=== PATIENT | female | born 1955 | race Caucasian/White ===

== ENCOUNTER → 2019-07-03 | Outpatient (CLI) | payer SELFPAY ==
[~2019-07-03] MED LIST: ATOR40TA70 PO; CARV6.252 PO; CATHETER FLUSH 10 ML SYR IV PRN; CLOP75TA69 PO; HOLD METFORMIN - RECEIVED CONTRAST 20 ML VIAL IV SCH; IOHEXOL 350 MG/ML 100 ML (OMNIPAQUE 350) VIAL IV ONE; NS 100 ML (IVPB) BAG IV ONE; VALS80TA31 PO
--- NOTE | 2019-07-03 09:59 | Diagnostic Imaging Report ---
PROCEDURE: CT abdomen with contrast only. TECHNIQUE: Multiple contiguous axial images were obtained through the abdomen after the administration of intravenous contrast. Auto Exposure Controls were utilized during the CT exam to meet ALARA standards for radiation dose reduction. INDICATION: Vomiting, diarrhea, abdominal mass. COMPARISON: None available FINDINGS: 0.5 cm left lower lobe pulmonary nodule. The visualized lung bases are otherwise clear. The liver, spleen, and adrenal glands are unremarkable. The kidneys are unremarkable. The gallbladder is borderline distended though there is no significant inflammatory changes about the gallbladder. Extensive vascular calcifications within the abdominal aorta and its branch vessels without aneurysmal dilatation of the abdominal aorta. There is resulting moderate narrowing of the origin of the celiac artery with at least mild narrowing of the origin of the superior mesenteric artery. The pancreas is unremarkable. An irregular peripherally enhancing fluid collection is noted within the left abdomen measuring 8.0 x 6.2 x 4.9 cm. Small locule of gas is seen within this fluid collection. This fluid collection is intimately associated with the distal aspect of the transverse colon, and also slightly abuts the descending colon. Diffuse mural thickening of the colon. No evidence of bowel obstruction within the [id number]-ceju. Prominent periaortic lymph nodes are present, particularly left para-aortic lymph nodes. Scattered osseous degenerative changes without acute osseous abnormality. IMPRESSION: Prominent 8 cm peripherally enhancing focal fluid collection within the left abdomen. Findings are concerning for abscess formation given small intralocular gas. This appears to be most intimately associated with the distal aspect of the transverse colon. Therefore, this could relate to abscess formation and focal contained perforation secondary to diverticulitis. Mass lesion at this location is not excluded. Periaortic adenopathy, though nonspecific, this is favored to be reactive. A 0.5 cm left lower lobe pulmonary nodule. Indeterminate. Recommend correlation with prior imaging if available. If no prior imaging is available, then a nonemergent CT of the chest be recommended. Diffuse mural thickening of the visualized colon, likely related to colitis, from infectious or inflammatory process. Extensive vascular calcifications. There is resulting narrowing of the celiac and superior mesenteric origins as above. Called/Faxed to Jose Estrella APRN at 9:56 a.m. by hilda. Dictated by: Dictated on workstation # [id number]
== END ==
LOC: RAD 08:23
PROVIDERS: ATTEND Nurse Practitioner Family
DX: K63.89 Other specified diseases of intestine (principal); I70.8 Atherosclerosis of other arteries; R91.1 Solitary pulmonary nodule; R18.8 Other ascites; R11.10 Vomiting, unspecified; R19.7 Diarrhea, unspecified; R19.04 Left lower quadrant abdominal swelling, mass and lump
CPT/HCPCS: 74160

== ENCOUNTER → 2019-07-20 | Outpatient (CLI) | payer SELFPAY ==
[~2019-07-20] MED LIST changes: -CATHETER FLUSH 10 ML SYR IV PRN; -HOLD METFORMIN - RECEIVED CONTRAST 20 ML VIAL IV SCH; -IOHEXOL 350 MG/ML 100 ML (OMNIPAQUE 350) VIAL IV ONE; -NS 100 ML (IVPB) BAG IV ONE
--- NOTE | 2019-07-20 14:39 | Diagnostic Imaging Report ---
PROCEDURE: CT abdomen and pelvis without contrast. TECHNIQUE: Multiple contiguous axial images were obtained through the abdomen and pelvis without the use of intravenous contrast. Auto Exposure Controls were utilized during the CT exam to meet ALARA standards for radiation dose reduction. INDICATION: Left lower quadrant abscess, status post percutaneous drain placement on 07/06/2019. The study is performed for follow-up. COMPARISON: Comparison is made with conventional CT study from 07/03/[address] from 07/06/2019. FINDINGS: Tiny nodules in the posterior left lower lobe are stable. There is a very small right pleural effusion, new since prior CT. There is a percutaneous pigtail drain identified in the left lower quadrant of the abdomen. Previously noted fluid collection at this location has resolved. No residual fluid is seen. There is some residual thickening involving the descending colon just cephalad to the loop. No bowel obstruction is seen. No new fluid collection is identified. There is no free fluid identified. The liver and spleen are unremarkable. Pancreas is unremarkable. No adrenal mass is seen. No renal calculi are detected. Aorta is heavily calcified but non-aneurysmal. IMPRESSION: 1. Small right pleural effusion, new since prior CT. 2. Resolution of left lower quadrant fluid collection since prior CTs, status post pigtail percutaneous drain placement. No new abdominal or pelvic fluid collection is identified. Dictated by: Dictated on workstation # [id number]
== END ==
LOC: RAD 13:40
PROVIDERS: ATTEND Surgery
DX: K65.1 Peritoneal abscess (principal); J90 Pleural effusion, not elsewhere classified; Z98.890 Other specified postprocedural states
CPT/HCPCS: 74176

== ENCOUNTER 2019-07-28 18:36 | Inpatient (IN) | payer OTHER ==
[~2019-07-28] VITALS: Ht 149.8 cm; Wt 46.0 kg
--- NOTE | 2019-07-28 19:11 | NUR ---
no drain tube is currently present, pt has post drain removal concerns
[2019-07-28] MEDS ORDERED: NS IV 1000 ML 1,000 ML IV SCH (20:07)
--- NOTE | 2019-07-28 20:13 | ED Abdominal Pain ---
General Chief Complaint: Catheter/Drain/Tube Problems Stated Complaint: POST DRAIN TUBE CONCERNS Nursing Triage Note: had drain tube in LLQ that has been removed, now has knot at drain tube site that is painful Sepsis Screen: No Definite Risk Source of Information: Patient Exam Limitations: No Limitations History of Present Illness Date Seen by Provider: Jul 28, 2019 Time Seen by Provider: 19:58 Initial Comments Patient presents to ER by private conveyance with chief complaint that she's having some left lower quadrant abdominal wall pain and feels a knot there. About a week ago she had a drain tube removed where she had some abscesses in her left lower quadrant abdomen drained by Dr. Campbell. Appetite was soft non- painful in the last couple days to become painful. She's had no fevers she is a bonilla of. She just takes [id number]-gfp-chqszob Tylenol or ibuprofen as necessary for pain. She is having some nausea as well and has not been able take her medications. She has a heart history on Plavix, valsartan, atorvastatin. She does not know the original cause of the abscesses and nothing was found on CT scan such as diverticulitis to explain it. She did not end up needing surgery. She's not having any discharge from the skin. The scar is well-healed. No painful urination. She supposed to be on beta blockers, carvedilol but be because of the nausea and vomiting has not had any medication for the past 2 days. Allergies and Home Medications Allergies Coded Allergies: codeine (Verified Adverse Reaction, Unknown, 07/06/19) "CAUSES HALLUCINATIONS" Home Medications Atorvastatin Calcium 40 Mg Tablet, 40 MG PO DAILY, (Reported) Carvedilol 6.25 Mg Tablet, 6.25 MG PO BID, (Reported) Clopidogrel Bisulfate 75 Mg Tablet, 75 MG PO DAILY, (Reported) Valsartan 80 Mg Tablet, 80 MG PO DAILY, (Reported) Patient Home Medication List Home Medication List Reviewed: Yes Review of Systems Review of Systems Constitutional: No chills, No diaphoresis EENTM: No Blurred Vision, No Double Vision Respiratory: Denies Cough, Denies Orthopnea Cardiovascular: Denies Chest Pain, Denies Edema Gastrointestinal: See HPI; Denies Abdomen Distended; Abdominal Pain, Nausea, Poor Fluid Intake, Vomiting Genitourinary: Denies Burning, Denies Discharge Musculoskeletal: No back pain, No joint pain Skin: see HPI; No pruritus, No rash All Other Systems Reviewed Negative Unless Noted: Yes Past Geoixlu-Atqjco-Wbjifr Hx Patient Social History Alcohol Use: Denies Use Recreational Drug Use: No Smoking Status: Current Everyday Smoker Type Used: Cigarettes 2nd Hand Smoke Exposure: Yes Recent Foreign Travel: No Contact w/Someone Who Travel: No Recent Infectious Disease Expo: No Recent Hopitalizations: No Immunizations Up To Date Tetanus Booster (TDap): Unknown Seasonal Allergies Seasonal Allergies: No Past Medical History Coronary Stent, Hysterectomy, Tonsillectomy Respiratory: No Cardiac: Yes Heart Attack Neurological: No [employer] History: Hysterectomy Genitourinary: No Gastrointestinal: No Musculoskeletal: No Endocrine: No HEENT: No Cancer: No Psychosocial: No Integumentary: No Blood Disorders: No Physical Exam Vital Signs Vital Signs - First Documented 07/28/19 19:05 Temp 36.6 Pulse 133 Resp 18 B/P (MAP) 92/60 (71) Capillary Refill : Less Than 3 Seconds Height/Weight/BMI Height: '" Weight: lbs. oz. kg; 16.00 BMI Method: General Appearance: WD/WN, mild distress HEENT: PERRL/EOMI, normal ENT inspection, pharynx normal Neck: full range of motion, normal inspection Respiratory: no respiratory distress, no accessory muscle use Cardiovascular: normal peripheral pulses, regular rate, rhythm Peripheral Pulses: 2+ Radial Pulses (R), 2+ Radial Pulses (L) Gastrointestinal: normal bowel sounds, soft, no organomegaly, tenderness ([place] quadrant there is a 2 x 3 cm palpable nodule about 3 cm below the inferior costal margin in the midaxillary line. No fluctuance. Feels firm, rubbery. Well-healed scar about it) Neurologic/Psychiatric: alert, normal mood/affect, oriented x 3 Skin: normal color, warm/dry Focused Exam Lactate Level 07/28/19 19:20: Lactic Acid Level 1.07 Lactic Acid Level Laboratory Tests Test 07/28/19 19:20 Lactic Acid Level 1.07 MMOL/L (0.50-2.00) Progress/Results/Core Measures Results/Orders Lab Results Laboratory Tests Test 07/28/19 19:20 07/28/19 22:30 Range/Units White Blood Count 8.3 4.3-11.0 10^3/uL Red Blood Count 3.13 L 4.35-5.85 10^6/uL Hemoglobin 8.6 L 11.5-16.0 G/DL Hematocrit 28 L 35-52 % Mean Corpuscular Volume 89 80-99 FL Mean Corpuscular Hemoglobin 28 25-34 PG Mean Corpuscular Hemoglobin Concent 31 L 32-36 G/DL Red Cell Distribution Width 22.0 H 10.0-14.5 % Platelet Count 524 H 130-400 10^3/uL Mean Platelet Volume 9.8 7.4-10.4 FL Neutrophils (%) (Auto) 61 42-75 % Lymphocytes (%) (Auto) 27 12-44 % Monocytes (%) (Auto) 11 0-12 % Eosinophils (%) (Auto) 1 0-10 % Basophils (%) (Auto) 0 0-10 % Neutrophils # (Auto) 5.1 1.8-7.8 X 10^3 Lymphocytes # (Auto) 2.2 1.0-4.0 X 10^3 Monocytes # (Auto) 0.9 0.0-1.0 X 10^3 Eosinophils # (Auto) 0.1 0.0-0.3 10^3/uL Basophils # (Auto) 0.0 0.0-0.1 10^3/uL Prothrombin Time 13.3 12.2-14.7 SEC INR Comment 1.0 0.8-1.4 Activated Partial Thromboplast Time 35 24-35 SEC Sodium Level 138 135-145 MMOL/L Potassium Level 3.2 L 3.6-5.0 MMOL/L Chloride Level 103 98-107 MMOL/L Carbon Dioxide Level 23 21-32 MMOL/L Anion Gap 12 5-14 MMOL/L Blood Urea Nitrogen 8 7-18 MG/DL Creatinine 0.49 L 0.60-1.30 MG/DL Estimat Glomerular Filtration Rate > 60 BUN/Creatinine Ratio 16 Glucose Level 93 70-105 MG/DL Lactic Acid Level 1.07 0.50-2.00 MMOL/L Calcium Level 8.6 8.5-10.1 MG/DL Corrected Calcium 9.6 8.5-10.1 MG/DL Total Bilirubin 0.3 0.1-1.0 MG/DL Aspartate Amino Transf (AST/SGOT) 14 5-34 U/L Alanine Aminotransferase (ALT/SGPT) 8 0-55 U/L Alkaline Phosphatase 176 H 40-136 U/L Total Protein 6.2 L 6.4-8.2 GM/DL Albumin 2.8 L 3.2-4.5 GM/DL Urine Color YELLOW Urine Clarity CLEAR Urine pH 7 5-9 Urine Specific [place] 1.005 L 1.016-1.022 Urine Protein 1+ H NEGATIVE Urine Glucose (UA) NEGATIVE NEGATIVE Urine Ketones NEGATIVE NEGATIVE Urine Nitrite NEGATIVE NEGATIVE Urine Bilirubin NEGATIVE NEGATIVE Urine Urobilinogen NORMAL NORMAL MG/DL Urine Leukocyte Esterase NEGATIVE NEGATIVE Urine RBC (Auto) NEGATIVE NEGATIVE Urine RBC NONE /HPF Urine WBC 0-2 /HPF Urine Squamous Epithelial Cells 0-2 /HPF Urine Crystals NONE /LPF Urine Bacteria TRACE /HPF Urine Casts NONE /LPF Urine Mucus NEGATIVE /LPF Urine Culture Indicated CULTURE PENDING My Orders Orders - MO BOWMAN Ed Iv/Invasive Line Start (07/28/19 19:54) Cbc With Automated Diff (07/28/19 20:07) Comprehensive Metabolic Panel (07/28/19 20:07) Blood Culture (07/28/19 20:07) Urinalysis (07/28/19 20:07) Urine Culture (07/28/19 20:07) Protime With Inr (07/28/19 20:07) Partial Thromboplastin Time (07/28/19 20:07) Chest 1 View, Ap/Pa Only (07/28/19 20:07) Ed Iv/Invasive Line Start (07/28/19 20:07) Ed Iv/Invasive Line Start (07/28/19 20:07) Vital Signs Adult Sepsis Patie Q15M (07/28/19 20:07) O2 (07/28/19 20:07) Remove Rings In Anticipation O (07/28/19 20:07) Lactic Acid Analyzer (07/28/19 20:07) Ns Iv 1000 Ml (Sodium Chloride 0.9%) (07/28/19 20:07) Ceftriaxone For Iv Use (Rocephin For I (07/28/19 20:15) Metronidazole 500mg/100ml Ivpb (Flagyl 5 (07/28/19 20:15) Ct Abdomen/Pelvis W (07/28/19 20:08) Ondansetron Injection (Zofran Injectio (07/28/19 20:30) Iohexol Injection (Omnipaque 350 Mg/Ml 1 (07/28/19 21:00) Received Contrast (Hold Metformin- Contr (07/28/19 21:00) Ns (Ivpb) (Sodium Chloride 0.9% Ivpb Bag (07/28/19 21:00) Fentanyl Injection (Sublimaze Injection (07/28/19 23:15) Medications Given in ED Current Medications Medications Dose Ordered Sig/Tatum Route Start Time Stop Time Status Last Admin Dose Admin Ceftriaxone Sodium 1000 mg/ Sterile Water 10 ml @ 200 mls/hr ONCE ONCE IV 07/28/19 20:15 07/28/19 20:17 DC 07/28/19 20:29 200 MLS/HR Iohexol 100 ml ONCE ONCE IV 07/28/19 21:00 07/28/19 21:36 DC 07/28/19 21:07 100 ML Metronidazole 100 ml @ 100 mls/hr ONCE ONCE IV 07/28/19 20:15 07/28/19 21:14 DC 07/28/19 20:34 100 MLS/HR Ondansetron HCl 8 mg ONCE ONCE IVP 07/28/19 20:30 07/28/19 20:31 DC 07/28/19 20:32 8 MG Sodium Chloride 100 ml ONCE ONCE IV 07/28/19 21:00 07/28/19 21:36 DC 07/28/19 21:07 100 ML Vital Signs/I&O 07/28/19 19:05 Temp 36.6 Pulse 133 Resp 18 B/P (MAP) 92/60 (71) Blood Pressure Mean: 71 POS Progress Progress Note : Time: 20:12 Progress Note Seroma versus recurrent abscess in the abdominal wall/cavity. Plan to get a CT scan of her abdomen and pelvis. Because of her tachycardia were doing a septic workup but she is afebrile this could also be because she is off of her carvedilol. Plan to give her some nausea medicine and fluids We discussed pain management and since she drove all the way down from [place] she would prefer not to have opiates or anything that might make her have a hard time driving home unless shestaying here. She says she's comfortable enough with the pain for now. I would prefer not to give her anything orally until we rule out a surgical intervention. NSAIDs may not be a good option since she's been off of her Plavix and heart medications and she's had is a history of 2 heart attacks. Diagnostic Imaging Diagonstic Imaging: CT (with IV contrast) Plain Films/CT/US/NM/MRI: abdomen, pelvis Comments Loculated, fluid collection possible abscess versus less likely seroma noted in the left lower abdomen. NAME: ALDO YEE [facility] REC#: [id number] PT STATUS: REG ER : 1955 PHYSICIAN: MO BOWMAN MD ADMIT DATE: 07/28/19/ER Draft POSDate of Exam:07/28/19 CT ABDOMEN/PELVIS W EXAMINATION: CT Abdomen and Pelvis with intravenous contrast. TECHNIQUE: Multiple contiguous axial images were obtained through the abdomen and pelvis after the uneventful administration of intravenous contrast. All CT scans use one or more of the following dose optimizing techniques: automated exposure control, MA and/or KvP adjustment based on a patient size and exam type, or iterative reconstruction. HISTORY: Left lower quadrant pain COMPARISON: 07/20/2019 FINDINGS: Limited views of the lower thorax are unremarkable. There is a new 5 mm hypoattenuating lesion in hepatic segment IVb (series 2, image 25). This has surrounding hyperenhancement and is ill-defined on the delayed image. No other liver lesions are seen. Gallbladder is normal. No biliary ductal dilation. Portal vein is patent. Pancreas is normal. Spleen and adrenal glands are normal. Kidneys enhance symmetrically without focal lesion. No hydronephrosis. Urinary bladder is distended. The left lower quadrant gas and fluid collection which previously had a drain is now no longer being drained. There is a gas and fluid collection at this location measuring 4.5 x 3.3 cm, this is increased in size from prior CT dated 07/20/2019 but smaller than the original CT. There is extension of the process through the abdominal wall where there is an ill-defined phlegmonous area measuring approximately 12 mm in the left lower quadrant (series 2, image 37). This is not a well-developed fluid collection at this time but is likely developing into an abscess. The collection is intimately associated with the proximal splenic flexure of the colon and there is a fistulous tract extending from this portion of the colon into the collection and then into the abdominal wall concerning for a colocutaneous fistula. The upstream colon is dilated and thick-walled concerning for partial obstruction from the inflammatory process. Remaining bowel appears normal. No free air is seen. The abdominal aorta is severely atherosclerotic without aneurysm. There are no suspicious osseous lesions. IMPRESSION: 1. Reaccumulation of fluid in the left lower quadrant abscess. There appears to be a fistulous connection to the distal transverse colon through the abdominal wall to the skin concerning for a colocutaneous fistula. While this may represent focal perforation of the colon from an inflammatory process, the degree of soft tissue thickening is concerning for a perforated colon tumor. 2. New ill-defined hypoattenuating lesion in hepatic segment V measuring 5 mm which is favored to represent hepatic abscess. Dictated on workstation # [id number] Dict: 07/28/192141 Trans: 07/28/192205 RITO [id number] Interpreted by: NATHAN BELL MD Electronically signed by: Reviewed: Reviewed by Me Diagonstic Imaging: Xray Plain Films/CT/US/NM/MRI: chest (1v) Comments No acute cardiopulmonary process noted on one view chest x-ray. NAME: ALDO YEE [facility] REC#: [id number] PT STATUS: REG ER : 1955 PHYSICIAN: MO BOWMAN MD ADMIT DATE: 07/28/19/ER Draft POSDate of Exam:07/28/19 CHEST 1 VIEW, AP/PA ONLY EXAMINATION: Chest 1 view HISTORY: Tube removal FINDINGS: No comparison available. Lungs are hyperexpanded. No pleural effusion or pneumothorax. No edema or pneumonia. Heart size is normal. IMPRESSION: 1. Hyperexpanded but clear lungs. Dictated on workstation # [id number] Dict: 07/28/192111 Trans: 07/28/192118 RITO [id number] Interpreted by: NATHAN BELL MD Electronically signed by: Reviewed: Reviewed by Me Departure Communication (Admissions) Time/Spoke to Admitting Phy: 23:15 Dr. Freeman: Discussed case lab imaging findings and she would like the patient on stepdown. She is okay with antibiotics and recommendations from surgery. Time/Spoke to Consulting Phy: 23:00 Dr. Campbell: Richard Grimm, NPO. Medical consult. Impression Primary Impression: Colonic fistula Additional Impression: Abdominal abscess Disposition: ADMITTED INPATIENT Condition: Stable Admissions Decision to Admit Reason: Admit from ER (General) Decision to Admit/Date: Jul 28, 2019 Time/Decision to Admit Time: 22:50 Departure-Patient Inst. Referrals: [facility] (PCP) Primary Care Physician HUY NASCIMENTO APRN (Family) Primary Care Physician OM BOWMAN Jul 28, 2019 20:13 POS
[2019-07-28 20:14] LABS: BASOPHILS % (AUTO) 0 % (0-10); EOSINOPHILS # (AUTO) 0.1 10^3/uL (0.0-0.3); EOSINOPHILS % (AUTO) 1 % (0-10); HEMATOCRIT 28 % (35-52); HEMOGLOBIN 8.6 G/DL (11.5-16.0); LYMPHOCYTES # (AUTO) 2.2 X 10^3 (1.0-4.0); LYMPHOCYTES % (AUTO) 27 % (12-44); MEAN CORPUSCULAR HEMOGLOBIN 28 PG (25-34); MEAN CORPUSCULAR HGB CONC 31 G/DL (32-36); MEAN CORPUSCULAR VOLUME 89 FL (80-99); MEAN PLATELET VOLUME 9.8 FL (7.4-10.4); MONOCYTES # (AUTO) 0.9 X 10^3 (0.0-1.0); MONOCYTES % (AUTO) 11 % (0-12); NEUTROPHILS # (AUTO) 5.1 X 10^3 (1.8-7.8); NEUTROPHILS % (AUTO) 61 % (42-75); PLATELET COUNT 524 10^3/uL (130-400); WHITE BLOOD COUNT 8.3 10^3/uL (4.3-11.0)
[2019-07-28] MEDS ORDERED: metroNIDAZOLE 500MG/100ML IVPB 100 ML IV ONE (20:15)
[2019-07-28] MEDS ORDERED: cefTRIAXone FOR IV USE 1,000 MG in WATER (STERILE) FOR INJECTION 10 ML IV ONE (20:15)
[2019-07-28 20:26] LABS: PROTHROMBIN TIME PATIENT 13.3 SEC (12.2-14.7)
[2019-07-28 20:27] LABS: ALANINE AMINOTRANSFERASE 8 U/L (0-55); ALBUMIN 2.8 GM/DL (3.2-4.5); ALKALINE PHOSPHATASE 176 U/L (40-136); BILIRUBIN,TOTAL 0.3 MG/DL (0.1-1.0); BUN/CREATININE RATIO 16; CALCIUM 8.6 MG/DL (8.5-10.1); CARBON DIOXIDE 23 MMOL/L (21-32); CHLORIDE 103 MMOL/L (98-107); CREATININE SERUM 0.49 MG/DL (0.60-1.30); GFR ESTIMATED > 60; GLUCOSE 93 MG/DL (70-105); POTASSIUM 3.2 MMOL/L (3.6-5.0); SODIUM 138 MMOL/L (135-145); TOTAL PROTEIN 6.2 GM/DL (6.4-8.2)
[2019-07-28] MEDS ORDERED: ONDANSETRON 4 MG/2 ML (SDV) Z0FRAN IVP ONE (20:30)
[2019-07-28] MEDS ORDERED: HOLD METFORMIN - RECEIVED CONTRAST 20 ML VIAL IV SCH (21:00)
[2019-07-28] MEDS ORDERED: NS 100 ML (IVPB) BAG IV ONE (21:00)
[2019-07-28] MEDS ORDERED: IOHEXOL 350 MG/ML 100 ML (OMNIPAQUE 350) VIAL IV ONE (21:00)
--- NOTE | 2019-07-28 21:20 | Diagnostic Imaging Report ---
EXAMINATION: Chest 1 view HISTORY: Tube removal FINDINGS: No comparison available. Lungs are hyperexpanded. No pleural effusion or pneumothorax. No edema or pneumonia. Heart size is normal. IMPRESSION: 1. Hyperexpanded but clear lungs. Dictated by: Dictated on workstation # [id number]
--- NOTE | 2019-07-28 22:06 | Diagnostic Imaging Report ---
EXAMINATION: CT Abdomen and Pelvis with intravenous contrast. TECHNIQUE: Multiple contiguous axial images were obtained through the abdomen and pelvis after the uneventful administration of intravenous contrast. All CT scans use one or more of the following dose optimizing techniques: automated exposure control, MA and/or KvP adjustment based on a patient size and exam type, or iterative reconstruction. HISTORY: Left lower quadrant pain COMPARISON: 07/20/2019 FINDINGS: Limited views of the lower thorax are unremarkable. There is a new 5 mm hypoattenuating lesion in hepatic segment IVb (series 2, image 25). This has surrounding hyperenhancement and is ill-defined on the delayed image. No other liver lesions are seen. Gallbladder is normal. No biliary ductal dilation. Portal vein is patent. Pancreas is normal. Spleen and adrenal glands are normal. Kidneys enhance symmetrically without focal lesion. No hydronephrosis. Urinary bladder is distended. The left lower quadrant gas and fluid collection which previously had a drain is now no longer being drained. There is a gas and fluid collection at this location measuring 4.5 x 3.3 cm, this is increased in size from prior CT dated 07/20/2019 but smaller than the original CT. There is extension of the process through the abdominal wall where there is an ill-defined phlegmonous area measuring approximately 12 mm in the left lower quadrant (series 2, image 37). This is not a well-developed fluid collection at this time but is likely developing into an abscess. The collection is intimately associated with the proximal splenic flexure of the colon and there is a fistulous tract extending from this portion of the colon into the collection and then into the abdominal wall concerning for a colocutaneous fistula. The upstream colon is dilated and thick-walled concerning for partial obstruction from the inflammatory process. Remaining bowel appears normal. No free air is seen. The abdominal aorta is severely atherosclerotic without aneurysm. There are no suspicious osseous lesions. IMPRESSION: 1. Reaccumulation of fluid in the left lower quadrant abscess. There appears to be a fistulous connection to the distal transverse colon through the abdominal wall to the skin concerning for a colocutaneous fistula. While this may represent focal perforation of the colon from an inflammatory process, the degree of soft tissue thickening is concerning for a perforated colon tumor. 2. New ill-defined hypoattenuating lesion in hepatic segment V measuring 5 mm which is favored to represent hepatic abscess. Dictated by: Dictated on workstation # [id number]
[2019-07-28 22:36] LABS: BILIRUBIN,URINE NEGATIVE (NEGATIVE); CLARITY,URINE CLEAR; COLOR,URINE YELLOW; GLUCOSE, URINE (UA) NEGATIVE (NEGATIVE); KETONES,URINE NEGATIVE (NEGATIVE); LEUKOCYTE ESTERASE ,URINE NEGATIVE (NEGATIVE); NITRITE,URINE NEGATIVE (NEGATIVE); PH,URINE 7 (5-9); PROTEIN,URINE 1+ (NEGATIVE)
[2019-07-28 22:43] LABS: BACTERIA,URINE TRACE /HPF; WBC,URINE 0-2 /HPF
[2019-07-28 22:44] LABS: SQUAMOUS EPITHELIAL CELL,UR 0-2 /HPF
[2019-07-28] MEDS ORDERED: fentaNYL INJECTION 100 MCG/2 ML AMP IVP ONE (23:15)
[2019-07-28] MEDS ORDERED: VARE1TAB22 PO (23:30)
[2019-07-29] VITALS (8 sets, daily range): BP systolic 92–147; BP diastolic 43–87
[2019-07-29] MEDS ORDERED: LACTATED RINGERS 1,000 ML IV ONE (00:30)
[2019-07-29] MEDS: fentaNYL INJECTION 100 MCG/2 ML AMP IV PRN ×7 (01:00→22:10)
[2019-07-29] MEDS ORDERED: ACETAMINOPHEN 650 MG SUPP (TYLENOL) PR PRN (02:00)
[2019-07-29 03:49] LABS: BASOPHILS % (AUTO) 0 % (0-10); EOSINOPHILS # (AUTO) 0.1 10^3/uL (0.0-0.3); EOSINOPHILS % (AUTO) 1 % (0-10); HEMATOCRIT 26 % (35-52); HEMOGLOBIN 7.9 G/DL (11.5-16.0); LYMPHOCYTES # (AUTO) 1.6 X 10^3 (1.0-4.0); LYMPHOCYTES % (AUTO) 22 % (12-44); MEAN CORPUSCULAR HEMOGLOBIN 27 PG (25-34); MEAN CORPUSCULAR HGB CONC 31 G/DL (32-36); MEAN CORPUSCULAR VOLUME 89 FL (80-99); MEAN PLATELET VOLUME 9.6 FL (7.4-10.4); MONOCYTES # (AUTO) 0.8 X 10^3 (0.0-1.0); MONOCYTES % (AUTO) 10 % (0-12); NEUTROPHILS % (AUTO) 67 % (42-75); PLATELET COUNT 449 10^3/uL (130-400); RED CELL DISTRIBUTION WIDTH 21.8 % (10.0-14.5); WHITE BLOOD COUNT 7.6 10^3/uL (4.3-11.0)
[2019-07-29 04:15] LABS: ALANINE AMINOTRANSFERASE 6 U/L (0-55); ALBUMIN 2.4 GM/DL (3.2-4.5); ALKALINE PHOSPHATASE 145 U/L (40-136); BILIRUBIN,TOTAL 0.3 MG/DL (0.1-1.0); BUN/CREATININE RATIO 14; CALCIUM 7.8 MG/DL (8.5-10.1); CARBON DIOXIDE 21 MMOL/L (21-32); CHLORIDE 106 MMOL/L (98-107); CREATININE SERUM 0.44 MG/DL (0.60-1.30); GFR ESTIMATED > 60; GLUCOSE 78 MG/DL (70-105); POTASSIUM 3.4 MMOL/L (3.6-5.0); SODIUM 138 MMOL/L (135-145); TOTAL PROTEIN 5.3 GM/DL (6.4-8.2)
[2019-07-29 04:53] LABS: MAGNESIUM 1.5 MG/DL (1.6-2.4); PHOSPHORUS 3.1 MG/DL (2.3-4.7)
--- NOTE | 2019-07-29 05:36 | Pulmonary Consultation ---
History of Present Illness History of Present Illness Date of Consultation 07/29/19 05:32 Time Seen by Provider: 09:01 Date of Admission History of Present Illness 64yo with hx of recent LLQ abscess drainage presented to ED secondary to worsening LLQ severe pain. PT also had N/V with abdominal pain. Pt does have a hx of diverticulosis. No hematochezia, or diarrhea. Plan is for surgery. I am consulted for ICU management. Allergies and Home Medications Allergies Coded Allergies: codeine (Verified Adverse Reaction, Unknown, 07/06/19) "CAUSES HALLUCINATIONS" Home Medications Aspirin 81 Mg Tablet.dr, 81 MG PO DAILY, (Reported) Atorvastatin Calcium 40 Mg Tablet, 40 MG PO HS, (Reported) LAST FILLED #30 06-11-19 Carvedilol 6.25 Mg Tablet, 6.25 MG PO BID, (Reported) LAST FILLED #60 06-11-19 Clopidogrel Bisulfate 75 Mg Tablet, 75 MG PO DAILY, (Reported) LAST FILLED #30 06-11-19 Losartan Potassium 50 Mg Tablet, 50 MG PO HS, (Reported) LAST FILLED #30 06-11-19 Multivitamin 1 Each Tablet, 1 TAB PO DAILY, (Reported) Past Yoizfzc-Bzmqms-Ufeaqc Hx Patient Social History Alcohol Use: Denies Use Recreational Drug Use: No Smoking Status: Current Everyday Smoker Type Used: Cigarettes 2nd Hand Smoke Exposure: Yes Recent Foreign Travel: No Contact w/Someone Who Travel: No Recent Infectious Disease Expo: No Recent Hopitalizations: No Immunizations Up To Date Tetanus Booster (TDap): Unknown Seasonal Allergies Seasonal Allergies: No Past Medical History Coronary Stent, Hysterectomy, Tonsillectomy Respiratory: No Cardiac: Yes Heart Attack 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 Genitourinary: No Gastrointestinal: No Musculoskeletal: No Endocrine: No HEENT: No Cancer: No Psychosocial: No Integumentary: No Blood Disorders: No Review of Systems Time Seen by Provider: 09:04 Constitutional: Chills, Sweats, Weakness, Malaise; No: Fever, Other Eyes: No: Pain, Vision change, Conjunctivae inflammation, Eyelid inflammation, Other, Redness ENT: No: Ear pain, Ear discharge, Nose pain, Nose discharge, Nose congestion, Mouth pain, Mouth swelling, Throat pain, Throat swelling, Other Respiratory: No: Cough, Dry, Shortness of breath, SOB with excertion, Wheezing, Hemoptysis, Pleuritic Pain, Sputum, Wheezing, Other Cardiovascular: No: Chest Pain, Palpitations, Orthopnea, Paroxysmal Noc. Dyspnea, Edema, Lt Headedness, Other Gastrointestinal: Nausea, Vomiting, Abdominal Pain, Constipation; No: Diarrhea, Melena, Hematochezia Genitourinary: No Dysuria, No Frequency, No Incontinence, No Hematuria, No Retention, No Other Musculoskeletal: back pain; No: other, neck pain, shoulder pain, arm pain, hand pain, leg pain, foot pain Skin: No: Rash, Lesions, Jaundice, Bruising, Other Sepsis Event Evaluation Height, Weight, BMI Height: '" Weight: lbs. oz. kg; 16.80 BMI Method: Exam Exam Vital Signs Date Time Temp Pulse Resp B/P (MAP) Pulse Ox O2 Delivery O2 Flow Rate FiO2 07/29/19 04:00 92 Room Air 07/29/19 01:11 37.2 110 10 147/87 95 Room Air 07/29/19 01:03 95 Room Air 07/29/19 01:00 112 07/29/19 00:09 107 147/87 (107) 96 Room Air 07/29/19 00:02 36.6 72 18 115/84 99 Room Air 07/28/19 19:05 36.6 133 18 92/60 (71) I & O 07/29/19 07:00 Intake Total 1110 ml Balance 1110 ml Height & Weight Height: '" Weight: lbs. oz. kg; 16.80 BMI Method: General Appearance: Anxious HEENT: PERRL/EOMI, Pharynx Normal Neck: Full Range of Motion, Non Tender, Supple Respiratory: Lungs Clear, No Accessory Muscle Use, No Respiratory Distress, Decreased Breath Sounds Cardiovascular: Regular Rate, Rhythm, No Edema Capillary Refill: Less Than 3 Seconds Peripheral Pulses: 2+ Radial Pulses (R), 2+ Radial Pulses (L) Gastrointestinal: normal bowel sounds, soft, no organomegaly, tenderness (Kristofer quadrant there is a 2 x 3 cm palpable nodule about 3 cm below the inferior costal margin in the midaxillary line. No fluctuance. Feels firm, rubbery. Well-healed scar about it) Extremity: Normal Capillary Refill, No Pedal Edema Neurologic/Psychiatric: Alert, Oriented x3 Skin: Normal Color, Warm/Dry Lymphatic: No Adenopathy Results Lab Laboratory Tests 07/28/19 19:20 07/29/19 02:55 Assessment/Plan Assessment/Plan Abdominal abscess s/p drainage 2 wks ago Colonic fistula - Surgery consulted Tobacco use -Education ENDY MOLINA DO Jul 29, 2019 05:36 POS
[2019-07-29] MEDS: MAGNESIUM 1 GM/100 ML IVPB 100 ML IV SCH ×4 (05:51→08:07)
[2019-07-29] MEDS: POTASSIUM CL 10MEQ/50ML IVPB 50 ML IV SCH ×7 (05:51→10:19)
[2019-07-29] MEDS: KCL 20 MEQ TAB (K-DUR) PO SCH (05:52)
[2019-07-29] MEDS: metroNIDAZOLE 500 MG/100 ML IVPB (PRE-MIX) IV SCH ×3 (05:56→22:09)
[2019-07-29] MEDS ORDERED: FLU QUADRIvalent (5+ YOA) 2019-2020 (AFLURIA) 0.5 ML IM ONE (07:15)
[2019-07-29] MEDS: LACTATED RINGERS 1,000 ML IV SCH ×2 (09:44→14:42)
[2019-07-29] MEDS ORDERED: ASPI-983 PO (09:51)
[2019-07-29] MEDS ORDERED: MULT1TAB69 PO (09:51)
[2019-07-29] MEDS ORDERED: LOSA50TA63 PO (09:56)
--- NOTE | 2019-07-29 09:57 | NUR ---
SPOKE WITH THE PATIENT ABOUT HER MEDICATIONS. SHE HAD A LIST WITH HER HOWEVER IT WAS FROM 2016, SHE STATES SHE NO LONGER TAKING THE CHANTIX THAT IS ON THAT LIST AND HER VALSARTAN HAS BEEN CHANGED TO A DIFFERENT BLOOD PRESSURE MEDICATION. SHE WAS USING [facility] BEFORE THEY CLOSED AND TRANSFERRED THEIR RECORDS TO [facility] IN [place]. SHE [facility], SHE PLANS TO CHANGE TO [facility]. I CALLED [facility] TO GET A LIST OF MEDICATIONS THAT WERE LAST FILLED AT [facility]. [facility] FILLED: 06-11-19 LIPITOR 40MG #30 06-11-19 LOSARTAN 50MG #30 (STATES SHE TAKES AT HS) 06-11-19 PLAVIX 75MG #30 06-11-19 COREG 6.25MG #60 SHE STATES SHE HAS NOT FELT WELL FOR THE PAST FEW WEEKS AND HAS BEEN UNABLE TO KEEP MEDICATIONS DOWN AND THIS IS WHY SHE IS PAST DUE FOR REFILLS. SHE ADMITS SHE HAS NOT BEEN TAKING THEM REGULARLY RECENTLY. SHE TAKES ASPIRIN 81MG AND A MTV DAILY OTC.
[2019-07-29] MEDS ORDERED: GOLYTELY POWDER 4000 ML BTL PO ONE (11:30)
--- NOTE | 2019-07-29 12:01 | History & Physical-Hospitalist ---
History of Present Illness HPI/Chief Complaint CC: Abdominal Abscess HPI: This is a 64yoWF who has a PMH of a drain diversion by Dr. Campbell recently that presents with a mass of the left lower quadrant was found to have drainage and and evidenceof a colonic fistula and abscess on CT scan so Dr. Campbell has been consulted and he will perform colonoscopy and further evaluation of the fistula. She has been placed on broad spectrum antibiotics and she remains stable. Source: patient Exam Limitations: no limitations Date Seen 07/29/19 Time Seen by a Provider: 10:00 Attending Physician Lorraine Freeman DO [facility] [place],[facility] Referring Physician Date of Admission Jul 28, 2019 at 23:10 Home Medications & Allergies Home Medications Reviewed patient Home Medication Reconciliation performed by pharmacy medication reconciliations solar installer technician and/or nursing. Patients Allergies have been reviewed. Allergies Allergies Coded Allergies codeine (Verified Adverse Reaction, Unknown, 07/06/19) "CAUSES HALLUCINATIONS" Past Vafppsn-Aonvhj-Yigqgl Hx Past Med/Social Hx: Reviewed Nursing Past Med/Soc Hx, Reviewed and Corrections made Patient Social History Alcohol Use: Denies Use Recreational Drug Use: No Smoking Status: Current Everyday Smoker Type Used: Cigarettes 2nd Hand Smoke Exposure: Yes Recent Foreign Travel: No Contact w/other who traveled: No Recent Hopitalizations: No Recent Infectious Disease Expo: No Immunizations Up To Date Tetanus Booster (TDap): Unknown Seasonal Allergies Seasonal Allergies: No Past Medical History Surgeries: Coronary Stent, Hysterectomy, Tonsillectomy Cardiac: Heart Attack Hysterectomy History of Blood Disorders: No Review of Systems Constitutional: see HPI, malaise, weakness Skin: see HPI Physical Exam Physical Exam Vital Signs Vital Signs - First Documented 07/28/19 07/29/19 19:05 00:02 Temp 36.6 Pulse 133 Resp 18 B/P (MAP) 92/60 (71) Pulse Ox 99 O2 Delivery Room Air Capillary Refill : Less Than 3 Seconds Height, Weight, BMI Height: '" Weight: lbs. oz. kg; 16.80 BMI Method: General Appearance: No Apparent Distress, Chronically ill, Thin Eyes: Right Eye Normal Inspection, Right Eye PERRL HEENT: PERRL/EOMI, Normal ENT Inspection, Pharynx Normal, Moist Mucous Membranes Neck: Full Range of Motion, Normal Inspection, Non Tender Respiratory: Chest Non Tender, Lungs Clear, Normal Breath Sounds, No Accessory Muscle Use, No Respiratory Distress Cardiovascular: Regular Rate, Rhythm, No Edema, No Gallop, No JVD, No Murmur, Normal Peripheral Pulses Gastrointestinal: Normal Bowel Sounds, No Organomegaly, No Pulsatile Mass, Soft, Tenderness, Other (mass left lower quadrant SQ) Back: Normal Inspection, No CVA Tenderness, No Vertebral Tenderness Extremity: Normal Capillary Refill, Normal Inspection, Normal Range of Motion, Non Tender, No Calf Tenderness, No Pedal Edema Neurologic/Psychiatric: Alert, Oriented x3, No Motor/Sensory Deficits, Normal Mood/Affect Skin: Normal Color, Warm/Dry Lymphatic: No Adenopathy Results Results/Procedures Labs Laboratory Tests 07/28/19 19:20 07/29/19 02:55 07/30/19 03:20 Patient resulted labs reviewed. Assessment/Plan Admission Diagnosis Assessment: Abdominal wall abscess Fistula? Smoker Plan: IV abx Dr Campbell consultation Admission Status: Inpatient Order (span 2 midnights) Reason for Inpatient Admission: Abd abscess Diagnosis/Problems Diagnosis/Problems (1) Abdominal abscess Status: Acute (2) Colonic fistula Status: Acute LORRAINE FREEMAN DO Jul 29, 2019 12:01 POS
--- NOTE | 2019-07-29 12:16 | Consultation - Surgery ---
ISIS JACKSON,MED STUDENT 07/29/19 1216: History of Present Illness History of Present Illness Patient Consulted On(regino/time) 07/29/19 12:09 Date Seen by Provider: Jul 29, 2019 Time Seen by Provider: 06:55 History of Present Illness Ms. Pathak is a 64yo female who presented to the ED c/o LLQ abdominal pain that started Saturday night. She had an abscess in this area that was drained and a drainage tube was placed. This drainage tube was removed last week. She says the pain began gradually and was a 5/10 Saturday night, and had progressed to a 10/10 at ED presentation. She describes the pain as a sharp pain that comes and goes, is not associated with meals, and radiates toward the midline. Shifting herself and repositioning helps the pain somewhat. She also reports vomiting once Saturday night and once yesterday around noon, which did not contain blood. She reports having smaller than normal BM's, but denies diarrhea or blood in the stool. Allergies and Home Medications Allergies Coded Allergies: codeine (Verified Adverse Reaction, Unknown, 07/06/19) "CAUSES HALLUCINATIONS" Home Medications Aspirin 81 Mg Tablet.dr, 81 MG PO DAILY, (Reported) Atorvastatin Calcium 40 Mg Tablet, 40 MG PO HS, (Reported) LAST FILLED #30 06-11-19 Carvedilol 6.25 Mg Tablet, 6.25 MG PO BID, (Reported) LAST FILLED #60 06-11-19 Clopidogrel Bisulfate 75 Mg Tablet, 75 MG PO DAILY, (Reported) LAST FILLED #30 06-11-19 Losartan Potassium 50 Mg Tablet, 50 MG PO HS, (Reported) LAST FILLED #30 06-11-19 Multivitamin 1 Each Tablet, 1 TAB PO DAILY, (Reported) Past Irgswgx-Cquidm-Kkdlvt Hx Patient Social History Alcohol Use: Denies Use Recreational Drug Use: No Smoking Status: Current Everyday Smoker Type Used: Cigarettes (0.75 packs/day) 2nd Hand Smoke Exposure: Yes Recent Foreign Travel: No Contact w/Someone Who Travel: No Recent Infectious Disease Expo: No Recent Hopitalizations: No Immunizations Up To Date Tetanus Booster (TDap): Unknown Seasonal Allergies Seasonal Allergies: No Surgeries Surgeries: Coronary Stent, Hysterectomy, Tonsillectomy Respiratory History of Respiratory Disorde: No Cardiovascular History of Cardiac Disorders: Yes Cardiac Disorders: Heart Attack, High Cholesterol, Hypertension Neurological History of Neurological Disord: No 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 Genitourinary History of Genitourinary Disor: No Gastrointestinal History of Gastrointestinal Di: No Musculoskeletal History of Musculoskeletal Dis: No Endocrine History of Endocrine Disorders: No HEENT History of HEENT Disorders: No Cancer History of Cancer: No Psychosocial History of Psychiatric Problem: No Integumentary History of Skin or Integumenta: No Blood Transfusions History of Blood Disorders: No Family Medical History Significant Family History: Heart Disease (Father, two brothers), Diabetes (Grandmother) Review of Systems-General Constitutional: No chills, No diaphoresis, No fever; weight loss EENTM: No hearing loss, No blurred vision, No double vision, No vision loss Respiratory: No hemoptysis, No short of breath Cardiovascular: No chest pain, No edema, No palpitations Gastrointestinal: LLQ (Pain, worse with palpation); No diarrhea, No hematemesis, No melena; vomiting Genitourinary: No dysuria, No frequency, No hematuria, No pain Psychiatric/Neurological: Denies Numbness, Denies Tingling, Denies Weakness Physical Exam-General Problems Physical Exam Vital Signs Vital Signs - First Documented 07/28/19 07/29/19 19:05 00:02 Temp 36.6 Pulse 133 Resp 18 B/P (MAP) 92/60 (71) Pulse Ox 99 O2 Delivery Room Air Capillary Refill : Less Than 3 Seconds General Appearance: WD/WN, mild distress Eyes: Bilateral Eye PERRL, Bilateral Eye EOMI HEENT: PERRL/EOMI, pharynx normal; No scleral icterus (R), No scleral icterus (L), No pharyngeal erythema Respiratory: chest non-tender, normal breath sounds, no respiratory distress, no accessory muscle use; No crackles, No rales, No rhonchi Cardiovascular: regular rate, rhythm, no edema, no murmur Peripheral Pulses: 2+ Dorsalis Pedis (R), 2+ Left Dors-Pedis (L), 2+ Radial Pulses (R), 2+ Radial Pulses (L) Gastrointestinal: normal bowel sounds, soft; No distended; tenderness (LLQ) Extremities: non-tender, no pedal edema, no calf tenderness Neurologic/Psychiatric: 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, alert, normal mood/affect, oriented x 3 Skin: normal color, warm/dry; No diaphoresis Data Review Labs Laboratory Tests 07/28/19 19:20: White Blood Count 8.3, Red Blood Count 3.13L, Hemoglobin 8.6L, Hematocrit 28L, Mean Corpuscular Volume 89, Mean Corpuscular Hemoglobin 28, Mean Corpuscular Hemoglobin Concent 31L, Red Cell Distribution Width 22.0H, Platelet Count 524H, Mean Platelet Volume 9.8, Neutrophils (%) (Auto) 61, Lymphocytes (%) (Auto) 27, Monocytes (%) (Auto) 11, Eosinophils (%) (Auto) 1, Basophils (%) (Auto) 0, Neutrophils # (Auto) 5.1, Lymphocytes # (Auto) 2.2, Monocytes # (Auto) 0.9, Eosinophils # (Auto) 0.1, Basophils # (Auto) 0.0, Prothrombin Time 13.3, INR Comment 1.0, Activated Partial Thromboplast Time 35, Sodium Level 138, Potassium Level 3.2L, Chloride Level 103, Carbon Dioxide Level 23, Anion Gap 12, Blood Urea Nitrogen 8, Creatinine 0.49L, Estimat Glomerular Filtration Rate > 60, BUN/Creatinine Ratio 16, Glucose Level 93, Lactic Acid Level 1.07, Calcium Level 8.6, Corrected Calcium 9.6, Total Bilirubin 0.3, Aspartate Amino Transf (AST/SGOT) 14, Alanine Aminotransferase (ALT/SGPT) 8, Alkaline Phosphatase 176H, Total Protein 6.2L, Albumin 2.8L 07/28/19 22:30: Urine Color YELLOW, Urine Clarity CLEAR, Urine pH 7, Urine Specific [place] 1.005L, Urine Protein 1+H, Urine Glucose (UA) NEGATIVE, Urine Ketones NEGATIVE, Urine Nitrite NEGATIVE, Urine Bilirubin NEGATIVE, Urine Urobilinogen NORMAL, Urine Leukocyte Esterase NEGATIVE, Urine RBC (Auto) NEGATIVE, Urine RBC NONE, Urine WBC 0-2, Urine Squamous Epithelial Cells 0-2, Urine Crystals NONE, Urine Bacteria TRACE, Urine Casts NONE, Urine Mucus NEGATIVE, Urine Culture Indicated CULTURE PENDING 07/29/19 02:55: White Blood Count 7.6, Red Blood Count 2.88L, Hemoglobin 7.9L, Hematocrit 26L, Mean Corpuscular Volume 89, Mean Corpuscular Hemoglobin 27, Mean Corpuscular Hemoglobin Concent 31L, Red Cell Distribution Width 21.8H, Platelet Count 449H, Mean Platelet Volume 9.6, Neutrophils (%) (Auto) 67, Lymphocytes (%) (Auto) 22, Monocytes (%) (Auto) 10, Eosinophils (%) (Auto) 1, Basophils (%) (Auto) 0, Neutrophils # (Auto) 5.0, Lymphocytes # (Auto) 1.6, Monocytes # (Auto) 0.8, Eosinophils # (Auto) 0.1, Basophils # (Auto) 0.0, Sodium Level 138, Potassium Level 3.4L, Chloride Level 106, Carbon Dioxide Level 21, Anion Gap 11, Blood Urea Nitrogen 6L, Creatinine 0.44L, Estimat Glomerular Filtration Rate > 60, BUN/Creatinine Ratio 14, Glucose Level 78, Calcium Level 7.8L, Corrected Calcium 9.1, Total Bilirubin 0.3, Aspartate Amino Transf (AST/SGOT) 15, Alanine Aminotransferase (ALT/SGPT) 6, Alkaline Phosphatase 145H, Total Protein 5.3L, Albumin 2.4L, Phosphorus Level 3.1, Magnesium Level 1.5L Assessment/Plan Assessment/Plan Assessment/Plan Abdominal wall abscess Seroma Colocutaneous fistula Exploratory laparotomy Possible colon resection Possible colostomy Clear liquid diet today Start bowel prep Risks and benefits of procedure were discussed with the patient, and she expressed her understanding and gave consent. JULIANNE MENDOZA DO 07/29/192133: History of Present Illness History of Present Illness History of Present Illness 64 year old female with significant weight loss and recent abscess which had IR drain placed. Had resolution of that fluid collection and was planning colonoscopy in short term follow up. Patient states that last night she began having sharp pain in the left side of the abdomen and began having the swelling like she did before. She states she will have 10/10 pain at times but currently improved with pain medications. Patient states that nothing really makes the pain worse, but moving in different positions will help improve. Some nausea and soem emesis. Passing flatus and some smaller bowel movements. Ct scan shows questionable liver abscess and abscess left side of abdomen as before and findings suspicious for colonic mass that has perforated. Allergies and Home Medications Allergies Coded Allergies: codeine (Verified Adverse Reaction, Unknown, 07/06/19) "CAUSES HALLUCINATIONS" Home Medications Aspirin 81 Mg Tablet.dr, 81 MG PO DAILY, (Reported) Atorvastatin Calcium 40 Mg Tablet, 40 MG PO HS, (Reported) LAST FILLED #30 06-11-19 Carvedilol 6.25 Mg Tablet, 6.25 MG PO BID, (Reported) LAST FILLED #60 06-11-19 Clopidogrel Bisulfate 75 Mg Tablet, 75 MG PO DAILY, (Reported) LAST FILLED #30 06-11-19 Losartan Potassium 50 Mg Tablet, 50 MG PO HS, (Reported) LAST FILLED #30 06-11-19 Multivitamin 1 Each Tablet, 1 TAB PO DAILY, (Reported) Patient Home Medication List Home Medication List Reviewed: Yes Past Pievavq-Xhsqeo-Ctxvut Hx Patient Social History Type Used: Cigarettes (0.75 packs/day) Surgeries Surgeries: Coronary Stent, Hysterectomy Cardiovascular Cardiac Disorders: Heart Attack, High Cholesterol, Hypertension 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 Review of Systems-General Constitutional: weight loss Respiratory: no symptoms reported Cardiovascular: no symptoms reported Gastrointestinal: LLQ (Pain, worse with palpation), see HPI, vomiting Genitourinary: no symptoms reported Musculoskeletal: no symptoms reported Skin: no symptoms reported Psychiatric/Neurological: No Symptoms Reported Physical Exam-General Problems Physical Exam General Appearance: WD/WN, mild distress HEENT: PERRL/EOMI Neck: non-tender, supple Respiratory: chest non-tender, no respiratory distress, no accessory muscle use Cardiovascular: regular rate, rhythm Gastrointestinal: soft, tenderness (LLQ) Rectal: deferred Back: no CVA tenderness Extremities: non-tender, no pedal edema, no calf tenderness Neurologic/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: 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, alert, normal mood/affect, oriented x 3 Skin: normal color, warm/dry Lymphatic: no adenopathy Assessment/Plan Assessment/Plan Assessment/Plan intraabdominal recurrent abscess suspect perforation of colonic mass liver abscess llq abdominal pain weight loss patient with recurrence of intraabdominal abscess outpatient was planning colonoscopy, but now with recurrence we discussed options we reviewed ct scan that i feel abscess is related to perforated colonic mass and feel the best option is to do exploratory laparotomy all other indicated procedures possibly may need colon resection possible colostomy or ileostomy. Patient understands all risks and benefits and wishes to proceed. Will do go-lytely for prep. All questions answered and patient wishes to proceed with surgery. continue abx Supervisory-Addendum Brief Verification & Attestation Participated in pt care: history, MDM, physical Personally performed: exam, history, MDM, supervision of care Care discussed with: Medical Student Procedures: n/a Results interpretation: Verified all documentation Verification and Attestation of Medical Student E/M Service A medical student performed and documented this service in my presence. I reviewed and verified all information documented by the medical student and made modifications to such information, when appropriate. I personally performed the physical exam and medical decision making. Julianne Mendoza, Jul 29, 2019,21:48 ISIS JACKSON,MED STUDENT Jul 29, 2019 12:16 JULIANNE DIEGO DO Jul 29, 2019 21:34 POS
--- NOTE | 2019-07-29 14:14 | NUR ---
"RD ASSESSMENT PMHx: LA PT INTERACTION: Pt was awake and pleasant during consult for MST score. Pt states current appetite is poor and has been this way since mid-May. Pt states frequent episodes of n/v during this time as well. Note pt currently on zofran. Pt states no issues with constipation or diarrhea. Note last BM was 07/29, and pt not currently on bowel regimen, per chart review. Pt states following a regular diet at home, and currently has no bottom dentures. Pt states 20-30# wt loss x2mon. This is significant wt loss at 24%. Note 6# wt gain x2w, per chart review. Given pt's PO intake and BMI of 18.7, pt is at risk for malnutrition at this time. ABNORMAL NUTRITION-RELATED LAB VALUES: K 3.4 (L); BUN 6 (L); cr 0.44 (L); Ca 7.8 (L); Mg 1.5 (L); Pro 5.3 (L); alb 2.4 (L); alkphos 145 (H) Est. kcal needs: 7766-1077 kcal (30-35 kcal/kg) Est. Pro needs: 50-60 g Pro (1.2-1.4 g Pro/kg) PES STATEMENT: Inadequate oral intake (NI-2.1) related to nausea | vomiting | NPO status as evidenced by pt interview INTERVENTION: Note pt currently on NPO status. Advance diet to Clear Liquid, when medically able. When diet is advanced, add Ensure Clear (vary) to meals TID. Provides 180 kcal and 8 g Pro per serving. MONITOR/EVALUATE: PO Intake; Plan of Care; Hydration Status; Weight Status; Lab Values Isidro Nunn, MS, RD, LD Ext. 133"
[2019-07-29] MEDS: ONDANSETRON 4 MG/2 ML (SDV) Z0FRAN IVP PRN (19:45)
[2019-07-29] MEDS: cefTRIAXone 1,000 MG/SWFI 10 ML IV PUSH IV SCH ×2 (19:45)
[2019-07-30] VITALS (17 sets, daily range): BP systolic 33–150; BP diastolic 57–87
[2019-07-30] MEDS: fentaNYL INJECTION 100 MCG/2 ML AMP IV PRN ×6 (01:29→22:51)
[2019-07-30] MEDS: ONDANSETRON 4 MG/2 ML (SDV) Z0FRAN IVP PRN ×3 (01:30→14:20)
[2019-07-30 04:08] LABS: BUN/CREATININE RATIO 9; CALCIUM 7.8 MG/DL (8.5-10.1); CARBON DIOXIDE 20 MMOL/L (21-32); CHLORIDE 103 MMOL/L (98-107); CREATININE SERUM 0.43 MG/DL (0.60-1.30); GFR ESTIMATED > 60; POTASSIUM 4.1 MMOL/L (3.6-5.0); SODIUM 135 MMOL/L (135-145)
[2019-07-30 04:16] LABS: GLUCOSE 50 MG/DL (70-105)
[2019-07-30] MEDS ORDERED: DEXTROSE 50% 50 ML (IMS) SYR IV ONE (04:30)
[2019-07-30] MEDS ORDERED: DEXTROSE 50% 50 ML (IMS) SYR ONE (04:33)
--- NOTE | 2019-07-30 04:33 | Pulmonary Progress Note ---
LESLY URIARTE A MEDICAL STUDENT 07/30/19 0433: Subjective Date Seen by a Provider: Jul 30, 2019 Time Seen by a Provider: 03:38 Subjective/Events-last exam Pt has not complaints at this time, states she is going to surgery later today. Sepsis Event Evaluation Height, Weight, BMI Height: '" Weight: lbs. oz. kg; 16.80 BMI Method: Focused Exam Lactate Level 07/28/19 19:20: Lactic Acid Level 1.07 Exam Exam Vital Signs Date Time Temp Pulse Resp B/P (MAP) Pulse Ox O2 Delivery O2 Flow Rate FiO2 07/30/19 01:00 82 07/30/19 00:00 37.2 82 18 150/81 (104) 96 Room Air 07/30/19 00:00 Room Air 07/29/19 21:00 97 Room Air 07/29/19 20:00 38.0 82 18 146/81 (102) 97 Room Air 07/29/19 20:00 97 Room Air 07/29/19 19:00 97 07/29/19 17:45 90 21 147/75 (99) Room Air 07/29/19 16:00 96 Room Air 07/29/19 16:00 37.4 101 20 147/75 (99) Room Air 07/29/19 12:57 79 07/29/19 12:00 96 Room Air 07/29/19 12:00 37.6 84 20 140/76 (97) Room Air 07/29/19 09:21 96 Room Air 07/29/19 08:00 93 Room Air 07/29/19 08:00 93 14 92/43 (59) 94 Room Air 07/29/19 06:50 83 07/29/19 06:39 86 15 136/69 (91) 91 Room Air I & O 07/30/19 07:00 Intake Total 510 ml Output Total 400 ml Balance 110 ml Height & Weight Height: '" Weight: lbs. oz. 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) Hypoglycemia -glucose of 50 today ENDY CARMONA DO 07/30/19 0901: Exam Exam General Appearance: No Apparent Distress, WD/WN HEENT: PERRL/EOMI, Pharynx Normal Neck: Full Range of Motion, Non Tender, Supple Respiratory: Chest Non Tender, No Accessory Muscle Use, No Respiratory Distres s, Decreased Breath Sounds Cardiovascular: Regular Rate, Rhythm Capillary Refill: Less Than 3 Seconds Gastrointestinal: tenderness (LLQ) Neurologic/Psychiatric: Alert, Oriented x3 Lymphatic: No Adenopathy Assessment/Plan Assessment/Plan 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 I reviewed and verified all information documented by the medical student and made modifications to such information, when appropriate. I personally performed the physical exam and medical decision making. Endy Carmona, Jul 30, 2019,09:01 LESLY URIARTE MEDICAL STUDENT Jul 30, 2019 04:33 ENDY LU DO Jul 30, 2019 09:01 POS
[2019-07-30 05:04] LABS: MAGNESIUM 1.9 MG/DL (1.6-2.4); PHOSPHORUS 2.8 MG/DL (2.3-4.7)
[2019-07-30] MEDS: MAGNESIUM 1 GM/100 ML IVPB 100 ML IV SCH ×2 (05:15→05:16)
[2019-07-30] MEDS: POTASSIUM CL 10MEQ/50ML IVPB 50 ML IV SCH ×2 (05:15)
[2019-07-30] MEDS: KCL 20 MEQ TAB (K-DUR) PO SCH ×2 (05:16)
[2019-07-30] MEDS: metroNIDAZOLE 500 MG/100 ML IVPB (PRE-MIX) IV SCH ×3 (05:19→21:30)
[2019-07-30] MEDS: LACTATED RINGERS 1,000 ML IV SCH (05:19)
--- NOTE | 2019-07-30 07:08 | Progress Note - Surgery ---
ISIS JACKSON,MED STUDENT 07/30/19 0708: Subjective Date Seen by a Provider: Jul 30, 2019 Time Seen by a Provider: 06:35 Subjective/Events-last exam Patient seen and examined. She has no new complaints this morning and she says her LLQ pain has been well controlled by pain medication. She had an episode of hypoglycemia overnight, glucose was 50, and she was administered dextrose. She has been NPO since midnight and has completed her bowel prep. Reports she is urinating okay and is able to ambulate to the commode unassisted. Focused Exam Lactate Level 07/28/19 19:20: Lactic Acid Level 1.07 Objective Exam Vital Signs Date Time Temp Pulse Resp B/P (MAP) Pulse Ox O2 Delivery O2 Flow Rate FiO2 07/30/19 04:00 97 Room Air 07/30/19 01:00 82 07/30/19 00:00 37.2 82 18 150/81 (104) 96 Room Air 07/30/19 00:00 Room Air 07/29/19 21:00 97 Room Air 07/29/19 20:00 38.0 82 18 146/81 (102) 97 Room Air 07/29/19 20:00 97 Room Air 07/29/19 19:00 97 07/29/19 17:45 90 21 147/75 (99) Room Air 07/29/19 16:00 96 Room Air 07/29/19 16:00 37.4 101 20 147/75 (99) Room Air 07/29/19 12:57 79 07/29/19 12:00 96 Room Air 07/29/19 12:00 37.6 84 20 140/76 (97) Room Air 07/29/19 09:21 96 Room Air 07/29/19 08:00 93 Room Air 07/29/19 08:00 93 14 92/43 (59) 94 Room Air l I & O 07/30/19 07:00 Intake Total 510 ml Output Total 400 ml Balance 110 ml Capillary Refill : Less Than 3 Seconds General Appearance: No Apparent Distress, WD/WN; No Anxious HEENT: PERRL/EOMI; No Scleral Icterus (L), No Scleral Icterus (R) Respiratory: Chest Non Tender, Lungs Clear, Normal Breath Sounds, No Accessory Muscle Use, No Respiratory Distress; No Rales, No Rhonci Cardiovascular: Regular Rate, Rhythm, No Murmur, Normal Peripheral Pulses Peripheral Pulses: 2+ Dorsalis Pedis (R), 2+ Left Dors-Pedis (L), 2+ Radial Pulses (R), 2+ Radial Pulses (L) Gastrointestinal: soft, no organomegaly; No distended, No rebound; tenderness (LLQ) Extremity: Non Tender, No Calf Tenderness Neurologic/Psychiatric: Alert, Oriented x3, Normal Mood/Affect Skin: Normal Color, Warm/Dry Results Lab Laboratory Tests 07/30/19 03:20: Sodium Level 135, Potassium Level 4.1, Chloride Level 103, Carbon Dioxide Level 20L, Anion Gap 12, Blood Urea Nitrogen 4L, Creatinine 0.43L, Estimat Glomerular Filtration Rate > 60, BUN/Creatinine Ratio 9, Glucose Level 50*L, Calcium Level 7.8L, Phosphorus Level 2.8, Magnesium Level 1.9 Microbiology 07/28/19 Blood Culture - Preliminary, Resulted No growth Assessment/Plan Assessment/Plan Assessment/Plan intraabdominal recurrent abscess suspect perforation of colonic mass liver abscess llq abdominal pain weight loss patient is NPO in preparation for exploratory laparotomy completed bowel prep patient expressed understanding of the risks and benefits of the procedure and gave consent to proceed. continue abx continue pain management as necessary JULIANNE CAMPBELL DO 07/31/19 1733: Subjective Subjective/Events-last exam No new complaints. For surgery today. Bowel prep completed. Objective Exam General Appearance: No Apparent Distress Respiratory: Chest Non Tender, No Accessory Muscle Use, No Respiratory Distress Cardiovascular: Regular Rate, Rhythm Gastrointestinal: soft, no organomegaly, tenderness (LLQ) Extremity: Non Tender Neurologic/Psychiatric: Alert, Oriented x3, Normal Mood/Affect Skin: Normal Color, Warm/Dry Lymphatic: No Adenopathy Assessment/Plan Assessment/Plan Assessment/Plan intraabdominal recurrent abscess suspect perforation of colonic mass liver abscess llq abdominal pain weight loss for exploratory laparotomy all other indicated procedures. continue abx Supervisory-Addendum Brief Verification & Attestation Participated in pt care: history, MDM, physical Personally performed: exam, history, MDM, supervision of care Care discussed with: Medical Student Procedures: n/a Results interpretation: Verified all documentation Verification and Attestation of Medical Student E/M Service A medical student performed and documented this service in my presence. I reviewed and verified all information documented by the medical student and made modifications to such information, when appropriate. I personally performed the physical exam and medical decision making. Julianne Campbell, Jul 30, 2019,12:32 ISIS JACKSON,MED STUDENT Jul 30, 2019 07:08 JULIANNE DIEGO DO Jul 31, 2019 17:33 POS
[2019-07-30 07:23] LABS: BASOPHILS % (AUTO) 0 % (0-10); EOSINOPHILS # (AUTO) 0.1 10^3/uL (0.0-0.3); EOSINOPHILS % (AUTO) 1 % (0-10); HEMATOCRIT 24 % (35-52); HEMOGLOBIN 7.4 G/DL (11.5-16.0); LYMPHOCYTES # (AUTO) 1.3 X 10^3 (1.0-4.0); LYMPHOCYTES % (AUTO) 19 % (12-44); MEAN CORPUSCULAR HEMOGLOBIN 27 PG (25-34); MEAN CORPUSCULAR HGB CONC 30 G/DL (32-36); MEAN CORPUSCULAR VOLUME 90 FL (80-99); MEAN PLATELET VOLUME 9.8 FL (7.4-10.4); MONOCYTES # (AUTO) 0.7 X 10^3 (0.0-1.0); MONOCYTES % (AUTO) 11 % (0-12); NEUTROPHILS # (AUTO) 4.7 X 10^3 (1.8-7.8); NEUTROPHILS % (AUTO) 69 % (42-75); PLATELET COUNT 457 10^3/uL (130-400); RED CELL DISTRIBUTION WIDTH 21.5 % (10.0-14.5); WHITE BLOOD COUNT 6.9 10^3/uL (4.3-11.0)
[2019-07-30] MEDS: D5 LR IV SOLUTION 1,000 ML IV SCH ×3 (08:21→20:15)
[2019-07-30] MEDS ORDERED: FLU QUADRIvalent (5+ YOA) 2019-2020 (AFLURIA) 0.5 ML IM ONE (09:00)
--- NOTE | 2019-07-30 10:03 | Progress Note - Hospitalist ---
Subjective HPI/CC On Admission Date Seen by Provider: Jul 30, 2019 Time Seen by Provider: 09:00 CC: Abdominal Abscess HPI: This is a 64yoWF who has a PMH of a drain diversion by Dr. Campbell recently that presents with a mass of the left lower quadrant was found to have drainage and and evidenceof a colonic fistula and abscess on CT scan so Dr. Campbell has been consulted and he will perform colonoscopy and further evaluation of the fistula. She has been placed on broad spectrum antibiotics and she remains stable. Subjective/Events-last exam Pt completed the colon prep yesterday and will be going down for open procedure likely with a diverting colostomydue to fistula. Pt denies any pain. No nicotine patch is required, refused to take most of the colon prep. Review of Systems Gastrointestinal: Abdominal Pain Focused Exam Lactate Level 07/28/19 19:20: Lactic Acid Level 1.07 Objective Exam Vital Signs Vital Signs Date Time Temp Pulse Resp B/P (MAP) Pulse Ox O2 Delivery O2 Flow Rate FiO2 07/30/19 16:00 96 Room Air 07/30/19 14:30 93 7 145/87 (106) 07/30/19 12:00 37.1 Capillary Refill : Less Than 3 Seconds General Appearance: No Apparent Distress, WD/WN, Chronically ill, Cachetic Respiratory: Lungs Clear Cardiovascular: Regular Rate, Rhythm Neurologic/Psychiatric: Alert, Oriented x3, No Motor/Sensory Deficits, Normal Mood/Affect Results/Procedures Lab Laboratory Tests 07/30/19 03:20 Patient resulted labs reviewed. Assessment/Plan Assessment and Plan Assess & Plan/Chief Complaint Assessment: Colonic fistula Smoker Plan: OR Diagnosis/Problems Diagnosis/Problems (1) Abdominal abscess Status: Acute (2) Colonic fistula Status: Acute BHASKAR RIZZO DO Jul 30, 2019 10:03 POS
[2019-07-30] MEDS ORDERED: LIDOCAINE PF 2% 5 ML (XYLOCAINE) VIAL ONE (14:09)
[2019-07-30] MEDS ORDERED: GLYCOPYRROLATE 0.2 MG/ML (ROBINUL) 2 ML VIAL ONE ×2 (14:09→17:11)
[2019-07-30] MEDS ORDERED: NEOSTIGMINE 3 MG/3 ML VIAL ONE ×2 (14:09→17:11)
[2019-07-30] MEDS ORDERED: ROCURONIUM 10 MG/ML 5 ML SYRINGE IV ONE (14:09)
[2019-07-30] MEDS ORDERED: SEVOFLURANE (ULTANE) 15 ML INHAL SOLN ONE ×5 (14:09→18:15)
[2019-07-30] MEDS ORDERED: ONDANSETRON 4 MG/2 ML (SDV) Z0FRAN ONE (14:09)
[2019-07-30] MEDS ORDERED: proPOfol 200 MG/20 ML (DIPRIVAN) VIAL IV ONE (14:09)
[2019-07-30] MEDS ORDERED: DEXAMETHASONE 10 MG/ML (DECADRON) 1 ML VIAL ONE (14:09)
[2019-07-30] MEDS ORDERED: MIDAZOLAM 2 MG/2 ML (VERSED) VIAL ONE (14:10)
[2019-07-30] MEDS ORDERED: fentaNYL INJECTION 100 MCG/2 ML AMP ONE (14:10)
[2019-07-30] MEDS: LACTATED RINGERS 1,000 ML IV PRN ×2 (15:43→16:34)
[2019-07-30] MEDS ORDERED: LACTATED RINGERS 1,000 ML IV PRN (16:14)
[2019-07-30] MEDS ORDERED: ceFAZolin INJECTION 1,000 MG VIAL IV ONE (16:15)
[2019-07-30] MEDS ORDERED: HYDROmorphone 2 MG/ML VIAL (DILAUDID) ONE ×2 (16:18→16:33)
[2019-07-30] MEDS ORDERED: SUCCINYLCHOLINE INJ 100 MG/5 ML SYR ONE (16:21)
[2019-07-30] MEDS ORDERED: ceFAZolin INJECTION 1,000 MG ONE (16:22)
[2019-07-30] MEDS ORDERED: ESMOLOL 100 MG/10 ML (BREVIBLOC) VIAL ONE (17:07)
[2019-07-30] MEDS ORDERED: PHENYLEPHRINE INJ 10 MG/ML (FOR DRIP KITS ONLY) ONE (17:17)
[2019-07-30] MEDS ORDERED: PHENYLEPHRINE 100 MCG/ML 10 ML (ANESTHESIA) SYR ONE (17:17)
[2019-07-30] MEDS ORDERED: meTOprolol 5 MG/5 ML (LOPRESSOR) VIAL ONE (17:17)
[2019-07-30] MEDS ORDERED: BUPIVACAINE 0.5% 30 ML (SENSORCAINE) VIAL ONE (17:20)
--- NOTE | 2019-07-30 18:01 | Progress Note-Post Operative ---
Post-Operative Progess Note Surgeon (s)/Cake Wringer (s) Surgeon JULIANNE MENDOZA DO Cake Wringer: Dr. Lamb Pre-Operative Diagnosis Abdominal abscess Post-Operative Diagnosis intrabdominal abscess, colon mass splenic flexure Procedure & Operative Findings Date of Procedure 07/30/19 Procedure Performed/Findings exploratory laparotomy, drainage of intrabdominal abscess, mobilization of splenic flexure, partial omentectomy, partial colon resection with end to end anastomosis, biopsy abdominal wall Anesthesia Type general Estimated Blood Loss Estimated blood loss (mL): 100 mL Specimens/Packing Specimens Removed abdominal wall, colon JULIANNE MENDOZA DO Jul 30, 2019 18:01 POS
[2019-07-30] MEDS ORDERED: PROMETHAZINE INJ 25 MG/ML (PHENERGAN) AMP IVP ONE (18:15)
[2019-07-30] MEDS ORDERED: morphine INJ 10 MG/ML 1ML (SYR OR VIAL) IVP ONE (18:15)
[2019-07-30] MEDS ORDERED: HYDROmorphone 2 MG/ML VIAL (DILAUDID) IV ONE (18:15)
[2019-07-30] MEDS ORDERED: ONDANSETRON 4 MG/2 ML (SDV) Z0FRAN IVP PRN (18:15)
--- NOTE | 2019-07-30 20:14 | NUR ---
Daughter notified, updated on pt condition.
[2019-07-30] MEDS: cefTRIAXone 1,000 MG/SWFI 10 ML IV PUSH IV SCH ×2 (20:15)
[2019-07-31] VITALS (19 sets, daily range): BP systolic 121–152; BP diastolic 54–89
[2019-07-31] MEDS: ONDANSETRON 4 MG/2 ML (SDV) Z0FRAN IVP PRN ×2 (00:04→03:46)
[2019-07-31] MEDS: fentaNYL INJECTION 100 MCG/2 ML AMP IV PRN ×9 (01:48→22:07)
[2019-07-31 03:10] LABS: BASOPHILS % (AUTO) 0 % (0-10); EOSINOPHILS % (AUTO) 0 % (0-10); HEMATOCRIT 29 % (35-52); HEMOGLOBIN 9.1 G/DL (11.5-16.0); LYMPHOCYTES # (AUTO) 0.4 X 10^3 (1.0-4.0); LYMPHOCYTES % (AUTO) 2 % (12-44); MEAN CORPUSCULAR HEMOGLOBIN 28 PG (25-34); MEAN CORPUSCULAR HGB CONC 31 G/DL (32-36); MEAN CORPUSCULAR VOLUME 88 FL (80-99); MEAN PLATELET VOLUME 9.4 FL (7.4-10.4); MONOCYTES # (AUTO) 0.2 X 10^3 (0.0-1.0); MONOCYTES % (AUTO) 1 % (0-12); NEUTROPHILS # (AUTO) 16.8 X 10^3 (1.8-7.8); NEUTROPHILS % (AUTO) 96 % (42-75); PLATELET COUNT 617 10^3/uL (130-400); RED CELL DISTRIBUTION WIDTH 20.7 % (10.0-14.5); WHITE BLOOD COUNT 17.4 10^3/uL (4.3-11.0)
[2019-07-31 03:31] LABS: BUN/CREATININE RATIO 5; CALCIUM 8.3 MG/DL (8.5-10.1); CARBON DIOXIDE 24 MMOL/L (21-32); CHLORIDE 100 MMOL/L (98-107); CREATININE SERUM 0.57 MG/DL (0.60-1.30); GFR ESTIMATED > 60; GLUCOSE 277 MG/DL (70-105); MAGNESIUM 1.5 MG/DL (1.6-2.4); PHOSPHORUS 3.6 MG/DL (2.3-4.7); POTASSIUM 4.4 MMOL/L (3.6-5.0); SODIUM 135 MMOL/L (135-145)
[2019-07-31] MEDS: D5 LR IV SOLUTION 1,000 ML IV SCH ×4 (03:49→17:13)
--- NOTE | 2019-07-31 04:27 | Pulmonary Progress Note ---
LESLY URIARTE A MEDICAL STUDENT 07/31/19 0427: Subjective Date Seen by a Provider: Jul 31, 2019 Time Seen by a Provider: 04:21 Subjective/Events-last exam Pt had surgery yesterday with abdominal abscess drained as well as partial omentectomy and partial colon resection and biopsy. Pt has no other complaints at this time except for some pain around her incision site but states that the pain medication and zofran help with that. Pt denies any trouble breathing, CP. Sepsis Event Evaluation Height, Weight, BMI Height: '" Weight: lbs. oz. kg; 16.80 BMI Method: Focused Exam Lactate Level 07/28/19 19:20: Lactic Acid Level 1.07 Exam Exam Vital Signs Date Time Temp Pulse Resp B/P (MAP) Pulse Ox O2 Delivery O2 Flow Rate FiO2 07/31/19 04:00 85 18 130/57 (81) 90 Room Air 07/31/19 03:46 37.3 Room Air 07/31/19 03:00 87 22 147/71 (96) 99 OxyMask 2.00 07/31/19 02:00 79 20 141/71 (94) 99 OxyMask 2.00 07/31/19 01:00 86 18 152/75 (100) 100 OxyMask 2.00 07/31/19 01:00 83 07/31/19 00:04 36.6 07/31/19 00:00 114 20 150/74 (99) 100 OxyMask 2.00 07/31/19 00:00 OxyMask 2.00 07/30/19 23:00 77 19 124/70 (88) 100 OxyMask 2.00 07/30/19 22:32 OxyMask 2.00 07/30/19 22:00 80 12 137/63 (87) Room Air 07/30/19 21:29 Room Air 07/30/19 21:00 78 14 129/81 (97) 98 OxyMask 2.00 07/30/19 21:00 OxyMask 2.00 07/30/19 20:12 36.6 OxyMask 2.00 07/30/19 20:00 OxyMask 2.00 07/30/19 20:00 77 16 125/58 (80) 100 OxyMask 4.00 07/30/19 19:00 88 12 131/60 (83) 100 OxyMask 4.00 07/30/19 19:00 91 07/30/19 18:45 OxyMask 2 07/30/19 18:45 37.6 12 136/70 (92) 99 OxyMask 2 07/30/19 18:40 12 135/68 (90) 99 OxyMask 2 07/30/19 18:40 OxyMask 2 07/30/19 18:30 14 133/57 (82) 99 OxyMask 4 07/30/19 18:25 OxyMask 4 07/30/19 18:20 12 139/64 (89) 99 OxyMask 4 07/30/19 18:10 12 139/69 (92) 99 OxyMask 6 07/30/19 18:10 OxyMask 6 07/30/19 18:00 14 144/78 (100) 100 OxyMask 6 07/30/19 17:55 37.8 24 135/87 (103) 100 OxyMask 6 07/30/19 17:55 OxyMask 6 07/30/19 16:00 96 Room Air 07/30/19 14:30 93 7 145/87 (106) Room Air 07/30/19 14:30 37.2 07/30/19 12:50 86 07/30/19 12:00 96 Room Air 07/30/19 12:00 37.1 80 9 145/87 (106) 92 Room Air 07/30/19 09:00 96 Room Air 07/30/19 08:30 36.7 80 18 140/79 (99) Room Air 07/30/19 08:00 96 Room Air 07/30/19 07:06 79 I & O 07/31/19 07:00 Intake Total 2110 ml Output Total 625 ml Balance 1485 ml Height & Weight Height: '" Weight: lbs. oz. kg; 16.80 BMI Method: General Appearance: No Apparent Distress, WD/WN, Chronically ill, Cachetic HEENT: PERRL/EOMI, Pharynx Normal Neck: Full Range of Motion, Non Tender, Supple Respiratory: Lungs Clear, No Respiratory Distress Cardiovascular: Tachycardia Capillary Refill: Less Than 3 Seconds Peripheral Pulses: 2+ Dorsalis Pedis (R), 2+ Left Dors-Pedis (L), 2+ Radial Pulses (R), 2+ Radial Pulses (L) Gastrointestinal: normal bowel sounds, soft, no organomegaly, tenderness (midline abdominal incision, with dressing in place) Extremity: Normal Capillary Refill, No Pedal Edema Neurologic/Psychiatric: Alert, Oriented x3, No Motor/Sensory Deficits, Normal Mood/Affect Skin: Normal Color, Warm/Dry Lymphatic: No Adenopathy Results Lab Laboratory Tests 07/30/19 03:20 07/31/19 02:50 Assessment/Plan Assessment/Plan Colonic fistula -pt had abdominal abscess drained, partial omentectomy, and partial colon resection and bx done yesterday (07/30) -Currently on Rocephin/Flagyl -Surgery following Hypoglycemia -pt has not had another episode of hypoglycemia -Change IVF to D5LR Anemia -improving, will continue to monitor Leukocytosis -up from 6.9 to 17.9 -believed to be secondary to surgery ENDY CARMONA DO 07/31/19 0541: Subjective Time Seen by a Provider: 05:37 Subjective/Events-last exam s/p surgery Exam Exam General Appearance: No Apparent Distress, WD/WN, Chronically ill, Cachetic HEENT: PERRL/EOMI, Pharynx Normal Neck: Full Range of Motion, Non Tender, Supple Respiratory: Lungs Clear, No Respiratory Distress Cardiovascular: Tachycardia Gastrointestinal: normal bowel sounds, soft, no organomegaly, tenderness (midline abdominal incision, with dressing in place) Extremity: Normal Capillary Refill, No Pedal Edema Neurologic/Psychiatric: Alert, Oriented x3, No Motor/Sensory Deficits, Normal Mood/Affect Skin: Normal Color, Warm/Dry Lymphatic: No Adenopathy Assessment/Plan Assessment/Plan Colonic fistula -pt had abdominal abscess drained, partial omentectomy, and partial colon resection and bx done yesterday (07/30) -Currently on Rocephin/Flagyl -Surgery following Hypoglycemia - yesterday -IVF to D5LR - secondary to hypoglycemia yesterday. May need to go back to LR without dextrose. -Check Accu checks Q 6 Anemia -improving, will continue to monitor Leukocytosis -up from 6.9 to 17.9 -believed to be secondary to surgery Supervisory-Addendum Brief Verification & Attestation Participated in pt care: history Personally performed: exam, history Care discussed with: Medical Student Procedures: n/a Verification and Attestation of Medical Student E/M Service A medical student performed and documented this service in my presence. I reviewed and verified all information documented by the medical student and made modifications to such information, when appropriate. I personally performed the physical exam and medical decision making. Endy Carmona, Aug 03, 2019,14:49 LESLY URIARTE MEDICAL STUDENT Jul 31, 2019 04:27 ENDY LU DO Jul 31, 2019 05:41 POS
[2019-07-31] MEDS: MAGNESIUM 1 GM/100 ML IVPB 100 ML IV SCH ×4 (05:01→06:08)
[2019-07-31] MEDS: KCL 20 MEQ TAB (K-DUR) PO SCH ×2 (05:01→05:02)
[2019-07-31] MEDS: POTASSIUM CL 10MEQ/50ML IVPB 50 ML IV SCH ×2 (05:01)
[2019-07-31 05:08] LABS: LYMPHOCYTES % (MANUAL) 2 %; MONOCYTES % (MANUAL) 1 %; NEUTROPHILS % (MANUAL) 97 %
[2019-07-31] MEDS: metroNIDAZOLE 500 MG/100 ML IVPB (PRE-MIX) IV SCH ×3 (05:15→22:07)
--- NOTE | 2019-07-31 11:08 | Progress Note - Hospitalist ---
Subjective HPI/CC On Admission Date Seen by Provider: Jul 31, 2019 Time Seen by Provider: 09:30 CC: Abdominal Abscess HPI: This is a 64yoWF who has a PMH of a drain diversion by Dr. Campbell recently that presents with a mass of the left lower quadrant was found to have drainage and and evidenceof a colonic fistula and abscess on CT scan so Dr. Campbell has been consulted and he will perform colonoscopy and further evaluation of the fistula. She has been placed on broad spectrum antibiotics and she remains stable. Subjective/Events-last exam Pt doing well Transferring to floor Will initiate PT and OT Overall pain is well controlled Review of Systems Gastrointestinal: Abdominal Pain Focused Exam Lactate Level 07/28/19 19:20: Lactic Acid Level 1.07 Objective Exam Vital Signs Vital Signs Date Time Temp Pulse Resp B/P (MAP) Pulse Ox O2 Delivery O2 Flow Rate FiO2 07/31/19 16:40 86 20 147/73 (97) 92 Room Air 07/31/19 12:00 37.2 07/31/19 04:00 2.00 Capillary Refill : Less Than 3 SecondsLess Than 3 Seconds General Appearance: No Apparent Distress, WD/WN, Chronically ill Respiratory: Lungs Clear, Normal Breath Sounds Cardiovascular: Regular Rate, Rhythm Neurologic/Psychiatric: Alert, Oriented x3, No Motor/Sensory Deficits, Normal Mood/Affect Results/Procedures Lab Laboratory Tests 07/31/19 02:50 Patient resulted labs reviewed. Assessment/Plan Assessment and Plan Assess & Plan/Chief Complaint Assessment: Colonic fistula s/p OR Smoker Plan: Tx to 4th floor Diagnosis/Problems Diagnosis/Problems (1) Abdominal abscess Status: Acute (2) Colonic fistula Status: Acute BHASKAR RIZZO DO Jul 31, 2019 11:08 POS
--- NOTE | 2019-07-31 12:25 | Anesthesia-General Post-Op ---
General Patient Condition Mental Status/LOC: Same as Preop Cardiovascular: Satisfactory Nausea/Vomiting: Absent Respiratory: Satisfactory Pain: Controlled Complications: Absent Post Op Complications Complications None Follow Up Care/Instructions Patient Instructions None needed. Anesthesia/Patient Condition Patient Condition Patient is doing well, no complaints, stable vital signs, no apparent adverse anesthesia problems. AWILDA GONZALEZ DO Jul 31, 2019 12:25 POS
--- NOTE | 2019-07-31 15:01 | NUR ---
Initial visit by Fixing Machine Operatorbernice Rodriguez: Pt states she is feeling improved and anticipates being moved to 4th floor. Fixing Machine Operator engaged in rapport building and introduced pt to Spiritual Care Services. No urgent needs reported to pastoral department.
--- NOTE | 2019-07-31 15:04 | Physical Therapy Evaluation ---
PT Evaluation-General Medical Diagnosis Admission Date Jul 28, 2019 at 23:10 Medical Diagnosis: ABD ABCESS Onset Date: Jul 28, 2019 Therapy Diagnosis Therapy Diagnosis: gen weakness, decreased activity yuliana Precautions Precautions/Isolations: Fall Prevention, Standard Precautions Weight Bear Status Full Weight Bearing Full Weight Bearing Referral Physician: Pete Reason for Referral: Evaluation/Treatment Medical History Additional Medical History Surgeries: Coronary Stent, Hysterectomy, Tonsillectomy Cardiac: Heart Attack Hysterectomy History of Blood Disorders: No Reviewed History: Yes Social History Home: Single Level (trailer) Current Living Status: Children Entry Into Home: Stairs With Railing (b/l) PT Steps Into Home: 4 Prior Prior Level of Function SCALE: Activities may be completed with or without assistive devices. 9-Okqmqazocc-axzsyvn completes the activity by him/herself with no assistance from a helper. 5-Set-up or Clean-up Assistance-helper sets up or cleans up; patient completes activity. [place] assists only prior to or following the activity. 4-Supervision or Touching Assistance-helper provides verbal cues and/or touching/steadying and/or contact guard assistance as patient completes activity. Assistance may be provided throughout the activity or intermittently. 3-Partial/Moderate Assistance-helper does LESS THAN HALF the effort. [place] lifts, holds or supports trunk or limbs, but provides less than half the effort. 2-Substantial/Maximal Assistance-helper does MORE THAN HALF the effort. [place] lifts or holds trunk or limbs and provides more than half the effort. 9-Bebcggosh-iqqdru does ALL the effort. Patient does none of the effort to complete the activity. Or, the assistance of 2 or more helpers is required for the patient to complete the activity. If activity was not attempted, code reason: 7-Patient Refused. 9-Not Applicable-not attempted and the patient did not perform the activity b efore the current illness, exacerbation or injury. 10-Not Attempted due to Environmental Limitations-(lack of equipment, weather restraints, etc.). 88-Not Attempted due to Medical Conditions or Safety Concerns. Bed Mobility: 6 Transfers (B,C,W/C): 6 Gait: 6 Stairs: 6 Indoor Mobility (Ambulation): Independent Stairs: Independent Prior Devices Use: None PT Evaluation-Current Subjective pt in recliner pre-tx just finishing OT and agrees to PT. Pt reports minor pain with getting out of bed but none at this time just sore in her stomach pt in recliner post-tx with call light, tray, and phone in reach with all needs met at this time. Pt/Family Goals pt goal is to get back home without the walker. Objective Patient Orientation: Person, Place, Time, Situation Problem Solving: Fair Attachments: [place] Catheter, IV ROM/Strength Strength Lower Extremities LE globally WFL Integumentary/Posture Integumentary see nursing notes Bowel Incontinence: No Bladder Incontinence: Hills Cath Sensory Vision: Wears Glasses Hearing: Functional Sensation Right Lower Extremit: Intact Sensation Left Lower Extremity: Intact Transfers Sit to Stand (QC): 6 Gait Does the Patient Walk?: Yes Mode of Locomotion: Walk Anticipated Mode of Locomotion: Walk Distance: 1=up to 49 ft Walk 10 feet (QC): 4 (SBA) Distance: 16' Gait Assistive Device: FWW Comments/Gait Description pt leans forward with a flexed hip leaning into walker with a short choppy gait. Wheelchair Training Does the Pt Use a Wheelchair?: No Balance Sitting Static: Normal Sitting Dynamic: Normal Standing Static: Normal Standing Dynamic: Good Treatment pt performed transfer training, skilled ambulation training, and education this date. Assessment/Needs Pt reports slight increase in pain as she is sitting down but no other pain this session. Pt self limits distance due to not wanting to push herself too far. Pt able to stand indep and amb with SBA. While standing pt was able to stand indep and let go of FWW B/L and fix gown behind her without any LOB. Rehab Potential: Good PT Chaperon Goals Mcc Goals PT Chaperon Goals Time Frame: Aug 07, 2019 Sit to Lying (QC): 6 Lying-Sitting on Side/Bed(QC): 6 Sit to Stand (QC): 6 Roll Left to Right (QC): 6 Chair/Say-jf-Cnrvx Xfer(QC): 6 Does the Patient Walk: Yes Distance: 300' Walk 10 feet (QC): 6 Walk 50ft with 2 Turns (QC): 6 Walk 150 ft (QC): 6 Gait Assistive Device: None, FWW # of Steps: 4 1 Step (curb) (QC): 6 4 Steps (QC): 6 PT Plan Problem List Problem List: Activity Tolerance, Functional Strength, Safety, Balance, Gait, Transfer, Bed Mobility Treatment/Plan Treatment Plan: Continue Plan of Care Treatment Plan: Bed Mobility, Education, Functional Activity Libra, Functional Strength, Gait, Safety, Therapeutic Exercise, Transfers Treatment Duration: Aug 07, 2019 Frequency: 6 times per week Estimated Hrs Per Day: .25 hour per day Patient and/or Family Agrees t: Yes Safety Risks/Education Patient Education: Gait Training, Transfer Techniques, Correct Positioning, Safety Issues Teaching Recipient: Patient Teaching Methods: Demonstration, Discussion Response to Teaching: Return Demonstration, Reinforcement Needed Discharge Recommendations Plan pt will perform skilled ambulation training, transfer training, bed mobility training, functional LE strengthening, step training, and education. Therapy Discharge Recommendati: Other, See Comments (home with family) Time/GCodes Time In: 1447 Time Out: 1457 Total Billed Treatment Time: 10 Total Billed Treatment 1 visit CARLOS ALCALA PT Jul 31, 2019 15:04 POS
--- NOTE | 2019-07-31 15:17 | Occupational Therapy Eval ---
OT Evaluation-General/PLF Medical Diagnosis Admission Date Jul 28, 2019 at 23:10 Medical Diagnosis: abdominal abcess Onset Date: Jul 28, 2019 Therapy Diagnosis Therapy Diagnosis: decreased self care skills Precautions Precautions/Isolations: Standard Precautions Safety Interventions: None Referral Physician: Pete Medical History Pertinent Medical History: HTN, [place] Additional Medical History Diverticulosis, coronary stent, high cholesterol Current History Pt had abdominal abscess drained as well as partial omentectomy and partial colon resection and biopsy 07/30/19. Reviewed History: Yes Social History Home: Single Level Current Living Status: Children Entry Into Home: Stairs With Railing ADL-Prior Level of Function SCALE: Activities may be completed with or without assistive devices. 0-Ovwxnpnzep-dwjyncs completes the activity by him/herself with no assistance from a helper. 5-Set-up or Clean-up Assistance-helper sets up or cleans up; patient completes activity. [place] assists only prior to or following the activity. 4-Supervision or Touching Assistance-helper provides verbal cues and/or touch ing/steadying and/or contact guard assistance as patient completes activity. Assistance may be provided throughout the activity or intermittently. 3-Partial/Moderate Assistance-helper does LESS THAN HALF the effort. [place] lifts, holds or supports trunk or limbs, but provides less than half the effort. 2-Substantial/Maximal Assistance-helper does MORE THAN HALF the effort. [place] lifts or holds trunk or limbs and provides more than half the effort. 6-Uikpzlufk-dfftes does ALL the effort. Patient does none of the effort to complete the activity. Or, the assistance of 2 or more helpers is required for the patient to complete the activity. If activity was not attempted, code reason: 7-Patient Refused. 9-Not Applicable-not attempted and the patient did not perform the activity before the current illness, exacerbation or injury. 10-Not Attempted due to Environmental Limitations-(lack of equipment, weather restraints, etc.). 88-Not Attempted due to Medical Conditions or Safety Concerns. ADL PLOF Comments Pt reports being independent prior to admission. Does not use any AD. Self Care: Independent Functional Cognition: Independent Drive Self: Yes OT Current Status Subjective RN states pt is okay for OOB activity. Pt in bed, agrees to therapy, states she is wanting to sit up. Pt reports 7/10 abdominal pain with supine to sit. Mental Status/Objective Patient Orientation: Person, Place, Situation Attachments: IV Current Glasses/Contacts: Yes ADL-Treatment ADL-Current Pt able to bring LE to EOB, but requires assist to raise upper body during supine to sit. Assist to don slippers. Pt sit to stand with CGA. Transfer to chair with hand held assist. Education provided regarding role of OT and plan of care. Pt sitting in chair with needs met and PT present after session. Education OT Patient Education: Rehab process Teaching Recipient: Patient Teaching Methods: Discussion Response to Teaching: Verbalize Understanding OT Short Term Goals Short Term Goals 1=Demonstrate adherence to instructed precautions during ADL tasks. 2=Patient will verbalize/demonstrate understanding of assistive devices/modifications for ADL. 3=Patient will improve strength/tolerance for activity to enable patient to perform ADL's. OT Longterm Goals Senior Compliance Analyst Goals Time Frame: Aug 07, 2019 Oral Hygiene (QC): 6 Shower/Bathe Self (QC): 5 Upper Body Dressing (QC): 6 Lower Body Dressing (QC): 5 On/Off Footwear (QC): 5 Toileting Hygiene (QC): 6 Toilet/Commode Transfer (QC): 6 Additional Goals: 1-Demonstrate ADL Tasks, 2-Verbalize Understanding, 3- ImproveStrength/[place] 1=Demonstrate adherence to instructed precautions during ADL tasks. 2=Patient will verbalize/demonstrate understanding of assistive devices/modifications for ADL. 3=Patient will improve strength/tolerance for activity to enable patient to perform ADL's. OT Education/Plan Problem List/Assessment Assessment: Decreased Activ Tolerance, Decreased UE Strength, Dependent Transfers, Impaired Self-Care Skills Pt to benefit from skilled OT intervention for ADL training, transfers, strengthening, and home safety education to increase level of independence and allow safe discharge. Discharge Recommendations Plan/Recommendations: Continue POC Treatment Plan/Plan of Care Patient would benefit from OT for education, treatment and training to promote independence in ADL's, mobility, safety and/or upper extremity function for ADL's. Plan of Care: ADL Retraining, Functional Mobility, UE Funct Exercise/Act Treatment Duration: Aug 07, 2019 Frequency: 5 times per week Estimated Hrs Per Day: .25 hour per day Agreement: Yes Rehab Potential: Good Time/GCodes Start Time: 14:28 Stop Time: 14:45 Total Time Billed (hr/min): 17 Billed Treatment Time 1 visit, EVM(17minutes) SAI YEPEZ OT Jul 31, 2019 15:17 POS
--- NOTE | 2019-07-31 17:20 | Progress Note - Surgery ---
ISIS JACKSON,MED STUDENT 07/31/19 1720: Subjective Date Seen by a Provider: Jul 31, 2019 Time Seen by a Provider: 07:00 Subjective/Events-last exam Patient is post-op day 1 from left-sided colon resection and is doing well. She states the incision site is tender especially with palpation and has been a 10/10 at the worst, but is controlled currently with pain medication. She denies having any new complaints and is comfortable sitting in her chair. She is not passing gas yet, and a leung catheter is in place. At this time she does not have family members present as she states they have been unable to make it. The results of the surgery were discussed with the patient and she was informed that we are awaiting pathology results of the biopsy specimens, and all questions she had at this time were answered. Focused Exam Lactate Level 07/28/19 19:20: Lactic Acid Level 1.07 Objective Exam Vital Signs Date Time Temp Pulse Resp B/P (MAP) Pulse Ox O2 Delivery O2 Flow Rate FiO2 07/31/19 16:40 86 20 147/73 (97) 92 Room Air 07/31/19 15:00 87 24 124/62 (82) 91 Room Air 07/31/19 14:00 94 44 137/70 (92) 90 Room Air 07/31/19 13:00 75 48 134/62 (86) 92 Room Air 07/31/19 12:37 77 07/31/19 12:00 37.2 07/31/19 12:00 Room Air 07/31/19 12:00 86 20 132/65 (87) 93 Room Air 07/31/19 11:00 96 25 122/74 (90) 91 Room Air 07/31/19 10:00 72 18 131/62 (85) 93 Room Air 07/31/19 09:00 Room Air 07/31/19 09:00 85 26 126/54 (78) 94 Room Air 07/31/19 08:00 Room Air 07/31/19 08:00 102 25 121/89 (100) 91 Room Air 07/31/19 07:00 87 21 142/68 (92) 92 Room Air 07/31/19 06:55 83 07/31/19 06:00 98 22 142/68 (92) 91 Room Air 07/31/19 05:00 82 20 138/67 (90) 91 Room Air 07/31/19 04:00 OxyMask 2.00 07/31/19 04:00 85 18 130/57 (81) 90 Room Air 07/31/19 03:46 37.3 Room Air 07/31/19 03:00 87 22 147/71 (96) 99 OxyMask 2.00 07/31/19 02:00 79 20 141/71 (94) 99 OxyMask 2.00 07/31/19 01:00 86 18 152/75 (100) 100 OxyMask 2.00 07/31/19 01:00 83 07/31/19 00:04 36.6 07/31/19 00:00 114 20 150/74 (99) 100 OxyMask 2.00 07/31/19 00:00 OxyMask 2.00 07/30/19 23:00 77 19 124/70 (88) 100 OxyMask 2.00 07/30/19 22:32 OxyMask 2.00 07/30/19 22:00 80 12 137/63 (87) Room Air 07/30/19 21:29 Room Air 07/30/19 21:00 78 14 129/81 (97) 98 OxyMask 2.00 07/30/19 21:00 OxyMask 2.00 07/30/19 20:12 36.6 OxyMask 2.00 07/30/19 20:00 OxyMask 2.00 07/30/19 20:00 77 16 125/58 (80) 100 OxyMask 4.00 07/30/19 19:00 88 12 131/60 (83) 100 OxyMask 4.00 07/30/19 19:00 91 07/30/19 18:45 OxyMask 2 07/30/19 18:45 37.6 12 136/70 (92) 99 OxyMask 2 07/30/19 18:40 12 135/68 (90) 99 OxyMask 2 07/30/19 18:40 OxyMask 2 07/30/19 18:30 14 133/57 (82) 99 OxyMask 4 07/30/19 18:25 OxyMask 4 07/30/19 18:20 12 139/64 (89) 99 OxyMask 4 07/30/19 18:10 12 139/69 (92) 99 OxyMask 6 07/30/19 18:10 OxyMask 6 07/30/19 18:00 14 144/78 (100) 100 OxyMask 6 07/30/19 17:55 37.8 24 135/87 (103) 100 OxyMask 6 07/30/19 17:55 OxyMask 6 I & O 07/31/19 07:00 Intake Total 4310 ml Output Total 775 ml Balance 3535 ml Capillary Refill : Less Than 3 SecondsLess Than 3 Seconds General Appearance: No Apparent Distress, WD/WN, Chronically ill, Cachetic HEENT: PERRL/EOMI; No Scleral Icterus (L), No Scleral Icterus (R) Respiratory: No Accessory Muscle Use, No Respiratory Distress; No Stridor Cardiovascular: Regular Rate, Rhythm, Normal Peripheral Pulses Peripheral Pulses: 2+ Dorsalis Pedis (R), 2+ Left Dors-Pedis (L), 2+ Radial Pulses (R), 2+ Radial Pulses (L) Gastrointestinal: soft, no organomegaly, tenderness (midline abdominal incisi on, with dressing in place) Extremity: Normal Capillary Refill, No Pedal Edema Neurologic/Psychiatric: Alert, Oriented x3, No Motor/Sensory Deficits, Normal Mood/Affect Skin: Normal Color, Warm/Dry Lymphatic: No Adenopathy Results Lab Laboratory Tests 07/31/19 02:50: White Blood Count 17.4H, Red Blood Count 3.29L, Hemoglobin 9.1#L, Hematocrit 29L , Mean Corpuscular Volume 88, Mean Corpuscular Hemoglobin 28, Mean Corpuscular Hemoglobin Concent 31L, Red Cell Distribution Width 20.7H, Platelet Count 617H, Mean Platelet Volume 9.4, Neutrophils (%) (Auto) 96H, Lymphocytes (%) (Auto) 2L, Monocytes (%) (Auto) 1, Eosinophils (%) (Auto) 0, Basophils (%) (Auto) 0, Neutrophils # (Auto) 16.8H, Lymphocytes # (Auto) 0.4L, Monocytes # (Auto) 0.2, Eosinophils # (Auto) 0.0, Basophils # (Auto) 0.0, Neutrophils % (Manual) 97, Lym phocytes % (Manual) 2, Monocytes % (Manual) 1, Sodium Level 135, Potassium Level 4.4, Chloride Level 100, Carbon Dioxide Level 24, Anion Gap 11, Blood Urea Nitrogen 3L, Creatinine 0.57L, Estimat Glomerular Filtration Rate > 60, BUN/Creatinine Ratio 5, Glucose Level 277H, Calcium Level 8.3L, Phosphorus Level 3.6, Magnesium Level 1.5L 07/31/19 11:46: Glucometer 250H Microbiology 07/28/19 Blood Culture - Preliminary, Resulted No growth 07/28/19 Urine Culture - Final, Complete NO GROWTH 07/30/19 Gram Stain - Final, Resulted 07/30/19 Anaerobic Culture, Resulted Pending 07/30/19 Surgical Culture, Resulted Pending Assessment/Plan Assessment/Plan Assessment/Plan intraabdominal recurrent abscess left-sided colonic mass liver abscess weight loss continue NPO, will advance to clear liquid diet tomorrow continue abx continue pain management as necessary begin IS use remove leung catheter tomorrow patient expressed understanding of surgery gross findings and awaiting biopsy pathology JULIANNE MENDOZA DO 07/31/19 1739: Subjective Subjective/Events-last exam Postoperative pain. NO flatus or bm. Pain controlled with medication. getting up to chair. no new complaints. Patient states to discuss care with her and does not want her family who won't be here to hide information from her. Denies n/v fever sweats chills shortness of breath or chest pain. Objective Exam General Appearance: No Apparent Distress, Chronically ill, Cachetic HEENT: PERRL/EOMI Respiratory: Chest Non Tender, No Accessory Muscle Use, No Respiratory Distress Cardiovascular: Regular Rate, Rhythm, Normal Peripheral Pulses Gastrointestinal: soft, no organomegaly, tenderness (midline abdominal incision, with dressing in place, no signs of infection, incsional tenderness) Extremity: Normal Capillary Refill Neurologic/Psychiatric: Alert, Oriented x3, No Motor/Sensory Deficits, Normal Mood/Affect Skin: Normal Color, Warm/Dry Lymphatic: No Adenopathy Assessment/Plan Assessment/Plan Assessment/Plan intraabdominal recurrent abscess left-sided colonic mass liver abscess weight loss s/p ex lap with partial omentectomy, partial colon resection, biopsy abdominal wall, mobilization splenic flexure npo iv fluids abx leung for accurat i/o, dc in am repeat labs pt incentive spirometry scd's for dvt prophylaxiss likely start clears tomorrow Supervisory-Addendum Brief Verification & Attestation Participated in pt care: history, MDM, physical Personally performed: exam, history, MDM, supervision of care Care discussed with: Medical Student Procedures: n/a Results interpretation: Verified all documentation Verification and Attestation of Medical Student E/M Service A medical student performed and documented this service in my presence. I reviewed and verified all information documented by the medical student and made modifications to such information, when appropriate. I personally performed the physical exam and medical decision making. Julianne Mendoza, Jul 31, 2019,17:39 ISIS JACKSON,MED STUDENT Jul 31, 2019 17:20 JULIANNE DIEGO DO Jul 31, 2019 17:39 POS
[2019-07-31] MEDS ORDERED: WATER (STERILE) FOR INJECTION 10 ML ONE (19:47)
[2019-07-31] MEDS ORDERED: cefTRIAXone 1,000 MG IV (ROCEPHIN) VIAL ONE (19:47)
[2019-07-31] MEDS: cefTRIAXone 1,000 MG/SWFI 10 ML IV PUSH IV SCH ×2 (19:56)
--- NOTE | 2019-07-31 20:54 | OPERATIVE REPORT ---
DATE OF SERVICE: 07/30/2019 PREOPERATIVE DIAGNOSIS: Intraabdominal abscess. POSTOPERATIVE DIAGNOSES: Intraabdominal abscess, colon mass, splenic flexure. PROCEDURES: Exploratory laparotomy, drainage of intra-abdominal abscess with mobilization of splenic flexure, partial omentectomy, partial colon resection with end-to-end anastomosis, biopsy of abdominal wall. SURGEON: Julianne Campbell DO TECHNICAL INSPECTOR: Dr. Lamb, assisted in retraction, dissection and closure. ANESTHESIA: General. ESTIMATED BLOOD LOSS: 100 mL. COMPLICATIONS: None. INDICATIONS: The patient is a 64-year-old female with intraabdominal abscess that is recurrent and has already had been drained previously on an outpatient basis. The plan was to perform incision and drainage, but with recurrence in overall symptoms, the patient was discussed options and she wishes to proceed with procedure as listed above. Consent was signed and on the chart. DESCRIPTION OF PROCEDURE: The patient was taken to the operating suite. She was prepped and draped in a sterile fashion. She had already undergone bowel prep. A midline incision was made and the abdomen was entered. The small bowel had normal appearance. In the left upper quadrant of the abdomen, a firm mass in this area, which was severely stuck towards the left abdominal wall. Blunt dissection was used to go through the phlegmon attached to the abdominal wall, which purulent material then erupted, culture was obtained. This was all suctioned. A large cavity on the abdominal wall was present and continued blunt dissection through this area until the colon was mobilized off of it along with a phlegmon. Firm mass or phlegmon in colon was present in this area. The splenic flexure was then mobilized and a distal portion of the colon to this area was then dissected around and a BENJY-75 stapler was then fired across the colon. The transverse colon was then continued to be mobilized and proximal to the area of the phlegmon and mass, the colon was dissected around and a BENJY stapler was fired across. LigaSure was used to continue to remove the mesentery. There was a portion of omentum that was caked into this area; therefore, partial omentectomy was performed with LigaSure. The mesentery to the colon was then divided using the LigaSure, achieving hemostasis. The specimen was tagged with a suture on the proximal end of the colon. Once the specimen was removed, the distal portion of the colon had a pursestring suture applied to it and this was then opened and dilated and a 28 EEA anastomosis, Anvil was inserted and tied down. A small serosal tear was made. These were closed with 3-0 Vicryls. The colotomy was made in the transverse portion and the stapler was then brought out through the wall of the colon and an end-to-end anastomosis was performed and a linear stapler was then used to close the colotomy. The staple lines were reinforced using 3-0 Vicryl sutures. There was still a little bit of oozing down in the abdominal wall that had been eroded and a biopsy of the abdominal wall was obtained and the wound was then packed with Surgicel and then Gelfoam. The liver was palpated. There felt to be two very small nodules, one on the left lobe of the liver, one on the right lobe. No other pathology was noted within the abdomen. The abdomen was then closed using 1-0 looped PDS and the skin was then closed using ryan. The patient tolerated procedure well without any complications. She was taken to recovery room in stable condition. Job ID: [id number] DocumentID: [id number] Dictated Date: 07/31/2019 12:48:08 Tugboat Pilot Date: 07/31/2019 20:53:13 Dictated By: JULIANNE CAMPBELL DO
[2019-08-01] MEDS: D5 LR IV SOLUTION 1,000 ML IV SCH ×3 (00:51→17:49)
[2019-08-01] MEDS: fentaNYL INJECTION 100 MCG/2 ML AMP IV PRN ×8 (00:55→21:59)
[2019-08-01 04:25] VITALS: BP 129/58
[2019-08-01 06:03] LABS: BASOPHILS % (AUTO) 0 % (0-10); EOSINOPHILS % (AUTO) 0 % (0-10); HEMATOCRIT 25 % (35-52); HEMOGLOBIN 7.6 G/DL (11.5-16.0); LYMPHOCYTES # (AUTO) 1.6 X 10^3 (1.0-4.0); LYMPHOCYTES % (AUTO) 13 % (12-44); MEAN CORPUSCULAR HEMOGLOBIN 27 PG (25-34); MEAN CORPUSCULAR HGB CONC 30 G/DL (32-36); MEAN CORPUSCULAR VOLUME 89 FL (80-99); MEAN PLATELET VOLUME 8.8 FL (7.4-10.4); MONOCYTES # (AUTO) 0.8 X 10^3 (0.0-1.0); MONOCYTES % (AUTO) 7 % (0-12); NEUTROPHILS # (AUTO) 9.6 X 10^3 (1.8-7.8); NEUTROPHILS % (AUTO) 80 % (42-75); PLATELET COUNT 597 10^3/uL (130-400); RED CELL DISTRIBUTION WIDTH 21.6 % (10.0-14.5); WHITE BLOOD COUNT 11.9 10^3/uL (4.3-11.0)
[2019-08-01] MEDS: metroNIDAZOLE 500 MG/100 ML IVPB (PRE-MIX) IV SCH ×3 (06:19→21:04)
[2019-08-01 06:22] LABS: BUN/CREATININE RATIO 6; CALCIUM 8.1 MG/DL (8.5-10.1); CARBON DIOXIDE 24 MMOL/L (21-32); CHLORIDE 105 MMOL/L (98-107); GFR ESTIMATED > 60; GLUCOSE 120 MG/DL (70-105); MAGNESIUM 1.7 MG/DL (1.6-2.4); PHOSPHORUS 2.3 MG/DL (2.3-4.7); POTASSIUM 3.7 MMOL/L (3.6-5.0); SODIUM 140 MMOL/L (135-145)
[2019-08-01] MEDS: ONDANSETRON 4 MG/2 ML (SDV) Z0FRAN IVP PRN ×2 (06:27→21:59)
--- NOTE | 2019-08-01 06:32 | Pulmonary Progress Note ---
Subjective Time Seen by a Provider: 14:48 Subjective/Events-last exam Pt is getting better. Sepsis Event Evaluation Height, Weight, BMI Height: '" Weight: lbs. oz. kg; 16.80 BMI Method: Exam Exam Vital Signs Date Time Temp Pulse Resp B/P (MAP) Pulse Ox O2 Delivery O2 Flow Rate FiO2 08/01/19 04:25 37.4 100 18 129/58 (81) 92 Nasal Cannula 2.00 07/31/19 23:11 37.2 85 18 135/61 (85) 94 Room Air 07/31/19 20:00 88 Room Air 07/31/19 19:42 36.8 99 18 133/61 (85) 90 Room Air 07/31/19 16:40 86 20 147/73 (97) 92 Room Air 07/31/19 15:00 87 24 124/62 (82) 91 Room Air 07/31/19 14:00 94 44 137/70 (92) 90 Room Air 07/31/19 13:00 75 48 134/62 (86) 92 Room Air 07/31/19 12:37 77 07/31/19 12:00 37.2 07/31/19 12:00 Room Air 07/31/19 12:00 86 20 132/65 (87) 93 Room Air 07/31/19 11:00 96 25 122/74 (90) 91 Room Air 07/31/19 10:00 72 18 131/62 (85) 93 Room Air 07/31/19 09:00 Room Air 07/31/19 09:00 85 26 126/54 (78) 94 Room Air 07/31/19 08:00 Room Air 07/31/19 08:00 102 25 121/89 (100) 91 Room Air 07/31/19 07:00 87 21 142/68 (92) 92 Room Air 07/31/19 06:55 83 I & O 08/01/19 07:00 Intake Total 200 ml Output Total 1100 ml Balance -900 ml Height & Weight Height: '" Weight: lbs. oz. kg; 16.80 BMI Method: General Appearance: No Apparent Distress, Chronically ill, Cachetic HEENT: PERRL/EOMI Respiratory: Chest Non Tender, No Accessory Muscle Use, No Respiratory Distress Cardiovascular: Regular Rate, Rhythm, Normal Peripheral Pulses Capillary Refill: Less Than 3 Seconds Peripheral Pulses: 2+ Dorsalis Pedis (R), 2+ Left Dors-Pedis (L), 2+ Radial Pulses (R), 2+ Radial Pulses (L) Gastrointestinal: soft, no organomegaly, tenderness (midline abdominal incision, with dressing in place, no signs of infection, incsional tenderness) Extremity: Normal Capillary Refill Neurologic/Psychiatric: Alert, Oriented x3, No Motor/Sensory Deficits, Normal Mood/Affect Skin: Normal Color, Warm/Dry Lymphatic: No Adenopathy Results Lab Laboratory Tests 07/31/19 02:50 08/01/19 05:54 Assessment/Plan Assessment/Plan 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
[2019-08-01] MEDS: POTASSIUM CL 10MEQ/50ML IVPB 50 ML IV SCH ×2 (06:53)
[2019-08-01 08:00] VITALS: BP 148/77
[2019-08-01] MEDS: MAGNESIUM 1 GM/100 ML IVPB 100 ML IV SCH ×2 (09:05→09:07)
[2019-08-01] MEDS: KCL 20 MEQ TAB (K-DUR) PO SCH ×2 (09:07)
--- NOTE | 2019-08-01 10:31 | Physical Therapy Daily Note ---
PT Daily Note-Current Subjective States that she is feeling okay. Transfers SCALE: Activities may be completed with or without assistive devices. 5-Pclezlpqyx-fqwfvdx completes the activity by him/herself with no assistance from a helper. 5-Set-up or Clean-up Assistance-helper sets up or cleans up; patient completes activity. [place] assists only prior to or following the activity. 4-Supervision or Touching Assistance-helper provides verbal cues and/or touching/steadying and/or contact guard assistance as patient completes activity. Assistance may be provided throughout the activity or intermittently. 3-Partial/Moderate Assistance-helper does LESS THAN HALF the effort. [place] lift s, holds or supports trunk or limbs, but provides less than half the effort. 2-Substantial/Maximal Assistance-helper does MORE THAN HALF the effort. [place] lifts or holds trunk or limbs and provides more than half the effort. 3-Xzjtwbzou-akmbgf does ALL the effort. Patient does none of the effort to complete the activity. Or, the assistance of 2 or more helpers is required for the patient to complete the activity. If activity was not attempted, code reason: 7-Patient Refused. 9-Not Applicable-not attempted and the patient did not perform the activity before the current illness, exacerbation or injury. 10-Not Attempted due to Environmental Limitations-(lack of equipment, weather restraints, etc.). 88-Not Attempted due to Medical Conditions or Safety Concerns. Transfers (B, C, W/C): 4 Sit to Lying (QC): 4 Sit to Stand (QC): 5 Weight Bearing Full Weight Bearing Full Weight Bearing Gait Training Gait: 5 Distance: 130' Gait Persons Needed: 1 Gait Assistive Device: FWW Assessment Current Status: Excellent Progress Patient ambulated farther distance today. PT Scale Clerk Goals Scale Clerk Goals PT Intermediate Goals Time Frame: Aug 07, 2019 Sit to Lying (QC): 6 Lying-Sitting on Side/Bed(QC): 6 Sit to Stand (QC): 6 Roll Left to Right (QC): 6 Chair/Cfd-in-Xupva Xfer(QC): 6 Does the Patient Walk: Yes Distance: 300' Walk 10 feet (QC): 6 Walk 50ft with 2 Turns (QC): 6 Walk 150 ft (QC): 6 Gait Assistive Device: None, FWW # of Steps: 4 1 Step (curb) (QC): 6 4 Steps (QC): 6 PT Plan Treatment/Plan Treatment Plan: Bed Mobility, Education, Functional Activity Libra, Functional Strength, Gait, Safety, Therapeutic Exercise, Transfers Treatment Duration: Aug 07, 2019 Frequency: 6 times per week Estimated Hrs Per Day: .25 hour per day Patient and/or Family Agrees t: Yes Time/GCodes Time In: 1010 Time Out: 1025 Total Billed Treatment Time: 15 Total Billed Treatment 1, GT x 15 ART GONZALEZ PT Aug 01, 2019 10:31 POS
--- NOTE | 2019-08-01 10:56 | Progress Note - Surgery ---
Subjective Date Seen by a Provider: Aug 01, 2019 Time Seen by a Provider: 10:53 Subjective/Events-last exam Patient feeling better. Pain controlled. No flatus or bm. NPO. Denies any new complaints. Denies n/v fever sweats chills shortness of breath or chest pain. Objective Exam Vital Signs Date Time Temp Pulse Resp B/P (MAP) Pulse Ox O2 Delivery O2 Flow Rate FiO2 08/01/19 09:00 94 Room Air 2.00 08/01/19 08:00 37.3 94 18 148/77 (100) 94 Room Air 08/01/19 04:25 37.4 100 18 129/58 (81) 92 Nasal Cannula 2.00 07/31/19 23:11 37.2 85 18 135/61 (85) 94 Room Air 07/31/19 20:00 88 Room Air 07/31/19 19:42 36.8 99 18 133/61 (85) 90 Room Air 07/31/19 16:40 86 20 147/73 (97) 92 Room Air 07/31/19 15:00 87 24 124/62 (82) 91 Room Air 07/31/19 14:00 94 44 137/70 (92) 90 Room Air 07/31/19 13:00 75 48 134/62 (86) 92 Room Air 07/31/19 12:37 77 07/31/19 12:00 37.2 07/31/19 12:00 Room Air 07/31/19 12:00 86 20 132/65 (87) 93 Room Air 07/31/19 11:00 96 25 122/74 (90) 91 Room Air I & O 08/01/19 07:00 Intake Total 200 ml Output Total 1415 ml Balance -1215 ml Capillary Refill : Less Than 3 SecondsLess Than 3 Seconds General Appearance: No Apparent Distress, Chronically ill, Cachetic HEENT: PERRL/EOMI Neck: Non Tender Respiratory: Chest Non Tender, No Accessory Muscle Use, No Respiratory Distress Cardiovascular: Regular Rate, Rhythm, Normal Peripheral Pulses Peripheral Pulses: 2+ Dorsalis Pedis (R), 2+ Left Dors-Pedis (L), 2+ Radial Pulses (R), 2+ Radial Pulses (L) Gastrointestinal: soft, no organomegaly, tenderness (midline abdominal incision, c/d/i, no signs of infection, incsional tenderness) Extremity: Normal Capillary Refill Neurologic/Psychiatric: Alert, Oriented x3, No Motor/Sensory Deficits, Normal Mood/Affect Skin: Normal Color, Warm/Dry Lymphatic: No Adenopathy Results Lab Laboratory Tests 07/31/19 11:46: Glucometer 250H 07/31/19 18:02: Glucometer 151H 07/31/19 23:13: Glucometer 134H 08/01/19 05:42: Glucometer 130H 08/01/19 05:54: White Blood Count 11.9H, Red Blood Count 2.83L, Hemoglobin 7.6L, Hematocrit 25L, Mean Corpuscular Volume 89, Mean Corpuscular Hemoglobin 27, Mean Corpuscular Hemoglobin Concent 30L, Red Cell Distribution Width 21.6H, Platelet Count 597H, Mean Platelet Volume 8.8, Neutrophils (%) (Auto) 80H, Lymphocytes (%) (Auto) 13, Monocytes (%) (Auto) 7, Eosinophils (%) (Auto) 0, Basophils (%) (Auto) 0, Neutrophils # (Auto) 9.6H, Lymphocytes # (Auto) 1.6, Monocytes # (Auto) 0.8, Eosinophils # (Auto) 0.0, Basophils # (Auto) 0.0, Sodium Level 140, Potassium Level 3.7, Chloride Level 105, Carbon Dioxide Level 24, Anion Gap 11, Blood Urea Nitrogen 3L, Creatinine 0.50L, Estimat Glomerular Filtration Rate > 60, BUN/Creatinine Ratio 6, Glucose Level 120H, Calcium Level 8.1L, Phosphorus Level 2.3, Magnesium Level 1.7 Microbiology 07/28/19 Blood Culture - Preliminary, Resulted No growth 07/28/19 Urine Culture - Final, Complete NO GROWTH 07/30/19 Gram Stain - Final, Resulted 07/30/19 Anaerobic Culture, Resulted Pending 07/30/19 Surgical Culture - Preliminary, Resulted Enterococcus faecalis Strep anginosus Escherichia coli Assessment/Plan Assessment/Plan Assessment/Plan intraabdominal recurrent abscess left-sided colonic mass liver abscess weight loss s/p ex lap with partial omentectomy, partial colon resection, biopsy abdominal wall, mobilization splenic flexure start clears iv fluids abx repeat labs pt incentive spirometry scd's for dvt prophylaxiss JULIANNE MENDOZA DO Aug 01, 2019 10:56 POS
[2019-08-01 12:00] VITALS: BP 153/77
--- NOTE | 2019-08-01 13:31 | Progress Note - Hospitalist ---
Subjective HPI/CC On Admission Date Seen by Provider: Aug 01, 2019 Time Seen by Provider: 13:15 CC: Abdominal Abscess HPI: This is a 64yoWF who has a PMH of a drain diversion by Dr. Campbell recently that presents with a mass of the left lower quadrant was found to have drainage and and evidenceof a colonic fistula and abscess on CT scan so Dr. Campbell has been consulted and he will perform colonoscopy and further evaluation of the fistula. She has been placed on broad spectrum antibiotics and she remains stable. Subjective/Events-last exam patient is feeling good this morning. She is getting hungry. Her blood pressure is beginning to range up and is in need of restarting her antihypertensive medication. She's been up walking already. Objective Exam Vital Signs Vital Signs Date Time Temp Pulse Resp B/P (MAP) Pulse Ox O2 Delivery O2 Flow Rate FiO2 08/01/19 12:00 37.0 94 18 153/77 (102) 92 Room Air 08/01/19 11:29 2.00 Capillary Refill : Less Than 3 SecondsLess Than 3 Seconds General Appearance: No Apparent Distress, WD/WN HEENT: Normal ENT Inspection Neck: Full Range of Motion, Normal Inspection, Non Tender, Supple Respiratory: Lungs Clear, Normal Breath Sounds, No Accessory Muscle Use, No Respiratory Distress Cardiovascular: Regular Rate, Rhythm, No Gallop, No JVD, No Murmur, Normal Peripheral Pulses Gastrointestinal: Normal Bowel Sounds, Soft, Tenderness, Other (incision is dry without exudate) Extremity: Normal Capillary Refill, Normal Range of Motion, Non Tender, No Calf Tenderness Neurologic/Psychiatric: Alert, Oriented x3, No Motor/Sensory Deficits, Normal Mood/Affect Results/Procedures Lab Laboratory Tests 08/01/19 05:54 Patient resulted labs reviewed. Assessment/Plan Assessment and Plan Assess & Plan/Chief Complaint 1. 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 coronary artery disease restart Lipitor and Plavix as soon as possible because of stent SANDNESS,ERENDIRA Estrada MD Aug 01, 2019 13:31 POS
[2019-08-01] MEDS: LOSARTAN 50 MG (COZAAR) TAB PO SCH (14:17)
[2019-08-01 15:35] VITALS: BP 161/74
[2019-08-01] MEDS ORDERED: WATER (STERILE) FOR INJECTION 10 ML ONE (19:46)
[2019-08-01] MEDS ORDERED: cefTRIAXone 1,000 MG IV (ROCEPHIN) VIAL ONE (19:46)
[2019-08-01] MEDS: cefTRIAXone 1,000 MG/SWFI 10 ML IV PUSH IV SCH ×2 (19:46)
[2019-08-01] MEDS: CARVEDILOL 6.25 MG (COREG) TAB PO SCH (19:55)
[2019-08-01 20:00] VITALS: BP 157/72
[2019-08-02] VITALS (7 sets, daily range): BP systolic 105–146; BP diastolic 51–76
[2019-08-02] MEDS: fentaNYL INJECTION 100 MCG/2 ML AMP IV PRN ×4 (00:05→08:23)
[2019-08-02] MEDS: D5 LR IV SOLUTION 1,000 ML IV SCH ×2 (04:49→08:24)
[2019-08-02 06:07] LABS: BASOPHILS % (AUTO) 0 % (0-10); EOSINOPHILS % (AUTO) 0 % (0-10); HEMATOCRIT 23 % (35-52); LYMPHOCYTES # (AUTO) 1.2 X 10^3 (1.0-4.0); LYMPHOCYTES % (AUTO) 13 % (12-44); MEAN CORPUSCULAR HEMOGLOBIN 27 PG (25-34); MEAN CORPUSCULAR HGB CONC 30 G/DL (32-36); MEAN CORPUSCULAR VOLUME 89 FL (80-99); MEAN PLATELET VOLUME 9.4 FL (7.4-10.4); MONOCYTES # (AUTO) 0.6 X 10^3 (0.0-1.0); MONOCYTES % (AUTO) 6 % (0-12); NEUTROPHILS # (AUTO) 7.5 X 10^3 (1.8-7.8); NEUTROPHILS % (AUTO) 81 % (42-75); PLATELET COUNT 507 10^3/uL (130-400); RED CELL DISTRIBUTION WIDTH 20.8 % (10.0-14.5); WHITE BLOOD COUNT 9.2 10^3/uL (4.3-11.0)
[2019-08-02] MEDS: metroNIDAZOLE 500 MG/100 ML IVPB (PRE-MIX) IV SCH ×2 (06:19→14:00)
[2019-08-02 06:36] LABS: BUN/CREATININE RATIO 5; CALCIUM 7.8 MG/DL (8.5-10.1); CARBON DIOXIDE 25 MMOL/L (21-32); CHLORIDE 102 MMOL/L (98-107); CREATININE SERUM 0.42 MG/DL (0.60-1.30); GFR ESTIMATED > 60; GLUCOSE 97 MG/DL (70-105); MAGNESIUM 1.4 MG/DL (1.6-2.4); PHOSPHORUS 2.6 MG/DL (2.3-4.7); POTASSIUM 3.3 MMOL/L (3.6-5.0); SODIUM 138 MMOL/L (135-145)
[2019-08-02] MEDS: MAGNESIUM 1 GM/100 ML IVPB 100 ML IV SCH ×2 (06:48→06:49)
[2019-08-02] MEDS: POTASSIUM CL 10MEQ/50ML IVPB 50 ML IV SCH ×5 (06:48→15:40)
[2019-08-02] MEDS: KCL 20 MEQ TAB (K-DUR) PO SCH ×2 (06:49)
[2019-08-02] MEDS: LOSARTAN 50 MG (COZAAR) TAB PO SCH (08:24)
[2019-08-02] MEDS: CARVEDILOL 6.25 MG (COREG) TAB PO SCH ×2 (08:24→20:54)
--- NOTE | 2019-08-02 11:18 | Progress Note - Surgery ---
ISIS JACKSON,MED STUDENT 08/02/19 1118: Subjective Date Seen by a Provider: Aug 02, 2019 Time Seen by a Provider: 08:25 Subjective/Events-last exam Patient seen and examined. She reports continued abdominal pain of her incision this am mostly with movement and palpation. She has not had a bowel movement yet, but is having a little flatus and feels like her "bowels are moving". She states she is urinating a lot and that it is mostly clear. With PT yesterday she walked down the hallway and back, and she is able to sit on the side of the bed and get to the urinal without assistance. She notes continued use of her IS. Has had some nausea, but remains on clear liquids and is able to keep them down. Denies SOB, chest pain, fevers/chills, vomiting. Objective Exam Vital Signs Date Time Temp Pulse Resp B/P (MAP) Pulse Ox O2 Delivery O2 Flow Rate FiO2 08/02/19 09:00 94 Nasal Cannula 2.00 08/02/19 08:00 37.8 93 20 131/69 (89) 94 Nasal Cannula 2.00 08/02/19 04:21 37.2 86 18 123/70 (87) 97 Nasal Cannula 2.00 08/02/19 00:27 37.3 87 18 146/76 (99) 95 Nasal Cannula 2.00 08/01/19 21:00 Nasal Cannula 2.00 08/01/19 20:00 37.5 101 20 157/72 (100) 96 Nasal Cannula 2.00 08/01/19 15:35 37.3 91 18 161/74 (103) 93 Nasal Cannula 2.00 08/01/19 12:00 37.0 94 18 153/77 (102) 92 Room Air 08/01/19 11:29 Nasal Cannula 2.00 I & O 08/02/19 07:00 Intake Total 420 ml Output Total 3810 ml Balance -3390 ml Capillary Refill : Less Than 3 SecondsLess Than 3 Seconds General Appearance: No Apparent Distress, WD/WN HEENT: Normal ENT Inspection; No Scleral Icterus (L), No Scleral Icterus (R) Neck: Full Range of Motion, Normal Inspection Respiratory: Lungs Clear, Normal Breath Sounds, No Accessory Muscle Use, No Respiratory Distress; No Rhonci, No Wheezing Cardiovascular: Regular Rate, Rhythm, No Murmur, Normal Peripheral Pulses Peripheral Pulses: 2+ Dorsalis Pedis (R), 2+ Left Dors-Pedis (L), 2+ Radial Pulses (R), 2+ Radial Pulses (L) Gastrointestinal: normal bowel sounds, soft, no organomegaly, tenderness (midline abdominal incision, c/d/i, no signs of infection, incsional tenderness) Extremity: Normal Capillary Refill, Normal Range of Motion, Non Tender, No Calf Tenderness Neurologic/Psychiatric: Alert, Oriented x3, Normal Mood/Affect Skin: Normal Color, Warm/Dry Lymphatic: No Adenopathy Results Lab Laboratory Tests 08/01/19 12:15: Glucometer 123H 08/01/19 17:23: Glucometer 127H 08/02/19 00:20: Glucometer 120H 08/02/19 05:09: Glucometer 110 08/02/19 05:28: White Blood Count 9.2, Red Blood Count 2.58L, Hemoglobin 7.0L, Hematocrit 23L, Mean Corpuscular Volume 89, Mean Corpuscular Hemoglobin 27, Mean Corpuscular Hemoglobin Concent 30L, Red Cell Distribution Width 20.8H, Platelet Count 507H, Mean Platelet Volume 9.4, Neutrophils (%) (Auto) 81H, Lymphocytes (%) (Auto) 13, Monocytes (%) (Auto) 6, Eosinophils (%) (Auto) 0, Basophils (%) (Auto) 0, Neutrophils # (Auto) 7.5, Lymphocytes # (Auto) 1.2, Monocytes # (Auto) 0.6, Eosinophils # (Auto) 0.0, Basophils # (Auto) 0.0, Sodium Level 138, Potassium Level 3.3L, Chloride Level 102, Carbon Dioxide Level 25, Anion Gap 11, Blood Urea Nitrogen < 2L, Creatinine 0.42L, Estimat Glomerular Filtration Rate > 60, BUN/Creatinine Ratio 5, Glucose Level 97, Calcium Level 7.8L, Phosphorus Level 2.6, Magnesium Level 1.4L Microbiology 07/28/19 Blood Culture - Preliminary, Resulted No growth 07/28/19 Urine Culture - Final, Complete NO GROWTH 07/30/19 Gram Stain - Final, Resulted 07/30/19 Anaerobic Culture, Resulted Pending 07/30/19 Surgical Culture - Preliminary, Resulted Enterococcus faecalis Strep anginosus Escherichia coli Assessment/Plan Assessment/Plan Assessment/Plan intraabdominal recurrent abscess left-sided colonic mass liver abscess weight loss s/p ex lap with partial omentectomy, partial colon resection, biopsy abdominal wall, mobilization splenic flexure continue clear liquid diet today PO pain medication prn continue ambulation, PT and IS use monitor today, consider discharge soon depending on bowel function JULIANNE CAMPBELL DO 08/02/19 1335: Subjective Subjective/Events-last exam Still with pain, but controlled. Trying to increase activity. Tolerating liquids. Passing a little flatus, no bm. Mag and K down. Using IS some. refusing scd's Objective Exam General Appearance: No Apparent Distress HEENT: PERRL/EOMI, Normal ENT Inspection Neck: Full Range of Motion, Normal Inspection Respiratory: Chest Non Tender, No Accessory Muscle Use, No Respiratory Distress Cardiovascular: Regular Rate, Rhythm Gastrointestinal: soft, tenderness (midline abdominal incision, c/d/i, no signs of infection, incsional tenderness) Extremity: Normal Capillary Refill Neurologic/Psychiatric: Alert, Oriented x3 Skin: Normal Color, Warm/Dry Lymphatic: No Adenopathy Assessment/Plan Assessment/Plan Assessment/Plan intraabdominal recurrent abscess left-sided colonic mass liver abscess weight loss s/p ex lap with partial omentectomy, partial colon resection, biopsy abdominal wall, mobilization splenic flexure electrolyte abnormalities replace k and mag continue rocephin/flagyl ambulate clear liquids convert to oral pain medication home soon Supervisory-Addendum Brief Verification & Attestation Participated in pt care: history, MDM, physical Personally performed: exam, history, MDM, supervision of care Care discussed with: Medical Student Procedures: n/a Results interpretation: Verified all documentation Verification and Attestation of Medical Student E/M Service A medical student performed and documented this service in my presence. I reviewed and verified all information documented by the medical student and made modifications to such information, when appropriate. I personally performed the physical exam and medical decision making. Julianne Campbell, Aug 02, 2019,13:41 ISIS JACKSON,MED STUDENT Aug 02, 2019 11:18 JULIANNE DIEGO DO Aug 02, 2019 13:35 POS
[2019-08-02] MEDS: ONDANSETRON 4 MG/2 ML (SDV) Z0FRAN IVP PRN ×2 (11:41→18:20)
[2019-08-02] MEDS: HYDROcodone/APAP 5 MG/325 MG (LORTAB) TAB PO PRN ×2 (12:48→20:18)
[2019-08-02] MEDS: MAGNESIUM 1 GM/100 ML IVPB 100 ML IV ONE ×2 (13:30→15:39)
--- NOTE | 2019-08-02 14:54 | Progress Note - Hospitalist ---
Subjective HPI/CC On Admission Date Seen by Provider: Aug 02, 2019 Time Seen by Provider: 14:30 CC: Abdominal Abscess HPI: This is a 64yoWF who has a PMH of a drain diversion by Dr. Campbell recently that presents with a mass of the left lower quadrant was found to have drainage and and evidenceof a colonic fistula and abscess on CT scan so Dr. Campbell has been consulted and he will perform colonoscopy and further evaluation of the fistula. She has been placed on broad spectrum antibiotics and she remains stable. Subjective/Events-last exam Patient is without complaint this morning she is passing flatus but has not had a bowel movement. She complains of having lost IV access and it being difficult to restart a Hep-Lock. She is hopeful to be able to go home tomorrow. Review of Systems Neurological: Weakness Objective Exam Vital Signs Vital Signs Date Time Temp Pulse Resp B/P (MAP) Pulse Ox O2 Delivery O2 Flow Rate FiO2 08/02/19 11:59 37.5 89 16 131/68 (89) 96 Nasal Cannula 2.00 Capillary Refill : Less Than 3 SecondsLess Than 3 Seconds General Appearance: No Apparent Distress, WD/WN HEENT: Normal ENT Inspection Neck: Supple Respiratory: Chest Non Tender, Lungs Clear, Normal Breath Sounds, No Accessory Muscle Use Cardiovascular: Regular Rate, Rhythm, No Gallop, No JVD, No Murmur, Normal Peripheral Pulses Gastrointestinal: Normal Bowel Sounds, Soft, Tenderness (Midline incision dry) Rectal: Deferred Extremity: Normal Capillary Refill, Non Tender Neurologic/Psychiatric: Alert, Oriented x3, No Motor/Sensory Deficits, Normal Mood/Affect Skin: Normal Color, Warm/Dry Lymphatic: No Adenopathy Results/Procedures Lab Laboratory Tests 08/02/19 05:28 Patient resulted labs reviewed. Assessment/Plan Assessment and Plan Assess & Plan/Chief Complaint 1. Colonic fistula status post surgery-postop day number 2 2.Hypertension restart antihypertensive medications 3.Hyperlipidemia 4. coronary artery disease restart Lipitor and Plavix as soon as possible because of stent 5. Hypomagnesemia will replace Discharge planning ERENDIRA MICHEL MD Aug 02, 2019 14:54 POS
--- NOTE | 2019-08-02 16:10 | NUR ---
FREYA ALMARAZ IN PHARMACY CHANGE POTASSIUM ORDERS TO PO. GIVE ORAL MAG DOSE EARLY AND CHANGE FLAGYL TO PO ALSO Addendum: 08/02/19 at 1707 by DONOVAN MAYEN RN PER PHARM CANT CHANGE SINCE I GOT ORDERS FROM [facility]. CALLED [facility] FOR SPECIFIC AMOUNTS BECAUSE OF CHANGE IN ROUTE. [facility] SAID TO WAIT ON POTASSIUM REPLACEMENT TILL AM CHANGE FLAGYL TO 500 PO. PT HAS MAG PO DUE AT 1800. ANESTHESIA TO COME TRY TO PLACE IV LATER THIS EVENING.
[2019-08-02] MEDS: MAGNESIUM OXIDE (MAG-OX)400 MG TAB PO SCH (18:20)
--- NOTE | 2019-08-02 18:37 | NUR ---
PT HAS A NEW 22 GAUGE IN HER L HAND PLACED BY ANESTHESIA
--- NOTE | 2019-08-02 18:38 | Anesthesia-Procedure Note ---
Procedures/Interventions Procedure Start/Stop/Diagnosis Date of Procedure: Aug 02, 2019 Start Time: 17:55 Referring Physician: Adrian Preprocedural Diagnosis: Colon Abscess/Fistula Brief History Called by clubhouse manager per request of Dr. Campbell to start IV on pt stuck multiple times already by nursing staff. Left had #22 g started easily x2 attempt. Chlorhexidine prep and secured with tape and sterile opsite. Report to RN. No complaints per pt. ASA 3 Stop Time: 18:05 Central Line/IV Access IV : Location: Left Site: Hand IV Catheter Type: Saline Lock IV Catheter Gauge: 22 KARI TOURE CRNA Aug 02, 2019 18:38 POS
[2019-08-02] MEDS ORDERED: WATER (STERILE) FOR INJECTION 10 ML ONE (20:12)
[2019-08-02] MEDS ORDERED: cefTRIAXone 1,000 MG IV (ROCEPHIN) VIAL ONE (20:12)
[2019-08-02] MEDS: cefTRIAXone 1,000 MG/SWFI 10 ML IV PUSH IV SCH ×2 (20:17)
[2019-08-02] MEDS: metroNIDAZOLE 500 MG (FLAGYL) TAB PO SCH (20:18)
[2019-08-02] MEDS ORDERED: CARVEDILOL 6.25 MG (COREG) TAB PO SCH (21:00)
[2019-08-02] MEDS ORDERED: metroNIDAZOLE 500MG/100ML IVPB 100 ML IV SCH (22:00)
[2019-08-03] MEDS: ONDANSETRON 4 MG/2 ML (SDV) Z0FRAN IVP PRN ×2 (00:17→08:12)
[2019-08-03] MEDS: HYDROcodone/APAP 5 MG/325 MG (LORTAB) TAB PO PRN ×2 (02:37→08:12)
[2019-08-03 04:00] VITALS: BP 116/57
[2019-08-03 05:05] VITALS: BP 116/57
[2019-08-03 05:48] LABS: BASOPHILS % (AUTO) 0 % (0-10); EOSINOPHILS % (AUTO) 1 % (0-10); HEMATOCRIT 24 % (35-52); HEMOGLOBIN 7.3 G/DL (11.5-16.0); LYMPHOCYTES # (AUTO) 0.9 X 10^3 (1.0-4.0); LYMPHOCYTES % (AUTO) 12 % (12-44); MEAN CORPUSCULAR HEMOGLOBIN 27 PG (25-34); MEAN CORPUSCULAR HGB CONC 30 G/DL (32-36); MEAN CORPUSCULAR VOLUME 89 FL (80-99); MEAN PLATELET VOLUME 8.4 FL (7.4-10.4); MONOCYTES # (AUTO) 0.4 X 10^3 (0.0-1.0); MONOCYTES % (AUTO) 6 % (0-12); NEUTROPHILS # (AUTO) 6.4 X 10^3 (1.8-7.8); NEUTROPHILS % (AUTO) 82 % (42-75); PLATELET COUNT 546 10^3/uL (130-400); RED CELL DISTRIBUTION WIDTH 20.9 % (10.0-14.5); WHITE BLOOD COUNT 7.9 10^3/uL (4.3-11.0)
[2019-08-03 06:16] LABS: BUN/CREATININE RATIO 7; CALCIUM 7.8 MG/DL (8.5-10.1); CARBON DIOXIDE 25 MMOL/L (21-32); CHLORIDE 103 MMOL/L (98-107); CREATININE SERUM 0.45 MG/DL (0.60-1.30); GFR ESTIMATED > 60; GLUCOSE 74 MG/DL (70-105); MAGNESIUM 1.5 MG/DL (1.6-2.4); PHOSPHORUS 3.7 MG/DL (2.3-4.7); POTASSIUM 3.6 MMOL/L (3.6-5.0); SODIUM 137 MMOL/L (135-145)
[2019-08-03] MEDS: POTASSIUM CL 10MEQ/50ML IVPB 50 ML IV SCH (06:20)
[2019-08-03] MEDS: MAGNESIUM 1 GM/100 ML IVPB 100 ML IV SCH (06:20)
[2019-08-03] MEDS: KCL 20 MEQ TAB (K-DUR) PO SCH (06:21)
--- NOTE | 2019-08-03 07:57 | Pulmonary Progress Note ---
Subjective Time Seen by a Provider: 14:46 Subjective/Events-last exam No complications noted. Sepsis Event Evaluation Height, Weight, BMI Height: '" Weight: lbs. oz. kg; 16.80 BMI Method: Exam Exam Vital Signs Date Time Temp Pulse Resp B/P (MAP) Pulse Ox O2 Delivery O2 Flow Rate FiO2 08/03/19 04:00 37.2 93 18 116/57 (76) 95 Nasal Cannula 2.00 08/02/19 23:45 37.0 91 20 125/61 (82) 93 Nasal Cannula 2.00 08/02/19 21:00 Nasal Cannula 2.00 08/02/19 19:36 37.3 71 20 111/56 (74) 93 Nasal Cannula 2.00 08/02/19 15:39 37.7 78 20 105/51 (69) 95 Nasal Cannula 2.00 08/02/19 11:59 37.5 89 16 131/68 (89) 96 Nasal Cannula 2.00 08/02/19 09:00 94 Nasal Cannula 2.00 08/02/19 08:00 37.8 93 20 131/69 (89) 94 Nasal Cannula 2.00 I & O 08/03/19 07:00 Intake Total 2245 ml Output Total 3100 ml Balance -855 ml Height & Weight Height: '" Weight: lbs. oz. kg; 16.80 BMI Method: General Appearance: No Apparent Distress, WD/WN HEENT: Normal ENT Inspection Neck: Supple Respiratory: Chest Non Tender, Lungs Clear, Normal Breath Sounds, No Accessory Muscle Use Cardiovascular: Regular Rate, Rhythm, No Gallop, No JVD, No Murmur, Normal Peripheral Pulses Capillary Refill: Less Than 3 Seconds Peripheral Pulses: 2+ Dorsalis Pedis (R), 2+ Left Dors-Pedis (L), 2+ Radial Pulses (R), 2+ Radial Pulses (L) Gastrointestinal: soft, tenderness (midline abdominal incision, c/d/i, no signs of infection, incsional tenderness) Extremity: Normal Capillary Refill, Non Tender Neurologic/Psychiatric: Alert, Oriented x3, No Motor/Sensory Deficits, Normal Mood/Affect Skin: Normal Color, Warm/Dry Lymphatic: No Adenopathy Results Lab Laboratory Tests 08/02/19 05:28 08/03/19 05:40 Assessment/Plan Assessment/Plan Colonic fistulas s/p surgery -pt had abdominal abscess drained, partial omentectomy, and partial colon resection and bx done (07/30) - Alfa/Richard -Surgery following Tobacco use -Education -currently on 2 liters of oxygen -may need home 02 Anemia - monitor ENDY MOLINA DO Aug 03, 2019 07:57 POS
[2019-08-03 08:00] VITALS: BP 110/59
[2019-08-03] MEDS: CARVEDILOL 6.25 MG (COREG) TAB PO SCH (08:11)
[2019-08-03] MEDS: metroNIDAZOLE 500 MG (FLAGYL) TAB PO SCH (08:11)
[2019-08-03] MEDS: LOSARTAN 50 MG (COZAAR) TAB PO SCH (08:11)
[2019-08-03] MEDS: MAGNESIUM OXIDE (MAG-OX)400 MG TAB PO SCH (08:11)
--- NOTE | 2019-08-03 08:26 | Progress Note - Surgery ---
ISIS JACKSON,MED STUDENT 08/03/19 0826: Subjective Date Seen by a Provider: Aug 03, 2019 Time Seen by a Provider: 08:05 Subjective/Events-last exam Patient seen and examined. She is doing well this morning and reports she only has pain with sitting up. She says she passed gas and belched this morning, but has not had a BM. She notes some occasional nausea, but says it is improved from yesterday. She is urinating fine. Still on clear liquid diet and has been keeping them down fine. She continues to work with PT and is using her IS. Objective Exam Vital Signs Date Time Temp Pulse Resp B/P (MAP) Pulse Ox O2 Delivery O2 Flow Rate FiO2 08/03/19 04:00 37.2 93 18 116/57 (76) 95 Nasal Cannula 2.00 08/02/19 23:45 37.0 91 20 125/61 (82) 93 Nasal Cannula 2.00 08/02/19 21:00 Nasal Cannula 2.00 08/02/19 19:36 37.3 71 20 111/56 (74) 93 Nasal Cannula 2.00 08/02/19 15:39 37.7 78 20 105/51 (69) 95 Nasal Cannula 2.00 08/02/19 11:59 37.5 89 16 131/68 (89) 96 Nasal Cannula 2.00 08/02/19 09:00 94 Nasal Cannula 2.00 I & O 08/03/19 07:00 Intake Total 2245 ml Output Total 3100 ml Balance -855 ml Capillary Refill : Less Than 3 SecondsLess Than 3 Seconds General Appearance: No Apparent Distress, WD/WN HEENT: PERRL/EOMI, Normal ENT Inspection; No Scleral Icterus (L), No Scleral Icterus (R) Neck: Full Range of Motion Respiratory: Chest Non Tender, Lungs Clear, Normal Breath Sounds, No Accessory Muscle Use, No Respiratory Distress Cardiovascular: Regular Rate, Rhythm, No Murmur, Normal Peripheral Pulses Peripheral Pulses: 2+ Dorsalis Pedis (R), 2+ Left Dors-Pedis (L), 2+ Radial Pulses (R), 2+ Radial Pulses (L) Gastrointestinal: soft, no organomegaly; No distended, No guarding; tenderness (midline abdominal incision, c/d/i, no signs of infection, incsional tenderness) Extremity: Normal Capillary Refill, Non Tender, No Calf Tenderness Neurologic/Psychiatric: Alert, Oriented x3, Normal Mood/Affect Skin: Normal Color, Warm/Dry Lymphatic: No Adenopathy Results Lab Laboratory Tests 08/02/19 11:35: Glucometer 100 08/02/19 17:42: Glucometer 109 08/02/19 23:56: Glucometer 95 08/03/19 05:40: White Blood Count 7.9, Red Blood Count 2.74L, Hemoglobin 7.3L, Hematocrit 24L, Mean Corpuscular Volume 89, Mean Corpuscular Hemoglobin 27, Mean Corpuscular Hemoglobin Concent 30L, Red Cell Distribution Width 20.9H, Platelet Count 546H, Mean Platelet Volume 8.4, Neutrophils (%) (Auto) 82H, Lymphocytes (%) (Auto) 12, Monocytes (%) (Auto) 6, Eosinophils (%) (Auto) 1, Basophils (%) (Auto) 0, Neutrophils # (Auto) 6.4, Lymphocytes # (Auto) 0.9L, Monocytes # (Auto) 0.4, Eosinophils # (Auto) 0.0, Basophils # (Auto) 0.0, Sodium Level 137, Potassium Level 3.6, Chloride Level 103, Carbon Dioxide Level 25, Anion Gap 9, Blood Urea Nitrogen 3L, Creatinine 0.45L, Estimat Glomerular Filtration Rate > 60, BUN/Creatinine Ratio 7, Glucose Level 74, Calcium Level 7.8L, Phosphorus Level 3.7, Magnesium Level 1.5L Microbiology 07/28/19 Blood Culture - Preliminary, Resulted No growth 07/28/19 Urine Culture - Final, Complete NO GROWTH 07/30/19 Gram Stain - Final, Resulted 07/30/19 Anaerobic Culture, Resulted Pending 07/30/19 Surgical Culture - Final, Resulted Enterococcus faecalis Strep anginosus Escherichia coli Assessment/Plan Assessment/Plan Assessment/Plan intraabdominal recurrent abscess left-sided colonic mass liver abscess weight loss s/p ex lap with partial omentectomy, partial colon resection, biopsy abdominal wall, mobilization splenic flexure electrolyte abnormalities continue abx advance diet soon oral pain medication prn continue PT and IS use continue to monitor bowel function discuss discharge soon JULIANNE MENDOZA DO 08/03/198: Subjective Subjective/Events-last exam Feeling good and wanting to go home. Passing flatus and bm. Tolerating diet. pain controlled. Ambulating and using IS. Denies n/v fever sweats chills shortness of breath or chest pain at this time. Objective Exam General Appearance: No Apparent Distress, WD/WN HEENT: PERRL/EOMI, Normal ENT Inspection Neck: Full Range of Motion Respiratory: Chest Non Tender, No Accessory Muscle Use, No Respiratory Distress Cardiovascular: Regular Rate, Rhythm Gastrointestinal: soft, tenderness (midline abdominal incision, c/d/i, no signs of infection, incsional tenderness) Extremity: Normal Capillary Refill, Non Tender, No Calf Tenderness Neurologic/Psychiatric: Alert, Oriented x3, Normal Mood/Affect Skin: Normal Color, Warm/Dry Lymphatic: No Adenopathy Assessment/Plan Assessment/Plan Assessment/Plan intraabdominal recurrent abscess left-sided colonic mass liver abscess weight loss s/p ex lap with partial omentectomy, partial colon resection, biopsy abdominal wall, mobilization splenic flexure electrolyte abnormalities improved patient feeling well and wanting to go home. tolerating diet can advance slowly as tolerates. continue antibiotics f/u 2 weeks Adrian Walker to dc home any issues be seen at that time. instructed to continue to use Incentive spirometer. need follow up on pathology. Supervisory-Addendum Brief Verification & Attestation Participated in pt care: history, MDM, physical Personally performed: exam, history, MDM, supervision of care Care discussed with: Medical Student Procedures: n/a Results interpretation: Verified all documentation Verification and Attestation of Medical Student E/M Service A medical student performed and documented this service in my presence. I reviewed and verified all information documented by the medical student and made modifications to such information, when appropriate. I personally performed the physical exam and medical decision making. Julianne Mendoza, Aug 03, 2019,21:24 ISIS JACKSON,MED STUDENT Aug 03, 2019 08:26 JULIANNE DIEGO DO Aug 03, 2019 21:24 POS
[2019-08-03] MEDS ORDERED: ASPIRIN E.C. 81 MG (ECOTRIN) TAB PO SCH (09:00)
--- NOTE | 2019-08-03 10:27 | Physical Therapy Daily Note ---
PT Daily Note-Current Subjective Patient agrees to PT at this time. Patient reports she has been up in her room by herself but doesn't want to ambulate in hallway without assistance until told it's okay. Pain Numeric Pain Scale: 0-No Pain Location: No Pain Reported Mental Status Patient Orientation: Normal For Age Transfers SCALE: Activities may be completed with or without assistive devices. 1-Mvxyzwstey-zzbklob completes the activity by him/herself with no assistance from a helper. 5-Set-up or Clean-up Assistance-helper sets up or cleans up; patient completes activity. [place] assists only prior to or following the activity. 4-Supervision or Touching Assistance-helper provides verbal cues and/or touching/steadying and/or contact guard assistance as patient completes activity. Assistance may be provided throughout the activity or intermittently. 3-Partial/Moderate Assistance-helper does LESS THAN HALF the effort. [place] lifts, holds or supports trunk or limbs, but provides less than half the effort. 2-Substantial/Maximal Assistance-helper does MORE THAN HALF the effort. [place] lifts or holds trunk or limbs and provides more than half the effort. 2-Iqjbxtymv-qmkbah does ALL the effort. Patient does none of the effort to complete the activity. Or, the assistance of 2 or more helpers is required for the patient to complete the activity. If activity was not attempted, code reason: 7-Patient Refused. 9-Not Applicable-not attempted and the patient did not perform the activity before the current illness, exacerbation or injury. 10-Not Attempted due to Environmental Limitations-(lack of equipment, weather restraints, etc.). 88-Not Attempted due to Medical Conditions or Safety Concerns. Transfers (B, C, W/C): 6 Roll Left to Right (QC): 6 Sit to Lying (QC): 6 Sit to Stand (QC): 6 Weight Bearing Full Weight Bearing Full Weight Bearing Gait Training Does the Patient Walk?: Yes Gait: 6 Distance: 400' Walk 10 feet (QC): 6 Walk 50 ft with 2 Turns(QC): 6 Walk 150 ft (QC): 6 Gait Assistive Device: FWW Normal pattern, decreased speed Assessment Patient performed all bed mobility and ambulation independently with FWW. Patient allowed to ambulate in hallway without assistance. Patient discharged from PT at this time for independence in functional tasks and goals accomplished. PT Patternmaker Apprentice Metal Goals Halfway Goals PT Patternmaker Apprentice Metal Goals Time Frame: Aug 07, 2019 Sit to Lying (QC): 6 Lying-Sitting on Side/Bed(QC): 6 Sit to Stand (QC): 6 Roll Left to Right (QC): 6 Chair/Gmv-gc-Ghrdv Xfer(QC): 6 Does the Patient Walk: Yes Distance: 300' Walk 10 feet (QC): 6 Walk 50ft with 2 Turns (QC): 6 Walk 150 ft (QC): 6 Gait Assistive Device: None, FWW # of Steps: 4 1 Step (curb) (QC): 6 4 Steps (QC): 6 PT Plan Treatment/Plan Treatment Plan: Discontinue PT, goals met Treatment Plan: Bed Mobility, Education, Functional Activity Libra, Functional Strength, Gait, Safety, Therapeutic Exercise, Transfers Treatment Duration: Aug 07, 2019 Frequency: 6 times per week Estimated Hrs Per Day: .25 hour per day Patient and/or Family Agrees t: Yes Time/GCodes Time In: 952 Time Out: 1003 Total Billed Treatment Time: 11 Total Billed Treatment 1 visit FA 11min SANTHOSH SEGAL PT Aug 03, 2019 10:27 POS
--- NOTE | 2019-08-03 11:36 | Occupational Ther Daily Note ---
OT Current Status-Daily Note Subjective Pt alert, lying in bed. Pt stated that she had been up walking with PT today. Pt agrees to therapy. Nrsg stated that blood sugar is at 65,okay to work with pt just monitor. Mental Status/Objective Patient Orientation: Person, Place, Time, Situation ADL-Treatment Pt agrees to sponge bath at sink. Pt ambulated using FWW to bathroom with SBA due to low blood sugar. Pt complete own bathing sitting at sink, SBA in stance due to low blood sugar while pt cleansed buttocks/елена area. Pt complete completed own oral care sitting at sink. Pt donned/doffed socks and slippers by self. Using hospital gown as a pullover shirt, pt demonstrated ability to don/doff. After therapy, pt lying in bed with call light/phone in reach. All needs met in room. Therapy Code Descriptions/Definitions Functional Helen Measure: 0=Not Assessed/NA 4=Minimal Assistance 1=Total Assistance 5=Supervision or Setup 2=Maximal Assistance 6=Modified Helen 3=Moderate Assistance 7=Complete IndependenceSCALE: Activities may be completed with or without assistive devices. 0-Tqxoubeanq-slmkvsb completes the activity by him/herself with no assistance from a helper. 5-Set-up or Clean-up Assistance-helper sets up or cleans up; patient completes activity. [place] assists only prior to or following the activity. 4-Supervision or Touching Assistance-helper provides verbal cues and/or touching/steadying and/or contact guard assistance as patient completes activity. Assistance may be provided throughout the activity or intermittently. 3-Partial/Moderate Assistance-helper does LESS THAN HALF the effort. [place] lifts, holds or supports trunk or limbs, but provides less than half the effort. 2-Substantial/Maximal Assistance-helper does MORE THAN HALF the effort. [place] lifts or holds trunk or limbs and provides more than half the effort. 2-Liigenmyl-vakhau does ALL the effort. Patient does none of the effort to complete the activity. Or, the assistance of 2 or more helpers is required for the patient to complete the activity. If activity was not attempted, code reason: 7-Patient Refused. 9-Not Applicable-not attempted and the patient did not perform the activity before the current illness, exacerbation or injury. 10-Not Attempted due to Environmental Limitations-(lack of equipment, weather restraints, etc.). 88-Not Attempted due to Medical Conditions or Safety Concerns. Oral Hygiene (QC): 6 Bathing Location: L Arm, R Arm, L Upper Leg, R Upper Leg, L Lower Leg (including foot), R Lower Leg (including foot), Chest, Abdomen, Buttocks, Perineal Area Shower/Bathe Self (QC): 4 Lower Body Dressing (QC): 4 (footwear (QC) 6) OT Short Term Goals Short Term Goals 1=Demonstrate adherence to instructed precautions during ADL tasks. 2=Patient will verbalize/demonstrate understanding of assistive devices/modifications for ADL. 3=Patient will improve strength/tolerance for activity to enable patient to perform ADL's. OT Jail Goals Jail Goals Time Frame: Aug 07, 2019 Oral Hygiene (QC): 6 Shower/Bathe Self (QC): 5 Upper Body Dressing (QC): 6 Lower Body Dressing (QC): 5 On/Off Footwear (QC): 5 Toileting Hygiene (QC): 6 Toilet/Commode Transfer (QC): 6 Additional Goals: 1-Demonstrate ADL Tasks, 2-Verbalize Understanding, 3-ImproveStrength/Libra 1=Demonstrate adherence to instructed precautions during ADL tasks. 2=Patient will verbalize/demonstrate understanding of assistive devices/modifications for ADL. 3=Patient will improve strength/tolerance for activity to enable patient to perform ADL's. OT Education/Plan Problem List/Assessment Assessment: Decreased Activ Tolerance Pt to benefit from skilled OT intervention for ADL training, transfers, strengthening, and home safety education to increase level of independence and allow safe discharge. Discharge Recommendations Plan/Recommendations: Continue POC Treatment Plan/Plan of Care Patient would benefit from OT for education, treatment and training to promote independence in ADL's, mobility, safety and/or upper extremity function for ADL's. Plan of Care: ADL Retraining, Functional Mobility, UE Funct Exercise/Act Treatment Duration: Aug 07, 2019 Frequency: 5 times per week Estimated Hrs Per Day: .25 hour per day Agreement: Yes Rehab Potential: Good Time/GCodes Start Time: 11:16 Stop Time: 11:48 Total Time Billed (hr/min): 32 Billed Treatment Time 1 visit-ADL 2 (32 min) ERIKA ARCHULETA Aug 03, 2019 11:36 POS
[2019-08-03 12:00] VITALS: BP 114/70
--- NOTE | 2019-08-03 12:15 | NUR ---
Pt given jello and apple juice for low NS of 68, will recheck in 15 min. Pt asymptomatic
--- NOTE | 2019-08-03 14:16 | NUR ---
CM DISCHARGE PLANNING: Visited with patient about any anticipated discharge needs. She reports that she is recovering very well. She reports that she has been having nausea/vomiting et inability to eat since May 2019. Since having her surgery she says that food has been smelling good et that she has been taking liquids well. She reports that she has had 3 BM's today. She did voice that her diet has not been increased past liquids et that she anticipates that doctor is letting her go home today. She also voiced that she would like to know when her ryan are to come out. F/U with her primary care nurse Deion barragan he is going to check into both of those voiced concerns. Monica denies any further questions or concerns at this time. She reports that she has been up walking all over 4th floor. She is going to stay with a male friend. She voiced that she is very ready to get home.
--- NOTE | 2019-08-03 14:20 | NUR ---
Dr Campbell messaged about advancing diet prior to DC
[2019-08-03] MEDS ORDERED: ACHD5005 PO (14:55)
[2019-08-03] MEDS ORDERED: AMOX1TAB11 PO (14:55)
--- NOTE | 2019-08-03 14:57 | Discharge Instructions ---
Discharge [facility] Discharge Medications New, Converted or Re-Newed RX: RX on Chart New Medications: Amoxicillin/Potassium Clav (Amox Tr-K Clv 500-125 mg Tab) 1 Each Tablet 500 MG PO BID WITH MEALS for 10 Days, #20 TAB 0 Refills Hydrocodone Bit/Acetaminophen (Hydrocodone/Acetaminophen 5/325mg Tablet) 1 Tab Tab 1 TAB PO Q6H PRN for PAIN-MODERATE (4-6), #20 TAB 0 Refills Continued Medications: Aspirin (Aspirin EC) 81 Mg Tablet.dr 81 MG PO DAILY, TAB (This prescription has been renewed) Atorvastatin Calcium (Atorvastatin Calcium) 40 Mg Tablet 40 MG PO HS, TAB LAST FILLED #30 06-11-19 Carvedilol (Carvedilol) 6.25 Mg Tablet 6.25 MG PO BID, TAB LAST FILLED #60 06-11-19 Clopidogrel Bisulfate (Plavix) 75 Mg Tablet 75 MG PO DAILY, TAB LAST FILLED #30 06-11-19 Losartan Potassium (Losartan Potassium) 50 Mg Tablet 50 MG PO HS, TAB (This prescription has been renewed) LAST FILLED #30 06-11-19 Multivitamin (Multivitamins) 1 Each Tablet 1 TAB PO DAILY, TAB (This prescription has been renewed) Patient Instructions Goal/Follow Up Appt: Follow up with Grady Estrella at [facility] on 08/05 at [address] pm[address] Follow up with Dr. Campbell as instructed. [facility] For: Fever, inability to keep down liquids, no bowel movements Activity & Diet Discharge Diet: No Restrictions Orders-Post D/C & Referrals Pneu Vac Indicated: Yes JOE GARCIA MD Aug 03, 2019 14:57 POS
--- NOTE | 2019-08-03 14:59 | Discharge Summary ---
Discharge Summary Hospital Course Hospital Course Date of Admission: Jul 28, 2019 at 23:10 Admission Diagnosis : Colonic fistula Intraabdominal abscess Family Physician/Provider: Jose Estrella Aprn Date of Discharge: 08/03/19 Discharge Diagnosis: 1. Colonic fistula status post surgery 2.Hypertension 3.Hyperlipidemia 4. coronary artery disease 5. Hypomagnesemia 6. Questionable liver abscess Hospital Course: Pt was admitted with intraabdominal abscess and concern for colonic fistula. Dr. Campbell did ex lap with partial omentectomy, partial colon resection, biopsy abdominal wall, mobilization splenic flexure. She did well post-operatively and was passing flatus and some liquid stool at time of d/c and tolerating clear li quids. CT did not possible liver abscess, per Dr. Campbell, he discussed with Radiology and was not felt to truly be abscess, recommend repeat imaging outpatient. Discharged with Augmentin to complete abx course. Intraabdominal cultures grew enterococcus faecalis, strep anginosus and E coli (resistant to ampicillin and bactrim). Labs and Pending Lab Test: Laboratory Tests 08/02/19 17:42: Glucometer 109 08/02/19 23:56: Glucometer 95 08/03/19 05:40: White Blood Count 7.9, Red Blood Count 2.74L, Hemoglobin 7.3L, Hematocrit 24L, Mean Corpuscular Volume 89, Mean Corpuscular Hemoglobin 27, Mean Corpuscular Hemoglobin Concent 30L, Red Cell Distribution Width 20.9H, Platelet Count 546H, Mean Platelet Volume 8.4, Neutrophils (%) (Auto) 82H, Lymphocytes (%) (Auto) 12, Monocytes (%) (Auto) 6, Eosinophils (%) (Auto) 1, Basophils (%) (Auto) 0, Neutrophils # (Auto) 6.4, Lymphocytes # (Auto) 0.9L, Monocytes # (Auto) 0.4, Eosinophils # (Auto) 0.0, Basophils # (Auto) 0.0, Sodium Level 137, Potassium Level 3.6, Chloride Level 103, Carbon Dioxide Level 25, Anion Gap 9, Blood Urea Nitrogen 3L, Creatinine 0.45L, Estimat Glomerular Filtration Rate > 60, BUN/Creatinine Ratio 7, Glucose Level 74, Calcium Level 7.8L, Phosphorus Level 3.7, Magnesium Level 1.5L 08/03/19 11:23: Glucometer 68L 08/03/19 12:21: Glucometer 67L 08/03/19 12:48: Glucometer 94 Microbiology 07/28/19 Blood Culture - Final, Complete No growth 07/28/19 Urine Culture - Final, Complete NO GROWTH 07/30/19 Gram Stain - Final, Resulted 07/30/19 Anaerobic Culture - Preliminary, Resulted Culture In Progress 07/30/19 Surgical Culture - Final, Resulted Enterococcus faecalis Strep anginosus Escherichia coli Home Meds Active Hydrocodone/Acetaminophen 5/325mg Tablet (Acetaminophen/Hydrocodone Bitart) 1 Tab Tab 1 Tab PO Q6H PRN Amox Tr-K Clv 500-125 mg Tab (Amoxicillin/Potassium Clav) 1 Each Tablet 500 Mg PO BID WITH MEALS 10 Days Reported Losartan Potassium 50 Mg Tablet 50 Mg PO HS LAST FILLED #30 06-11-19 Multivitamins (Multivitamin) 1 Each Tablet 1 Tab PO DAILY Aspirin EC (Aspirin) 81 Mg Tablet.dr 81 Mg PO DAILY Atorvastatin Calcium 40 Mg Tablet 40 Mg PO HS LAST FILLED #30 06-11-19 Carvedilol 6.25 Mg Tablet 6.25 Mg PO BID LAST FILLED #60 06-11-19 Plavix (Clopidogrel Bisulfate) 75 Mg Tablet 75 Mg PO DAILY LAST FILLED #30 06-11-19 Assessment/Pt DC Instructions See separate d/c instructions Orders-Post D/C & Referrals Pneu Vac Indicated: Yes Discharge Physical Examination Allergies: Coded Allergies: codeine (Verified Adverse Reaction, Unknown, 07/06/19) "CAUSES HALLUCINATIONS" General Appearance: No Apparent Distress, WD/WN Respiratory: Lungs Clear, Normal Breath Sounds Cardiovascular: Regular Rate, Rhythm, No Murmur Gastrointestinal: Normal Bowel Sounds, Non Tender, Other (incision clean, dry and intact) Extremity: No Pedal Edema Skin: Normal Color, Warm/Dry Neurologic/Psychiatric: Normal Mood/Affect Copy Copies To 1: Jose Estrella Discharge Summary Date of Admission Jul 28, 2019 at 23:10 Date of Discharge Discharge Date: Aug 03, 2019 Admission Diagnosis Assessment: Abdominal wall abscess Fistula? Smoker Plan: IV abx Dr Campbell consultation Discharge Diagnosis (1) Abdominal abscess Status: Acute (2) Colonic fistula Status: Acute JOE GARCIA MD Aug 03, 2019 14:59 POS
[2019-08-03] MEDS ORDERED: FLU QUADRIvalent (5+ YOA) 2019-2020 (AFLURIA) 0.5 ML IM ONE (15:41)
[2019-08-03 16:53] VITALS: BP 96/57
[2019-08-03] MEDS ORDERED: AUGMENTIN 500 MG TAB (AMOXICILLIN/CLAVULANATE) PO SCH (17:00)
--- NOTE | 2019-08-04 11:19 | Physician Query Clarification ---
PQ-Further Specificity Admission/Discharge Admission Date: Jul 28, 2019 at 23:10 Discharge Date: Aug 03, 2019 at 17:20 The medical record reflects the following clinical scenario: History/Risk Factors: Intraabdominal abscess Clinical Findings: There appears to be a fistulous connection to the distal transverse colon through the abdominal wall to the skin concerning for a colocutaneous fistula. While this may represent focal perforation of the colon from an inflammatory process, Treatment: partial excision transverse and descending colon Question: Can you further specify whether or not patient had a colonic fisula after study per the clinical indicators above? Please document a response in the Progress Notes or Discharge Summary. 1. Yes, colonic fistula was present 2. No colonic fistula 3. Other, with explanation of the clinical findings. 4. Clinically undetermined, no explanation for the clinical findings. PHYSICIAN RESPONSE Can you specify per above: Other, explanation/clinical finding (large phlegmon/mass in left upper quadrant that had eroded into abdomianl wall where abscess was also present) Please remember a lack of response to the above will prompt a phone page by CDI/Coding staff. In responding to this query, please exercise your independent professional judgment. The purpose of this communication is to more accurately reflect the complexity of your patients condition. The fact that a question is asked does not imply that any particular answer is desired or expected. Thank you for your timely response to this clarification. Requestors name: Hilton THIS PHYSICIAN QUERY FORM IS A PERMANENT PART OF THE MEDICAL RECORD HILTON RASHID Aug 04, 2019 11:19 JULIANNE DIEGO DO Aug 06, 2019 22:32 POS
--- NOTE | 2019-08-11 08:05 | Physician Query Clarification ---
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 Please document a response in Progress Notes or Discharge Summary. 1. 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 2. 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 3. Other, with explanation of the clinical findings. 4. Clinically undetermined, no explanation for the clinical findings. Is is appropriate for a provider to add additional documentation (addenda) to the record to explain the evaluation & care up to 30 days post-discharge. See [facility] and Patient Record Guidelines below. The [facility] Chapter Record of Care, Standard; [id number].01.03.01EP 1: "The hospital has a written policy that required timely entry of information into the medical record." According to [facility] Patient Record Guidelines, ARTICLE XXI. CORRECTIONS AND ADDENDA, Modifications (addenda amendments, corrections and retractions) should be made timely and no later than regulatory requirements for record completion (i.e. 30 days post discharge). Official coding guidelines require coders to query the physician for agreement with pathology findings that occur during the encounter. Coders are not allowed to pull information directly from the path reports. PHYSICIAN RESPONSE Pathology Report Findings: Yes,agree w/path dx as documented Please remember a lack of response to the above will prompt a phone page by CDI/Coding staff. In responding to this query, please exercise your independent professional judgment. The purpose of this communication is to more accurately reflect the complexity of your patients condition. The fact that a question is asked does not imply that any particular answer is desired or expected. Thank you for your timely response to this clarification. Requestors name: Hilton THIS PHYSICIAN QUERY FORM IS A PERMANENT PART OF THE MEDICAL RECORD HILTON RASHID Aug 11, 2019 08:05 JULIANNE DIEGO DO Aug 24, 2019 22:52 POS
--- NOTE | 2019-08-11 08:14 | Physician Query Clarification ---
PQ-Further Specificity Admission/Discharge Admission Date: Jul 28, 2019 at 23:10 Discharge Date: Aug 03, 2019 at 17:20 The medical record reflects the following clinical scenario: History/Risk Factors: Colonic mass, intraabdominal abscess Clinical Findings: Hepatic flexure CA w/LN metastasis, intraabdominal abscess Treatment: partial excision transverse and descending colon,omentectomy Question: Can you further specify the condition most responsible for IP admission per the clinical indicators above? Please document a response in the Progress Notes or Discharge Summary. 1. splenic flexure CA with LN metastasis 2. Intraabdominal abscess 3. Either splenic flexure CA or intraabdominal abscess 3. Other, with explanation of the clinical findings. 4. Clinically undetermined, no explanation for the clinical findings. PHYSICIAN RESPONSE Can you specify per above: Other, explanation/clinical finding (Patient with splenic flexure mass/abscess, abscess recurred after IR drain placement. Patient prior to colon resection not known to have colon cancer. Discussed options with patient and she wishe to proceed with operative management.) Please remember a lack of response to the above will prompt a phone page by CDI/Coding staff. In responding to this query, please exercise your independent professional judgment. The purpose of this communication is to more accurately reflect the complexity of your patients condition. The fact that a question is asked does not imply that any particular answer is desired or expected. Thank you for your timely response to this clarification. Requestors name: Hilton THIS PHYSICIAN QUERY FORM IS A PERMANENT PART OF THE MEDICAL RECORD HILTON RASHID Aug 11, 2019 08:14 JULIANNE DIEGO DO Aug 24, 2019 22:56 POS
[2019-08-14] MEDS ORDERED: PANT40TA2 PO (19:33)
[2019-08-14] MEDS ORDERED: FLUC100T PO (21:13)
== END 2019-08-03 17:20 | disposition home or self-care (01) | DRG 330 ==
LOC: EDUNIT# 18:36 → ER 18:38 → ICU 23:10 → 4TH 07-31 16:29
PROVIDERS: ADMIT Internal Medicine; ATTEND Family Medicine
PROC: 0DBM0ZZ Excision of Descending Colon, Open Approach (ICD-10-PCS; 2019-07-30)
PROC: 0DBU0ZX Excision of Omentum, Open Approach, Diagnostic (ICD-10-PCS; 2019-07-30)
PROC: 0WBF0ZX Excision of Abdominal Wall, Open Approach, Diagnostic (ICD-10-PCS; 2019-07-30)
PROC: 0W9F0ZZ Drainage of Abdominal Wall, Open Approach (ICD-10-PCS; 2019-07-30)
PROC: 0DBL0ZZ Excision of Transverse Colon, Open Approach (ICD-10-PCS; principal; 2019-07-30 15:43)
DX: C18.5 Malignant neoplasm of splenic flexure (principal); C77.2 Secondary and unspecified malignant neoplasm of intra-abdominal lymph nodes; L02.211 Cutaneous abscess of abdominal wall; I10 Essential (primary) hypertension; E78.5 Hyperlipidemia, unspecified; I25.10 Atherosclerotic heart disease of native coronary artery without angina pectoris; E83.42 Hypomagnesemia; K76.9 Liver disease, unspecified; D64.9 Anemia, unspecified; E16.2 Hypoglycemia, unspecified; F17.210 Nicotine dependence, cigarettes, uncomplicated; I25.2 Old myocardial infarction; Z95.5 Presence of coronary angioplasty implant and graft; Z79.02 Long term (current) use of antithrombotics/antiplatelets; Z90.710 Acquired absence of both cervix and uterus; Z23 Encounter for immunization; A49.1 Streptococcal infection, unspecified site; A49.8 Other bacterial infections of unspecified site
CPT/HCPCS: 36415; 71045; 74177; 80048; 80053; 81000; 82962; 83605; 83735; 84100; 85007; 85025; 85027; 85610; 85730; 86850; 86900; 86901; 87040; 87070; 87075; 87076; 87077; 87088; 87185; 87186; 87205; 88305; 88309; 88341; 88342; 94664; 96361; 96365; 96366; 96375

== ENCOUNTER 2019-08-11 17:06 | Inpatient (IN) | payer OTHER ==
[~2019-08-11] VITALS: Ht 147.3 cm; Wt 38.6 kg
[~2019-08-11 17:06] MED LIST changes: +ACHD5005 PO; +AMOX1TAB11 PO; +ASPI-983 PO; +LOSA50TA63 PO; +MULT1TAB69 PO; +VARE1TAB22 PO
--- NOTE | 2019-08-11 17:15 | NUR ---
CALLED TO ROOM AND IN BATHROOM
[2019-08-11] MEDS ORDERED: LACTATED RINGERS 1,000 ML IV SCH (17:45)
[2019-08-11] MEDS ORDERED: ONDANSETRON 4 MG/2 ML (SDV) Z0FRAN IVP ONE ×2 (17:45→18:45)
--- NOTE | 2019-08-11 18:02 | ED GI ---
General Chief Complaint: Abdominal/GI Problems Stated Complaint: [place] Nursing Triage Note: PT CO OF HAVING DIARRHEA EVERYTIME SHE EATS. PT STATES RELEASED FROM HOSPITAL 8 DAYS AGO AFTER HAVING BOWEL RESECTION Sepsis Screen: No Definite Risk Source of Information: Patient Exam Limitations: No Limitations History of Present Illness Date Seen by Provider: Aug 11, 2019 Time Seen by Provider: 17:59 Initial Comments ER with reports of diarrhea every time she eats. She was released from the hospital 8 days ago after surgery. She was found (after ER presentation for abdominal wall pain in palpable fullness) to have an intra-abdominal abscess. She had a laparotomy with partial omentectomy, partial colon resection, biopsy of the abdominal wall and mobilization of the splenic flexure. She denies ab dominal pain fevers or chills. She reports intermittent nausea but her biggest concern is the diarrhea. Timing/Duration: 1-2 Days Severity/Quality: Moderate Radiation: No Radiation Activities at Onset: None Associated Symptoms: Denies Symptoms Allergies and Home Medications Allergies Coded Allergies: codeine (Verified Adverse Reaction, Unknown, 07/06/19) "CAUSES HALLUCINATIONS" Home Medications Amoxicillin/Potassium Clav 1 Each Tablet, 500 MG PO BID WITH MEALS Prescribed by: JOE GARCIA on 08/03/19 1455 Aspirin 81 Mg Tablet.dr, 81 MG PO DAILY, (Reported) Atorvastatin Calcium 40 Mg Tablet, 40 MG PO HS, (Reported) LAST FILLED #30 06-11-19 Carvedilol 6.25 Mg Tablet, 6.25 MG PO BID, (Reported) LAST FILLED #60 06-11-19 Clopidogrel Bisulfate 75 Mg Tablet, 75 MG PO DAILY, (Reported) LAST FILLED #30 06-11-19 Hydrocodone Bit/Acetaminophen 1 Tab Tab, 1 TAB PO Q6H PRN for PAIN-MODERATE (4- 6) Prescribed by: JOE GARCIA on 08/03/19 1455 Losartan Potassium 50 Mg Tablet, 50 MG PO HS, (Reported) LAST FILLED #30 06-11-19 Multivitamin 1 Each Tablet, 1 TAB PO DAILY, (Reported) Patient Home Medication List Home Medication List Reviewed: Yes Review of Systems Review of Systems Constitutional: see HPI EENTM: No Symptoms Reported Respiratory: No Symptoms Reported Cardiovascular: No Symptoms Reported Gastrointestinal: See HPI; Denies Abdominal Pain Genitourinary: No Symptoms Reported Musculoskeletal: no symptoms reported Skin: no symptoms reported Psychiatric/Neurological: No Symptoms Reported Endocrine: No Symptoms Reported Hematologic/Lymphatic: No Symptoms Reported Past [id number]-[id number] Hx Patient Social History Alcohol Use: Denies Use Recreational Drug Use: No Smoking Status: Current Everyday Smoker Type Used: Cigarettes 2nd Hand Smoke Exposure: Yes Recent Foreign Travel: No Contact w/Someone Who Travel: No Recent Infectious Disease Expo: No Recent Hopitalizations: Yes (BOWEL RESECTION) Physical Abuse: No Sexual Abuse: No Immunizations Up To Date Tetanus Booster (TDap): Unknown Seasonal Allergies Seasonal Allergies: No Past Medical History Coronary Stent, Hysterectomy Respiratory: No Cardiac: Yes Heart Attack, High Cholesterol, Hypertension 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 oz. kg; 16.00 BMI Method: General Appearance: WD/WN, no apparent distress HEENT: PERRL/EOMI, normal ENT inspection Neck: non-tender, full range of motion Respiratory: no respiratory distress, no accessory muscle use Cardiovascular: no murmur, tachycardia Gastrointestinal: normal bowel sounds, soft, other (midline abdominal incision still has ryan in place, skin edges clean dry and intact without drainage or erythema, abdominal wall is flat and soft with minimal tenderness to palpation) Extremities: normal range of motion, non-tender Neurologic/Psychiatric: alert, normal mood/affect, oriented x 3 Skin: normal color, warm/dry Progress/Results/Core Measures Results/Orders Lab Results Laboratory Tests Test 08/11/19 17:34 Range/Units White Blood Count 5.2 4.3-11.0 10^3/uL Red Blood Count 4.24 L 4.35-5.85 10^6/uL Hemoglobin 11.5 11.5-16.0 G/DL Hematocrit 37 35-52 % Mean Corpuscular Volume 86 80-99 FL Mean Corpuscular Hemoglobin 27 25-34 PG Mean Corpuscular Hemoglobin Concent 31 L 32-36 G/DL Red Cell Distribution Width 20.9 H 10.0-14.5 % Platelet Count 536 H 130-400 10^3/uL Mean Platelet Volume 9.0 7.4-10.4 FL Neutrophils (%) (Auto) 70 42-75 % Lymphocytes (%) (Auto) 19 12-44 % Monocytes (%) (Auto) 10 0-12 % Eosinophils (%) (Auto) 1 0-10 % Basophils (%) (Auto) 0 0-10 % Neutrophils # (Auto) 3.6 1.8-7.8 X 10^3 Lymphocytes # (Auto) 1.0 1.0-4.0 X 10^3 Monocytes # (Auto) 0.5 0.0-1.0 X 10^3 Eosinophils # (Auto) 0.0 0.0-0.3 10^3/uL Basophils # (Auto) 0.0 0.0-0.1 10^3/uL Prothrombin Time 13.2 12.2-14.7 SEC INR Comment 1.0 0.8-1.4 Sodium Level 139 135-145 MMOL/L Potassium Level 3.3 L 3.6-5.0 MMOL/L Chloride Level 102 98-107 MMOL/L Carbon Dioxide Level 26 21-32 MMOL/L Anion Gap 11 5-14 MMOL/L Blood Urea Nitrogen 6 L 7-18 MG/DL Creatinine 0.62 0.60-1.30 MG/DL Estimat Glomerular Filtration Rate > 60 BUN/Creatinine Ratio 10 Glucose Level 119 H 70-105 MG/DL Calcium Level 7.8 L 8.5-10.1 MG/DL Corrected Calcium 9.1 8.5-10.1 MG/DL Total Bilirubin 0.2 0.1-1.0 MG/DL Aspartate Amino Transf (AST/SGOT) 21 5-34 U/L Alanine Aminotransferase (ALT/SGPT) 9 0-55 U/L Alkaline Phosphatase 197 H 40-136 U/L Total Protein 5.6 L 6.4-8.2 GM/DL Albumin 2.4 L 3.2-4.5 GM/DL Lipase 13 8-78 U/L My Orders Orders - OREN CORRIGAN AUTO LOCATOR Cbc With Automated Diff (08/11/19 17:43) Comprehensive Metabolic Panel (08/11/19 17:43) Lipase (08/11/19 17:43) Protime With Inr (08/11/19 17:43) Ed Iv/Invasive Line Start (08/11/19 17:43) Lactated Ringers (Lr 1000 Ml Iv Solution (08/11/19 17:45) Ondansetron Injection (Zofran Injectio (08/11/19 17:45) Ondansetron Injection (Zofran Injectio (08/11/19 18:45) Fentanyl Injection (Sublimaze Injection (08/11/19 18:45) Ct Abdomen/Pelvis W (08/11/19 18:37) Iohexol Injection (Omnipaque 350 Mg/Ml 1 (08/11/19 19:15) Received Contrast (Hold Metformin- Contr (08/11/19 19:15) Ns (Ivpb) (Sodium Chloride 0.9% Ivpb Bag (08/11/19 19:15) Fentanyl Injection (Sublimaze Injection (08/11/19 20:45) Piperacillin Sodium/Tazobactam (Zosyn Vi (08/11/19 20:45) Medications Given in ED Current Medications Medications Dose Ordered Sig/Tatum Route Start Time Stop Time Status Last Admin Dose Admin Fentanyl Citrate 50 mcg ONCE ONCE IVP 08/11/19 18:45 08/11/19 18:46 DC 08/11/19 18:51 50 MCG Iohexol 100 ml ONCE ONCE IV 08/11/19 19:15 08/11/19 19:16 DC 08/11/19 19:32 66 ML Ondansetron HCl 4 mg ONCE ONCE IVP 08/11/19 17:45 08/11/19 17:46 DC 08/11/19 17:54 4 MG Ondansetron HCl 4 mg ONCE ONCE IVP 08/11/19 18:45 08/11/19 18:46 DC 08/11/19 18:50 4 MG Sodium Chloride 100 ml ONCE ONCE IV 08/11/19 19:15 08/11/19 19:16 DC 08/11/19 19:32 80 ML Vital Signs/I&O 08/11/19 17:15 Temp 36.7 Pulse 138 Resp 18 B/P (MAP) 131/75 (93) Pulse Ox 93 Blood Pressure Mean: 93 POS Departure Communication (Admissions) Time/Spoke to Admitting Phy: 20:[address] Mendoza we'll admit on Zosyn Impression Primary Impression: Diarrhea Additional Impression: Post op fluid collection Disposition: ADMITTED INPATIENT Condition: Stable Admissions Decision to Admit Reason: Admit from ER (General) Decision to Admit/Date: Aug 11, 2019 Time/Decision to Admit Time: 20:48 Departure-Patient Inst. Referrals: JULIANNE MENDOZA DO (PCP) Primary Care Physician HUY NASCIMENTO APRN (Family) Primary Care Physician OREN CORRIGAN APRN Aug 11, 2019 18:02 POS
[2019-08-11 18:05] LABS: BASOPHILS % (AUTO) 0 % (0-10); EOSINOPHILS % (AUTO) 1 % (0-10); HEMATOCRIT 37 % (35-52); HEMOGLOBIN 11.5 G/DL (11.5-16.0); LYMPHOCYTES % (AUTO) 19 % (12-44); MEAN CORPUSCULAR HEMOGLOBIN 27 PG (25-34); MEAN CORPUSCULAR HGB CONC 31 G/DL (32-36); MEAN CORPUSCULAR VOLUME 86 FL (80-99); MONOCYTES # (AUTO) 0.5 X 10^3 (0.0-1.0); MONOCYTES % (AUTO) 10 % (0-12); NEUTROPHILS # (AUTO) 3.6 X 10^3 (1.8-7.8); NEUTROPHILS % (AUTO) 70 % (42-75); PLATELET COUNT 536 10^3/uL (130-400); RED CELL DISTRIBUTION WIDTH 20.9 % (10.0-14.5); WHITE BLOOD COUNT 5.2 10^3/uL (4.3-11.0)
[2019-08-11 18:17] LABS: PROTHROMBIN TIME PATIENT 13.2 SEC (12.2-14.7)
[2019-08-11 18:21] LABS: ALANINE AMINOTRANSFERASE 9 U/L (0-55); ALBUMIN 2.4 GM/DL (3.2-4.5); ALKALINE PHOSPHATASE 197 U/L (40-136); BILIRUBIN,TOTAL 0.2 MG/DL (0.1-1.0); BUN/CREATININE RATIO 10; CALCIUM 7.8 MG/DL (8.5-10.1); CARBON DIOXIDE 26 MMOL/L (21-32); CHLORIDE 102 MMOL/L (98-107); CREATININE SERUM 0.62 MG/DL (0.60-1.30); GFR ESTIMATED > 60; GLUCOSE 119 MG/DL (70-105); LIPASE 13 U/L (8-78); POTASSIUM 3.3 MMOL/L (3.6-5.0); SODIUM 139 MMOL/L (135-145); TOTAL PROTEIN 5.6 GM/DL (6.4-8.2)
[2019-08-11] MEDS ORDERED: fentaNYL INJECTION 100 MCG/2 ML AMP IVP ONE ×2 (18:45→20:45)
--- NOTE | 2019-08-11 18:56 | NUR ---
REPORT TO BEE MG
[2019-08-11] MEDS ORDERED: IOHEXOL 350 MG/ML 100 ML (OMNIPAQUE 350) VIAL IV ONE (19:15)
[2019-08-11] MEDS ORDERED: NS 100 ML (IVPB) BAG IV ONE (19:15)
[2019-08-11] MEDS ORDERED: HOLD METFORMIN - RECEIVED CONTRAST 20 ML VIAL IV SCH (19:15)
--- NOTE | 2019-08-11 19:50 | Diagnostic Imaging Report ---
PROCEDURE: CT abdomen and pelvis with contrast. TECHNIQUE: Multiple contiguous axial images were obtained through the abdomen and pelvis after administration of intravenous contrast. Auto Exposure Controls were utilized during the CT exam to meet ALARA standards for radiation dose reduction. INDICATION: Status post abdominal surgery with partial colon resection on 07/29/2019. Patient complains of pain and diarrhea. Correlation is made with prior CT from 07/28/2019. FINDINGS: There is some minimal atelectasis in the left lower lobe. Otherwise lung bases are clear. Minimal left pleural fluid is noted. The liver and gallbladder are unremarkable. No biliary ductal dilatation is seen. The pancreas and spleen are unremarkable. No adrenal mass is detected. Kidneys are unremarkable. Postsurgical changes are identified. Thick walled fluid collection in the left abdomen has improved, status post surgery but there is a small residual amount of fluid and gas in the left abdomen, anterior to the left kidney and lateral to the bowel loops measuring approximately 5.2 cm AP by 2.5 cm transverse by 7.3 cm cephalocaudal. There is a 2nd fluid collection in the deep pelvis, anterior to the rectum and posterior to the bladder measuring approximately 8.9 cm smears transverse by 4.4 cm AP by 5.2 cm cephalocaudal. No gas within this collection is identified. No bowel obstruction is identified. Aorta is heavily calcified but non-aneurysmal. Bladder is unremarkable. Minimal free fluid in the right gutter is noted. IMPRESSION: There are postoperative changes to the abdomen. There is a small gas and fluid collection in the left flank region, as described which could represent a postoperative collection or small infected collection. There is a 2nd fluid collection in the deep pelvis, anterior to the rectum and posterior to the urinary bladder. No bowel obstruction is seen. No other significant abnormality is detected. Dictated by: Dictated on workstation # [id number]
[2019-08-11] MEDS ORDERED: PIPERACILLIN SODIUM/TAZOBACTAM 4.5 GM in NS (IVPB) 100 ML IV ONE (20:45)
--- NOTE | 2019-08-11 21:25 | NUR ---
ALDO YEE admitted to room 416-1, with an admitting diagnosis of DEHYDRATION AND POST-OP FLUID COLLECTION, on 08/11/19 from ED via WC, accompanied by STAFF. ALDO YEE introduced to surroundings, call light, bed controls, phone, TV, temperature control, lights, meal times, smoking policy, visitor policy, side rail policy, bathrooms and showers..
[2019-08-11 21:30] VITALS: BP 141/79
[2019-08-11] MEDS: LACTATED RINGERS 1,000 ML IV SCH (22:36)
[2019-08-11] MEDS: HYDROcodone/APAP 5 MG/325 MG (LORTAB) TAB PO PRN (22:44)
[2019-08-11 23:33] VITALS: BP 129/73
[2019-08-12] VITALS (14 sets, daily range): BP systolic 100–144; BP diastolic 57–84
[2019-08-12] MEDS: HYDROcodone/APAP 5 MG/325 MG (LORTAB) TAB PO PRN ×2 (02:49→21:31)
[2019-08-12] MEDS ORDERED: PIPERACILLIN/TAZO 4.5 GM VIAL (ZOSYN) IV ONE (03:24)
[2019-08-12] MEDS: PIPERACILLIN/TAZO 4.5 GM/NS 100 ML IV SCH ×6 (03:48→19:40)
[2019-08-12] MEDS: ALPRAZolam 0.25 MG (XANAX) TAB PO PRN ×2 (04:34→21:30)
[2019-08-12 05:33] LABS: BASOPHILS % (AUTO) 1 % (0-10); EOSINOPHILS # (AUTO) 0.1 10^3/uL (0.0-0.3); EOSINOPHILS % (AUTO) 2 % (0-10); HEMATOCRIT 21 % (35-52); LYMPHOCYTES # (AUTO) 1.6 X 10^3 (1.0-4.0); LYMPHOCYTES % (AUTO) 29 % (12-44); MEAN CORPUSCULAR HEMOGLOBIN 27 PG (25-34); MEAN CORPUSCULAR HGB CONC 31 G/DL (32-36); MEAN CORPUSCULAR VOLUME 88 FL (80-99); MEAN PLATELET VOLUME 9.1 FL (7.4-10.4); MONOCYTES # (AUTO) 0.7 X 10^3 (0.0-1.0); MONOCYTES % (AUTO) 13 % (0-12); NEUTROPHILS % (AUTO) 55 % (42-75); PLATELET COUNT 603 10^3/uL (130-400); RED CELL DISTRIBUTION WIDTH 20.4 % (10.0-14.5); WHITE BLOOD COUNT 5.5 10^3/uL (4.3-11.0)
[2019-08-12 05:41] LABS: HEMOGLOBIN 6.5 G/DL (11.5-16.0)
[2019-08-12 05:52] LABS: ALANINE AMINOTRANSFERASE 7 U/L (0-55); ALBUMIN 2.1 GM/DL (3.2-4.5); ALKALINE PHOSPHATASE 149 U/L (40-136); BILIRUBIN,TOTAL 0.3 MG/DL (0.1-1.0); BUN/CREATININE RATIO 9; CALCIUM 7.5 MG/DL (8.5-10.1); CARBON DIOXIDE 27 MMOL/L (21-32); CHLORIDE 105 MMOL/L (98-107); CREATININE SERUM 0.46 MG/DL (0.60-1.30); GFR ESTIMATED > 60; GLUCOSE 81 MG/DL (70-105); POTASSIUM 3.2 MMOL/L (3.6-5.0); SODIUM 140 MMOL/L (135-145); TOTAL PROTEIN 4.7 GM/DL (6.4-8.2)
[2019-08-12 06:09] LABS: HEMOGLOBIN 6.4 G/DL (11.5-16.0)
[2019-08-12] MEDS ORDERED: PANTOPRAZOLE 40 MG (PROTONIX) VIAL IV ONE (06:30)
[2019-08-12] MEDS ORDERED: PANTOPRAZOLE 40 MG (PROTONIX) VIAL ONE (06:37)
[2019-08-12] MEDS: LACTATED RINGERS 1,000 ML IV SCH ×3 (08:35→22:41)
[2019-08-12] MEDS: NICOTINE 21 MG (NICODERM) PATCH TD SCH (08:36)
[2019-08-12] MEDS ORDERED: NS IV 500 ML 500 ML ONE (08:39)
[2019-08-12] MEDS ORDERED: AMOX-355 PO (08:47)
[2019-08-12] MEDS ORDERED: ASPI-999 PO (08:47)
[2019-08-12] MEDS ORDERED: ONDA4TAB10 PO (08:47)
[2019-08-12] MEDS ORDERED: FURO20TA4 PO (08:47)
--- NOTE | 2019-08-12 08:49 | NUR ---
SPOKE WITH THE PATIENT ABOUT HER MEDICATIONS. SHE HAD HER BOTTLES WITH HER. IN ADDITION TO THE EXT MED HX SHE HAS BOTTLES FILLED AT [facility]06[facility]-19 LIPITOR 40MG #30 06-11-19 LOSARTAN 50MG #30 06-11-19 PLAVIX 75MG #30 06-11-19 COREG 6.25MG #60 SHE HAS NOT FILLED THESE SINCE SHE WAS ADMITTED LAST TIME AND THEY WERE PAST DUE FOR REFILLS. SHE STATES SHE HAD BEEN SICK AND VOMITING SO STOPPED TAKING THEM DURING THAT TIME SINCE THEY JUST CAME BACK UP. SHE STATES SHE HAS BEEN TAKING THEM MORE REGULARLY FOR THE PAST WEEK. IN ADDITION SHE IS CURRENTLY ON AN ANTIBIOTIC, SHE HAS ZOFRAN PRN NAUSEA, AND WAS STARTED ON LASIX. SHE TAKE A FULL TABLET DAILY. SHE ALSO TAKES ASPIRIN AND A MTV OTC.
--- NOTE | 2019-08-12 09:11 | NUR ---
Initial visit one on one with pt: She shared that she found out last night she has colon cancer and does not yet know what stage it is, but states "I have had it a while." She shared about her recent surgery to remove a colon tumor with part of her colon. She said that her father of heart complications when he was 57, and her elder brother of a heart attack when he was 37. She said "I have my dad and brother on each shoulder." She described close and nurturing relationships with both. She said she learned how to work through hardships from her father, whom she said always took a positive and can-do attitude. She expressed peace with whatever direction her illness may take, stating she has lived a good life and feels life she raised her family well. 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 She is experiencing some role reversal with recent illness, which she is choosing to accept. Block Tester offered empathic listening, facilitated verbalization of fears, concerns, hopes, and sources of positive coping. Sources of strength and support mentioned are family and treasured memories of loved ones and their examples through hardship.
[2019-08-12] MEDS ORDERED: fentaNYL INJECTION 100 MCG/2 ML AMP IVP ONE (11:45)
[2019-08-12] MEDS ORDERED: MIDAZOLAM 2 MG/2 ML (VERSED) VIAL IVP ONE (11:45)
[2019-08-12] MEDS ORDERED: LIDOCAINE 1% INJ 20 ML 20 ML VIAL INJ ONE (11:45)
--- NOTE | 2019-08-12 15:08 | Diagnostic Imaging Report ---
INDICATION: Left abdominal fluid collection. Patient presents for CT-guided percutaneous drain placement. TECHNIQUE: The procedure was performed utilizing conscious sedation with radiology nursing and constant patient monitoring. Patient was administered a total of 100 mcg of fentanyl intravenously. Total procedure time is 8 minutes. DETAILS OF PROCEDURE: Axial imaging through the abdomen was performed to evaluate appropriate entry site. Skin of left abdomen was prepped and draped in usual sterile fashion. Small amount of 1% lidocaine was utilized for local anesthesia. Fluid collection in the left mid abdomen adjacent to the descending colon was accessed utilizing a Yueh needle. This was removed over an 035 guidewire. Tract was dilated with 6-[place] and 8-[place] dilators. 8.5-[place] drain was then placed over the wire with loop formed in the collection in the left abdomen. This was affixed to the patient's skin and placed to [place] drain. Patient tolerated the procedure well. IMPRESSION: Successful percutaneous drain placement and left abdominal fluid collection, utilizing conscious sedation.. Dictated by: Dictated on workstation # [id number]
--- NOTE | 2019-08-12 15:11 | Diagnostic Imaging Report ---
INDICATION: Pelvic fluid collection. Patient presents for CT-guided drainage. PROCEDURE: Patient was brought to the CT suite and placed on table in prone position. Axial imaging through the pelvis was performed to evaluate appropriate entry site. Study was performed utilizing conscious sedation with radiology nursing and constant patient monitoring. A total of 1 mg of Versed was administered intravenously. Procedure time 7 minutes. Right buttock was prepped and draped in usual sterile fashion. Small amount of 1% lidocaine was utilized for local anesthesia. The deep pelvic midline fluid collection was percutaneously accessed utilizing a Yueh needle. The needle was removed over an .035 guidewire, which was coiled in the fluid collection. Tract was dilated with 6-[place] and 8-[place] dilators. 8.5-[place] all-purpose pigtail drain was then placed over the guidewire and formed within the collection. Catheter was affixed to the patient's skin and placed to a юлия drain. The patient tolerated the procedure well and left the Department in stable condition. IMPRESSION: Successful percutaneous pigtail drain placement into the deep pelvic fluid collection utilizing CT guidance and moderate conscious sedation. Dictated by: Dictated on workstation # [id number]
--- NOTE | 2019-08-12 15:57 | Pre-Op Note & Conscious Sedat ---
Pre-Operative Progress Note H&P Reviewed The H&P was reviewed, patient examined and no changes noted. Date H&P Reviewed: Aug 12, 2019 Time H&P Reviewed: 12:00 Pre-Op Diagnosis: abdominal fluid collections Conscious Sedation Pre-Proced Time 12:00 ASA Score 2 For ASA 3 and 4: Consider anesthesia and medical clearance. Also, for patients with a history of failed moderate sedation consider anesthesia. Airway Lungs Heart ASA score ASA 1: a normal healthy patient ASA 2: a patient with a mild systemic disease (mid diabetes, controlled hypertension, obesity ASA 3: a patient with a severe systemic disease that limits activity (angina, COPD, prior Myocardial infarction) ASA 4: a patient with an incapacitating disease that is a constant threat to life (CHF, renal failure) ASA 5: a moribund patient not expected to survive 24 hrs. (ruptured aneurysm) ASA 6: a declared brain- patient whose organs are being harvested. For emergent operations, add the letter E after the classification Mallampati Classification Grade 2 Sedation Plan Analgesia, Amnesia, Plan communicated to team members, Discussed options with patient/fam, Discussed risks with patient/fam The patient is an appropriate candidate to undergo the planned procedure, sedation, and anesthesia. The patient immediately re-assessed prior to indication. RAMYA NO MD Aug 12, 2019 15:57 POS
[2019-08-12] MEDS: fentaNYL INJECTION 100 MCG/2 ML AMP IV PRN ×3 (16:29→23:42)
--- NOTE | 2019-08-12 20:13 | History & Physical-Surgical ---
[facility] 08/12/19 2013: History of Present Illness History of Present Illness Reason for visit/HPI C/C: Diarrhea Monica is a 64 y/o female that presents to [address] for diarrhea every time she eats. She states has had diarrhea since her D/C for partial omentectomy, partial colon resection, biopsy of the abdominal wall and mobilization of the splenic flexure. As soon as she eats she is have diarrhea. She does not know of anything that makes it better and she cannot describe a smell. Imaging in the ER showed small gas and fluid collection in the left flank region and a 2nd fluid collection in the deep pelvis. Date of Admission Aug 11, 2019 at 20:44 I consulted on this patient on 08/12/19 0720 Attending Physician Rainer Campbell DO Admitting Physician Rainer Campbell DO Consult Allergies and Home Medications Allergies Coded Allergies: codeine (Verified Adverse Reaction, Unknown, 07/06/19) "CAUSES HALLUCINATIONS" Home Medications Amoxicillin/Potassium Clav 1 Each Tablet, 1 TAB PO Q12H, (Reported) FILLED #20 08-04-19 Aspirin 81 Mg Tab.chew, 81 MG PO DAILY, (Reported) Atorvastatin Calcium 40 Mg Tablet, 40 MG PO HS, (Reported) LAST FILLED #30 06-11-19 Carvedilol 6.25 Mg Tablet, 6.25 MG PO BID, (Reported) LAST FILLED #60 06-11-19 Clopidogrel Bisulfate 75 Mg Tablet, 75 MG PO DAILY, (Reported) LAST FILLED #30 06-11-19 Furosemide 20 Mg Tablet, 20 MG PO DAILY, (Reported) Losartan Potassium 50 Mg Tablet, 50 MG PO HS, (Reported) LAST FILLED #30 06-11-19 Multivitamin 1 Each Tablet, 1 TAB PO DAILY, (Reported) Ondansetron HCl 4 Mg Tablet, 4 MG PO Q6H PRN for NAUSEA/VOMITING-1ST LINE, (Reported) Past Ztcokbm-Chdzgz-Uxvofh Hx Patient Social History Alcohol Use: Denies Use Recreational Drug Use: No Smoking Status: Current Everyday Smoker Type Used: Cigarettes 2nd Hand Smoke Exposure: Yes Recent Foreign Travel: No Contact w/Someone Who Travel: No Recent Infectious Disease Expo: No Recent Hopitalizations: Yes (BOWEL RESECTION) Immunizations Up To Date Tetanus Booster (TDap): Unknown Date of Pneumonia Vaccine: Aug 08, 2019 Date of Influenza Vaccine: Aug 03, 2019 Seasonal Allergies Seasonal Allergies: No Surgeries Surgeries: Coronary Stent, Hysterectomy Respiratory History of Respiratory Disorde: No Cardiovascular History of Cardiac Disorders: Yes Cardiac Disorders: Heart Attack, High Cholesterol, Hypertension Neurological History of Neurological Disord: No Reproductive System : No 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 Genitourinary History of Genitourinary Disor: No Gastrointestinal History of Gastrointestinal Di: No Musculoskeletal History of Musculoskeletal Dis: No Endocrine History of Endocrine Disorders: No HEENT History of HEENT Disorders: No Cancer History of Cancer: No Psychosocial History of Psychiatric Problem: No Integumentary History of Skin or Integumenta: No Blood Transfusions History of Blood Disorders: No Family Medical History Significant Family History: Heart Disease, Diabetes Family Medial History: Diabetes mellitus 19 MOTHER FH: heart attack 19 FATHER G8 BROTHER ( AGE 37) FH: lung disease 19 MOTHER High cholesterol 19 FATHER Review of Systems Constitutional: weakness, weight loss EENTM: no symptoms reported Respiratory: no symptoms reported Cardiovascular: no symptoms reported Gastrointestinal: diarrhea, nausea Genitourinary: no symptoms reported Musculoskeletal: no symptoms reported Skin: no symptoms reported Psychiatric/Neurological: No Symptoms Reported Physical Exam Vital Signs Vital Signs - First Documented 08/11/19 08/11/19 17:15 21:14 Temp 36.7 Pulse 138 Resp 18 B/P (MAP) 131/75 (93) Pulse Ox 93 O2 Delivery Room Air Capillary Refill : Less Than 3 Seconds Height, Weight, BMI Height: '" Weight: lbs. oz. kg; 17.79 BMI Method: General Appearance: No Apparent Distress, Cachetic, Thin Eyes: Bilateral Eye PERRL, Bilateral Eye EOMI HEENT: PERRL/EOMI Neck: Full Range of Motion, Non Tender, Supple Respiratory: Chest Non Tender, No Accessory Muscle Use, No Respiratory Distress Cardiovascular: Regular Rate, Rhythm, No Edema, Normal Peripheral Pulses Gastrointestinal: No Distended, No Guarding; Tenderness (Around incisions ) Extremity: Normal Capillary Refill, No Calf Tenderness Neurologic/Psychiatric: Alert, Oriented x3 Skin: Normal Color, Warm/Dry Lymphatic: No Adenopathy Data Review Labs Laboratory Tests 08/12/19 00:00: Stool Occult Blood Immunoassay POSITIVEH 08/12/19 04:40: White Blood Count 5.5, Red Blood Count 2.40L, Hemoglobin 6.5#*L, Hematocrit 21L, Mean Corpuscular Volume 88, Mean Corpuscular Hemoglobin 27, Mean Corpuscular Hemoglobin Concent 31L, Red Cell Distribution Width 20.4H, Platelet Count 603H, Mean Platelet Volume 9.1, Neutrophils (%) (Auto) 55, Lymphocytes (%) (Auto) 29, Monocytes (%) (Auto) 13H, Eosinophils (%) (Auto) 2, Basophils (%) (Auto) 1, Neutrophils # (Auto) 3.0, Lymphocytes # (Auto) 1.6, Monocytes # (Auto) 0.7, Eosinophils # (Auto) 0.1, Basophils # (Auto) 0.0, Sodium Level 140, Potassium Level 3.2L, Chloride Level 105, Carbon Dioxide Level 27, Anion Gap 8, Blood Urea Nitrogen 4L, Creatinine 0.46L, Estimat Glomerular Filtration Rate > 60, BUN/Creatinine Ratio 9, Glucose Level 81, Calcium Level 7.5L, Corrected Calcium 9.0, Total Bilirubin 0.3, Aspartate Amino Transf (AST/SGOT) 20, Alanine Aminotransferase (ALT/SGPT) 7, Alkaline Phosphatase 149H, Total Protein 4.7L, Albumin 2.1L 08/12/19 05:55: Hemoglobin 6.4*L, Hematocrit 21L Microbiology 08/11/19 C. difficile GDH Antigen & Toxins - Final, Complete Assessment/Plan Assessment/Plan Admission Diagonsis Recurrent Abdominal Abbesses, Anemia, Hypokalemia, Weight loss, Diarrhea - Continue to monitor anemia, giving 2 units of blood - Drain placement for potential abscess in the left flank and pelvic area - Continue medical management - Mechanical DVT prophylaxis. - Stool Culture and C.Diff testing - Continue to monitor blood in stool. If continue and HgB is non stable may consider EGD/Colonoscopy - Diet as tolerated - If diarrhea continues consider the use of anti-diarrheals Clinical Quality Measures DVT/VTE Risk/Contraindication: Risk Factor Score Per Nursin RFS Level Per Nursing on Admit: 3=High RAINER CAMPBELL DO 08/13/192116: History of Present Illness History of Present Illness Reason for visit/HPI CC: Diarrhea patient with recent surgical intervention of omentectomy, partial colon resection, biopsy of the abdominal wall and mobilization of the splenic flexure for abscess and colon cancer Patient continues to have diarrhea and just not feeling well. Weak. Nothing helping at this time. Mild tenderness all over abdomen. Ct scan showed two fluid pockets one in left flank and one in pelvis. Date Seen by a Provider: Aug 12, 2019 Time Seen by a Provider: 08:00 Allergies and Home Medications Allergies Coded Allergies: codeine (Verified Adverse Reaction, Unknown, 07/06/19) "CAUSES HALLUCINATIONS" Home Medications Amoxicillin/Potassium Clav 1 Each Tablet, 1 TAB PO Q12H, (Reported) FILLED #20 08-04-19 Aspirin 81 Mg Tab.chew, 81 MG PO DAILY, (Reported) Atorvastatin Calcium 40 Mg Tablet, 40 MG PO HS, (Reported) LAST FILLED #30 06-11-19 Carvedilol 6.25 Mg Tablet, 6.25 MG PO BID, (Reported) LAST FILLED #60 06-11-19 Clopidogrel Bisulfate 75 Mg Tablet, 75 MG PO DAILY, (Reported) LAST FILLED #30 06-11-19 Furosemide 20 Mg Tablet, 20 MG PO DAILY, (Reported) Losartan Potassium 50 Mg Tablet, 50 MG PO HS, (Reported) LAST FILLED #30 06-11-19 Multivitamin 1 Each Tablet, 1 TAB PO DAILY, (Reported) Ondansetron HCl 4 Mg Tablet, 4 MG PO Q6H PRN for NAUSEA/VOMITING-1ST LINE, (Reported) Patient Home Medication List Home Medication List Reviewed: Yes Past Khdstgz-Lxfwxz-Tljaek Hx Patient Social History Alcohol Use: Denies Use Recreational Drug Use: No Smoking Status: Current Everyday Smoker Type Used: Cigarettes 2nd Hand Smoke Exposure: Yes Recent Foreign Travel: No Contact w/Someone Who Travel: No Recent Infectious Disease Expo: No Recent Hopitalizations: Yes (BOWEL RESECTION) Surgeries Surgeries: Bowel Surgery, Coronary Stent, Hysterectomy Cardiovascular Cardiac Disorders: Heart Attack, High Cholesterol, Hypertension Neurological History of Neurological Disord: No Reproductive System : No 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 Genitourinary History of Genitourinary Disor: No Gastrointestinal History of Gastrointestinal Di: No Musculoskeletal History of Musculoskeletal Dis: No Endocrine History of Endocrine Disorders: No HEENT History of HEENT Disorders: No Cancer History of Cancer: Yes Cancer: Colon Psychosocial History of Psychiatric Problem: No Integumentary History of Skin or Integumenta: No Blood Transfusions History of Blood Disorders: No Family Medical History Significant Family History: Heart Disease, Diabetes Family Medial History: Diabetes mellitus 19 MOTHER FH: heart attack 19 FATHER G8 BROTHER ( AGE 37) FH: lung disease 19 MOTHER High cholesterol 19 FATHER Review of Systems Constitutional: weakness, weight loss EENTM: no symptoms reported Respiratory: no symptoms reported Cardiovascular: no symptoms reported Gastrointestinal: diarrhea, nausea Genitourinary: no symptoms reported Musculoskeletal: no symptoms reported Skin: no symptoms reported Psychiatric/Neurological: No Symptoms Reported Physical Exam General Appearance: No Apparent Distress HEENT: PERRL/EOMI Neck: Full Range of Motion, Non Tender, Supple Respiratory: Chest Non Tender, No Accessory Muscle Use, No Respiratory Distress Cardiovascular: Regular Rate, Rhythm Gastrointestinal: Soft; No Distended; Tenderness (Around midline, incision c/d/i) Extremity: Normal Capillary Refill Neurologic/Psychiatric: Alert, Oriented x3 Skin: Normal Color, Warm/Dry Lymphatic: No Adenopathy Assessment/Plan Assessment/Plan Admission Diagonsis Recurrent Abdominal Abscesses, s/p colon resection/omentectomy, drainage of intraabdominal abscess, Anemia, Hypokalemia, Weight loss, Diarrhea patient to have IR drain fluid collections anemia transfuse prbc and monitor c diff testing diet as tolerates no egd/colonoscopy at this time, On protonix await cultures on zosyn Admission Status: Observation Assessment/Plan Recurrent Abdominal Abscesses, s/p colon resection/omentectomy, drainage of intraabdominal abscess, Anemia, Hypokalemia, Weight loss, Diarrhea patient to have IR drain fluid collections anemia transfuse prbc and monitor c diff testing diet as tolerates no egd/colonoscopy at this time, On protonix await cultures on zosyn consult medicine Supervisory-Addendum Brief Verification & Attestation Participated in pt care: history, MDM, physical Personally performed: exam, history, MDM, supervision of care Care discussed with: Medical Student Procedures: n/a Results interpretation: Verified all documentation Verification and Attestation of Medical Student E/M Service A medical student performed and documented this service in my presence. I reviewed and verified all information documented by the medical student and made modifications to such information, when appropriate. I personally performed the physical exam and medical decision making. Rainer Campbell, Aug 12, 2019,21:34 [facility] Aug 12, 2019 20:13 RAINER DIEGO DO Aug 13, 2019 21:17 POS
[2019-08-13] VITALS (7 sets, daily range): BP systolic 101–157; BP diastolic 67–97
[2019-08-13] MEDS: PIPERACILLIN/TAZO 4.5 GM/NS 100 ML IV SCH ×6 (04:01→20:19)
[2019-08-13] MEDS: HYDROcodone/APAP 5 MG/325 MG (LORTAB) TAB PO PRN (04:02)
[2019-08-13 05:33] LABS: BASOPHILS % (AUTO) 1 % (0-10); EOSINOPHILS # (AUTO) 0.1 10^3/uL (0.0-0.3); EOSINOPHILS % (AUTO) 2 % (0-10); HEMATOCRIT 31 % (35-52); HEMOGLOBIN 9.8 G/DL (11.5-16.0); LYMPHOCYTES # (AUTO) 1.4 X 10^3 (1.0-4.0); LYMPHOCYTES % (AUTO) 24 % (12-44); MEAN CORPUSCULAR HEMOGLOBIN 27 PG (25-34); MEAN CORPUSCULAR HGB CONC 32 G/DL (32-36); MEAN CORPUSCULAR VOLUME 86 FL (80-99); MEAN PLATELET VOLUME 9.2 FL (7.4-10.4); MONOCYTES # (AUTO) 0.6 X 10^3 (0.0-1.0); MONOCYTES % (AUTO) 10 % (0-12); NEUTROPHILS % (AUTO) 65 % (42-75); PLATELET COUNT 559 10^3/uL (130-400); RED CELL DISTRIBUTION WIDTH 18.7 % (10.0-14.5); WHITE BLOOD COUNT 6.1 10^3/uL (4.3-11.0)
[2019-08-13 05:57] LABS: ALANINE AMINOTRANSFERASE 10 U/L (0-55); ALBUMIN 2.1 GM/DL (3.2-4.5); ALKALINE PHOSPHATASE 192 U/L (40-136); BILIRUBIN,TOTAL 0.4 MG/DL (0.1-1.0); BUN/CREATININE RATIO 11; CALCIUM 7.6 MG/DL (8.5-10.1); CARBON DIOXIDE 22 MMOL/L (21-32); CHLORIDE 103 MMOL/L (98-107); CREATININE SERUM 0.53 MG/DL (0.60-1.30); GFR ESTIMATED > 60; POTASSIUM 3.8 MMOL/L (3.6-5.0); SODIUM 137 MMOL/L (135-145); TOTAL PROTEIN 4.8 GM/DL (6.4-8.2)
[2019-08-13 06:10] LABS: GLUCOSE 59 MG/DL (70-105)
--- NOTE | 2019-08-13 06:38 | NUR ---
CALL RECEIVED FROM LAB WITH CRITICAL GLUCOSE LEVEL OF 59. THIS NURSE WENT TO PATIENT ROOM TO EVALUATE. PATIENT ALERT AND ORIENTED DENIED HYPOGLYCEMIC SYMPTOMS. PATIENT WAS GIVEN 8OZ ORANGE JUICE. BLOOD GLUCOSE RECHECKED 15 MINUTES AFTER PATIENT DRANK THE JUICE. RESULTS: 67. PATIENT WAS GIVEN A CONTAINER OF PEANUT BUTTER, CHOCOLATE MILK, AND TONY CRACKERS. WILL CONTINUE TO MONITOR.
[2019-08-13] MEDS: NICOTINE 21 MG (NICODERM) PATCH TD SCH (08:05)
[2019-08-13] MEDS: LACTATED RINGERS 1,000 ML IV SCH ×3 (08:05→18:19)
--- NOTE | 2019-08-13 10:36 | Consultation - Hospitalist ---
HPI History of Present Illness: HPI/Chief Complaint Pt is a 64yoCF with a PMH CAD, HLD, and newly diagnosed colon cancer. She reports that she was just admitted to the hospital due an adominal mass and she underwent removal of mass, colon resection, and omentectomy. She states she went home on a clear liquid diet and advanced her diet but had diarrhea with everything that she ate. After a week or so of this she decided to seek evaluation in the ER. CT abdomen was done and revealed fluid collections. She went for CT guided placement of mami drains yesterday. She states she is feeling better today. She states she has been informed taht her abdominal mass was found to be cancer and there were multiple lymph nodes that had cancer as well. She states she suspected this due to her history of smoking. She has no other complaints at this time. We did discuss her blood count and she reports she has been anemic her entire life and has need blood transfusions in the past. Source: patient Exam Limitations: no limitations Date Seen 08/13/19 Attending Physician Rainer Campbell DO PCP Rainer Campbell DO Referring Physician Dr Campbell Date of Admission Aug 11, 2019 at 20:44 Home Medications & Allergies Home Medications Reviewed patient Home Medication Reconciliation performed by pharmacy medication reconciliations treatment technician and/or nursing. Patients Allergies have been reviewed. Allergies Allergies Coded Allergies codeine (Verified Adverse Reaction, Unknown, 07/06/19) "CAUSES HALLUCINATIONS" Past Brdzanc-Cycztg-Gdphun Hx Past Med/Social Hx: Reviewed Nursing Past Med/Soc Hx Patient Social History Alcohol Use: Denies Use Recreational Drug Use: No Smoking Status: Current Everyday Smoker Type Used: Cigarettes 2nd Hand Smoke Exposure: Yes Recent Foreign Travel: No Contact w/other who traveled: No Recent Hopitalizations: Yes (BOWEL RESECTION) Recent Infectious Disease Expo: No Immunizations Up To Date Tetanus Booster (TDap): Unknown Date of Pneumonia Vaccine: Aug 08, 2019 Date of Influenza Vaccine: Aug 03, 2019 Seasonal Allergies Seasonal Allergies: No Past Medical History Surgeries: Coronary Stent, Hysterectomy Cardiac: Heart Attack, High Cholesterol, Hypertension : No Hysterectomy History of Blood Disorders: No Family History Diabetes mellitus 19 MOTHER FH: heart attack 19 FATHER G8 BROTHER ( AGE 37) FH: lung disease 19 MOTHER High cholesterol 19 FATHER Heart Disease, Diabetes Review of Systems Constitutional: no symptoms reported EENTM: no symptoms reported Respiratory: no symptoms reported Cardiovascular: no symptoms reported Gastrointestinal: see HPI, diarrhea Genitourinary: no symptoms reported Musculoskeletal: no symptoms reported Skin: no symptoms reported Psychiatric/Neurological: No Symptoms Reported Physical Exam Physical Exam Vital Signs Vital Signs - First Documented 08/11/19 08/11/19 17:15 21:14 Temp 36.7 Pulse 138 Resp 18 B/P (MAP) 131/75 (93) Pulse Ox 93 O2 Delivery Room Air Capillary Refill : Less Than 3 Seconds Height, Weight, BMI Height: '" Weight: lbs. oz. kg; 17.79 BMI Method: General Appearance: No Apparent Distress, Anxious, Cachetic, Thin Eyes: Bilateral Eye PERRL, Bilateral Eye EOMI HEENT: Moist Mucous Membranes; No Scleral Icterus (L), No Scleral Icterus (R) Neck: Normal Inspection, Supple; No Thyromegaly Respiratory: Lungs Clear, No Accessory Muscle Use, No Respiratory Distress Cardiovascular: Regular Rate, Rhythm, No Edema, Normal Peripheral Pulses Gastrointestinal: No Distended, No Guarding; Tenderness (Around incisions ), Other (MAMI drains in place) Extremity: Normal Capillary Refill, No Calf Tenderness, No Pedal Edema Neurologic/Psychiatric: Alert, Oriented x3 Skin: Normal Color, Warm/Dry Results Results/Procedures Labs Laboratory Tests 08/11/19 17:34 08/12/19 04:40 08/12/19 05:55 08/13/19 05:10 Patient resulted labs reviewed. Imaging: Reviewed Imaging Report Assessment/Plan Assessment and Plan Assess & Plan/Chief Complaint s/p colon resection with intraabdominal abscess colon cancer management per primary Continue zosyn await cultures from drainage yesterday CAD HLD Continue home meds with except for ASA/Plavix (last stent in 2015) due to anemia Reports baseline hypotension- will trend Anemia s/p transfusion this admission Goal >8 due to history of CAD Will check iron levels Diagnosis/Problems Diagnosis/Problems (1) Normocytic anemia Status: Acute (2) POSTOP FLUID COLLECTION Status: Acute (3) Diarrhea Status: Acute Qualifiers: Diarrhea type: unspecified type Qualified Codes: R19.7 - Diarrhea, unspecified (4) CAD (coronary artery disease) Clinical Quality Measures DVT/VTE Risk/Contraindication: Risk Factor Score Per Nursin RFS Level Per Nursing on Admit: 3=High MARVEL MARR MD Aug 13, 2019 10:36 POS
[2019-08-13] MEDS ORDERED: PATIENT MAY USE OWN MEDS, ALL MC SCH (10:45)
--- NOTE | 2019-08-13 15:17 | NUR ---
"RD ASSESSMENT PMHx: AK; hypercholesterolemia; HTN; partial omentectomy; partial colon resection PT INTERACTION: Pt was awake and pleasant during nutrition assessment. Pt states current appetite is good. Note pt PO intake of 75% x1meal, per chart review. Pt states following a regular diet at home, and currently has no issues with chewing/swallowing food. Note pt has only top teeth. Pt states no recent issues with n/v at this time. Pt states having frequent episodes of diarrhea, stating that they occur right after eating. Note last BM was 08/13 and pt not currently on bowel regimen. Pt states recent 27# wt loss since her surgery, where she states they removed a tumor in her stomach and performed a bowel resection. Note surgery note on 07/31 of partial omentectomy and partial colon resection per chart review. Note 15# wt loss x2w, per chart review. Upon visual exam, pt appears frail and has visible signs of muscle/fat wasting and a BMI of 17.8 (underweight). Given pt's wt loss and visual exam, pt meets criteria for acute malnutrition per ASPEN guidelines. This RD believes the frequent episodes of diarrhea are evident of the pt dealing with dumping syndrome. ABNORMAL NUTRITION-RELATED LAB VALUES: BUN 6 (L); cr 0.53 (L); glu 59 (L); Ca 7.6 (L); Pro 4.8 (L); alb 2.1 (L) Est. kcal needs: 5989-2798 kcal | 30-35 kcal/kg IBW Est. Pro needs: 57-65 g Pro | 1.4-1.6 g Pro/kg IBW PES STATEMENT: Altered GI funtion (NC-1.4) related to alteration in GI tract structure | changes in GI tract motility as evidenced by s/p partial omentectomy | partial colon resection | frequent episodes of diarrhea | pt interview INTERVENTION: Continue with current diet order of Regular diet. Add Ensure HP (vary) to meals TID to increase kcal and protein intake. Provides 160 kcal and 16 g Pro per serving. Will follow up tomorrow with education on dumping syndrome and nutrition. MONITOR/EVALUATE: PO Intake; Plan of Care; Hydration Status; Weight Status; Lab Values Isidro Nunn, MS, RD, LD"
[2019-08-13] MEDS: ONDANSETRON 4 MG/2 ML (SDV) Z0FRAN IV PRN (18:20)
--- NOTE | 2019-08-13 18:20 | NUR ---
ZOFRAN IV FOR NAUSEA.
--- NOTE | 2019-08-13 18:24 | Progress Note - Surgery ---
[facility] 08/13/19 1824: Subjective Date Seen by a Provider: Aug 13, 2019 Time Seen by a Provider: 16:58 Subjective/Events-last exam Pt is alert and oriented and in no acute distress Pt is having BM and urinating without issue Tolerating liquids Drains are in place and are non-painful Abdomen a little tender but denies N/V, F/C, Chest pain and SOB Objective Exam Vital Signs Date Time Temp Pulse Resp B/P (MAP) Pulse Ox O2 Delivery O2 Flow Rate FiO2 08/13/19 15:40 36.9 85 20 149/67 (94) 98 Room Air 08/13/19 12:00 36.3 75 20 138/81 (100) 95 Room Air 08/13/19 08:00 36.2 85 20 137/77 (97) 95 Room Air 08/13/19 08:00 Room Air 08/13/19 04:00 36.9 73 18 155/82 (106) 95 Room Air 08/13/19 00:00 36.8 77 18 101/68 (79) 97 Room Air 08/12/19 20:36 Room Air 08/12/19 19:32 37.4 87 20 134/75 (94) 99 Room Air I & O 08/13/19 07:00 Intake Total 720 ml Output Total 1545 ml Balance -825 ml Capillary Refill : Less Than 3 SecondsLess Than 3 Seconds General Appearance: No Apparent Distress, Anxious, Cachetic, Thin HEENT: Moist Mucous Membranes; No Scleral Icterus (L), No Scleral Icterus (R) Neck: Normal Inspection, Supple; No Thyromegaly Respiratory: Lungs Clear, No Accessory Muscle Use, No Respiratory Distress Cardiovascular: Regular Rate, Rhythm, No Edema, Normal Peripheral Pulses Peripheral Pulses: 2+ Dorsalis Pedis (R), 2+ Left Dors-Pedis (L), 2+ Radial Pulses (R), 2+ Radial Pulses (L) Gastrointestinal: normal bowel sounds, soft, other (midline abdominal incision still has ryan in place, skin edges clean dry and intact without drainage or erythema, abdominal wall is flat and soft with minimal tenderness to palpation. Drains are in place and are draining serousangnuise fluid. ) Extremity: Normal Capillary Refill, No Calf Tenderness, No Pedal Edema Neurologic/Psychiatric: Alert, Oriented x3 Skin: Normal Color, Warm/Dry Results Lab Laboratory Tests 08/13/19 05:10: White Blood Count 6.1, Red Blood Count 3.57L, Hemoglobin 9.8#L, Hematocrit 31L, Mean Corpuscular Volume 86, Mean Corpuscular Hemoglobin 27, Mean Corpuscular Hemoglobin Concent 32, Red Cell Distribution Width 18.7H, Platelet Count 559H, Mean Platelet Volume 9.2, Neutrophils (%) (Auto) 65, Lymphocytes (%) (Auto) 24, Monocytes (%) (Auto) 10, Eosinophils (%) (Auto) 2, Basophils (%) (Auto) 1, Neutrophils # (Auto) 4.0, Lymphocytes # (Auto) 1.4, Monocytes # (Auto) 0.6, Eosinophils # (Auto) 0.1, Basophils # (Auto) 0.0, Sodium Level 137, Potassium Level 3.8, Chloride Level 103, Carbon Dioxide Level 22, Anion Gap 12, Blood Urea Nitrogen 6L, Creatinine 0.53L, Estimat Glomerular Filtration Rate > 60, BUN/Creatinine Ratio 11, Glucose Level 59*L, Calcium Level 7.6L, Corrected Calcium 9.1, Total Bilirubin 0.4, Aspartate Amino Transf (AST/SGOT) 20, Alanine Aminotransferase (ALT/SGPT) 10, Alkaline Phosphatase 192H, Total Protein 4.8L, Albumin 2.1L 08/13/19 15:10: Iron Level 10L, Total Iron Binding Capacity 119L, Unsaturated Iron Binding Capacity 109, Transferrin % Saturation 8L 08/13/19 15:30: Lab Scanned Report Transfusion Reaction Form Microbiology 08/11/19 C. difficile GDH Antigen & Toxins - Final, Complete 08/12/19 Gram Stain - Final, Resulted 08/12/19 Anaerobic Culture, Resulted Pending 08/12/19 Surgical Culture - Preliminary, Resulted No growth Assessment/Plan Assessment/Plan Assessment/Plan Possible Recurrent Abdominal Abbesses, Anemia, Hypokalemia, Weight loss, Diarrhea - Continue to monitor anemia - Continue to watch drain discharge - Continue medical management - Mechanical DVT prophylaxis. - Continue to monitor blood in stool. If continue and HgB is non stable may consider EGD/Colonoscopy - Diet as tolerated - Continue to monitor diarrhea if it continues consider the use of anti- diarrheals. - Consult Oncology Clinical Quality Measures DVT/VTE Risk/Contraindication: Risk Factor Score Per Nursin RFS Level Per Nursing on Admit: 3=High RAINER CAMPBELL DO 08/13/192138: Subjective Subjective/Events-last exam Patient feeling better today. drains serous appearing. abdomen soft. tolerating diet. having bm denies any new complaints, denies n/v fever sweats chills shortness of breath or chest pain. Objective Exam General Appearance: No Apparent Distress, Thin HEENT: Moist Mucous Membranes Neck: Normal Inspection Respiratory: Lungs Clear, No Accessory Muscle Use, No Respiratory Distress Cardiovascular: Regular Rate, Rhythm Gastrointestinal: soft, other (midline abdominal incision still has ryan in place, skin edges clean dry and intact without drainage or erythema, drains mostly serous) Extremity: Normal Capillary Refill Neurologic/Psychiatric: Alert, Oriented x3 Skin: Normal Color, Warm/Dry Lymphatic: No Adenopathy Assessment/Plan Assessment/Plan Assessment/Plan Recurrent Abdominal Abscesses, s/p colon resection/omentectomy, drainage of intraabdominal abscess, Anemia, Hypokalemia, Weight loss, Diarrhea, s/p drain placement x 2 patient to have IR drain fluid collections anemia transfuse prbc prn and monitor c diff testing negative diet as tolerates On protonix await cultures on zosyn home soon Supervisory-Addendum Brief Verification & Attestation Participated in pt care: history, MDM, physical Personally performed: exam, history, MDM, supervision of care Care discussed with: Medical Student Procedures: n/a Results interpretation: Verified all documentation Verification and Attestation of Medical Student E/M Service A medical student performed and documented this service in my presence. I reviewed and verified all information documented by the medical student and made modifications to such information, when appropriate. I personally performed the physical exam and medical decision making. Rainer Campbell, Aug 13, 2019,21:39 [facility] Aug 13, 2019 18:24 RAINER DIEGO DO Aug 13, 2019 21:39 POS
[2019-08-13] MEDS: CARVEDILOL 6.25 MG (COREG) TAB PO SCH (20:29)
[2019-08-13] MEDS: LOSARTAN 50 MG (COZAAR) TAB PO SCH (20:29)
[2019-08-13] MEDS: fentaNYL INJECTION 100 MCG/2 ML AMP IV PRN (20:37)
[2019-08-14] VITALS (8 sets, daily range): BP systolic 114–155; BP diastolic 55–87
[2019-08-14] MEDS: ALPRAZolam 0.25 MG (XANAX) TAB PO PRN (00:24)
[2019-08-14] MEDS: PIPERACILLIN/TAZO 4.5 GM/NS 100 ML IV SCH ×6 (03:38→20:59)
[2019-08-14] MEDS: HYDROcodone/APAP 5 MG/325 MG (LORTAB) TAB PO PRN ×2 (03:45→22:23)
[2019-08-14 05:58] LABS: HEMOGLOBIN 9.7 G/DL (11.5-16.0); MEAN PLATELET VOLUME 9.1 FL (7.4-10.4); RED CELL DISTRIBUTION WIDTH 18.7 % (10.0-14.5); WHITE BLOOD COUNT 5.5 10^3/uL (4.3-11.0)
[2019-08-14] MEDS: LACTATED RINGERS 1,000 ML IV SCH ×2 (06:05→12:28)
[2019-08-14 06:16] LABS: BUN/CREATININE RATIO 9; CALCIUM 7.6 MG/DL (8.5-10.1); CARBON DIOXIDE 27 MMOL/L (21-32); CHLORIDE 105 MMOL/L (98-107); CREATININE SERUM 0.44 MG/DL (0.60-1.30); GFR ESTIMATED > 60; GLUCOSE 85 MG/DL (70-105); POTASSIUM 3.5 MMOL/L (3.6-5.0); SODIUM 139 MMOL/L (135-145)
--- NOTE | 2019-08-14 07:48 | Progress Note - Surgery ---
[facility] 08/14/19 0748: Subjective Date Seen by a Provider: Aug 14, 2019 Time Seen by a Provider: 07:42 Subjective/Events-last exam Pt is alert and oriented and in no acute distress. No family at bedside Pt has minor pain near drain sites Pt is passing flatus and urinating without issue. Pt stated she does not see blood in stool. Tolerating Diet Pt ask about Oncology Consult and was wondering when they would be coming to see her Drains have very minimal drainage according to I/Os. I did not see any fluid collections in the bag, in the tubs it was serous fluid. Objective Exam Vital Signs Date Time Temp Pulse Resp B/P (MAP) Pulse Ox O2 Delivery O2 Flow Rate FiO2 08/14/19 03:56 36.6 77 16 132/70 (90) 91 Room Air 08/14/19 00:15 36.6 79 16 114/72 (86) 94 Room Air 08/13/19 20:37 Room Air 08/13/19 20:26 87 150/87 (108) 08/13/19 19:54 37.0 100 20 157/97 (117) 97 Room Air 08/13/19 15:40 36.9 85 20 149/67 (94) 98 Room Air 08/13/19 12:00 36.3 75 20 138/81 (100) 95 Room Air 08/13/19 08:00 36.2 85 20 137/77 (97) 95 Room Air 08/13/19 08:00 Room Air I & O 08/14/19 07:00 Intake Total 3390 ml Output Total 2178 ml Balance 1212 ml Capillary Refill : Less Than 3 SecondsLess Than 3 Seconds General Appearance: No Apparent Distress, Thin HEENT: Moist Mucous Membranes Neck: Normal Inspection Respiratory: Lungs Clear, No Accessory Muscle Use, No Respiratory Distress Cardiovascular: Regular Rate, Rhythm, No Edema Peripheral Pulses: 2+ Dorsalis Pedis (R), 2+ Left Dors-Pedis (L), 2+ Radial Pulses (R), 2+ Radial Pulses (L) Gastrointestinal: soft, other (midline abdominal incision still has ryan in place, skin edges clean dry and intact without drainage or erythema, drains mostly serous) Extremity: Normal Capillary Refill Neurologic/Psychiatric: Alert, Oriented x3 Skin: Normal Color, Warm/Dry Lymphatic: No Adenopathy Results Lab Laboratory Tests 08/13/19 15:10: Iron Level 10L, Total Iron Binding Capacity 119L, Unsaturated Iron Binding Capacity 109, Transferrin % Saturation 8L, Ferritin 180.3H, Vitamin B12 Level 416, Folate 6.9 08/13/19 15:30: Lab Scanned Report Transfusion Reaction Form 08/14/19 04:35: White Blood Count 5.5, Red Blood Count 3.54L, Hemoglobin 9.7L, Hematocrit 31L, Mean Corpuscular Volume 86, Mean Corpuscular Hemoglobin 27, Mean Corpuscular Hemoglobin Concent 32, Red Cell Distribution Width 18.7H, Platelet Count 582H, Mean Platelet Volume 9.1, Sodium Level 139, Potassium Level 3.5L, Chloride Level 105, Carbon Dioxide Level 27, Anion Gap 7, Blood Urea Nitrogen 4L, Creatinine 0.44L, Estimat Glomerular Filtration Rate > 60, BUN/Creatinine Ratio 9, Glucose Level 85, Calcium Level 7.6L Microbiology 08/11/19 C. difficile GDH Antigen & Toxins - Final, Complete 08/12/19 Gram Stain - Final, Resulted 08/12/19 Anaerobic Culture, Resulted Pending 08/12/19 Surgical Culture - Preliminary, Resulted No growth Assessment/Plan Assessment/Plan Assessment/Plan Recurrent Abdominal Abscesses, s/p colon resection/omentectomy, drainage of intraabdominal abscess, Anemia, Hypokalemia, Weight loss, Diarrhea, s/p drain placement x 2 - Oncology Consult - Continue to monitor drains, if no out put consider removal - Diet as tolerated - HgB has been stable, continue to monitor - Continue medical management Clinical Quality Measures DVT/VTE Risk/Contraindication: Risk Factor Score Per Nursin RFS Level Per Nursing on Admit: 3=High RAINER MENDOZA DO 08/14/192118: Subjective Subjective/Events-last exam Patient no new complaints. Hgb stable. Tolerating diet. No blood in stool. Drains minimal serous appearing drains. Awaiting cultures. Denies n/v fever sweats chills shortness of breath or chest pain. Objective Exam General Appearance: No Apparent Distress HEENT: PERRL/EOMI Neck: Normal Inspection Respiratory: Chest Non Tender, No Accessory Muscle Use, No Respiratory Distress Cardiovascular: Regular Rate, Rhythm Gastrointestinal: normal bowel sounds, soft, other (midline abdominal incision still has ryan in place, skin edges clean dry and intact without drainage or erythema, drains mostly serous) Extremity: Normal Capillary Refill Neurologic/Psychiatric: Alert, Oriented x3 Skin: Normal Color, Warm/Dry Lymphatic: No Adenopathy Assessment/Plan Assessment/Plan Assessment/Plan Recurrent Abdominal Abscesses/fluid collections, s/p colon resection/omentectomy, drainage of intraabdominal abscess, Anemia, Hypokalemia, Weight loss, Diarrhea, s/p drain placement x 2 On protonix drains placed appears serous awaiting cultures finalized consult Dr. Tucker (oncology as patient requests) remove ryan home likely tomorrow Dr. Dey covering Supervisory-Addendum Brief Verification & Attestation Participated in pt care: history, MDM, physical Personally performed: exam, history, MDM, supervision of care Care discussed with: Medical Student Procedures: n/a Results interpretation: Verified all documentation Verification and Attestation of Medical Student E/M Service A medical student performed and documented this service in my presence. I reviewed and verified all information documented by the medical student and made modifications to such information, when appropriate. I personally performed the physical exam and medical decision making. Rainer Mendoza, Aug 14, 2019,21:19 [facility] Aug 14, 2019 07:48 RAINER DIEGO DO Aug 14, 2019 21:19 POS
[2019-08-14] MEDS: MULTIVIT W/MINERALS TAB (THERAGRAN M) PO SCH (09:33)
[2019-08-14] MEDS: NICOTINE 21 MG (NICODERM) PATCH TD SCH (09:33)
[2019-08-14] MEDS ORDERED: NS IV 500 ML 500 ML IV SCH (09:35)
[2019-08-14] MEDS: FUROSEMIDE 20 MG (LASIX) TAB PO SCH (09:38)
[2019-08-14] MEDS: CARVEDILOL 6.25 MG (COREG) TAB PO SCH ×2 (09:38→20:59)
[2019-08-14] MEDS ORDERED: EPINEPHrine INJECTION 1 MG/ML AMP IM PRN (09:45)
[2019-08-14] MEDS ORDERED: RT-ALBUTEROL SULF 2.5 MG/3 ML PRE-MIX VIAL IH PRN (09:45)
[2019-08-14] MEDS ORDERED: HYDROCORTISONE 100 MG/2 ML (Solu-CORTEF) VIAL IV PRN (09:45)
[2019-08-14] MEDS ORDERED: diphenhydrAMINE 50 MG/ML INJ (BENADRYL) IV PRN (09:45)
[2019-08-14] MEDS ORDERED: IRON DEXTRAN INJECTION 25 MG in NS (IVPB) 5.75 ML IV NR (10:00)
[2019-08-14] MEDS: ACETAMINOPHEN 500 MG TAB (TYLENOL) PO PRN ×2 (10:20→16:22)
[2019-08-14] MEDS ORDERED: IRON DEXTRAN INJECTION 1,000 MG in NS (IVPB) 250 ML IV NR (10:30)
--- NOTE | 2019-08-14 12:00 | Oncology Consultation ---
Visit Information Visit Information Date of Admission Aug 11, 2019 at 20:44 Attending Physician Rainer Campbell DO Admitting Physician Rainer Campbell DO Chief Complaint Called by Dr Campbell to see this newly diagnosed colon cancer patient and answer the oncological questions. Interval History Ms. Pathak is a 64 year old while female presents to [facility] for diarrhea every time she eats since discharge from the hospital after she had partial omentectomy, partial colon resection, biopsy of the abdominal wall and mobilization of the splenic flexure. Pathology revealed adenocarcinoma of the colon and [address] scan showed fluid collections and she had bilateral abdominal drainage catheters and also put on antibiotics. We are called to answer her oncological questions of her cancer diagnosis and treatment options. I consulted the patient on: 08/14/19 11:57 Time Seen by Provider: 12:22 Review of Systems Constitutional: weakness, weight loss Respiratory: no symptoms reported Cardiovascular: edema Gastrointestinal: see HPI Health Status Allergies Coded Allergies: codeine (Verified Adverse Reaction, Unknown, 07/06/19) "CAUSES HALLUCINATIONS" Home Medications Amoxicillin/Potassium Clav (Augmentin 500-125 Tablet) 1 Each Tablet, 1 TAB PO Q12H for 10 Days, (Reported) FILLED #20 08-04-19 Aspirin (Aspirin) 81 Mg Tab.chew, 81 MG PO DAILY, (Reported) Atorvastatin Calcium (Atorvastatin Calcium) 40 Mg Tablet, 40 MG PO HS, (Report ed) LAST FILLED #30 06-11-19 Carvedilol (Carvedilol) 6.25 Mg Tablet, 6.25 MG PO BID, (Reported) LAST FILLED #60 06-11-19 Clopidogrel Bisulfate (Plavix) 75 Mg Tablet, 75 MG PO DAILY, (Reported) LAST FILLED #30 06-11-19 Furosemide (Furosemide) 20 Mg Tablet, 20 MG PO DAILY, (Reported) Losartan Potassium (Losartan Potassium) 50 Mg Tablet, 50 MG PO HS, (Reported) LAST FILLED #30 06-11-19 Multivitamin (Multivitamins) 1 Each Tablet, 1 TAB PO DAILY, (Reported) Ondansetron HCl (Ondansetron HCl) 4 Mg Tablet, 4 MG PO Q6H PRN for NAUSEA/VOMITING-1ST LINE, (Reported) [id number] Hx Patient Social History Alcohol Use: Denies Use Recreational Drug Use: No Smoking Status: Current Everyday Smoker Type Used: Cigarettes 2nd Hand Smoke Exposure: Yes Recent Foreign Travel: No Contact w/other who traveled: No Recent Infectious Disease Expo: No Recent Hopitalizations: Yes (BOWEL RESECTION) Immunizations Up To Date Tetanus Booster (TDap): Unknown Date of Pneumonia Vaccine: Aug 08, 2019 Date of Influenza Vaccine: Aug 03, 2019 Family Medical History Significant Family History: Heart Disease, Diabetes Family History: Diabetes mellitus 19 MOTHER FH: heart attack 19 FATHER G8 BROTHER ( AGE 37) FH: lung disease 19 MOTHER High cholesterol 19 FATHER Physical Exam Vital Signs Vital Signs - First Documented 08/11/19 08/11/19 17:15 21:14 Temp 36.7 Pulse 138 Resp 18 B/P (MAP) 131/75 (93) Pulse Ox 93 O2 Delivery Room Air Capillary Refill : Less Than 3 SecondsLess Than 3 Seconds Height, Weight, BMI Height: '" Weight: lbs. oz. kg; 17.79 BMI Method: General Appearance: No Apparent Distress HEENT: PERRL/EOMI Neck: Non Tender, Supple Respiratory: Lungs Clear, No Accessory Muscle Use, No Respiratory Distress Cardiovascular: Regular Rate, Rhythm, No JVD Gastrointestinal: Soft, Tenderness, Other (two drainage catheters on each side of the abdomen) Extremity: Non Tender, No Calf Tenderness, Pedal Edema Neurologic/Psychiatric: Alert, Oriented x3 Data Review Labs Laboratory Tests 08/14/19 04:35 Laboratory Tests 08/11/19 17:34: Red Blood Count 4.24L, Mean Corpuscular Hemoglobin Concent 31L, Red Cell Distribution Width 20.9H, Platelet Count 536H, Potassium Level 3.3L, Blood Urea Nitrogen 6L, Glucose Level 119H, Calcium Level 7.8L, Alkaline Phosphatase 197H, Total Protein 5.6L, Albumin 2.4L 08/12/19 00:00: Stool Occult Blood Immunoassay POSITIVEH 08/12/19 04:40: Red Blood Count 2.40L, Mean Corpuscular Hemoglobin Concent 31L, Red Cell Distribution Width 20.4H, Platelet Count 603H, Potassium Level 3.2L, Blood Urea Nitrogen 4L, Calcium Level 7.5L, Alkaline Phosphatase 149H, Total Protein 4.7L, Albumin 2.1L, Hemoglobin 6.5#*L, Hematocrit 21L, Monocytes (%) (Auto) 13H, Creatinine 0.46L 08/12/19 05:55: Hemoglobin 6.4*L, Hematocrit 21L 08/13/19 05:10: Red Blood Count 3.57L, Hemoglobin 9.8#L, Hematocrit 31L, Red Cell Distribution Width 18.7H, Platelet Count 559H, Blood Urea Nitrogen 6L, Creatinine 0.53L, Glucose Level 59*L, Calcium Level 7.6L, Alkaline Phosphatase 192H, Total Protein 4.8L, Albumin 2.1L 08/13/19 15:10: Iron Level 10L, Total Iron Binding Capacity 119L, Transferrin % Saturation 8L, F erritin 180.3H 08/13/19 15:30: 08/14/19 04:35: Red Blood Count 3.54L, Hemoglobin 9.7L, Hematocrit 31L, Red Cell Distribution Width 18.7H, Platelet Count 582H, Blood Urea Nitrogen 4L, Creatinine 0.44L, Calcium Level 7.6L, Potassium Level 3.5L Impression & Plan Impression & Plan IMP: 1. Adenocarcinoma of colon, s/p partial omentectomy, partial colon resection, biopsy of the abdominal wall and mobilization of the splenic flexure. [id number], stage IIIB as of 07/30/2019, pending on the abdominal wall lesion biopsy result from the 08/12/19. CT scan showed no liver mets. 2. Abdominal abscesses/fluid collections on IVF and antibiotics 3. Diarrhea, ?malabsorption, ?infection/C diff. 4. h/o CAD 5. h/o familiar hyperlipidemia Plan: 1. She will need chemotherapy for the stage IIIB (at least) colon cancer but she will need to be free of any infection, free of drainage tubes. I told patient that I will see her at the cancer center as out-pt in about 2-3 weeks. I answered all her questions to her satisfaction today. I gave her my business card and contact information. 2. F/u recent biopsy result from this admission. 3. Dr Campbell and Dr Zamarripa to decide the hospital course and post surgical treatment. Thank you for the consultation. IRVIN TITUS MD Aug 14, 2019 12:00 POS
--- NOTE | 2019-08-14 13:30 | NUR ---
ACCORDION DRAIN FLUSHED WITH 15ML PER DR MENDOZA ORDERS. BOTH DRAINS FLUSHED WITHOUT DIFFICULTY.
--- NOTE | 2019-08-14 14:30 | Progress Note - Hospitalist ---
Subjective HPI/CC On Admission Date Seen by Provider: Aug 14, 2019 Time Seen by Provider: 14:26 Pt is a 64yoCF with a PMH CAD, HLD, and newly diagnosed colon cancer. She reports that she was just admitted to the hospital due an adominal mass and she underwent removal of mass, colon resection, and omentectomy. She states she went home on a clear liquid diet and advanced her diet but had diarrhea with everything that she ate. After a week or so of this she decided to seek evaluation in the ER. CT abdomen was done and revealed fluid collections. She went for CT guided placement of mami drains yesterday. She states she is feeling b alivia today. She states she has been informed taht her abdominal mass was found to be cancer and there were multiple lymph nodes that had cancer as well. She states she suspected this due to her history of smoking. She has no other complaints at this time. We did discuss her blood count and she reports she has been anemic her entire life and has need blood transfusions in the past. Subjective/Events-last exam Pt reports feeling well. Still has drains in place. No complaints. Objective Exam Vital Signs Vital Signs Date Time Temp Pulse Resp B/P (MAP) Pulse Ox O2 Delivery O2 Flow Rate FiO2 08/14/19 13:14 37.1 75 16 138/70 (92) 97 Room Air Capillary Refill : Less Than 3 SecondsLess Than 3 Seconds General Appearance: No Apparent Distress, WD/WN Respiratory: Lungs Clear, No Respiratory Distress Cardiovascular: Regular Rate, Rhythm, No Murmur Gastrointestinal: Normal Bowel Sounds, Soft, Other (MAMI drain in place) Neurologic/Psychiatric: Alert, Oriented x3 Results/Procedures Lab Laboratory Tests 08/14/19 04:35 Patient resulted labs reviewed. Imaging: Reviewed Imaging Report Assessment/Plan Assessment and Plan Assess & Plan/Chief Complaint s/p colon resection with intraabdominal abscess colon cancer management per primary Continue zosyn Cultures with NGTD CAD HLD Continue home meds as able Reports baseline hypotension- will trend Anemia s/p transfusion this admission Goal >8 due to history of CAD Iron low- Infed ordered Diagnosis/Problems Diagnosis/Problems (1) Normocytic anemia Status: Acute (2) POSTOP FLUID COLLECTION Status: Acute (3) Diarrhea Status: Acute Qualifiers: Diarrhea type: unspecified type Qualified Codes: R19.7 - Diarrhea, unspecified (4) CAD (coronary artery disease) Clinical Quality Measures DVT/VTE Risk/Contraindication: Risk Factor Score Per Nursin RFS Level Per Nursing on Admit: 3=High MARVEL MARR MD Aug 14, 2019 14:30 POS
--- NOTE | 2019-08-14 14:56 | NUR ---
CM/SS talked with patient to assess for needs upon discharge. Plan: The patient plans to return home with her daughter and significant other. The patient expressed need for financial assistance. CM/SS called [place] from financial services and left a message that patient needed help with Medicaid. Summary: The patient just got diagnosed with Colon cancer and has told only 2 of her children. She has not told her significant other yet. The patient worries that they will not be able to take the news since her S/O has lost 2 other people to cancer. The patient is currently able to afford her heart medications; however, the pharmacy that she used in [place], [place] is now closed. She retired this May and is collecting SS about 934 a month. She is concerned about the cost of chemotherapy and other medical expenses. There were no other needs at this time. Will continue to follow. Addendum: 08/17/19 at 1747 by GEOVANI CHAVARRIA FACILITIES OPERATIONS TECHNICIAN Social Work Note reviewed and approved.
[2019-08-14] MEDS ORDERED: PANT40TA2 PO (19:33)
--- NOTE | 2019-08-14 19:35 | Discharge Inst-Simple/Standard ---
Discharge Inst-Standard Discharge Medications New, Converted or Re-Newed RX: Transmitted to Pharmacy Patient Instructions/Follow Up Plan of Care/Instructions/FU: Dr. Campbell 2 Weeks. When drains are less than 15 mL in [address] Campbell office to come in and have removed. Activity as Tolerated: No Discharge Diet: Regular Diet Other Inst to Patient Follow up Appt: Make appointment for 2 week. Instructions: No lifting greater than 10 pounds. No strenuous activity. May shower in 24 hours, no tub bath or soaking. Use incentive spirometer at home as directed. No Smoking Skin/Wound Care: May remove bandages. You need to leave the white strips over incision on they will fall off on their own. Symptoms to Report: Appetite Changes, Extremity Discoloration, Numbness/Tingling, Swelling Inc reased, Bleeding Excessive, Eyesight Changes, Pain Increased, Urine Color Change, Constipation(Persistent), Fever over 101 degree F, Pain/Pressure in chest, Urinating Difficulty, Cough Up/Vomit Blood, Heart Beat Irreg/Pounding, Pain/Pressure in jaw, Vaginal Bleeding Increase, Cramps in feet or legs, Lightheadedness, Pain/Pressure in shoulder, Diarrhea(Persistent), Memory Changes Suddenly, Questions/Concerns, Weight gain consecutive days, Dizziness/Fainting, Nausea/Vomiting, Shortness of Breath, Weight gain over 2 pounds If questions or concerns contact your physician Or seek help at emergency department. JULIANNE CAMPBELL DO Aug 14, 2019 19:35 POS
[2019-08-14] MEDS: LOSARTAN 50 MG (COZAAR) TAB PO SCH (20:58)
[2019-08-14] MEDS ORDERED: FLUC100T PO (21:13)
--- NOTE | 2019-08-14 23:00 | NUR ---
2044 - Received orders from Dr. Campbell to assess and remove every other abdominal ryan and if wound is dry and no drainage, remove all ryan and put steri strips. Received orders to flush 15ml on each accordion drainage in AM. 2234 - Removed all abdominal ryan and put steri strips. Patient tolerated removal of ryan well. Wound is dry, no drainage noted.
[2019-08-15] VITALS: BP 141/65
[2019-08-15] MEDS: LACTATED RINGERS 1,000 ML IV SCH ×4 (00:20→19:44)
[2019-08-15] MEDS: ALPRAZolam 0.25 MG (XANAX) TAB PO PRN ×2 (00:23→19:45)
[2019-08-15 04:00] VITALS: BP 152/69
[2019-08-15] MEDS: PIPERACILLIN/TAZO 4.5 GM/NS 100 ML IV SCH ×6 (04:19→19:44)
[2019-08-15] MEDS: HYDROcodone/APAP 5 MG/325 MG (LORTAB) TAB PO PRN ×2 (04:56→19:46)
[2019-08-15 08:00] VITALS: BP 143/66
[2019-08-15] MEDS: fluCOnazole (DIFLUCAN) 100 MG TAB PO SCH (08:55)
[2019-08-15] MEDS: FUROSEMIDE 20 MG (LASIX) TAB PO SCH (08:55)
[2019-08-15] MEDS: MULTIVIT W/MINERALS TAB (THERAGRAN M) PO SCH (08:55)
[2019-08-15] MEDS: CARVEDILOL 6.25 MG (COREG) TAB PO SCH ×2 (08:56→19:44)
[2019-08-15] MEDS: NICOTINE 21 MG (NICODERM) PATCH TD SCH (09:42)
[2019-08-15 11:05] VITALS: BP 149/66
--- NOTE | 2019-08-15 11:26 | Progress Note ---
Subjective Date Seen by a Provider: Aug 15, 2019 Time Seen by a Provider: 10:45 Subjective/Events-last exam Patient seen with Dr. Dey. Patient reports doing ok. minimal abdominal discomfort. No fever/chills. No N/V. tolerating diet and ambulating. reports having several BMs, usually after eating and reports small round balls of stool, no diarrhea. Objective Exam Vital Signs Date Time Temp Pulse Resp B/P (MAP) Pulse Ox O2 Delivery O2 Flow Rate FiO2 08/15/19 11:05 37.0 68 20 149/66 (93) 93 Room Air 08/15/19 08:44 Room Air 08/15/19 08:09 Room Air 08/15/19 08:00 36.4 80 16 143/66 (91) 92 Room Air 08/15/19 04:00 36.6 69 18 152/69 (96) 93 Room Air 08/15/19 00:00 36.9 70 16 141/65 (90) 95 Room Air 08/14/19 20:00 Room Air 08/14/19 19:46 36.8 72 20 155/87 (109) 95 Room Air 08/14/19 18:38 Room Air 08/14/19 16:00 37.1 67 18 132/75 (94) 98 Room Air 08/14/19 13:20 36.9 69 16 128/72 (90) 95 Room Air 08/14/19 13:14 37.1 75 16 138/70 (92) 97 Room Air 08/14/19 12:00 36.2 75 18 137/83 (101) 97 Room Air I & O 08/15/19 07:00 Intake Total 3676.25 ml Output Total 3155 ml Balance 521.25 ml Capillary Refill : Less Than 3 SecondsLess Than 3 Seconds General Appearance: No Apparent Distress, WD/WN Neck: Full Range of Motion, Normal Inspection, Non Tender, Supple Respiratory: Normal Breath Sounds, No Accessory Muscle Use, No Respiratory Distress Cardiovascular: Regular Rate, Rhythm, No Edema Gastrointestinal: normal bowel sounds, soft, tenderness, other (Left abdominal drain with minimal clear serous fluid. Right side drain with minimal slightly cloudy serous drainage.) Extremity: Normal Capillary Refill, Normal Inspection, Normal Range of Motion Neurologic/Psychiatric: Alert, Oriented x3 Skin: Normal Color, Warm/Dry, Other (Midline abdominal incision C/D/I.) Results Lab Microbiology 08/11/19 C. difficile GDH Antigen & Toxins - Final, Complete 08/12/19 Gram Stain - Final, Resulted 08/12/19 Anaerobic Culture - Preliminary, Resulted Culture In Progress 08/12/19 Surgical Culture - Preliminary, Resulted No growth Assessment/Plan Assessment/Plan Assess & Plan/Chief Complaint A 64 year old female with Recurrent Abdominal Abscesses/fluid collections, s/p colon resection/omentectomy, drainage of intraabdominal abscess, Anemia, Hypokalemia, Weight loss, Diarrhea, s/p drain placement x 2 VSS. WBC WNL Hgb 9.7 Continue with medical management with IV abx, pain and nausea meds prn. Continue with PUD prophylaxis. Diflucan for yeast. Continue with ambulation and diet. 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
[2019-08-15 15:38] VITALS: BP 167/72
[2019-08-15] MEDS: ONDANSETRON 4 MG/2 ML (SDV) Z0FRAN IV PRN (16:34)
[2019-08-15] MEDS: fentaNYL INJECTION 100 MCG/2 ML AMP IV PRN (16:35)
[2019-08-15] MEDS: LOSARTAN 50 MG (COZAAR) TAB PO SCH (19:45)
[2019-08-15 20:08] VITALS: BP 161/69
[2019-08-16 00:05] VITALS: BP 129/66
[2019-08-16] MEDS: PIPERACILLIN/TAZO 4.5 GM/NS 100 ML IV SCH ×6 (02:52→20:15)
[2019-08-16] MEDS: LACTATED RINGERS 1,000 ML IV SCH ×3 (04:54→23:49)
[2019-08-16 08:00] VITALS: BP 130/63
[2019-08-16] MEDS: CARVEDILOL 6.25 MG (COREG) TAB PO SCH ×2 (08:34→20:18)
[2019-08-16] MEDS: FUROSEMIDE 20 MG (LASIX) TAB PO SCH (08:34)
[2019-08-16] MEDS: fluCOnazole (DIFLUCAN) 100 MG TAB PO SCH (08:34)
[2019-08-16] MEDS: MULTIVIT W/MINERALS TAB (THERAGRAN M) PO SCH (08:34)
[2019-08-16] MEDS: NICOTINE 21 MG (NICODERM) PATCH TD SCH (08:35)
--- NOTE | 2019-08-16 10:40 | Progress Note ---
Subjective Date Seen by a Provider: Aug 16, 2019 Time Seen by a Provider: 09:50 Subjective/Events-last exam Patient seen with Dr. Dey. Patient reports doing well. Tolerating diet. Having BMs with no issues. No N/V, F/C, or abdominal pain. Ambulating. Drains with minimal drainage. Objective Exam Vital Signs Date Time Temp Pulse Resp B/P (MAP) Pulse Ox O2 Delivery O2 Flow Rate FiO2 08/16/19 08:00 37.4 75 16 130/63 (85) 93 Room Air 08/16/19 08:00 Room Air 08/16/19 00:05 36.7 65 16 129/66 (87) 96 Room Air 08/15/19 20:08 36.9 75 20 161/69 (99) 94 Room Air 08/15/19 20:00 Room Air 08/15/19 17:05 37.0 08/15/19 16:35 37.0 08/15/19 15:38 37.0 79 20 167/72 (103) 92 Room Air 08/15/19 11:05 37.0 68 20 149/66 (93) 93 Room Air I & O 08/16/19 07:00 Intake Total 3280 ml Output Total 1605 ml Balance 1675 ml Capillary Refill : Less Than 3 SecondsLess Than 3 Seconds General Appearance: No Apparent Distress, WD/WN Neck: Full Range of Motion, Normal Inspection, Supple Respiratory: Normal Breath Sounds, No Accessory Muscle Use, No Respiratory Distress Cardiovascular: Regular Rate, Rhythm, No Edema Gastrointestinal: normal bowel sounds, non tender, soft, other (Left side abd ominal drain with serous drainage. Right side abdominal drain with serous drainage. Minimal drainage in drain bags.) Extremity: Normal Capillary Refill, Normal Inspection, Normal Range of Motion Neurologic/Psychiatric: Alert, Oriented x3 Skin: Normal Color, Warm/Dry, Other (Midline abdominal incision C/D/I) Results Lab Microbiology 08/11/19 C. difficile GDH Antigen & Toxins - Final, Complete 08/12/19 Gram Stain - Final, Resulted 08/12/19 Anaerobic Culture - Preliminary, Resulted Culture In Progress 08/12/19 Surgical Culture - Final, Resulted Talya glabrata Assessment/Plan Assessment/Plan Assess & Plan/Chief Complaint A 64 year old female with Recurrent Abdominal Abscesses/fluid collections, s/p colon resection/omentectomy, drainage of intraabdominal abscess, Anemia, Hypokalemia, Weight loss, Diarrhea, s/p drain placement x 2 VSS. WBC WNL Hgb 9.7 Continue with medical management with IV abx, pain and nausea meds prn. Continue with PUD prophylaxis. Diflucan for yeast. Continue with ambulation and diet. 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
[2019-08-16 16:09] VITALS: BP 146/65
[2019-08-16] MEDS: ACETAMINOPHEN 500 MG TAB (TYLENOL) PO PRN (16:49)
[2019-08-16] MEDS: ALPRAZolam 0.25 MG (XANAX) TAB PO PRN (20:15)
[2019-08-16] MEDS: HYDROcodone/APAP 5 MG/325 MG (LORTAB) TAB PO PRN (20:16)
[2019-08-16] MEDS: LOSARTAN 50 MG (COZAAR) TAB PO SCH (20:17)
[2019-08-17 00:15] VITALS: BP 118/73
[2019-08-17] MEDS: HYDROcodone/APAP 5 MG/325 MG (LORTAB) TAB PO PRN (01:58)
[2019-08-17] MEDS: PIPERACILLIN/TAZO 4.5 GM/NS 100 ML IV SCH ×4 (04:11→11:14)
[2019-08-17] MEDS: LACTATED RINGERS 1,000 ML IV SCH (07:58)
[2019-08-17] MEDS: CARVEDILOL 6.25 MG (COREG) TAB PO SCH (07:59)
[2019-08-17 08:00] VITALS: BP 143/67
[2019-08-17] MEDS: NICOTINE 21 MG (NICODERM) PATCH TD SCH (08:00)
[2019-08-17] MEDS: FUROSEMIDE 20 MG (LASIX) TAB PO SCH (08:00)
[2019-08-17] MEDS: fluCOnazole (DIFLUCAN) 100 MG TAB PO SCH (08:06)
[2019-08-17] MEDS: MULTIVIT W/MINERALS TAB (THERAGRAN M) PO SCH (08:06)
--- NOTE | 2019-08-17 14:44 | Progress Note - Hospitalist ---
Subjective HPI/CC On Admission Date Seen by Provider: Aug 17, 2019 Time Seen by Provider: 10:10 Pt is a 64yoCF with a PMH CAD, HLD, and newly diagnosed colon cancer. She reports that she was just admitted to the hospital due an abdominal mass and she underwent removal of mass, colon resection, and omentectomy. She states she went home on a clear liquid diet and advanced her diet but had diarrhea with everything that she ate. After a week or so of this she decided to seek evaluation in the ER. CT abdomen was done and revealed fluid collections. She went for CT guided placement of mami drains yesterday. She states she is feeling better today. She states she has been informed taht her abdominal mass was found to be cancer and there were multiple lymph nodes that had cancer as well. She states she suspected this due to her history of smoking. She has no other complaints at this time. We did discuss her blood count and she reports she has been anemic her entire life and has need blood transfusions in the past. Subjective/Events-last exam She reports feeling well. She denies fevers and chills. She denies abdominal pain, nausea, vomiting, and diarrhea. She has been eating without issue. She says she is ready to have her drains pulled and go home. Objective Exam Vital Signs Vital Signs Date Time Temp Pulse Resp B/P (MAP) Pulse Ox O2 Delivery O2 Flow Rate FiO2 08/17/19 08:00 36.9 71 20 143/67 (92) 93 Room Air Capillary Refill : Less Than 3 SecondsLess Than 3 Seconds General Appearance: No Apparent Distress, WD/WN HEENT: PERRL/EOMI, Pharynx Normal Neck: Normal Inspection, Supple Respiratory: Lungs Clear, Normal Breath Sounds, No Respiratory Distress Cardiovascular: Regular Rate, Rhythm, No Edema, No Murmur Gastrointestinal: Normal Bowel Sounds, Non Tender, Soft Extremity: Normal Inspection, Non Tender, No Pedal Edema Neurologic/Psychiatric: Alert, Oriented x3, No Motor/Sensory Deficits, Normal Mood/Affect Skin: Normal Color, Warm/Dry Results/Procedures Lab Patient resulted labs reviewed. Imaging: Reviewed Imaging Report Assessment/Plan Assessment and Plan Assess & Plan/Chief Complaint s/p colon resection with abdominal abscess -Continue Zosyn and IV fluids -Surgery managing HTN HLD CAD -Continue home meds Thank you for the consult. Hospital medicine will sign off at this time. Diagnosis/Problems Diagnosis/Problems (1) Postoperative intra-abdominal abscess Status: Acute Clinical Quality Measures DVT/VTE Risk/Contraindication: Risk Factor Score Per Nursin RFS Level Per Nursing on Admit: 3=High VI MONACO MD Aug 17, 2019 14:44 POS
--- NOTE | 2019-08-17 15:22 | Progress Note - Surgery ---
Subjective Time Seen by a Provider: 15:13 Subjective/Events-last exam Pt seen and examined. Denies pain and wants to go home, tolerating diet. Review of Systems Pulmonary: No Dyspnea, No Cough Cardiovascular: No: Chest Pain, Palpitations Objective Exam Vital Signs Date Time Temp Pulse Resp B/P (MAP) Pulse Ox O2 Delivery O2 Flow Rate FiO2 08/17/19 08:00 36.9 71 20 143/67 (92) 93 Room Air 08/17/19 08:00 Room Air 08/17/19 00:15 36.6 63 17 118/73 (88) 93 Room Air 08/16/19 20:20 Room Air 08/16/19 17:20 37.7 08/16/19 16:49 37.7 08/16/19 16:09 37.7 70 20 146/65 (92) 95 Room Air I & O 08/17/19 07:00 Intake Total 3770 ml Output Total 1480 ml Balance 2290 ml Capillary Refill : Less Than 3 SecondsLess Than 3 Seconds General Appearance: No Apparent Distress, WD/WN HEENT: PERRL/EOMI, Pharynx Normal Respiratory: Lungs Clear, Normal Breath Sounds, No Respiratory Distress Cardiovascular: Regular Rate, Rhythm, No Edema, No Murmur Peripheral Pulses: 2+ Dorsalis Pedis (R), 2+ Left Dors-Pedis (L), 2+ Radial Pulses (R), 2+ Radial Pulses (L) Gastrointestinal: normal bowel sounds, non tender, soft, other (Left side and Right side abdominal drain with basically no drainage ) Skin: Normal Color, Warm/Dry Results Lab Microbiology 08/11/19 C. difficile GDH Antigen & Toxins - Final, Complete 08/12/19 Gram Stain - Final, Complete 08/12/19 Anaerobic Culture - Final, Complete No anaerobes isolated 08/12/19 Surgical Culture - Final, Complete Talya glabrata Assessment/Plan Assessment/Plan Assessment/Plan Anemia S/P Colon resection D/C IV, drains and d/c to home. Clinical Quality Measures DVT/VTE Risk/Contraindication: Risk Factor Score Per Nursin RFS Level Per Nursing on Admit: 3=High DRE FAROOQ DO Aug 17, 2019 15:22 POS
--- NOTE | 2019-08-17 15:41 | NUR ---
Drains x2 to L flank and R glut removed per Dr. Campbell. Catheter tips intact, drains removed without difficulty, pt tolerated well.
[2019-08-17 15:59] VITALS: BP 139/63
--- NOTE | 2019-08-17 16:21 | NUR ---
PIV removed, dc instructions including follow up and prescriptions to mushroom picker given to pt, questions answered. Pt awaiting ride from home at this time.
[2019-08-17 17:00] VITALS: BP 139/63
--- NOTE | 2019-08-17 17:07 | NUR ---
ALDO YEE demonstrates understanding of discharge instructions and accurately returns instructions upon questioning. Copy of Post-Discharge Instructions and Medication Discharge Instructions given to pt . ALDO YEE is able to manage continuing needs after discharge. Patients belongings returned to pt. Skin dry and intact; no breakdown noted. Patient discharged from [facility] on 08/17/19 at 1704. ALDO YEE left floor via wheelchair, accompanied by staff and family.
--- NOTE | 2019-08-24 09:12 | Physician Query Clarification ---
PQ-Link Infection to Dev/Proc Admission/Discharge Admission Date: Aug 11, 2019 at 20:44 Discharge Date: Aug 17, 2019 at 17:04 The medical record reflects the following clinical scenario: History/Risk Factors: s/p surgery for CA colon with LN mets Clinical Findings: abdominal and pelvic fluid collection w/intraabdominal abscess Treatment: Drainage peritonal and pelvic fluid collection Question: Can you specify if the intraabdominal abscess is due to/associated with colon resection? Please document a response in Progress Note or Discharge Summary. 1. Yes - intraabdominal abscess is due to/associated with colon resection. 2. No - intraabdominal abscess is not due to/associated with colon resection. 3. Other, with explanation of the clinical findings. 4. Clinically undetermined, no explanation for the clinical findings. PHYSICIAN RESPONSE Specify if infection: Other, explain clinical findings (patient had intrabdomianl abscess prior to having colon resection, she had this drained by IR previous to colon resecdtion on outpatient basis) Please remember a lack of response to the above will prompt a phone page by CDI/Coding staff. In responding to this query, please exercise your independent professional judgment. The purpose of this communication is to more accurately reflect the complexity of your patients condition. The fact that a question is asked does not imply that any particular answer is desired or expected. Thank you for your timely response to this clarification. Requestors name: Hilton THIS PHYSICIAN QUERY FORM IS A PERMANENT PART OF THE MEDICAL RECORD HILTON RASHID Aug 24, 2019 09:12 JULIANNE DIEGO DO Aug 24, 2019 22:50 POS
--- NOTE | 2019-09-03 09:36 | DISCHARGE SUMMARY ---
DATE OF SERVICE: ADMITTING PHYSICIAN: Julianne Campbell DO CONSULTING PHYSICIAN: Patricio Reza MD/ Dr. Caitlin Conte. ADMITTING DIAGNOSES: Recurrent abdominal abscesses, status post colon resection, omentectomy drainage of intraabdominal abscesses, anemia, hypokalemia, weight loss, and diarrhea. DISCHARGE DIAGNOSES: Recurrent abdominal abscesses, status post colon resection, omentectomy drainage of intraabdominal abscesses, anemia, hypokalemia, weight loss, diarrhea, and status post interventional radiology drainage. HOSPITAL COURSE: The patient is a 64-year-old female who is having diarrhea and just overall not feeling well. She is feeling weak. She has mild tenderness on her abdomen. She had a CT scan for reevaluation, which demonstrated 2 fluid pockets, one in the left flank and one in the pelvis. The patient was admitted, placed on IV hydration. A stool culture was obtained, Clostridium difficile testing. The patient underwent interventional radiology drainage of the fluid collections. She was placed on antibiotics and await cultures. The patient was doing well. Her cultures grew out Talya glabrata and her Clostridium difficile was negative. The patient continued to improve throughout hospital course. Her drains put out minimal output and was continued on antibiotics and was started on Diflucan. The patient able to be discharged on 08/17/2019. See discharge instructions in the computer and hospital notes for continued management. Job ID: [id number] DocumentID: [id number] Dictated Date: 09/02/2019 10:21:44 Surgeon Assistant Date: 09/03/2019 06:02:22 Dictated By: JULIANNE CAMPBELL DO MTDD
--- OUTSIDE RECORDS SUMMARY | 2019-09-06 11:28 | XMS REPORT | Continuity of Care Document ---
Author Organization Unknown POS Address Unknown SP Phone Unavailable SP Allergies Active Description Code Type Severity POS Reaction Onset Reported/Identified POS to Patient Clinical Status POS Yes No Allergy Information Available [id number] SP Allergy Unknown N/A 9 SP SP Yes codeine [id number] Drug Allergy SP N/A 07/06/2019 SP Medications There is no data. Problems Date Dx Coded Attending Type Code POS Diagnosed By POS 07/06/2019 JULIANNE MENDOZA DO Ot L02.211 SP CUTANEOUS ABSCESS OF ABDOMINAL WALL SP 07/10/2019 TY NASCIMENTO Ot I70.8 SP OF OTHER ARTERIES SP 07/10/2019 TY NASCIMENTO Ot K63.89 SP SPECIFIED DISEASES OF INTESTINE SP 07/10/2019 TY NASCIMENTO Ot R11.10 SP UNSPECIFIED SP 07/10/2019 TY NASCIMENTO Ot R18.8 SP ASCITES SP 07/10/2019 TY NASCIMENTO Ot R19.04 SP LOWER QUADRANT ABDOMINAL SWELLING, SP 07/10/2019 TY NASCIMENTO Ot R19.7 SP UNSPECIFIED SP 07/10/2019 TY NASCIMENTO Ot R91.1 SP PULMONARY NODULE SP 07/21/2019 JULIANNE MENDOZA DO Ot L02.211 SP CUTANEOUS ABSCESS OF ABDOMINAL WALL SP 07/23/2019 JULIANNE MENDOZA DO Ot J90 SP EFFUSION, NOT ELSEWHERE CLASSIFI SP 07/23/2019 JULIANNE MENDOZA DO Ot K65. 1 SP ABSCESS SP 07/23/2019 JULIANNE MENDOZA DO Ot Z98.890 SP OTHER SPECIFIED POSTPROCEDURAL STATES SP 07/28/2019 JULIANNE MENDOZA DO Ot J90 SP EFFUSION, NOT ELSEWHERE CLASSIFI SP 07/28/2019 JULIANNE MENDOZA DO Ot K65. 1 SP ABSCESS SP 07/28/2019 JULIANNE MENDOZA DO Ot Z98.890 SP OTHER SPECIFIED POSTPROCEDURAL STATES SP 07/28/2019 YOUNG, TY SALES PROGRAM COORDINATOR Ot I70.8 SP OF OTHER ARTERIES SP 07/28/2019 AZAM, TY SALES PROGRAM COORDINATOR Ot K63.89 SP SPECIFIED DISEASES OF INTESTINE SP 07/28/2019 AZAM TY SALES PROGRAM COORDINATOR Ot R11.10 SP UNSPECIFIED SP 07/28/2019 TY NASCIMENTO SALES PROGRAM COORDINATOR Ot R18.8 SP ASCITES SP 07/28/2019 AZAM TY SALES PROGRAM COORDINATOR Ot R19.04 SP LOWER QUADRANT ABDOMINAL SWELLING, SP 07/28/2019 TY NASCIMENTO SALES PROGRAM COORDINATOR Ot R19.7 SP UNSPECIFIED SP 07/28/2019 AZAM TY SALES PROGRAM COORDINATOR Ot R91.1 SP PULMONARY NODULE SP 07/28/2019 MENDOZA DO, JULIANNE D Ot J90 SP EFFUSION, NOT ELSEWHERE CLASSIFI SP 07/28/2019 MENDOZA DO, JULIANNE D Ot K65. 1 SP ABSCESS SP 07/28/2019 MENDOZA DO, JULIANNE D Ot Z98.890 SP OTHER SPECIFIED POSTPROCEDURAL STATES SP 07/28/2019 MENDOZA DO, JULIANNE D Ot J90 SP EFFUSION, NOT ELSEWHERE CLASSIFI SP 07/28/2019 MENDOZA DO, JULIANNE D Ot K65. 1 SP ABSCESS SP 07/28/2019 MIKANA DO, JULIANNE D Ot Z98.890 SP OTHER SPECIFIED POSTPROCEDURAL STATES SP 08/03/2019 JOE GARCIA MD Ot A49 .1 SP INFECTION, UNSPECIFIED SIT SP 08/03/2019 JOE GARCIA MD Ot A49 .8 SP BACTERIAL INFECTIONS OF UNSPECIFIE SP 08/03/2019 JOE GARCIA MD Ot C18 .5 SP NEOPLASM OF SPLENIC FLEXURE SP 08/03/2019 JOE GARCIA MD Ot C77 .2 SP AND UNSP MALIGNANT NEOPLASM OF SP 08/03/2019 JOE GARCIA MD Ot D64 .9 SP UNSPECIFIED SP 08/03/2019 JOE GARCIA MD Ot E16 .2 SP UNSPECIFIED SP 08/03/2019 JOE GARCIA MD Ot E78 .5 SP UNSPECIFIED SP 08/03/2019 JOE GARCIA MD Ot E83.42 SP HYPOMAGNESEMIA SP 08/03/2019 JOE GARCIA MD Ot F17.210 SP NICOTINE DEPENDENCE, CIGARETTES, UNCOMPL SP 08/03/2019 JOE GARCIA MD Ot I10 SP (PRIMARY) HYPERTENSION SP 08/03/2019 JOE GARCIA MD Ot 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 SP 08/03/2019 JOE GARCIA MD Ot I25 .2 SP MYOCARDIAL INFARCTION SP 08/03/2019 JOE GARCIA MD Ot K63 .2 SP OF INTESTINE SP 08/03/2019 JOE GARCIA MD Ot K76 .9 SP DISEASE, UNSPECIFIED SP 08/03/2019 JOE GARCIA MD Ot L02.211 SP CUTANEOUS ABSCESS OF ABDOMINAL WALL SP 08/03/2019 JOE GARCIA MD Ot Z23 SP FOR IMMUNIZATION SP 08/03/2019 JOE GARCIA MD, Ot Z79.02 SP COFFEE SAMPLER (CURRENT) USE OF ANTITHROMBOTI SP 08/03/2019 JOE GARCIA MD Ot Z90.710 SP ACQUIRED ABSENCE OF BOTH CERVIX AND UTER SP 08/03/2019 JOE GARCIA MD Ot Z95 .5 SP OF CORONARY ANGIOPLASTY IMPLANT SP 08/17/2019 MENDOZA JULIANNE MIRANDA Ot C18. 9 SP NEOPLASM OF COLON, UNSPECIFIED SP 08/17/2019 [place] JULIANNE MIRANDA Ot C77. 2 SP AND UNSP MALIGNANT NEOPLASM OF SP 08/17/2019 [place] JULIANNE MIRANDA Ot D64. 9 SP UNSPECIFIED SP 08/17/2019 [place] JULIANNE MIRANDA Ot E78. 00 SP HYPERCHOLESTEROLEMIA, UNSPECIFIED SP 08/17/2019 JULIANNE MENDOZA DO Ot E78. 5 SP UNSPECIFIED SP 08/17/2019 [place] JULIANNE MIRANDA Ot E87. 6 SP SP 08/17/2019 [place] JULIANNE MIRANDA Ot F17.210 SP NICOTINE DEPENDENCE, CIGARETTES, UNCOMPL SP 08/17/2019 MENDOZAJULIANNE ALEXANDRE DO Ot I10 SP (PRIMARY) HYPERTENSION SP 08/17/2019 [place] JULIANNE MIRANDA Ot I25. 10 SP HEART DISEASE OF [place] CORONARY SP 08/17/2019 [place] JULIANNE MIARNDA Ot I25. 2 SP MYOCARDIAL INFARCTION SP 08/17/2019 MENDOZAJULIANNE ALEXANDRE DO Ot K65. 1 SP ABSCESS SP [facility]. 7 SP UNSPECIFIED SP 08/17/2019 JULIANNE MENDOZA DO Ot R63. 4 SP WEIGHT LOSS SP 08/17/2019 JULIANNE MENDOZA DO Ot R64 SP SP 08/17/2019 JULIANNE MENDOZA DO Ot Z90. 49 SP ABSENCE OF OTHER SPECIFIED PART SP 08/17/2019 JULIANNE MENDOZA DO Ot Z95. 5 SP OF CORONARY ANGIOPLASTY IMPLANT SP 08/19/2019 TY NASCIMENTO Ot I70.8 SP OF OTHER ARTERIES SP 08/19/2019 TY NASCIMENTO Ot K63.89 SP SPECIFIED DISEASES OF INTESTINE SP 08/19/2019 TY NASCIMENTO Ot R11.10 SP UNSPECIFIED SP 08/19/2019 TY NASCIMENTO Ot R18.8 SP ASCITES SP 08/19/2019 TY NASCIMENTO Ot R19.04 SP LOWER QUADRANT ABDOMINAL SWELLING, SP 08/19/2019 TY NASCIMENTO Ot R19.7 SP UNSPECIFIED SP 08/19/2019 TY NASCIMENTO Ot R91.1 SP PULMONARY NODULE SP 08/19/2019 JULIANNE MENDOZA DO Ot J90 SP EFFUSION, NOT ELSEWHERE CLASSIFI SP 08/19/2019 JULIANNE MENDOZA DO Ot K65. 1 SP ABSCESS SP 08/19/2019 JULIANNE MENDOZA DO Ot Z98.890 SP OTHER SPECIFIED POSTPROCEDURAL STATES SP 08/19/2019 JULIANNE MENDOZA DO Ot C18. 9 SP NEOPLASM OF COLON, UNSPECIFIED SP 08/19/2019 JULIANNE MENDOZA DO Ot C77. 2 SP AND UNSP MALIGNANT NEOPLASM OF SP 08/19/2019 JULIANNE MENDOZA DO Ot D64. 9 SP UNSPECIFIED SP 08/19/2019 JULIANNE MENDOZA DO Ot E78. 00 SP HYPERCHOLESTEROLEMIA, UNSPECIFIED SP 08/19/2019 JULIANNE MENDOZA DO Ot E87. 6 SP SP 08/19/2019 JULIANNE MENDOZA DO Ot F17.210 SP NICOTINE DEPENDENCE, CIGARETTES, UNCOMPL SP 08/19/2019 JULIANNE MENDOZA DO Ot I10 SP (PRIMARY) HYPERTENSION SP 08/19/2019 JULIANNE MENDOZA DO Ot I25. 10 SP HEART DISEASE OF [place] CORONARY SP 08/19/2019 JULIANNE MENDOZA DO Ot I25. 2 SP MYOCARDIAL INFARCTION SP 08/19/[facility]. 1 SP ABSCESS SP 08/19/2019 [facility] R19. 7 SP UNSPECIFIED SP 08/19/2019 [facility] R63. 4 SP WEIGHT LOSS SP 08/19/2019 [facility] R64 SP SP 08/19/2019 [place] JULIANNE Ot Z90. 49 SP ABSENCE OF OTHER SPECIFIED PART SP 08/19/2019 [facility] Z95. 5 SP OF CORONARY ANGIOPLASTY IMPLANT SP 08/21/2019 [facility] J90 SP EFFUSION, NOT ELSEWHERE CLASSIFI SP 08/21/2019 [facility] K65. 1 SP ABSCESS SP 08/21/2019 [facility] Z98.890 SP OTHER SPECIFIED POSTPROCEDURAL STATES SP 08/21/2019 TY NASCIMENTO SALES PROGRAM COORDINATOR Ot I70.8 SP OF OTHER ARTERIES SP 08/21/2019 YOUNG, TY SALES PROGRAM COORDINATOR Ot K63.89 SP SPECIFIED DISEASES OF INTESTINE SP 08/21/2019 YOUNG, TY SALES PROGRAM COORDINATOR Ot R11.10 SP UNSPECIFIED SP 08/21/2019 YOUNG, TY SALES PROGRAM COORDINATOR Ot R18.8 SP ASCITES SP 08/21/2019 YOUNG, TY SALES PROGRAM COORDINATOR Ot R19.04 SP LOWER QUADRANT ABDOMINAL SWELLING, SP 08/21/2019 AZAM, TY SALES PROGRAM COORDINATOR Ot R19.7 SP UNSPECIFIED SP 08/21/2019 AZAM, TY SALES PROGRAM COORDINATOR Ot R91.1 SP PULMONARY NODULE SP 08/22/2019 YOUNG, TY SALES PROGRAM COORDINATOR Ot I70.8 SP OF OTHER ARTERIES SP 08/22/2019 AZAM, TY SALES PROGRAM COORDINATOR Ot K63.89 SP SPECIFIED DISEASES OF INTESTINE SP 08/22/2019 TY NASCIMENTO SALES PROGRAM COORDINATOR Ot R11.10 SP UNSPECIFIED SP 08/22/2019 YOUNG, TY SALES PROGRAM COORDINATOR Ot R18.8 SP ASCITES SP 08/22/2019 YOUNG, TY SALES PROGRAM COORDINATOR Ot R19.04 SP LOWER QUADRANT ABDOMINAL SWELLING, SP 08/22/2019 AZAM, TY SALES PROGRAM COORDINATOR Ot R19.7 SP UNSPECIFIED SP 08/22/2019 YOUNG, TY SALES PROGRAM COORDINATOR Ot R91.1 SP PULMONARY NODULE SP 09/03/2019 YOUNG, TY SALES PROGRAM COORDINATOR Ot I70.8 SP OF OTHER ARTERIES SP 09/03/2019 TY NASCIMENTO Ot K63.89 SP SPECIFIED DISEASES OF INTESTINE SP 09/03/2019 TY NASCIMENTO Ot R11.10 SP UNSPECIFIED SP 09/03/2019 TY NASCIMENTO Ot R18.8 SP ASCITES SP 09/03/2019 TY NASCIMENTO Ot R19.04 SP LOWER QUADRANT ABDOMINAL SWELLING, SP 09/03/2019 AZAMTY Ot R19.7 SP UNSPECIFIED SP 09/03/2019 TY NASCIMENTO Ot R91.1 SP PULMONARY NODULE SP 09/03/2019 [place] JULIANNE MIRANDA Ot J90 SP EFFUSION, NOT ELSEWHERE CLASSIFI SP 09/03/2019 MENDOZAJULIANNE ALEXANDRE DO Ot K65. 1 SP ABSCESS SP 09/03/2019 [facility] Z98.890 SP OTHER SPECIFIED POSTPROCEDURAL STATES SP Procedures Code Description Performed By Per formed On POS [id number] EX CISION OF TRANSVERSE SP OPEN APPRO 07/30/2019 SP [id number] EX CISION OF DESCENDING SP OPEN APPRO 07/30/2019 SP [id number] EX CISION OF OMENTUM, OPEN SP DIAG 07/30/[id number] CAO OF ABDOMINAL WALL, SP APPROAC 07/30/2019 SP [id number] EX CISION OF ABDOMINAL WALL, SP APPROAC 07/30/[id number] CAO OF PERITONEAL SP WITH DRAIN 08/12/[id number] CAO OF PELVIC CAVITY SP DRAIN DEV 08/12/2019 SP Results Test Result Range POS LIPASE - 07/02/19 11:41 POS LIPASE 6 U/L 7-60 SP Complete blood count (CBC) with automate d white blood cell (WBC) differential - POS 09:40 Blood leukocytes automated count (number/volume) 11.9 10*3/uL POS 4.3-11.0 SP Blood erythrocytes automated count (number/volume) 3.41 10*6/uL SP 4.35-5.85 SP Venous blood hemoglobin measurement (mass/volume) 9.1 g/dL SP16.0 Blood hematocrit (volume fraction) 28 % 35-52 SP Automated erythrocyte mean corpuscular volume 81 [ foz_us] SP99 Automated erythrocyte mean corpuscular h emoglobin (mass per erythrocyte) SP 27 pg 25-34 SP Automated erythrocyte mean corpuscular h emoglobin concentration measurement SP 33 g/dL 32-36 SP Automated erythrocyte distribution width ratio 17. 5 % 10.0- SP Automated blood platelet count (count/volume) 726 10*3/uL SP400 Automated blood platelet mean volume measurement 8.9 [foz_us] SP 7.4-10.4 SP Automated blood neutrophils/100 leukocytes 84 % 42-75 SP Automated blood lymphocytes/100 leukocytes 10 % 12-44 SP Blood monocytes/100 leukocytes 6 % 0-12 SP Automated blood eosinophils/100 leukocytes 0 % 0-10 SP Automated blood basophils/100 leukocytes 0 % 0-10 SP Blood neutrophils automated count (number/volume) 10.0 10*3 SP7.8 Blood lymphocytes automated count (number/volume) 1.1 10*3 SP4.0 Blood monocytes automated count (number/volume) 0. 8 10*3 SP1.0 Automated eosinophil count 0.0 10*3/uL 0 .0-0.3 SP Automated blood basophil count (count/volume) 0.0 10*3/uL SP0.1 PT panel in platelet poor plasma by coag ulation assay - 07/06/19 09:40 POS Prothrombin time (PT) in platelet poor plasma by coagu lation assay SP s 12.2-14.7 SP INR in platelet poor plasma or blood by coagulation as say 1.1 SP 0.8-1.4 SP Activated partial thromboplastin time (a PTT) in platelet poor plasma POS assay - 07/06/19 09:40 Activated partial thromboplastin time (a PTT) in platelet poor plasma POS assay 37 s 24-35 SP Blood type T Indirect antibody screen pa juliocesar - 07/06/19 09:40 POS [facility]RI[employer] NUMBER [id number] NRG SP ABO+Rh group OP NRG SP Blood group antibody screen NEGATIVE NR G SP Bacteria identification in isolate by an aerobe culture - 07/06/19 11:15 POS FREE TEXT EXTERNAL SEE COMMENT NRG SP QUANTITY OF GROWTH Many NRG SP Bacteria identification in isolate by anaerobe culture [id number] SP NRG SP Gram stain microscopy - 07/06/19 11:15 POS Gram stain microscopy Mixed Bacterial Bonnie NRG SP Bacteria identification in wound by cult ure - 07/06/19 11:15 POS Bacteria identification in wound by culture [id number] NRG SP FREE TEXT EXTERNAL SUSCEPTIBILITY REPORTED 07/08 1 1:15 NRG SP QUANTITY OF GROWTH Many NRG SP Dirithromycin susceptibility test by dis k diffusion - 07/06/19 11:15 POS Gentamicin susceptibility test by minimum inhibitory c oncentration <= SP NRG SP Trimethoprim/sulfamethoxazole susceptibi lity test by minimum SP <= NRG SP Levofloxacin susceptibility test by minimum inhibitory concentration SP NRG SP Ampicillin susceptibility test by minimum inhibitory c oncentration <= SP NRG SP Cefazolin susceptibility test by minimum inhibitory co ncentration <= SP NRG SP Ceftriaxone susceptibility test by minimum inhibitory concentration <= SP NRG SP Piperacillin/tazobactam susceptibility t est by minimum inhibitory concentration SP <= NRG SP Ciprofloxacin susceptibility test by minimum inhibitor y concentration SP NRG SP Meropenem susceptibility test by minimum inhibitory co ncentration <= SP NRG SP Amoxicillin and clavulanate potassium susc VICKIE <= NRG SP Imipenem susceptibility test by minimum inhibitory con centration <= SP NRG SP Complete blood count (CBC) with automate d white blood cell (WBC) differential - POS 19:20 Blood leukocytes automated count (number/volume) 8.3 10*3/uL POS 4.3-11.0 SP Blood erythrocytes automated count (number/volume) 3.13 10*6/uL SP 4.35-5.85 SP Venous blood hemoglobin measurement (mass/volume) 8.6 g/dL SP16.0 Blood hematocrit (volume fraction) 28 % 35-52 SP Automated erythrocyte mean corpuscular volume 89 [ foz_us] SP99 Automated erythrocyte mean corpuscular h emoglobin (mass per erythrocyte) SP 28 pg 25-34 SP Automated erythrocyte mean corpuscular h emoglobin concentration measurement SP 31 g/dL 32-36 SP Automated erythrocyte distribution width ratio 22. 0 % 10.0- SP Automated blood platelet count (count/volume) 524 10*3/uL SP400 Automated blood platelet mean volume measurement 9.8 [foz_us] SP 7.4-10.4 SP Automated blood neutrophils/100 leukocytes 61 % 42-75 SP Automated blood lymphocytes/100 leukocytes 27 % 12-44 SP Blood monocytes/100 leukocytes 11 % 0-12 SP Automated blood eosinophils/100 leukocytes 1 % 0-10 SP Automated blood basophils/100 leukocytes 0 % 0-10 SP Blood neutrophils automated count (number/volume) 5.1 10*3 SP7.8 Blood lymphocytes automated count (number/volume) 2.2 10*3 SP4.0 Blood monocytes automated count (number/volume) 0. 9 10*3 SP1.0 Automated eosinophil count 0.1 10*3/uL 0 .0-0.3 SP Automated blood basophil count (count/volume) 0.0 10*3/uL SP0.1 Blood lactic acid measurement (moles/vol ume) - 07/28/19 19:20 POS Blood lactic acid measurement (moles/volume) 1.07 mmol/L SP2.00 Comprehensive metabolic panel - 07/28/19 19:20 POS Serum or plasma sodium measurement (moles/volume) 138 mmol/L SP 135-145 SP Serum or plasma potassium measurement (moles/volume) 3.2 mmol/L SP 3.6-5.0 SP Serum or plasma chloride measurement (moles/volume) 103 mmol/L SP 98-107 SP Carbon dioxide 23 mmol/L 21-32 SP Serum or plasma anion gap determination (moles/volume) 12 mmol/L SP 5-14 SP Serum or plasma urea nitrogen measurement (mass/volume ) 8 mg/dL SP 7-18 SP Serum or plasma creatinine measurement (mass/volume) 0.49 mg/dL SP 0.60-1.30 SP Serum or plasma urea nitrogen/creatinine mass ratio 16 NRG SP Serum or plasma creatinine measurement w ith calculation of estimated glomerular SP rate > NRG SP Serum or plasma glucose measurement (mass/volume) 93 mg/dL SP105 Serum or plasma calcium measurement (mass/volume) 8.6 mg/dL SP10.1 Serum or plasma total bilirubin measurement (mass/volu me) 0.3 mg/dL SP 0.1-1.0 SP Serum or plasma alkaline phosphatase dominic surement (enzymatic activity/volume) SP 176 U/L 40-136 SP Serum or plasma aspartate aminotransfera se measurement (enzymatic SP 14 U/L 5-34 SP Serum or plasma alanine aminotransferase measurement (enzymatic activity/volume) SP 8 U/L 0-55 SP Serum or plasma protein measurement (mass/volume) 6.2 g/dL SP8.2 Serum or plasma albumin measurement (mass/volume) 2.8 g/dL SP4.5 CALCIUM CORRECTED 9.6 mg/dL 8.5-10.1 SP PT panel in platelet poor plasma by coag ulation assay - 07/28/19 19:20 POS Prothrombin time (PT) in platelet poor plasma by coagu lation assay SP s 12.2-14.7 SP INR in platelet poor plasma or blood by coagulation as say 1.0 SP 0.8-1.4 SP Activated partial thromboplastin time (a PTT) in platelet poor plasma POS assay - 07/28/19 19:20 Activated partial thromboplastin time (a PTT) in platelet poor plasma POS assay 35 s 24-35 SP Bacterial blood culture - 07/28/19 19:20 POS Bacterial blood culture NG NRG SP Bacterial blood culture - 07/28/19 20:22 POS Bacterial blood culture NG NRG SP Complete urinalysis with reflex to cultu re - 07/28/19 22:30 POS Urine color determination YELLOW NRG SP Urine clarity determination CLEAR NR G SP Urine pH measurement by test strip 7 5-9 SP Specific gravity of urine by test strip 1.005 1.016-1.022 SP Urine protein assay by test strip, semi-quantitative 1+ SP Urine glucose detection by automated test strip NE GATIVE SP Erythrocytes detection in urine sediment by light micr oscopy NEGATIVE SP NEGATIVE SP Urine ketones detection by automated test strip NE GATIVE SP Urine nitrite detection by test strip NEGATIVE NEGATIVE SP Urine total bilirubin detection by test strip NEGA TIVE SP Urine urobilinogen measurement by automated test strip (mass/volume) SP NORMAL SP Urine leukocyte esterase detection by dipstick NEG ATIVE SP Automated urine sediment erythrocyte cou nt by microscopy (number/high power SP NONE NRG SP Automated urine sediment leukocyte count by microscopy (number/high power field) SP [HPF] NRG SP Bacteria detection in urine sediment by light microsco py TRACE SP NRG SP Squamous epithelial cells detection in u rine sediment by light microscopy SP 0-2 NRG SP Crystals detection in urine sediment by light microsco py NONE SP NRG SP Casts detection in urine sediment by light microscopy NONE SP Mucus detection in urine sediment by light microscopy NEGATIVE SP NRG SP Complete urinalysis with reflex to culture CULTURE PENDING SP Bacterial urine culture - 07/28/19 22:30 POS Bacterial urine culture NG NRG SP Complete blood count (CBC) with automate d white blood cell (WBC) differential - POS 02:55 Blood leukocytes automated count (number/volume) 7.6 10*3/uL POS 4.3-11.0 SP Blood erythrocytes automated count (number/volume) 2.88 10*6/uL SP 4.35-5.85 SP Venous blood hemoglobin measurement (mass/volume) 7.9 g/dL SP16.0 Blood hematocrit (volume fraction) 26 % 35-52 SP Automated erythrocyte mean corpuscular volume 89 [ foz_us] SP99 Automated erythrocyte mean corpuscular h emoglobin (mass per erythrocyte) SP 27 pg 25-34 SP Automated erythrocyte mean corpuscular h emoglobin concentration measurement SP 31 g/dL 32-36 SP Automated erythrocyte distribution width ratio 21. 8 % 10.0- SP Automated blood platelet count (count/volume) 449 10*3/uL SP400 Automated blood platelet mean volume measurement 9.6 [foz_us] SP 7.4-10.4 SP Automated blood neutrophils/100 leukocytes 67 % 42-75 SP Automated blood lymphocytes/100 leukocytes 22 % 12-44 SP Blood monocytes/100 leukocytes 10 % 0-12 SP Automated blood eosinophils/100 leukocytes 1 % 0-10 SP Automated blood basophils/100 leukocytes 0 % 0-10 SP Blood neutrophils automated count (number/volume) 5.0 10*3 SP7.8 Blood lymphocytes automated count (number/volume) 1.6 10*3 SP4.0 Blood monocytes automated count (number/volume) 0. 8 10*3 SP1.0 Automated eosinophil count 0.1 10*3/uL 0 .0-0.3 SP Automated blood basophil count (count/volume) 0.0 10*3/uL SP0.1 Comprehensive metabolic panel - 07/29/19 02:55 POS Serum or plasma sodium measurement (moles/volume) 138 mmol/L SP 135-145 SP Serum or plasma potassium measurement (moles/volume) 3.4 mmol/L SP 3.6-5.0 SP Serum or plasma chloride measurement (moles/volume) 106 mmol/L SP 98-107 SP Carbon dioxide 21 mmol/L 21-32 SP Serum or plasma anion gap determination (moles/volume) 11 mmol/L SP 5-14 SP Serum or plasma urea nitrogen measurement (mass/volume ) 6 mg/dL SP 7-18 SP Serum or plasma creatinine measurement (mass/volume) 0.44 mg/dL SP 0.60-1.30 SP Serum or plasma urea nitrogen/creatinine mass ratio 14 NRG SP Serum or plasma creatinine measurement w ith calculation of estimated glomerular SP rate > NRG SP Serum or plasma glucose measurement (mass/volume) 78 mg/dL SP105 Serum or plasma calcium measurement (mass/volume) 7.8 mg/dL SP10.1 Serum or plasma total bilirubin measurement (mass/volu me) 0.3 mg/dL SP 0.1-1.0 SP Serum or plasma alkaline phosphatase dominic surement (enzymatic activity/volume) SP 145 U/L 40-136 SP Serum or plasma aspartate aminotransfera se measurement (enzymatic SP 15 U/L 5-34 SP Serum or plasma alanine aminotransferase measurement (enzymatic activity/volume) SP 6 U/L 0-55 SP Serum or plasma protein measurement (mass/volume) 5.3 g/dL SP8.2 Serum or plasma albumin measurement (mass/volume) 2.4 g/dL SP4.5 CALCIUM CORRECTED 9.1 mg/dL 8.5-10.1 SP Serum or plasma phosphate measurement (m ass/volume) - 07/29/19 02:55 POS Serum or plasma phosphate measurement (mass/volume) 3.1 mg/dL SP 2.3-4.7 SP Magnesium - 07/29/19 02:55 POS Magnesium 1.5 mg/dL 1.6-2.4 SP Whole blood basic metabolic panel - 04/10 03:20 POS Serum or plasma sodium measurement (moles/volume) 135 mmol/L SP 135-145 SP Serum or plasma potassium measurement (moles/volume) 4.1 mmol/L SP 3.6-5.0 SP Serum or plasma chloride measurement (moles/volume) 103 mmol/L SP 98-107 SP Carbon dioxide 20 mmol/L 21-32 SP Serum or plasma anion gap determination (moles/volume) 12 mmol/L SP 5-14 SP Serum or plasma urea nitrogen measurement (mass/volume ) 4 mg/dL SP 7-18 SP Serum or plasma creatinine measurement (mass/volume) 0.43 mg/dL SP 0.60-1.30 SP Serum or plasma urea nitrogen/creatinine mass ratio 9 NRG SP Serum or plasma creatinine measurement w ith calculation of estimated glomerular SP rate > NRG SP Serum or plasma glucose measurement (mass/volume) 50 mg/dL SP105 Serum or plasma calcium measurement (mass/volume) 7.8 mg/dL SP10.1 Serum or plasma phosphate measurement (m ass/volume) - 07/30/19 03:20 POS Serum or plasma phosphate measurement (mass/volume) 2.8 mg/dL SP 2.3-4.7 SP Magnesium - 07/30/19 03:20 POS Magnesium 1.9 mg/dL 1.6-2.4 SP Complete blood count (CBC) with automate d white blood cell (WBC) differential - POS 03:20 Blood leukocytes automated count (number/volume) 6.9 10*3/uL POS 4.3-11.0 SP Blood erythrocytes automated count (number/volume) 2.72 10*6/uL SP 4.35-5.85 SP Venous blood hemoglobin measurement (mass/volume) 7.4 g/dL SP16.0 Blood hematocrit (volume fraction) 24 % 35-52 SP Automated erythrocyte mean corpuscular volume 90 [ foz_us] SP99 Automated erythrocyte mean corpuscular h emoglobin (mass per erythrocyte) SP 27 pg 25-34 SP Automated erythrocyte mean corpuscular h emoglobin concentration measurement SP 30 g/dL 32-36 SP Automated erythrocyte distribution width ratio 21. 5 % 10.0- SP Automated blood platelet count (count/volume) 457 10*3/uL SP400 Automated blood platelet mean volume measurement 9.8 [foz_us] SP 7.4-10.4 SP Automated blood neutrophils/100 leukocytes 69 % 42-75 SP Automated blood lymphocytes/100 leukocytes 19 % 12-44 SP Blood monocytes/100 leukocytes 11 % 0-12 SP Automated blood eosinophils/100 leukocytes 1 % 0-10 SP Automated blood basophils/100 leukocytes 0 % 0-10 SP Blood neutrophils automated count (number/volume) 4.7 10*3 SP7.8 Blood lymphocytes automated count (number/volume) 1.3 10*3 SP4.0 Blood monocytes automated count (number/volume) 0. 7 10*3 SP1.0 Automated eosinophil count 0.1 10*3/uL 0 .0-0.3 SP Automated blood basophil count (count/volume) 0.0 10*3/uL SP0.1 Blood type T Indirect antibody screen pa juliocesar - 07/30/19 14:35 POS [employer] NUMBER [id number] NRG SP ABO+Rh group OP NRG SP Blood group antibody screen NEGATIVE NR G SP Bacteria identification in isolate by an aerobe culture - 07/30/19 16:18 POS FREE TEXT EXTERNAL BETA LACTAAMSE POSITIVE NRG SP QUANTITY OF GROWTH Rare NRG SP Bacteria identification in isolate by anaerobe culture [id number] SP NRG SP FREE TEXT EXTERNAL 2 SEE COMMENTS NRG SP Gram stain microscopy - 07/30/19 16:18 POS Gram stain microscopy MANY GRAM POSITIVE FRED CI IN PAIRS AND CHAINS SP NRG SP Bacteria identification in wound by cult ure - 07/30/19 16:18 POS Bacteria identification in wound by culture [id number] NRG SP FREE TEXT EXTERNAL SUSCEPTIBILITY REPORTED 08/02 1 3:35 NRG SP QUANTITY OF GROWTH Rare NRG SP Dirithromycin susceptibility test by dis k diffusion - 07/30/19 16:18 POS Vancomycin susceptibility test by minimum inhibitory c oncentration 1 SP NRG SP Ampicillin susceptibility test by minimum inhibitory c oncentration 1 SP NRG SP Linezolid susceptibility test by minimum inhibitory co ncentration <= SP NRG SP Daptomycin susc VICKIE 2 NRG SP Dirithromycin susceptibility test by dis k diffusion - 07/30/19 16:18 POS Gentamicin susceptibility test by minimum inhibitory c oncentration <= SP NRG SP Trimethoprim/sulfamethoxazole susceptibi lity test by minimum SP > NRG SP Levofloxacin susceptibility test by minimum inhibitory concentration SP NRG SP Ampicillin susceptibility test by minimum inhibitory c oncentration > SP NRG SP Cefazolin susceptibility test by minimum inhibitory co ncentration 4 SP NRG SP Ceftriaxone susceptibility test by minimum inhibitory concentration <= SP NRG SP Piperacillin/tazobactam susceptibility t est by minimum inhibitory concentration SP <= NRG SP Ciprofloxacin susceptibility test by minimum inhibitor y concentration SP NRG SP Meropenem susceptibility test by minimum inhibitory co ncentration <= SP NRG SP Amoxicillin and clavulanate potassium susc VICKIE = NRG SP Imipenem susceptibility test by minimum inhibitory con centration <= SP NRG SP Complete blood count (CBC) with automate d white blood cell (WBC) differential - POS 02:50 Blood leukocytes automated count (number/volume) 17.4 10*3/uL POS 4.3-11.0 SP Blood erythrocytes automated count (number/volume) 3.29 10*6/uL SP 4.35-5.85 SP Venous blood hemoglobin measurement (mass/volume) 9.1 g/dL SP16.0 Blood hematocrit (volume fraction) 29 % 35-52 SP Automated erythrocyte mean corpuscular volume 88 [ foz_us] SP99 Automated erythrocyte mean corpuscular h emoglobin (mass per erythrocyte) SP 28 pg 25-34 SP Automated erythrocyte mean corpuscular h emoglobin concentration measurement SP 31 g/dL 32-36 SP Automated erythrocyte distribution width ratio 20. 7 % 10.0- SP Automated blood platelet count (count/volume) 617 10*3/uL SP400 Automated blood platelet mean volume measurement 9.4 [foz_us] SP 7.4-10.4 SP Automated blood neutrophils/100 leukocytes 96 % 42-75 SP Automated blood lymphocytes/100 leukocytes 2 % 12-44 SP Blood monocytes/100 leukocytes 1 % 0-12 SP Automated blood eosinophils/100 leukocytes 0 % 0-10 SP Automated blood basophils/100 leukocytes 0 % 0-10 SP Blood neutrophils automated count (number/volume) 16.8 10*3 SP7.8 Blood lymphocytes automated count (number/volume) 0.4 10*3 SP4.0 Blood monocytes automated count (number/volume) 0. 2 10*3 SP1.0 Automated eosinophil count 0.0 10*3/uL 0 .0-0.3 SP Automated blood basophil count (count/volume) 0.0 10*3/uL SP0.1 Whole blood basic metabolic panel - 05/11 02:50 POS Serum or plasma sodium measurement (moles/volume) 135 mmol/L SP 135-145 SP Serum or plasma potassium measurement (moles/volume) 4.4 mmol/L SP 3.6-5.0 SP Serum or plasma chloride measurement (moles/volume) 100 mmol/L SP 98-107 SP Carbon dioxide 24 mmol/L 21-32 SP Serum or plasma anion gap determination (moles/volume) 11 mmol/L SP 5-14 SP Serum or plasma urea nitrogen measurement (mass/volume ) 3 mg/dL SP 7-18 SP Serum or plasma creatinine measurement (mass/volume) 0.57 mg/dL SP 0.60-1.30 SP Serum or plasma urea nitrogen/creatinine mass ratio 5 NRG SP Serum or plasma creatinine measurement w ith calculation of estimated glomerular SP rate > NRG SP Serum or plasma glucose measurement (mass/volume) 277 mg/dL SP105 Serum or plasma calcium measurement (mass/volume) 8.3 mg/dL SP10.1 Serum or plasma phosphate measurement (m ass/volume) - 07/31/19 02:50 POS Serum or plasma phosphate measurement (mass/volume) 3.6 mg/dL SP 2.3-4.7 SP Magnesium - 07/31/19 02:50 POS Magnesium 1.5 mg/dL 1.6-2.4 SP Manual absolute plasma cell count - 05/11 02:50 POS Blood monocytes/100 leukocytes 1 % NRG SP Manual blood segmented neutrophils/100 leukocytes 97 % NRG SP Manual blood lymphocytes/100 leukocytes 2 % NRG SP Capillary blood glucose measurement by g lucometer (mass/volume) - 07/31/19 11:46 POS Capillary blood glucose measurement by glucometer (mas s/volume) 250 POS 70-110 SP Capillary blood glucose measurement by g lucometer (mass/volume) - 07/31/19 18:02 POS Capillary blood glucose measurement by glucometer (mas s/volume) 151 POS 70-110 SP Capillary blood glucose measurement by g lucometer (mass/volume) - 07/31/19 23:13 POS Capillary blood glucose measurement by glucometer (mas s/volume) 134 POS 70-110 SP Capillary blood glucose measurement by g lucometer (mass/volume) - 08/01/19 05:42 POS Capillary blood glucose measurement by glucometer (mas s/volume) 130 POS 70-110 SP Complete blood count (CBC) with automate d white blood cell (WBC) differential - POS 05:54 Blood leukocytes automated count (number/volume) 11.9 10*3/uL POS 4.3-11.0 SP Blood erythrocytes automated count (number/volume) 2.83 10*6/uL SP 4.35-5.85 SP Venous blood hemoglobin measurement (mass/volume) 7.6 g/dL SP16.0 Blood hematocrit (volume fraction) 25 % 35-52 SP Automated erythrocyte mean corpuscular volume 89 [ foz_us] SP99 Automated erythrocyte mean corpuscular h emoglobin (mass per erythrocyte) SP 27 pg 25-34 SP Automated erythrocyte mean corpuscular h emoglobin concentration measurement SP 30 g/dL 32-36 SP Automated erythrocyte distribution width ratio 21. 6 % 10.0- SP Automated blood platelet count (count/volume) 597 10*3/uL SP400 Automated blood platelet mean volume measurement 8.8 [foz_us] SP 7.4-10.4 SP Automated blood neutrophils/100 leukocytes 80 % 42-75 SP Automated blood lymphocytes/100 leukocytes 13 % 12-44 SP Blood monocytes/100 leukocytes 7 % 0-12 SP Automated blood eosinophils/100 leukocytes 0 % 0-10 SP Automated blood basophils/100 leukocytes 0 % 0-10 SP Blood neutrophils automated count (number/volume) 9.6 10*3 SP7.8 Blood lymphocytes automated count (number/volume) 1.6 10*3 SP4.0 Blood monocytes automated count (number/volume) 0. 8 10*3 SP1.0 Automated eosinophil count 0.0 10*3/uL 0 .0-0.3 SP Automated blood basophil count (count/volume) 0.0 10*3/uL SP0.1 Whole blood basic metabolic panel - 06/11 05:54 POS Serum or plasma sodium measurement (moles/volume) 140 mmol/L SP 135-145 SP Serum or plasma potassium measurement (moles/volume) 3.7 mmol/L SP 3.6-5.0 SP Serum or plasma chloride measurement (moles/volume) 105 mmol/L SP 98-107 SP Carbon dioxide 24 mmol/L 21-32 SP Serum or plasma anion gap determination (moles/volume) 11 mmol/L SP 5-14 SP Serum or plasma urea nitrogen measurement (mass/volume ) 3 mg/dL SP 7-18 SP Serum or plasma creatinine measurement (mass/volume) 0.50 mg/dL SP 0.60-1.30 SP Serum or plasma urea nitrogen/creatinine mass ratio 6 NRG SP Serum or plasma creatinine measurement w ith calculation of estimated glomerular SP rate > NRG SP Serum or plasma glucose measurement (mass/volume) 120 mg/dL SP105 Serum or plasma calcium measurement (mass/volume) 8.1 mg/dL SP10.1 Serum or plasma phosphate measurement (m ass/volume) - 08/01/19 05:54 POS Serum or plasma phosphate measurement (mass/volume) 2.3 mg/dL SP 2.3-4.7 SP Magnesium - 08/01/19 05:54 POS Magnesium 1.7 mg/dL 1.6-2.4 SP Capillary blood glucose measurement by g lucometer (mass/volume) - 08/01/19 12:15 POS Capillary blood glucose measurement by glucometer (mas s/volume) 123 POS 70-110 SP Capillary blood glucose measurement by g lucometer (mass/volume) - 08/01/19 17:23 POS Capillary blood glucose measurement by glucometer (mas s/volume) 127 POS 70-110 SP Capillary blood glucose measurement by g lucometer (mass/volume) - 08/02/19 00:20 POS Capillary blood glucose measurement by glucometer (mas s/volume) 120 POS 70-110 SP Capillary blood glucose measurement by g lucometer (mass/volume) - 08/02/19 05:09 POS Capillary blood glucose measurement by glucometer (mas s/volume) 110 POS 70-110 SP Complete blood count (CBC) with automate d white blood cell (WBC) differential - POS 05:28 Blood leukocytes automated count (number/volume) 9.2 10*3/uL POS 4.3-11.0 SP Blood erythrocytes automated count (number/volume) 2.58 10*6/uL SP 4.35-5.85 SP Venous blood hemoglobin measurement (mass/volume) 7.0 g/dL SP16.0 Blood hematocrit (volume fraction) 23 % 35-52 SP Automated erythrocyte mean corpuscular volume 89 [ foz_us] SP99 Automated erythrocyte mean corpuscular h emoglobin (mass per erythrocyte) SP 27 pg 25-34 SP Automated erythrocyte mean corpuscular h emoglobin concentration measurement SP 30 g/dL 32-36 SP Automated erythrocyte distribution width ratio 20. 8 % 10.0- SP Automated blood platelet count (count/volume) 507 10*3/uL SP400 Automated blood platelet mean volume measurement 9.4 [foz_us] SP 7.4-10.4 SP Automated blood neutrophils/100 leukocytes 81 % 42-75 SP Automated blood lymphocytes/100 leukocytes 13 % 12-44 SP Blood monocytes/100 leukocytes 6 % 0-12 SP Automated blood eosinophils/100 leukocytes 0 % 0-10 SP Automated blood basophils/100 leukocytes 0 % 0-10 SP Blood neutrophils automated count (number/volume) 7.5 10*3 SP7.8 Blood lymphocytes automated count (number/volume) 1.2 10*3 SP4.0 Blood monocytes automated count (number/volume) 0. 6 10*3 SP1.0 Automated eosinophil count 0.0 10*3/uL 0 .0-0.3 SP Automated blood basophil count (count/volume) 0.0 10*3/uL SP0.1 Whole blood basic metabolic panel - 07/24 05:28 POS Serum or plasma sodium measurement (moles/volume) 138 mmol/L SP 135-145 SP Serum or plasma potassium measurement (moles/volume) 3.3 mmol/L SP 3.6-5.0 SP Serum or plasma chloride measurement (moles/volume) 102 mmol/L SP 98-107 SP Carbon dioxide 25 mmol/L 21-32 SP Serum or plasma anion gap determination (moles/volume) 11 mmol/L SP 5-14 SP Serum or plasma urea nitrogen measurement (mass/volume ) < mg/dL SP 7-18 SP Serum or plasma creatinine measurement (mass/volume) 0.42 mg/dL SP 0.60-1.30 SP Serum or plasma urea nitrogen/creatinine mass ratio 5 NRG SP Serum or plasma creatinine measurement w ith calculation of estimated glomerular SP rate > NRG SP Serum or plasma glucose measurement (mass/volume) 97 mg/dL SP105 Serum or plasma calcium measurement (mass/volume) 7.8 mg/dL SP10.1 Serum or plasma phosphate measurement (m ass/volume) - 08/02/19 05:28 POS Serum or plasma phosphate measurement (mass/volume) 2.6 mg/dL SP 2.3-4.7 SP Magnesium - 08/02/19 05:28 POS Magnesium 1.4 mg/dL 1.6-2.4 SP Capillary blood glucose measurement by g lucometer (mass/volume) - 08/02/19 11:35 POS Capillary blood glucose measurement by glucometer (mas s/volume) 100 POS 70-110 SP Capillary blood glucose measurement by g lucometer (mass/volume) - 08/02/19 17:42 POS Capillary blood glucose measurement by glucometer (mas s/volume) 109 POS 70-110 SP Capillary blood glucose measurement by g lucometer (mass/volume) - 08/02/19 23:56 POS Capillary blood glucose measurement by glucometer (mas s/volume) 95 POS 70-110 SP Complete blood count (CBC) with automate d white blood cell (WBC) differential - POS 05:40 Blood leukocytes automated count (number/volume) 7.9 10*3/uL POS 4.3-11.0 SP Blood erythrocytes automated count (number/volume) 2.74 10*6/uL SP 4.35-5.85 SP Venous blood hemoglobin measurement (mass/volume) 7.3 g/dL SP16.0 Blood hematocrit (volume fraction) 24 % 35-52 SP Automated erythrocyte mean corpuscular volume 89 [ foz_us] SP99 Automated erythrocyte mean corpuscular h emoglobin (mass per erythrocyte) SP 27 pg 25-34 SP Automated erythrocyte mean corpuscular h emoglobin concentration measurement SP 30 g/dL 32-36 SP Automated erythrocyte distribution width ratio 20. 9 % 10.0- SP Automated blood platelet count (count/volume) 546 10*3/uL SP400 Automated blood platelet mean volume measurement 8.4 [foz_us] SP 7.4-10.4 SP Automated blood neutrophils/100 leukocytes 82 % 42-75 SP Automated blood lymphocytes/100 leukocytes 12 % 12-44 SP Blood monocytes/100 leukocytes 6 % 0-12 SP Automated blood eosinophils/100 leukocytes 1 % 0-10 SP Automated blood basophils/100 leukocytes 0 % 0-10 SP Blood neutrophils automated count (number/volume) 6.4 10*3 SP7.8 Blood lymphocytes automated count (number/volume) 0.9 10*3 SP4.0 Blood monocytes automated count (number/volume) 0. 4 10*3 SP1.0 Automated eosinophil count 0.0 10*3/uL 0 .0-0.3 SP Automated blood basophil count (count/volume) 0.0 10*3/uL SP0.1 Whole blood basic metabolic panel - 07/24 10/11 05:40 POS Serum or plasma sodium measurement (moles/volume) 137 mmol/L SP 135-145 SP Serum or plasma potassium measurement (moles/volume) 3.6 mmol/L SP 3.6-5.0 SP Serum or plasma chloride measurement (moles/volume) 103 mmol/L SP 98-107 SP Carbon dioxide 25 mmol/L 21-32 SP Serum or plasma anion gap determination (moles/volume) 9 mmol/L SP 5-14 SP Serum or plasma urea nitrogen measurement (mass/volume ) 3 mg/dL SP 7-18 SP Serum or plasma creatinine measurement (mass/volume) 0.45 mg/dL SP 0.60-1.30 SP Serum or plasma urea nitrogen/creatinine mass ratio 7 NRG SP Serum or plasma creatinine measurement w ith calculation of estimated glomerular SP rate > NRG SP Serum or plasma glucose measurement (mass/volume) 74 mg/dL SP105 Serum or plasma calcium measurement (mass/volume) 7.8 mg/dL SP10.1 Serum or plasma phosphate measurement (m ass/volume) - 08/03/19 05:40 POS Serum or plasma phosphate measurement (mass/volume) 3.7 mg/dL SP 2.3-4.7 SP Magnesium - 08/03/19 05:40 POS Magnesium 1.5 mg/dL 1.6-2.4 SP Capillary blood glucose measurement by g lucometer (mass/volume) - 08/03/19 11:23 POS Capillary blood glucose measurement by glucometer (mas s/volume) 68 POS 70-110 SP Capillary blood glucose measurement by g lucometer (mass/volume) - 08/03/19 12:21 POS Capillary blood glucose measurement by glucometer (mas s/volume) 67 POS 70-110 SP Capillary blood glucose measurement by g lucometer (mass/volume) - 08/03/19 12:48 POS Capillary blood glucose measurement by glucometer (mas s/volume) 94 POS 70-110 SP Capillary blood glucose measurement by g lucometer (mass/volume) - 08/03/19 15:45 POS Capillary blood glucose measurement by glucometer (mas s/volume) 125 POS 70-110 SP CMP - 08/08/19 11:29 POS GLUCOSE 92 mg/dL 65-99 SP UREA NITROGEN (BUN) 5 mg/dL 7-25 SP CREATININE 0.32 mg/dL 0.50-0.99 SP eGFR NON-AFR. MOZAMBICAN 120 mL/min/1.73m2 > OR=60 SP eGFR 139 mL/min/1.73m2 > OR=60 SP BUN/CREATININE RATIO 16 (calc) 6-22 SP SODIUM 137 mmol/L 135-146 SP POTASSIUM 3.4 mmol/L 3.5-5.3 SP CHLORIDE 99 mmol/L 98-110 SP CARBON DIOXIDE 30 mmol/L 20-32 SP CALCIUM 7.7 mg/dL 8.6-10.4 SP PROTEIN, TOTAL 5.0 g/dL 6.1-8.1 SP ALBUMIN 2.2 g/dL 3.6-5.1 SP GLOBULIN 2.8 g/dL (calc) 1.9-3.7 SP ALBUMIN/GLOBULIN RATIO 0.8 (calc) 1.0-2. 5 SP BILIRUBIN, TOTAL 0.4 mg/dL 0.2-1.2 SP ALKALINE PHOSPHATASE 162 U/L 33-130 SP AST 11 U/L 10-35 SP ALT 5 U/L 6-29 SP Complete blood count (CBC) with automate d white blood cell (WBC) differential - POS 17:34 Blood leukocytes automated count (number/volume) 5.2 10*3/uL POS 4.3-11.0 SP Blood erythrocytes automated count (number/volume) 4.24 10*6/uL SP 4.35-5.85 SP Venous blood hemoglobin measurement (mass/volume) 11.5 g/dL SP16.0 Blood hematocrit (volume fraction) 37 % 35-52 SP Automated erythrocyte mean corpuscular volume 86 [ foz_us] SP99 Automated erythrocyte mean corpuscular h emoglobin (mass per erythrocyte) SP 27 pg 25-34 SP Automated erythrocyte mean corpuscular h emoglobin concentration measurement SP 31 g/dL 32-36 SP Automated erythrocyte distribution width ratio 20. 9 % 10.0- SP Automated blood platelet count (count/volume) 536 10*3/uL SP400 Automated blood platelet mean volume measurement 9.0 [foz_us] SP 7.4-10.4 SP Automated blood neutrophils/100 leukocytes 70 % 42-75 SP Automated blood lymphocytes/100 leukocytes 19 % 12-44 SP Blood monocytes/100 leukocytes 10 % 0-12 SP Automated blood eosinophils/100 leukocytes 1 % 0-10 SP Automated blood basophils/100 leukocytes 0 % 0-10 SP Blood neutrophils automated count (number/volume) 3.6 10*3 SP7.8 Blood lymphocytes automated count (number/volume) 1.0 10*3 SP4.0 Blood monocytes automated count (number/volume) 0. 5 10*3 SP1.0 Automated eosinophil count 0.0 10*3/uL 0 .0-0.3 SP Automated blood basophil count (count/volume) 0.0 10*3/uL SP0.1 Comprehensive metabolic panel - 08/11/19 17:34 POS Serum or plasma sodium measurement (moles/volume) 139 mmol/L SP 135-145 SP Serum or plasma potassium measurement (moles/volume) 3.3 mmol/L SP 3.6-5.0 SP Serum or plasma chloride measurement (moles/volume) 102 mmol/L SP 98-107 SP Carbon dioxide 26 mmol/L 21-32 SP Serum or plasma anion gap determination (moles/volume) 11 mmol/L SP 5-14 SP Serum or plasma urea nitrogen measurement (mass/volume ) 6 mg/dL SP 7-18 SP Serum or plasma creatinine measurement (mass/volume) 0.62 mg/dL SP 0.60-1.30 SP Serum or plasma urea nitrogen/creatinine mass ratio 10 NRG SP Serum or plasma creatinine measurement w ith calculation of estimated glomerular SP rate > NRG SP Serum or plasma glucose measurement (mass/volume) 119 mg/dL SP105 Serum or plasma calcium measurement (mass/volume) 7.8 mg/dL SP10.1 Serum or plasma total bilirubin measurement (mass/volu me) 0.2 mg/dL SP 0.1-1.0 SP Serum or plasma alkaline phosphatase dominic surement (enzymatic activity/volume) SP 197 U/L 40-136 SP Serum or plasma aspartate aminotransfera se measurement (enzymatic SP 21 U/L 5-34 SP Serum or plasma alanine aminotransferase measurement (enzymatic activity/volume) SP 9 U/L 0-55 SP Serum or plasma protein measurement (mass/volume) 5.6 g/dL SP8.2 Serum or plasma albumin measurement (mass/volume) 2.4 g/dL SP4.5 CALCIUM CORRECTED 9.1 mg/dL 8.5-10.1 SP Lipase - 08/11/19 17:34 POS Lipase 13 U/L 8-78 SP PT panel in platelet poor plasma by coag ulation assay - 08/11/19 17:34 POS Prothrombin time (PT) in platelet poor plasma by coagu lation assay SP s 12.2-14.7 SP INR in platelet poor plasma or blood by coagulation as say 1.0 SP 0.8-1.4 SP C DIFFICILE AG + TOXIN A/B. - 08/11/19 2 3:30 POS RESULTS NEGATIVE FOR ANTIGEN AND TOXIN A/B NRG SP OCCULT BLOOD STOOL - 08/12/19 00:00 POS Stool gastrointestinal hemoglobin detection POSITI VE SP Complete blood count (CBC) with automate d white blood cell (WBC) differential - POS 04:40 Blood leukocytes automated count (number/volume) 5.5 10*3/uL POS 4.3-11.0 SP Blood erythrocytes automated count (number/volume) 2.40 10*6/uL SP 4.35-5.85 SP Venous blood hemoglobin measurement (mass/volume) 6.5 g/dL SP16.0 Blood hematocrit (volume fraction) 21 % 35-52 SP Automated erythrocyte mean corpuscular volume 88 [ foz_us] SP99 Automated erythrocyte mean corpuscular h emoglobin (mass per erythrocyte) SP 27 pg 25-34 SP Automated erythrocyte mean corpuscular h emoglobin concentration measurement SP 31 g/dL 32-36 SP Automated erythrocyte distribution width ratio 20. 4 % 10.0- SP Automated blood platelet count (count/volume) 603 10*3/uL SP400 Automated blood platelet mean volume measurement 9.1 [foz_us] SP 7.4-10.4 SP Automated blood neutrophils/100 leukocytes 55 % 42-75 SP Automated blood lymphocytes/100 leukocytes 29 % 12-44 SP Blood monocytes/100 leukocytes 13 % 0-12 SP Automated blood eosinophils/100 leukocytes 2 % 0-10 SP Automated blood basophils/100 leukocytes 1 % 0-10 SP Blood neutrophils automated count (number/volume) 3.0 10*3 SP7.8 Blood lymphocytes automated count (number/volume) 1.6 10*3 SP4.0 Blood monocytes automated count (number/volume) 0. 7 10*3 SP1.0 Automated eosinophil count 0.1 10*3/uL 0 .0-0.3 SP Automated blood basophil count (count/volume) 0.0 10*3/uL SP0.1 Comprehensive metabolic panel - 08/12/19 04:40 POS Serum or plasma sodium measurement (moles/volume) 140 mmol/L SP 135-145 SP Serum or plasma potassium measurement (moles/volume) 3.2 mmol/L SP 3.6-5.0 SP Serum or plasma chloride measurement (moles/volume) 105 mmol/L SP 98-107 SP Carbon dioxide 27 mmol/L 21-32 SP Serum or plasma anion gap determination (moles/volume) 8 mmol/L SP 5-14 SP Serum or plasma urea nitrogen measurement (mass/volume ) 4 mg/dL SP 7-18 SP Serum or plasma creatinine measurement (mass/volume) 0.46 mg/dL SP 0.60-1.30 SP Serum or plasma urea nitrogen/creatinine mass ratio 9 NRG SP Serum or plasma creatinine measurement w ith calculation of estimated glomerular SP rate > NRG SP Serum or plasma glucose measurement (mass/volume) 81 mg/dL SP105 Serum or plasma calcium measurement (mass/volume) 7.5 mg/dL SP10.1 Serum or plasma total bilirubin measurement (mass/volu me) 0.3 mg/dL SP 0.1-1.0 SP Serum or plasma alkaline phosphatase dominic surement (enzymatic activity/volume) SP 149 U/L 40-136 SP Serum or plasma aspartate aminotransfera se measurement (enzymatic SP 20 U/L 5-34 SP Serum or plasma alanine aminotransferase measurement (enzymatic activity/volume) SP 7 U/L 0-55 SP Serum or plasma protein measurement (mass/volume) 4.7 g/dL SP8.2 Serum or plasma albumin measurement (mass/volume) 2.1 g/dL SP4.5 CALCIUM CORRECTED 9.0 mg/dL 8.5-10.1 SP Whole blood hemoglobin and hematocrit [facility] [place] - 08/12/19 05:55 POS Venous blood hemoglobin measurement (mass/volume) 6.4 g/dL SP16.0 Blood hematocrit (volume fraction) 21 % 35-52 SP RED CELLS LEUKO REDUCED AS1 - 08/12/19 0 6:40 POS RED CELLS LEUKO REDUCED AS1 T RANSFUSED 08/12/19 SP NRG SP Blood type T Indirect antibody screen [facility] 08/12/19 06:40 POS WRISTBAND NUMBER [id number] NRG SP ABO+Rh group OP NRG SP Blood group antibody screen NEGATIVE NR G SP Bacteria identification in isolate by an aerobe culture - 08/12/19 14:06 POS Bacteria identification in isolate by anaerobe culture NOANA SP NRG SP Gram stain microscopy - 08/12/19 14:06 POS Gram stain microscopy MODERATE YEAST NR G SP Bacteria identification in wound by cult ure - 08/12/19 14:06 POS Bacteria identification in wound by culture [id number] NRG SP QUANTITY OF GROWTH Moderate Growth NRG SP Bacteria identification in isolate by an aerobe culture - 08/12/19 14:08 POS Bacteria identification in isolate by anaerobe culture NOANA SP NRG SP Gram stain microscopy - 08/12/19 14:08 POS Gram stain microscopy RARE YEAST NRG SP Bacteria identification in wound by cult ure - 08/12/19 14:08 POS Bacteria identification in wound by culture [id number] NRG SP QUANTITY OF GROWTH FEW NRG SP Complete blood count (CBC) with automate d white blood cell (WBC) differential - POS 05:10 Blood leukocytes automated count (number/volume) 6.1 10*3/uL POS 4.3-11.0 SP Blood erythrocytes automated count (number/volume) 3.57 10*6/uL SP 4.35-5.85 SP Venous blood hemoglobin measurement (mass/volume) 9.8 g/dL SP16.0 Blood hematocrit (volume fraction) 31 % 35-52 SP Automated erythrocyte mean corpuscular volume 86 [ foz_us] SP99 Automated erythrocyte mean corpuscular h emoglobin (mass per erythrocyte) SP 27 pg 25-34 SP Automated erythrocyte mean corpuscular h emoglobin concentration measurement SP 32 g/dL 32-36 SP Automated erythrocyte distribution width ratio 18. 7 % 10.0- SP Automated blood platelet count (count/volume) 559 10*3/uL SP400 Automated blood platelet mean volume measurement 9.2 [foz_us] SP 7.4-10.4 SP Automated blood neutrophils/100 leukocytes 65 % 42-75 SP Automated blood lymphocytes/100 leukocytes 24 % 12-44 SP Blood monocytes/100 leukocytes 10 % 0-12 SP Automated blood eosinophils/100 leukocytes 2 % 0-10 SP Automated blood basophils/100 leukocytes 1 % 0-10 SP Blood neutrophils automated count (number/volume) 4.0 10*3 SP7.8 Blood lymphocytes automated count (number/volume) 1.4 10*3 SP4.0 Blood monocytes automated count (number/volume) 0. 6 10*3 SP1.0 Automated eosinophil count 0.1 10*3/uL 0 .0-0.3 SP Automated blood basophil count (count/volume) 0.0 10*3/uL SP0.1 Comprehensive metabolic panel - 08/13/19 05:10 POS Serum or plasma sodium measurement (moles/volume) 137 mmol/L SP 135-145 SP Serum or plasma potassium measurement (moles/volume) 3.8 mmol/L SP 3.6-5.0 SP Serum or plasma chloride measurement (moles/volume) 103 mmol/L SP 98-107 SP Carbon dioxide 22 mmol/L 21-32 SP Serum or plasma anion gap determination (moles/volume) 12 mmol/L SP 5-14 SP Serum or plasma urea nitrogen measurement (mass/volume ) 6 mg/dL SP 7-18 SP Serum or plasma creatinine measurement (mass/volume) 0.53 mg/dL SP 0.60-1.30 SP Serum or plasma urea nitrogen/creatinine mass ratio 11 NRG SP Serum or plasma creatinine measurement w ith calculation of estimated glomerular SP rate > NRG SP Serum or plasma glucose measurement (mass/volume) 59 mg/dL SP105 Serum or plasma calcium measurement (mass/volume) 7.6 mg/dL SP10.1 Serum or plasma total bilirubin measurement (mass/volu me) 0.4 mg/dL SP 0.1-1.0 SP Serum or plasma alkaline phosphatase dominic surement (enzymatic activity/volume) SP 192 U/L 40-136 SP Serum or plasma aspartate aminotransfera se measurement (enzymatic SP 20 U/L 5-34 SP Serum or plasma alanine aminotransferase measurement (enzymatic activity/volume) SP 10 U/L 0-55 SP Serum or plasma protein measurement (mass/volume) 4.8 g/dL SP8.2 Serum or plasma albumin measurement (mass/volume) 2.1 g/dL SP4.5 CALCIUM CORRECTED 9.1 mg/dL 8.5-10.1 SP Capillary blood glucose measurement by g lucometer (mass/volume) - 08/13/19 06:33 POS Capillary blood glucose measurement by glucometer (mas s/volume) 67 POS 70-110 SP Serum or plasma folate measurement (mass /volume) - 08/13/19 15:10 POS Serum or plasma folate measurement (mass/volume) 6 .9 % >=4.0 SP Serum iron and total iron binding capaci ty panel - 08/13/19 15:10 POS TIBC 119 % 280-380 SP UIBC 109 % 55-450 SP Serum or plasma iron measurement (mass/volume) 10 % 35-180 SP Total iron binding capacity and transferrin saturation measurement 8 % SP 15-50 SP Serum or plasma ferritin measurement (mass/volume) 180.3 % SP177.0 VITAMIN B 12 - 08/13/19 15:10 POS VITAMIN B 12 416 pg/mL 190-1100 SP Automated blood complete blood count (he mogram) panel - 08/14/19 04:35 POS Blood leukocytes automated count (number/volume) 5.5 10*3/uL SP 4.3-11.0 SP Blood erythrocytes automated count (number/volume) 3.54 10*6/uL SP 4.35-5.85 SP Venous blood hemoglobin measurement (mass/volume) 9.7 g/dL SP16.0 Blood hematocrit (volume fraction) 31 % 35-52 SP Automated erythrocyte mean corpuscular volume 86 [ foz_us] SP99 Automated erythrocyte mean corpuscular h emoglobin (mass per erythrocyte) SP 27 pg 25-34 SP Automated erythrocyte mean corpuscular h emoglobin concentration measurement SP 32 g/dL 32-36 SP Automated erythrocyte distribution width ratio 18. 7 % 10.0- SP Automated blood platelet count (count/volume) 582 10*3/uL SP400 Automated blood platelet mean volume measurement 9.1 [foz_us] SP 7.4-10.4 SP Whole blood basic metabolic panel - 07/25 11/11 04:35 POS Serum or plasma sodium measurement (moles/volume) 139 mmol/L SP 135-145 SP Serum or plasma potassium measurement (moles/volume) 3.5 mmol/L SP 3.6-5.0 SP Serum or plasma chloride measurement (moles/volume) 105 mmol/L SP 98-107 SP Carbon dioxide 27 mmol/L 21-32 SP Serum or plasma anion gap determination (moles/volume) 7 mmol/L SP 5-14 SP Serum or plasma urea nitrogen measurement (mass/volume ) 4 mg/dL SP 7-18 SP Serum or plasma creatinine measurement (mass/volume) 0.44 mg/dL SP 0.60-1.30 SP Serum or plasma urea nitrogen/creatinine mass ratio 9 NRG SP Serum or plasma creatinine measurement w ith calculation of estimated glomerular SP rate > NRG SP Serum or plasma glucose measurement (mass/volume) 85 mg/dL SP105 Serum or plasma calcium measurement (mass/volume) 7.6 mg/dL SP10.1 Encounters ACCT No. Visit Date/Time Discharge Status POS Pt. Type Provider Facility Loc./Un it POS Complaint POS [id number] 08/08/2019 11:00:00 08/08/2019 23:59: 59 CLS SP Outpatient [facility] SP SP [id number] 08/08/2019 11:00:00 Document SPRegistration SP [id number] 07/02/2019 11:00:00 Document SPRegistration SP [id number] 08/11/2019 20:44:00 17:04:00 SP DIS Inpatient MIKANA JULIANNE MIRANDA Via [facility] 4TH POST OP FLUID COLLECTION, DI ARRHEA SP [id number] 07/28/2019 23:10:00 17:20:00 SP DIS Inpatient JOE GARCIA MD Via [facility] 4TH COLONIC FISTULA ABSCESS SP [id number] 07/20/2019 13:40:00 23:59:59 [facility] RAD PERITONEAL ABSCESS SP [id number] 07/06/2019 09:12:00 13:32:00 SP DIS Outpatient MIKANA JULIANNE MIRANDA Via [facility] SDC ABDOMINAL ABSCESS SP [id number] 07/03/2019 08:23:00 23:59:59 SP CLS Outpatient AZAM TY DUNHAMP Via [facility] RAD VOMITING,DIARRHEA SP [id number] 09/03/2019 10:00:[address] SP ARIELA KAM, IRVIN Via [facility] SP ONC SP
--- OUTSIDE RECORDS SUMMARY | 2019-09-06 13:31 | XMS REPORT | Continuity of Care Document ---
Author Organization Unknown POS Address Unknown SP Phone Unavailable SP Allergies Active Description Code Type Severity POS Reaction Onset Reported/Identified POS to Patient Clinical Status POS Yes No Allergy Information Available [id number] SP Allergy Unknown N/A 9 SP SP Yes codeine [id number] Drug Allergy SP N/A 07/06/2019 SP Medications [...] Ot R18.8 SP ASCITES SP 07/10/2019 TY ANSCIMENTO Ot R19.04 SP LOWER QUADRANT ABDOMINAL SWELLING, [...] SPECIFIED POSTPROCEDURAL STATES SP 07/28/2019 YOUNG, TY BIOMETRICS INSTRUCTOR Ot I70.8 SP OF OTHER ARTERIES SP 07/28/2019 AZAM, TY BIOMETRICS INSTRUCTOR Ot K63.89 SP SPECIFIED DISEASES OF INTESTINE SP 07/28/2019 AZAM TY BIOMETRICS INSTRUCTOR Ot R11.10 SP UNSPECIFIED SP 07/28/2019 TY NASCIMENTO BIOMETRICS INSTRUCTOR Ot R18.8 SP ASCITES SP 07/28/2019 AZAM TY BIOMETRICS INSTRUCTOR Ot R19.04 SP LOWER QUADRANT ABDOMINAL SWELLING, SP 07/28/2019 TY NASCIMENTO BIOMETRICS INSTRUCTOR Ot R19.7 SP UNSPECIFIED SP 07/28/2019 AZAM TY BIOMETRICS INSTRUCTOR Ot R91.1 SP PULMONARY NODULE SP 07/28/2019 [...] Ot K65. 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 9 SP NEOPLASM OF COLON, UNSPECIFIED SP 08/17/2019 ONAMIA JULIANNE MIRANDA Ot C77. 2 SP AND UNSP MALIGNANT NEOPLASM OF SP 08/17/2019 ONAMIA JULIANNE MIRANDA Ot D64. 9 SP UNSPECIFIED SP 08/17/2019 ONAMIA JULIANNE MIRANDA Ot E78. 00 SP HYPERCHOLESTEROLEMIA, UNSPECIFIED SP 08/17/2019 JULIANNE MENDOZA DO Ot E78. 5 SP UNSPECIFIED SP 08/17/2019 ONAMIA JULIANNE MIRANDA Ot E87. 6 SP SP 08/17/2019 ONAMIA JULIANNE MIRANDA Ot F17.210 SP NICOTINE DEPENDENCE, CIGARETTES, UNCOMPL SP 08/17/2019 MENDOZAJULIANNE ALEXANDRE DO Ot I10 SP (PRIMARY) HYPERTENSION SP 08/17/2019 ONAMIA JULIANNE MIRANDA Ot I25. 10 SP HEART DISEASE OF [place] CORONARY SP 08/17/2019 ONAMIA JULIANNE MIRANDA Ot I25. 2 SP MYOCARDIAL INFARCTION SP 08/17/2019 MENDOZAJULIANNE ALEXANDRE DO Ot K65. 1 SP ABSCESS SP 08/17/2019 [facility] Ot R19. 7 SP UNSPECIFIED SP [...] Ot I25. 10 SP HEART DISEASE OF [place] CORONARY SP 08/19/2019 JULIANNE MENDOZA DO Ot I25. 2 SP MYOCARDIAL INFARCTION SP 08/19/2019 [facility] Ot K65. 1 SP ABSCESS SP 08/19/2019 [facility] Ot R19. 7 SP UNSPECIFIED SP 08/19/2019 [facility] Ot R63. 4 SP WEIGHT LOSS SP 08/19/2019 [facility] Ot R64 SP SP 08/19/2019 ONAMIA JULIANNE Ot Z90. 49 SP ABSENCE OF OTHER SPECIFIED PART SP 08/19/2019 [facility] Ot Z95. 5 SP OF CORONARY ANGIOPLASTY IMPLANT SP 08/21/2019 [facility] Ot J90 SP EFFUSION, NOT ELSEWHERE CLASSIFI SP 08/21/2019 [facility] Ot K65. 1 SP ABSCESS SP 08/21/2019 [facility] Ot Z98.890 SP OTHER SPECIFIED POSTPROCEDURAL STATES SP 08/21/2019 TY NASCIMENTO BIOMETRICS INSTRUCTOR Ot I70.8 SP OF OTHER ARTERIES SP 08/21/2019 YOUNG, TY BIOMETRICS INSTRUCTOR Ot K63.89 SP SPECIFIED DISEASES OF INTESTINE SP 08/21/2019 YOUNG, TY BIOMETRICS INSTRUCTOR Ot R11.10 SP UNSPECIFIED SP 08/21/2019 YOUNG, TY BIOMETRICS INSTRUCTOR Ot R18.8 SP ASCITES SP 08/21/2019 YOUNG, TY BIOMETRICS INSTRUCTOR Ot R19.04 SP LOWER QUADRANT ABDOMINAL SWELLING, SP 08/21/2019 AZAM, TY BIOMETRICS INSTRUCTOR Ot R19.7 SP UNSPECIFIED SP 08/21/2019 AZAM, TY BIOMETRICS INSTRUCTOR Ot R91.1 SP PULMONARY NODULE SP 08/22/2019 YOUNG, TY BIOMETRICS INSTRUCTOR Ot I70.8 SP OF OTHER ARTERIES SP 08/22/2019 ZAAM, TY BIOMETRICS INSTRUCTOR Ot K63.89 SP SPECIFIED DISEASES OF INTESTINE SP 08/22/2019 TY NASCIMENTO BIOMETRICS INSTRUCTOR Ot R11.10 SP UNSPECIFIED SP 08/22/2019 YOUNG, TY BIOMETRICS INSTRUCTOR Ot R18.8 SP ASCITES SP 08/22/2019 YOUNG, TY BIOMETRICS INSTRUCTOR Ot R19.04 SP LOWER QUADRANT ABDOMINAL SWELLING, SP 08/22/2019 AZAM, TY BIOMETRICS INSTRUCTOR Ot R19.7 SP UNSPECIFIED SP 08/22/2019 YOUNG, TY BIOMETRICS INSTRUCTOR Ot R91.1 SP PULMONARY NODULE SP 09/03/2019 YOUNG, TY BIOMETRICS INSTRUCTOR Ot I70.8 SP OF OTHER ARTERIES SP 09/03/2019 TY NASCIMENTO Ot K63.89 SP SPECIFIED DISEASES OF INTESTINE SP 09/03/2019 TY NASCIMENTO Ot R11.10 SP UNSPECIFIED SP 09/03/2019 TY NASCIMENTO Ot R18.8 SP ASCITES SP 09/03/2019 TY NASCIMENTO Ot R19.04 SP LOWER QUADRANT ABDOMINAL SWELLING, SP 09/03/2019 AZAMTY Ot R19.7 SP UNSPECIFIED SP 09/03/2019 TY NASCIMENTO Ot R91.1 SP PULMONARY NODULE SP 09/03/2019 ONAMIA JULIANNE MIRANDA Ot J90 SP EFFUSION, NOT ELSEWHERE CLASSIFI SP 09/03/2019 MENDOZAJULIANNE ALEXANDRE DO Ot K65. 1 SP ABSCESS SP 09/03/2019 [facility] Ot Z98.890 SP OTHER SPECIFIED POSTPROCEDURAL STATES SP Procedures Code Description Performed By Per formed On POS [id number] EX CISION OF TRANSVERSE SP OPEN APPRO 07/30/2019 SP [id number] EX CISION OF DESCENDING SP OPEN APPRO 07/30/2019 SP [id number] EX CISION OF OMENTUM, OPEN SP DIAG 07/30/[id number] CAO OF ABDOMINAL WALL, SP APPROAC 07/30/2019 SP [id number] EX CISION OF ABDOMINAL WALL, SP APPROAC 07/30/[id number] CAO OF PERITONEAL SP WITH DRAIN 08/12/[id number] CAO OF PELVIC CAVITY SP DRAIN [...] juliocesar - 07/06/19 09:40 POS WRISTBAND NUMBER [id number] NRG SP ABO+Rh group OP NRG SP Blood group antibody screen NEGATIVE NR G SP Bacteria identification in isolate by an aerobe culture - 07/06/19 11:15 POS FREE TEXT EXTERNAL SEE COMMENT NRG SP QUANTITY OF GROWTH Many NRG SP Bacteria identification in isolate by anaerobe culture [id number] SP NRG SP Gram stain microscopy - 07/06/19 11:15 POS Gram stain microscopy Mixed Bacterial Bonnie NRG SP Bacteria identification in wound by cult ure - 07/06/19 11:15 POS Bacteria identification in wound by culture [id number] 007 NRG SP FREE TEXT EXTERNAL SUSCEPTIBILITY [...] juliocesar - 07/30/19 14:35 POS WRISTBAND NUMBER [id number] NRG SP ABO+Rh group OP NRG SP Blood group antibody screen NEGATIVE NR G SP Bacteria identification in isolate by an aerobe culture - 07/30/19 16:18 POS FREE TEXT EXTERNAL BETA LACTAAMSE POSITIVE NRG SP QUANTITY OF GROWTH Rare NRG SP Bacteria identification in isolate by anaerobe culture [id number] SP NRG SP FREE TEXT EXTERNAL 2 SEE COMMENTS NRG SP Gram stain microscopy - 07/30/19 16:18 POS Gram stain microscopy MANY GRAM POSITIVE FRED CI IN PAIRS AND CHAINS SP NRG SP Bacteria identification in wound by cult ure - 07/30/19 16:18 POS Bacteria identification in wound by culture 626806 007 NRG SP FREE TEXT EXTERNAL SUSCEPTIBILITY [...] CREATININE 0.32 mg/dL 0.50-0.99 SP eGFR NON-AFR. FRENCH 120 mL/min/1.73m2 > OR=60 SP eGFR 139 [...] 8.5-10.1 SP Whole blood hemoglobin and hematocrit [facility] - 08/12/19 05:55 POS Venous blood hemoglobin measurement (mass/volume) 6.4 g/dL SP16.0 Blood hematocrit (volume fraction) 21 % 35-52 SP RED CELLS LEUKO REDUCED AS1 - 08/12/19 0 6:40 POS RED CELLS LEUKO REDUCED AS1 T RANSFUSED 08/12/19 SP NRG SP Blood type T Indirect antibody screen [facility] 08/12/19 06:40 POS WRISTBAND NUMBER [id number] NRG SP ABO+Rh group OP NRG SP [...] POS Bacteria identification in wound by culture 486375 006 NRG SP QUANTITY OF GROWTH Moderate [...] POS Bacteria identification in wound by culture [id number] 006 NRG SP QUANTITY OF GROWTH FEW [...] Provider Facility Loc./Un it POS Complaint POS [id number] 08/08/2019 11:00:00 08/08/2019 23:59: 59 CLS SP Outpatient [facility] SP SP [id number] 08/08/2019 11:00:00 Document SPRegistration SP [id number] 07/02/2019 11:00:00 Document SPRegistration SP [id number] 08/11/2019 20:44:00 17:04:00 SP DIS Inpatient ONAMIA JULIANNE MIRANDA Via [facility] 4TH POST OP FLUID COLLECTION, DI ARRHEA SP [id number] 07/28/2019 23:10:00 17:20:00 SP DIS Inpatient JOE GARCIA MD Via [facility] 4TH COLONIC FISTULA ABSCESS SP [id number] 07/20/2019 13:40:00 23:59:59 SP [facility] RAD PERITONEAL ABSCESS SP [id number] 07/06/2019 09:12:00 13:32:00 SP DIS Outpatient ONAMIA JULIANNE MIRANDA Via [facility] SDC ABDOMINAL ABSCESS SP [id number] 07/03/2019 08:23:00 23:59:59 SP CLS Outpatient AZAM TY DUNHAMP Via [facility] RAD VOMITING,DIARRHEA SP [id number] 09/03/2019 10:00:[address] SP ARIELA KAM, IRVIN Via [facility] SP ONC SP
--- OUTSIDE RECORDS SUMMARY | 2019-09-15 11:39 | XMS REPORT | Continuity of Care Document ---
Author Organization Unknown Address Unknown Phone Unavailable Allergies Active Description Code Type Severity Reaction Onset Reported/Identified Relationship to Patient Clinical Status Yes No Allergy Information Available [id number] Drug Allergy Unknown N/A 019 Yes codeine [id number] Drug Allergy Unknown N/A 07/06/2019 Medications There is no data. 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 1 PERITONEAL ABSCESS 07/23/2019 JULIANNE MENDOZA DO Ot Z98.890 OTHER SPECIFIED POSTPROCEDURAL STATES 07/28/2019 JULIANNE MENDOZA DO Ot J90 PLEURAL EFFUSION, NOT ELSEWHERE CLASSIFI 07/28/2019 JULIANNE MENDOZA DO Ot K65. 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 1 PERITONEAL ABSCESS 07/28/2019 MENDOZA DO, JULIANNE D Ot Z98.890 OTHER SPECIFIED POSTPROCEDURAL STATES 07/28/2019 MENDOZA DO, JULIANNE D Ot J90 PLEURAL EFFUSION, NOT ELSEWHERE CLASSIFI 07/28/2019 MENDOZA DO, JULIANNE D Ot K65. 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9 LIVER DISEASE, UNSPECIFIED 08/03/2019 JOE GARCIA MD, Ot L02.211 CUTANEOUS ABSCESS OF ABDOMINAL WALL 08/03/2019 JOE GARCIA MD, Ot Z23 ENCOUNTER FOR IMMUNIZATION 08/03/2019 JOE GARCIA MD, Ot Z79.02 SOLVENT MIXER (CURRENT) USE OF ANTITHROMBOTI 08/03/2019 JOE GARCIA MD, Ot Z90.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 9 MALIGNANT NEOPLASM OF COLON, UNSPECIFIED 08/17/2019 JULIANNE MENDOZA DO Ot C77. 2 SECONDARY AND UNSP MALIGNANT NEOPLASM OF 08/17/2019 JULIANNE MENDOZA DO Ot D64. 9 ANEMIA, UNSPECIFIED 08/17/2019 JULIANNE MENDOZA DO Ot E78. 00 PURE HYPERCHOLESTEROLEMIA, UNSPECIFIED 08/17/2019 JULIANNE MENDOZA DO Ot E78. 5 HYPERLIPIDEMIA, UNSPECIFIED 08/17/2019 JULIANNE MENDOZA DO Ot E87. 6 HYPOKALEMIA 08/17/2019 JULIANNE MENDOZA DO Ot F17.210 NICOTINE DEPENDENCE, CIGARETTES, UNCOMPL 08/17/2019 JULIANNE MENDOZA DO Ot I10 ESSENTIAL (PRIMARY) HYPERTENSION 08/17/2019 JULIANNE MENDOZA DO Ot I25. 10 ATHSCL HEART DISEASE OF [place] CORONARY 08/17/2019 JULIANNE MENDOZA DO Ot I25. 2 OLD MYOCARDIAL INFARCTION 08/17/2019 JULIANNE MENDOZA DO Ot K65. 1 PERITONEAL ABSCESS 08/17/2019 JULIANNE MENDOZA DO Ot R19. 7 DIARRHEA, UNSPECIFIED 08/17/2019 JULIANNE MENDOZA DO Ot R63. 4 ABNORMAL WEIGHT LOSS 08/17/2019 JULIANNE MENDOZA DO Ot R64 CACHEXIA 08/17/2019 JULIANNE MENDOZA DO Ot Z90. 49 ACQUIRED ABSENCE OF OTHER SPECIFIED PART 08/17/2019 JULIANNE MENDOZA DO Ot Z95. 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 1 PERITONEAL ABSCESS 08/19/2019 JULIANNE MENDOZA DO Ot Z98.890 OTHER SPECIFIED POSTPROCEDURAL STATES 08/19/2019 UJLIANNE MENDOZA DO Ot C18. 9 MALIGNANT NEOPLASM OF COLON, UNSPECIFIED 08/19/2019 JULIANNE MENDOZA DO Ot C77. 2 SECONDARY AND UNSP MALIGNANT NEOPLASM OF 08/19/2019 JULIANNE MENDOZA DO Ot D64. 9 ANEMIA, UNSPECIFIED 08/19/2019 JULIANNE MENDOZA DO Ot E78. 00 PURE HYPERCHOLESTEROLEMIA, UNSPECIFIED 08/19/2019 JULIANNE MENDOZA DO Ot E87. 6 HYPOKALEMIA 08/19/2019 JULIANNE MENDOZA DO Ot F17.210 NICOTINE DEPENDENCE, CIGARETTES, UNCOMPL 08/19/2019 JULIANNE MENDOZA DO Ot I10 ESSENTIAL (PRIMARY) HYPERTENSION 08/19/2019 JULIANNE MENDOZA DO Ot I25. 10 ATHSCL HEART DISEASE OF [place] CORONARY 08/19/2019 JULIANNE MENDOZA DO Ot I25. 2 OLD MYOCARDIAL INFARCTION 08/19/2019 JULIANNE MENDOZA DO Ot K65. 1 PERITONEAL ABSCESS 08/19/2019 JULIANNE MENDOZA DO Ot R19. 7 DIARRHEA, UNSPECIFIED 08/19/2019 JULIANNE MENDOZA DO Ot R63. 4 ABNORMAL WEIGHT LOSS 08/19/2019 JULIANNE MENDOZA DO Ot R64 CACHEXIA 08/19/2019 JULIANNE MENDOZA DO Ot Z90. 49 ACQUIRED ABSENCE OF OTHER SPECIFIED PART 08/19/2019 KELLY MIRANDA JULIANNE Mejia Ot Z95. 5 PRESENCE OF CORONARY ANGIOPLASTY IMPLANT 08/21/2019 KELLY MIRANDA JULIANNE Mejia Ot J90 PLEURAL EFFUSION, NOT ELSEWHERE CLASSIFI 08/21/2019 KELLY MIRANDA JULIANNE Mejia Ot K65. 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 08/21/2019 TY NASCIMENTO BUTCHER Ot K63.89 OTHER SPECIFIED DISEASES OF INTESTINE 08/21/2019 YT NASCIMENTO BUTCHER Ot R11.10 VOMITING, UNSPECIFIED 08/21/2019 TY NASCIMENTO BUTCHER Ot R18.8 OTHER ASCITES 08/21/2019 TY NASCIMENTO BUTCHER Ot R19.04 LEFT LOWER QUADRANT ABDOMINAL SWELLING, 08/21/2019 TY NASCIMENTO BUTCHER Ot R19.7 DIARRHEA, UNSPECIFIED 08/21/2019 TY NASCIMENTO BUTCHER Ot R91.1 SOLITARY PULMONARY NODULE 08/22/2019 TY NASCIMENTO BUTCHER Ot 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 08/22/2019 TY NASCIMENTO BUTCHER Ot K63.89 OTHER SPECIFIED DISEASES OF INTESTINE 08/22/2019 TY NASCIMENTO BUTCHER Ot R11.10 VOMITING, UNSPECIFIED 08/22/2019 TY NASCIMENTO BUTCHER Ot R18.8 OTHER ASCITES 08/22/2019 TY NASCIMENTO BUTCHER Ot R19.04 LEFT LOWER QUADRANT ABDOMINAL SWELLING, 08/22/2019 TY NASCIMENTO BUTCHER Ot R19.7 DIARRHEA, UNSPECIFIED 08/22/2019 TY ANSCIMENTO BUTCHER Ot R91.1 SOLITARY PULMONARY NODULE 09/03/2019 TY NASCIMENTO BUTCHER Ot 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 1 PERITONEAL ABSCESS 09/10/2019 MENDOZA JULIANNE MIRANDA Ot Z98.890 OTHER SPECIFIED POSTPROCEDURAL STATES Procedures Code Description Performed By Per formed On [id number] EX CISION OF TRANSVERSE COLON, OPEN APPRO 07/30/2019 [id number] EX CISION OF DESCENDING COLON, OPEN APPRO 07/30/2019 [id number] EX CISION OF OMENTUM, OPEN APPROACH, DIAG 07/30/[id number] CAO OF ABDOMINAL WALL, OPEN APPROAC 07/30/2019 [id number] EX CISION OF ABDOMINAL WALL, OPEN APPROAC 07/30/[id number] CAO OF PERITONEAL CAVITY WITH DRAIN 08/12/[id number] CAO OF PELVIC CAVITY WITH DRAIN DEV 08/12/2019 Results Test Result Range LIPASE - 07/02/19 11:41 LIPASE 6 U/L 7-60 Complete blood count (CBC) with automate d white blood cell (WBC) differential - 07/06/19 09:40 Blood leukocytes automated count (number/volume) 11.9 10*3/uL 4.3-11.0 Blood erythrocytes automated count (number/volume) 3.41 10*6/uL 4.35-5.85 Venous blood hemoglobin measurement (mass/volume) 9.1 g/dL 11.5-16.0 Blood hematocrit (volume fraction) 28 % 35-52 Automated erythrocyte mean corpuscular volume 81 [ foz_us] 80-99 Automated erythrocyte mean corpuscular h emoglobin (mass per erythrocyte) 27 pg 25-34 Automated erythrocyte mean corpuscular h emoglobin concentration measurement (mass/volume) 33 g/dL 32-36 Automated erythrocyte distribution width ratio 17. 5 % 10.0- 14.5 Automated blood platelet count (count/volume) 726 10*3/uL 130-400 Automated blood platelet mean volume measurement 8.9 [foz_us] 7.4-10.4 Automated blood neutrophils/100 leukocytes 84 % 42-75 Automated blood lymphocytes/100 leukocytes 10 % 12-44 Blood monocytes/100 leukocytes 6 % 0-12 Automated blood eosinophils/100 leukocytes 0 % 0-10 Automated blood basophils/100 leukocytes 0 % 0-10 Blood neutrophils automated count (number/volume) 10.0 10*3 1.8-7.8 Blood lymphocytes automated count (number/volume) 1.1 10*3 1.0-4.0 Blood monocytes automated count (number/volume) 0. 8 10*3 0.0-1.0 Automated eosinophil count 0.0 10*3/uL 0 .0-0.3 Automated blood basophil count (count/volume) 0.0 10*3/uL 0.0-0.1 PT panel in platelet poor plasma by coag ulation assay - 07/06/19 09:40 Prothrombin time (PT) in platelet poor plasma by coagu lation assay 14.7 s 12.2-14.7 INR in platelet poor plasma or blood by coagulation as say 1.1 0.8-1.4 Activated partial thromboplastin time (a PTT) in platelet poor plasma bycoagulation assay - 07/06/19 09:40 Activated partial thromboplastin time (a PTT) in platelet poor plasma bycoagulation assay 37 s 24-35 Blood type T Indirect antibody screen pa juliocesar - 07/06/19 09:40 WRISTBAND NUMBER [id number] NRG ABO+Rh group OP NRG Blood group antibody screen NEGATIVE NR G Bacteria identification in isolate by an aerobe culture - 07/06/19 11:15 FREE TEXT EXTERNAL SEE COMMENT NRG QUANTITY OF GROWTH Many NRG Bacteria identification in isolate by anaerobe culture [id number] NRG Gram stain microscopy - 07/06/19 11:15 Gram stain microscopy Mixed Bacterial Bonnie NRG Bacteria identification in wound by cult ure - 07/06/19 11:15 Bacteria identification in wound by culture [id number] NRG FREE TEXT EXTERNAL SUSCEPTIBILITY REPORTED 07/08 1 1:15 NRG QUANTITY OF GROWTH Many NRG Dirithromycin susceptibility test by dis k diffusion - 07/06/19 11:15 Gentamicin susceptibility test by minimum inhibitory c oncentration <= NRG Trimethoprim/sulfamethoxazole susceptibi lity test by minimum inhibitoryconcentration <= NRG Levofloxacin susceptibility test by minimum inhibitory concentration <= NRG Ampicillin susceptibility test by minimum inhibitory c oncentration <= NRG Cefazolin susceptibility test by minimum inhibitory co ncentration <= NRG Ceftriaxone susceptibility test by minimum inhibitory concentration <= NRG Piperacillin/tazobactam susceptibility t est by minimum inhibitory concentration <= NRG Ciprofloxacin susceptibility test by minimum inhibitor y concentration <= NRG Meropenem susceptibility test by minimum inhibitory co ncentration <= NRG Amoxicillin and clavulanate potassium susc VICKIE <= NRG Imipenem susceptibility test by minimum inhibitory con centration <= NRG Complete blood count (CBC) with automate d white blood cell (WBC) differential - 07/28/19 19:20 Blood leukocytes automated count (number/volume) 8.3 10*3/uL 4.3-11.0 Blood erythrocytes automated count (number/volume) 3.13 10*6/uL 4.35-5.85 Venous blood hemoglobin measurement (mass/volume) 8.6 g/dL 11.5-16.0 Blood hematocrit (volume fraction) 28 % 35-52 Automated erythrocyte mean corpuscular volume 89 [ foz_us] 80-99 Automated erythrocyte mean corpuscular h emoglobin (mass per erythrocyte) 28 pg 25-34 Automated erythrocyte mean corpuscular h emoglobin concentration measurement (mass/volume) 31 g/dL 32-36 Automated erythrocyte distribution width ratio 22. 0 % 10.0- 14.5 Automated blood platelet count (count/volume) 524 10*3/uL 130-400 Automated blood platelet mean volume measurement 9.8 [foz_us] 7.4-10.4 Automated blood neutrophils/100 leukocytes 61 % 42-75 Automated blood lymphocytes/100 leukocytes 27 % 12-44 Blood monocytes/100 leukocytes 11 % 0-12 Automated blood eosinophils/100 leukocytes 1 % 0-10 Automated blood basophils/100 leukocytes 0 % 0-10 Blood neutrophils automated count (number/volume) 5.1 10*3 1.8-7.8 Blood lymphocytes automated count (number/volume) 2.2 10*3 1.0-4.0 Blood monocytes automated count (number/volume) 0. 9 10*3 0.0-1.0 Automated eosinophil count 0.1 10*3/uL 0 .0-0.3 Automated blood basophil count (count/volume) 0.0 10*3/uL 0.0-0.1 Blood lactic acid measurement (moles/vol ume) - 07/28/19 19:20 Blood lactic acid measurement (moles/volume) 1.07 mmol/L 0.50-2.00 Comprehensive metabolic panel - 07/28/19 19:20 Serum or plasma sodium measurement (moles/volume) 138 mmol/L 135-145 Serum or plasma potassium measurement (moles/volume) 3.2 mmol/L 3.6-5.0 Serum or plasma chloride measurement (moles/volume) 103 mmol/L 98-107 Carbon dioxide 23 mmol/L 21-32 Serum or plasma anion gap determination (moles/volume) 12 mmol/L 5-14 Serum or plasma urea nitrogen measurement (mass/volume ) 8 mg/dL 7-18 Serum or plasma creatinine measurement (mass/volume) 0.49 mg/dL 0.60-1.30 Serum or plasma urea nitrogen/creatinine mass ratio 16 NRG Serum or plasma creatinine measurement w ith calculation of estimated glomerular filtration rate > NRG Serum or plasma glucose measurement (mass/volume) 93 mg/dL 70-105 Serum or plasma calcium measurement (mass/volume) 8.6 mg/dL 8.5-10.1 Serum or plasma total bilirubin measurement (mass/volu me) 0.3 mg/dL 0.1-1.0 Serum or plasma alkaline phosphatase dominic surement (enzymatic activity/volume) 176 U/L 40-136 Serum or plasma aspartate aminotransfera se measurement (enzymatic activity/volume) 14 U/L 5-34 Serum or plasma alanine aminotransferase measurement (enzymatic activity/volume) 8 U/L 0-55 Serum or plasma protein measurement (mass/volume) 6.2 g/dL 6.4-8.2 Serum or plasma albumin measurement (mass/volume) 2.8 g/dL 3.2-4.5 CALCIUM CORRECTED 9.6 mg/dL 8.5-10.1 PT panel in platelet poor plasma by coag ulation assay - 07/28/19 19:20 Prothrombin time (PT) in platelet poor plasma by coagu lation assay 13.3 s 12.2-14.7 INR in platelet poor plasma or blood by coagulation as say 1.0 0.8-1.4 Activated partial thromboplastin time (a PTT) in platelet poor plasma bycoagulation assay - 07/28/19 19:20 Activated partial thromboplastin time (a PTT) in platelet poor plasma bycoagulation assay 35 s 24-35 Bacterial blood culture - 07/28/19 19:20 Bacterial blood culture NG NRG Bacterial blood culture - 07/28/19 20:22 Bacterial blood culture NG NRG Complete urinalysis with reflex to cultu re - 07/28/19 22:30 Urine color determination YELLOW NRG Urine clarity determination CLEAR NR G Urine pH measurement by test strip 7 5-9 Specific gravity of urine by test strip 1.005 1.016-1.022 Urine protein assay by test strip, semi-quantitative 1+ NEGATIVE Urine glucose detection by automated test strip NE GATIVE NEGATIVE Erythrocytes detection in urine sediment by light micr oscopy NEGATIVE NEGATIVE Urine ketones detection by automated test strip NE GATIVE NEGATIVE Urine nitrite detection by test strip NEGATIVE NEGATIVE Urine total bilirubin detection by test strip NEGA TIVE NEGATIVE Urine urobilinogen measurement by automated test strip (mass/volume) NORMAL NORMAL Urine leukocyte esterase detection by dipstick NEG ATIVE NEGATIVE Automated urine sediment erythrocyte cou nt by microscopy (number/high power field) NONE NRG Automated urine sediment leukocyte count by microscopy (number/high power field) [HPF] NRG Bacteria detection in urine sediment by light microsco py TRACE NRG Squamous epithelial cells detection in u rine sediment by light microscopy 0-2 NRG Crystals detection in urine sediment by light microsco py NONE NRG Casts detection in urine sediment by light microscopy NONE NRG Mucus detection in urine sediment by light microscopy NEGATIVE NRG Complete urinalysis with reflex to culture CULTURE PENDING NRG Bacterial urine culture - 07/28/19 22:30 Bacterial urine culture NG [facility] Complete blood count (CBC) with automate d white blood cell (WBC) differential - 07/29/19 02:55 Blood leukocytes automated count (number/volume) 7.6 10*3/uL 4.3-11.0 Blood erythrocytes automated count (number/volume) 2.88 10*6/uL 4.35-5.85 Venous blood hemoglobin measurement (mass/volume) 7.9 g/dL 11.5-16.0 Blood hematocrit (volume fraction) 26 % 35-52 Automated erythrocyte mean corpuscular volume 89 [ foz_us] 80-99 Automated erythrocyte mean corpuscular h emoglobin (mass per erythrocyte) 27 pg 25-34 Automated erythrocyte mean corpuscular h emoglobin concentration measurement (mass/volume) 31 g/dL 32-36 Automated erythrocyte distribution width ratio 21. 8 % 10.0- 14.5 Automated blood platelet count (count/volume) 449 10*3/uL 130-400 Automated blood platelet mean volume measurement 9.6 [foz_us] 7.4-10.4 Automated blood neutrophils/100 leukocytes 67 % 42-75 Automated blood lymphocytes/100 leukocytes 22 % 12-44 Blood monocytes/100 leukocytes 10 % 0-12 Automated blood eosinophils/100 leukocytes 1 % 0-10 Automated blood basophils/100 leukocytes 0 % 0-10 Blood neutrophils automated count (number/volume) 5.0 10*3 1.8-7.8 Blood lymphocytes automated count (number/volume) 1.6 10*3 1.0-4.0 Blood monocytes automated count (number/volume) 0. 8 10*3 0.0-1.0 Automated eosinophil count 0.1 10*3/uL 0 .0-0.3 Automated blood basophil count (count/volume) 0.0 10*3/uL 0.0-0.1 Comprehensive metabolic panel - 07/29/19 02:55 Serum or plasma sodium measurement (moles/volume) 138 mmol/L 135-145 Serum or plasma potassium measurement (moles/volume) 3.4 mmol/L 3.6-5.0 Serum or plasma chloride measurement (moles/volume) 106 mmol/L 98-107 Carbon dioxide 21 mmol/L 21-32 Serum or plasma anion gap determination (moles/volume) 11 mmol/L 5-14 Serum or plasma urea nitrogen measurement (mass/volume ) 6 mg/dL 7-18 Serum or plasma creatinine measurement (mass/volume) 0.44 mg/dL 0.60-1.30 Serum or plasma urea nitrogen/creatinine mass ratio 14 NRG Serum or plasma creatinine measurement w ith calculation of estimated glomerular filtration rate > NRG Serum or plasma glucose measurement (mass/volume) 78 mg/dL 70-105 Serum or plasma calcium measurement (mass/volume) 7.8 mg/dL 8.5-10.1 Serum or plasma total bilirubin measurement (mass/volu me) 0.3 mg/dL 0.1-1.0 Serum or plasma alkaline phosphatase dominic surement (enzymatic activity/volume) 145 U/L 40-136 Serum or plasma aspartate aminotransfera se measurement (enzymatic activity/volume) 15 U/L 5-34 Serum or plasma alanine aminotransferase measurement (enzymatic activity/volume) 6 U/L 0-55 Serum or plasma protein measurement (mass/volume) 5.3 g/dL 6.4-8.2 Serum or plasma albumin measurement (mass/volume) 2.4 g/dL 3.2-4.5 CALCIUM CORRECTED 9.1 mg/dL 8.5-10.1 Serum or plasma phosphate measurement (m ass/volume) - 07/29/19 02:55 Serum or plasma phosphate measurement (mass/volume) 3.1 mg/dL 2.3-4.7 Magnesium - 07/29/19 02:55 Magnesium 1.5 mg/dL 1.6-2.4 Whole blood basic metabolic panel - 04/10 03:20 Serum or plasma sodium measurement (moles/volume) 135 mmol/L 135-145 Serum or plasma potassium measurement (moles/volume) 4.1 mmol/L 3.6-5.0 Serum or plasma chloride measurement (moles/volume) 103 mmol/L 98-107 Carbon dioxide 20 mmol/L 21-32 Serum or plasma anion gap determination (moles/volume) 12 mmol/L 5-14 Serum or plasma urea nitrogen measurement (mass/volume ) 4 mg/dL 7-18 Serum or plasma creatinine measurement (mass/volume) 0.43 mg/dL 0.60-1.30 Serum or plasma urea nitrogen/creatinine mass ratio 9 NRG Serum or plasma creatinine measurement w ith calculation of estimated glomerular filtration rate > NRG Serum or plasma glucose measurement (mass/volume) 50 mg/dL 70-105 Serum or plasma calcium measurement (mass/volume) 7.8 mg/dL 8.5-10.1 Serum or plasma phosphate measurement (m ass/volume) - 07/30/19 03:20 Serum or plasma phosphate measurement (mass/volume) 2.8 mg/dL 2.3-4.7 Magnesium - 07/30/19 03:20 Magnesium 1.9 mg/dL 1.6-2.4 Complete blood count (CBC) with automate d white blood cell (WBC) differential - 07/30/19 03:20 Blood leukocytes automated count (number/volume) 6.9 10*3/uL 4.3-11.0 Blood erythrocytes automated count (number/volume) 2.72 10*6/uL 4.35-5.85 Venous blood hemoglobin measurement (mass/volume) 7.4 g/dL 11.5-16.0 Blood hematocrit (volume fraction) 24 % 35-52 Automated erythrocyte mean corpuscular volume 90 [ foz_us] 80-99 Automated erythrocyte mean corpuscular h emoglobin (mass per erythrocyte) 27 pg 25-34 Automated erythrocyte mean corpuscular h emoglobin concentration measurement (mass/volume) 30 g/dL 32-36 Automated erythrocyte distribution width ratio 21. 5 % 10.0- 14.5 Automated blood platelet count (count/volume) 457 10*3/uL 130-400 Automated blood platelet mean volume measurement 9.8 [foz_us] 7.4-10.4 Automated blood neutrophils/100 leukocytes 69 % 42-75 Automated blood lymphocytes/100 leukocytes 19 % 12-44 Blood monocytes/100 leukocytes 11 % 0-12 Automated blood eosinophils/100 leukocytes 1 % 0-10 Automated blood basophils/100 leukocytes 0 % 0-10 Blood neutrophils automated count (number/volume) 4.7 10*3 1.8-7.8 Blood lymphocytes automated count (number/volume) 1.3 10*3 1.0-4.0 Blood monocytes automated count (number/volume) 0. 7 10*3 0.0-1.0 Automated eosinophil count 0.1 10*3/uL 0 .0-0.3 Automated blood basophil count (count/volume) 0.0 10*3/uL 0.0-0.1 Blood type T Indirect antibody screen pa juliocesar - 07/30/19 14:35 WRISTBAND NUMBER [id number] NRG ABO+Rh group OP NRG Blood group antibody screen NEGATIVE NR G Bacteria identification in isolate by an aerobe culture - 07/30/19 16:18 FREE TEXT EXTERNAL BETA LACTAAMSE POSITIVE NRG QUANTITY OF GROWTH Rare NRG Bacteria identification in isolate by anaerobe culture [id number] NRG FREE TEXT EXTERNAL 2 SEE COMMENTS NRG Gram stain microscopy - 07/30/19 16:18 Gram stain microscopy MANY GRAM POSITIVE FRED CI IN PAIRS AND CHAINS NRG Bacteria identification in wound by cult ure - 07/30/19 16:18 Bacteria identification in wound by culture [id number] NRG FREE TEXT EXTERNAL SUSCEPTIBILITY REPORTED 08/02 1 3:35 NRG QUANTITY OF GROWTH Rare NRG Dirithromycin susceptibility test by dis k diffusion - 07/30/19 16:18 Vancomycin susceptibility test by minimum inhibitory c oncentration 1 NRG Ampicillin susceptibility test by minimum inhibitory c oncentration 1 NRG Linezolid susceptibility test by minimum inhibitory co ncentration <= NRG Daptomycin susc VICKIE 2 NRG Dirithromycin susceptibility test by dis k diffusion - 07/30/19 16:18 Gentamicin susceptibility test by minimum inhibitory c oncentration <= NRG Trimethoprim/sulfamethoxazole susceptibi lity test by minimum inhibitoryconcentration > NRG Levofloxacin susceptibility test by minimum inhibitory concentration <= NRG Ampicillin susceptibility test by minimum inhibitory c oncentration > NRG Cefazolin susceptibility test by minimum inhibitory co ncentration 4 NRG Ceftriaxone susceptibility test by minimum inhibitory concentration <= NRG Piperacillin/tazobactam susceptibility t est by minimum inhibitory concentration <= NRG Ciprofloxacin susceptibility test by minimum inhibitor y concentration 1 NRG Meropenem susceptibility test by minimum inhibitory co ncentration <= NRG Amoxicillin and clavulanate potassium susc VICKIE = NRG Imipenem susceptibility test by minimum inhibitory con centration <= NRG Complete blood count (CBC) with automate d white blood cell (WBC) differential - 07/31/19 02:50 Blood leukocytes automated count (number/volume) 17.4 10*3/uL 4.3-11.0 Blood erythrocytes automated count (number/volume) 3.29 10*6/uL 4.35-5.85 Venous blood hemoglobin measurement (mass/volume) 9.1 g/dL 11.5-16.0 Blood hematocrit (volume fraction) 29 % 35-52 Automated erythrocyte mean corpuscular volume 88 [ foz_us] 80-99 Automated erythrocyte mean corpuscular h emoglobin (mass per erythrocyte) 28 pg 25-34 Automated erythrocyte mean corpuscular h emoglobin concentration measurement (mass/volume) 31 g/dL 32-36 Automated erythrocyte distribution width ratio 20. 7 % 10.0- 14.5 Automated blood platelet count (count/volume) 617 10*3/uL 130-400 Automated blood platelet mean volume measurement 9.4 [foz_us] 7.4-10.4 Automated blood neutrophils/100 leukocytes 96 % 42-75 Automated blood lymphocytes/100 leukocytes 2 % 12-44 Blood monocytes/100 leukocytes 1 % 0-12 Automated blood eosinophils/100 leukocytes 0 % 0-10 Automated blood basophils/100 leukocytes 0 % 0-10 Blood neutrophils automated count (number/volume) 16.8 10*3 1.8-7.8 Blood lymphocytes automated count (number/volume) 0.4 10*3 1.0-4.0 Blood monocytes automated count (number/volume) 0. 2 10*3 0.0-1.0 Automated eosinophil count 0.0 10*3/uL 0 .0-0.3 Automated blood basophil count (count/volume) 0.0 10*3/uL 0.0-0.1 Whole blood basic metabolic panel - 11/0 05/11 02:50 Serum or plasma sodium measurement (moles/volume) 135 mmol/L 135-145 Serum or plasma potassium measurement (moles/volume) 4.4 mmol/L 3.6-5.0 Serum or plasma chloride measurement (moles/volume) 100 mmol/L 98-107 Carbon dioxide 24 mmol/L 21-32 Serum or plasma anion gap determination (moles/volume) 11 mmol/L 5-14 Serum or plasma urea nitrogen measurement (mass/volume ) 3 mg/dL 7-18 Serum or plasma creatinine measurement (mass/volume) 0.57 mg/dL 0.60-1.30 Serum or plasma urea nitrogen/creatinine mass ratio 5 NRG Serum or plasma creatinine measurement w ith calculation of estimated glomerular filtration rate > NRG Serum or plasma glucose measurement (mass/volume) 277 mg/dL 70-105 Serum or plasma calcium measurement (mass/volume) 8.3 mg/dL 8.5-10.1 Serum or plasma phosphate measurement (m ass/volume) - 07/31/19 02:50 Serum or plasma phosphate measurement (mass/volume) 3.6 mg/dL 2.3-4.7 Magnesium - 07/31/19 02:50 Magnesium 1.5 mg/dL 1.6-2.4 Manual absolute plasma cell count - 05/11 02:50 Blood monocytes/100 leukocytes 1 % NRG Manual blood segmented neutrophils/100 leukocytes 97 % NRG Manual blood lymphocytes/100 leukocytes 2 % NRG Capillary blood glucose measurement by g lucometer (mass/volume) - 07/31/19 11:46 Capillary blood glucose measurement by glucometer (mas s/volume) 250 mg/dL 70-110 Capillary blood glucose measurement by g lucometer (mass/volume) - 07/31/19 18:02 Capillary blood glucose measurement by glucometer (mas s/volume) 151 mg/dL 70-110 Capillary blood glucose measurement by g lucometer (mass/volume) - 07/31/19 23:13 Capillary blood glucose measurement by glucometer (mas s/volume) 134 mg/dL 70-110 Capillary blood glucose measurement by g lucometer (mass/volume) - 08/01/19 05:42 Capillary blood glucose measurement by glucometer (mas s/volume) 130 mg/dL 70-110 Complete blood count (CBC) with automate d white blood cell (WBC) differential - 08/01/19 05:54 Blood leukocytes automated count (number/volume) 11.9 10*3/uL 4.3-11.0 Blood erythrocytes automated count (number/volume) 2.83 10*6/uL 4.35-5.85 Venous blood hemoglobin measurement (mass/volume) 7.6 g/dL 11.5-16.0 Blood hematocrit (volume fraction) 25 % 35-52 Automated erythrocyte mean corpuscular volume 89 [ foz_us] 80-99 Automated erythrocyte mean corpuscular h emoglobin (mass per erythrocyte) 27 pg 25-34 Automated erythrocyte mean corpuscular h emoglobin concentration measurement (mass/volume) 30 g/dL 32-36 Automated erythrocyte distribution width ratio 21. 6 % 10.0- 14.5 Automated blood platelet count (count/volume) 597 10*3/uL 130-400 Automated blood platelet mean volume measurement 8.8 [foz_us] 7.4-10.4 Automated blood neutrophils/100 leukocytes 80 % 42-75 Automated blood lymphocytes/100 leukocytes 13 % 12-44 Blood monocytes/100 leukocytes 7 % 0-12 Automated blood eosinophils/100 leukocytes 0 % 0-10 Automated blood basophils/100 leukocytes 0 % 0-10 Blood neutrophils automated count (number/volume) 9.6 10*3 1.8-7.8 Blood lymphocytes automated count (number/volume) 1.6 10*3 1.0-4.0 Blood monocytes automated count (number/volume) 0. 8 10*3 0.0-1.0 Automated eosinophil count 0.0 10*3/uL 0 .0-0.3 Automated blood basophil count (count/volume) 0.0 10*3/uL 0.0-0.1 Whole blood basic metabolic panel - 06/11 05:54 Serum or plasma sodium measurement (moles/volume) 140 mmol/L 135-145 Serum or plasma potassium measurement (moles/volume) 3.7 mmol/L 3.6-5.0 Serum or plasma chloride measurement (moles/volume) 105 mmol/L 98-107 Carbon dioxide 24 mmol/L 21-32 Serum or plasma anion gap determination (moles/volume) 11 mmol/L 5-14 Serum or plasma urea nitrogen measurement (mass/volume ) 3 mg/dL 7-18 Serum or plasma creatinine measurement (mass/volume) 0.50 mg/dL 0.60-1.30 Serum or plasma urea nitrogen/creatinine mass ratio 6 NRG Serum or plasma creatinine measurement w ith calculation of estimated glomerular filtration rate > NRG Serum or plasma glucose measurement (mass/volume) 120 mg/dL 70-105 Serum or plasma calcium measurement (mass/volume) 8.1 mg/dL 8.5-10.1 Serum or plasma phosphate measurement (m ass/volume) - 08/01/19 05:54 Serum or plasma phosphate measurement (mass/volume) 2.3 mg/dL 2.3-4.7 Magnesium - 08/01/19 05:54 Magnesium 1.7 mg/dL 1.6-2.4 Capillary blood glucose measurement by g lucometer (mass/volume) - 08/01/19 12:15 Capillary blood glucose measurement by glucometer (mas s/volume) 123 mg/dL 70-110 Capillary blood glucose measurement by g lucometer (mass/volume) - 08/01/19 17:23 Capillary blood glucose measurement by glucometer (mas s/volume) 127 mg/dL 70-110 Capillary blood glucose measurement by g lucometer (mass/volume) - 08/02/19 00:20 Capillary blood glucose measurement by glucometer (mas s/volume) 120 mg/dL 70-110 Capillary blood glucose measurement by g lucometer (mass/volume) - 08/02/19 05:09 Capillary blood glucose measurement by glucometer (mas s/volume) 110 mg/dL 70-110 Complete blood count (CBC) with automate d white blood cell (WBC) differential - 08/02/19 05:28 Blood leukocytes automated count (number/volume) 9.2 10*3/uL 4.3-11.0 Blood erythrocytes automated count (number/volume) 2.58 10*6/uL 4.35-5.85 Venous blood hemoglobin measurement (mass/volume) 7.0 g/dL 11.5-16.0 Blood hematocrit (volume fraction) 23 % 35-52 Automated erythrocyte mean corpuscular volume 89 [ foz_us] 80-99 Automated erythrocyte mean corpuscular h emoglobin (mass per erythrocyte) 27 pg 25-34 Automated erythrocyte mean corpuscular h emoglobin concentration measurement (mass/volume) 30 g/dL 32-36 Automated erythrocyte distribution width ratio 20. 8 % 10.0- 14.5 Automated blood platelet count (count/volume) 507 10*3/uL 130-400 Automated blood platelet mean volume measurement 9.4 [foz_us] 7.4-10.4 Automated blood neutrophils/100 leukocytes 81 % 42-75 Automated blood lymphocytes/100 leukocytes 13 % 12-44 Blood monocytes/100 leukocytes 6 % 0-12 Automated blood eosinophils/100 leukocytes 0 % 0-10 Automated blood basophils/100 leukocytes 0 % 0-10 Blood neutrophils automated count (number/volume) 7.5 10*3 1.8-7.8 Blood lymphocytes automated count (number/volume) 1.2 10*3 1.0-4.0 Blood monocytes automated count (number/volume) 0. 6 10*3 0.0-1.0 Automated eosinophil count 0.0 10*3/uL 0 .0-0.3 Automated blood basophil count (count/volume) 0.0 10*3/uL 0.0-0.1 Whole blood basic metabolic panel - 07/24 05:28 Serum or plasma sodium measurement (moles/volume) 138 mmol/L 135-145 Serum or plasma potassium measurement (moles/volume) 3.3 mmol/L 3.6-5.0 Serum or plasma chloride measurement (moles/volume) 102 mmol/L 98-107 Carbon dioxide 25 mmol/L 21-32 Serum or plasma anion gap determination (moles/volume) 11 mmol/L 5-14 Serum or plasma urea nitrogen measurement (mass/volume ) < mg/dL 7-18 Serum or plasma creatinine measurement (mass/volume) 0.42 mg/dL 0.60-1.30 Serum or plasma urea nitrogen/creatinine mass ratio 5 NRG Serum or plasma creatinine measurement w ith calculation of estimated glomerular filtration rate > NRG Serum or plasma glucose measurement (mass/volume) 97 mg/dL 70-105 Serum or plasma calcium measurement (mass/volume) 7.8 mg/dL 8.5-10.1 Serum or plasma phosphate measurement (m ass/volume) - 08/02/19 05:28 Serum or plasma phosphate measurement (mass/volume) 2.6 mg/dL 2.3-4.7 Magnesium - 08/02/19 05:28 Magnesium 1.4 mg/dL 1.6-2.4 Capillary blood glucose measurement by g lucometer (mass/volume) - 08/02/19 11:35 Capillary blood glucose measurement by glucometer (mas s/volume) 100 mg/dL 70-110 Capillary blood glucose measurement by g lucometer (mass/volume) - 08/02/19 17:42 Capillary blood glucose measurement by glucometer (mas s/volume) 109 mg/dL 70-110 Capillary blood glucose measurement by g lucometer (mass/volume) - 08/02/19 23:56 Capillary blood glucose measurement by glucometer (mas s/volume) 95 mg/dL 70-110 Complete blood count (CBC) with automate d white blood cell (WBC) differential - 08/03/19 05:40 Blood leukocytes automated count (number/volume) 7.9 10*3/uL 4.3-11.0 Blood erythrocytes automated count (number/volume) 2.74 10*6/uL 4.35-5.85 Venous blood hemoglobin measurement (mass/volume) 7.3 g/dL 11.5-16.0 Blood hematocrit (volume fraction) 24 % 35-52 Automated erythrocyte mean corpuscular volume 89 [ foz_us] 80-99 Automated erythrocyte mean corpuscular h emoglobin (mass per erythrocyte) 27 pg 25-34 Automated erythrocyte mean corpuscular h emoglobin concentration measurement (mass/volume) 30 g/dL 32-36 Automated erythrocyte distribution width ratio 20. 9 % 10.0- 14.5 Automated blood platelet count (count/volume) 546 10*3/uL 130-400 Automated blood platelet mean volume measurement 8.4 [foz_us] 7.4-10.4 Automated blood neutrophils/100 leukocytes 82 % 42-75 Automated blood lymphocytes/100 leukocytes 12 % 12-44 Blood monocytes/100 leukocytes 6 % 0-12 Automated blood eosinophils/100 leukocytes 1 % 0-10 Automated blood basophils/100 leukocytes 0 % 0-10 Blood neutrophils automated count (number/volume) 6.4 10*3 1.8-7.8 Blood lymphocytes automated count (number/volume) 0.9 10*3 1.0-4.0 Blood monocytes automated count (number/volume) 0. 4 10*3 0.0-1.0 Automated eosinophil count 0.0 10*3/uL 0 .0-0.3 Automated blood basophil count (count/volume) 0.0 10*3/uL 0.0-0.1 Whole blood basic metabolic panel - 07/24 10/11 05:40 Serum or plasma sodium measurement (moles/volume) 137 mmol/L 135-145 Serum or plasma potassium measurement (moles/volume) 3.6 mmol/L 3.6-5.0 Serum or plasma chloride measurement (moles/volume) 103 mmol/L 98-107 Carbon dioxide 25 mmol/L 21-32 Serum or plasma anion gap determination (moles/volume) 9 mmol/L 5-14 Serum or plasma urea nitrogen measurement (mass/volume ) 3 mg/dL 7-18 Serum or plasma creatinine measurement (mass/volume) 0.45 mg/dL 0.60-1.30 Serum or plasma urea nitrogen/creatinine mass ratio 7 NRG Serum or plasma creatinine measurement w ith calculation of estimated glomerular filtration rate > NRG Serum or plasma glucose measurement (mass/volume) 74 mg/dL 70-105 Serum or plasma calcium measurement (mass/volume) 7.8 mg/dL 8.5-10.1 Serum or plasma phosphate measurement (m ass/volume) - 08/03/19 05:40 Serum or plasma phosphate measurement (mass/volume) 3.7 mg/dL 2.3-4.7 Magnesium - 08/03/19 05:40 Magnesium 1.5 mg/dL 1.6-2.4 Capillary blood glucose measurement by g lucometer (mass/volume) - 08/03/19 11:23 Capillary blood glucose measurement by glucometer (mas s/volume) 68 mg/dL 70-110 Capillary blood glucose measurement by g lucometer (mass/volume) - 08/03/19 12:21 Capillary blood glucose measurement by glucometer (mas s/volume) 67 mg/dL 70-110 Capillary blood glucose measurement by g lucometer (mass/volume) - 08/03/19 12:48 Capillary blood glucose measurement by glucometer (mas s/volume) 94 mg/dL 70-110 Capillary blood glucose measurement by g lucometer (mass/volume) - 08/03/19 15:45 Capillary blood glucose measurement by glucometer (mas s/volume) 125 mg/dL 70-110 CMP - 08/08/19 11:29 GLUCOSE 92 mg/dL 65-99 UREA NITROGEN (BUN) 5 mg/dL 7-25 CREATININE 0.32 mg/dL 0.50-0.99 eGFR NON-AFR. SUDANESE 120 mL/min/1.73m2 > OR = 60 eGFR 139 mL/min/1.73m2 > OR = 60 BUN/CREATININE RATIO 16 (calc) 6-22 SODIUM 137 mmol/L 135-146 POTASSIUM 3.4 mmol/L 3.5-5.3 CHLORIDE 99 mmol/L 98-110 CARBON DIOXIDE 30 mmol/L 20-32 CALCIUM 7.7 mg/dL 8.6-10.4 PROTEIN, TOTAL 5.0 g/dL 6.1-8.1 ALBUMIN 2.2 g/dL 3.6-5.1 GLOBULIN 2.8 g/dL (calc) 1.9-3.7 ALBUMIN/GLOBULIN RATIO 0.8 (calc) 1.0-2. 5 BILIRUBIN, TOTAL 0.4 mg/dL 0.2-1.2 ALKALINE PHOSPHATASE 162 U/L 33-130 AST 11 U/L 10-35 ALT 5 U/L 6-29 Complete blood count (CBC) with automate d white blood cell (WBC) differential - 08/11/19 17:34 Blood leukocytes automated count (number/volume) 5.2 10*3/uL 4.3-11.0 Blood erythrocytes automated count (number/volume) 4.24 10*6/uL 4.35-5.85 Venous blood hemoglobin measurement (mass/volume) 11.5 g/dL 11.5-16.0 Blood hematocrit (volume fraction) 37 % 35-52 Automated erythrocyte mean corpuscular volume 86 [ foz_us] 80-99 Automated erythrocyte mean corpuscular h emoglobin (mass per erythrocyte) 27 pg 25-34 Automated erythrocyte mean corpuscular h emoglobin concentration measurement (mass/volume) 31 g/dL 32-36 Automated erythrocyte distribution width ratio 20. 9 % 10.0- 14.5 Automated blood platelet count (count/volume) 536 10*3/uL 130-400 Automated blood platelet mean volume measurement 9.0 [foz_us] 7.4-10.4 Automated blood neutrophils/100 leukocytes 70 % 42-75 Automated blood lymphocytes/100 leukocytes 19 % 12-44 Blood monocytes/100 leukocytes 10 % 0-12 Automated blood eosinophils/100 leukocytes 1 % 0-10 Automated blood basophils/100 leukocytes 0 % 0-10 Blood neutrophils automated count (number/volume) 3.6 10*3 1.8-7.8 Blood lymphocytes automated count (number/volume) 1.0 10*3 1.0-4.0 Blood monocytes automated count (number/volume) 0. 5 10*3 0.0-1.0 Automated eosinophil count 0.0 10*3/uL 0 .0-0.3 Automated blood basophil count (count/volume) 0.0 10*3/uL 0.0-0.1 Comprehensive metabolic panel - 08/11/19 17:34 Serum or plasma sodium measurement (moles/volume) 139 mmol/L 135-145 Serum or plasma potassium measurement (moles/volume) 3.3 mmol/L 3.6-5.0 Serum or plasma chloride measurement (moles/volume) 102 mmol/L 98-107 Carbon dioxide 26 mmol/L 21-32 Serum or plasma anion gap determination (moles/volume) 11 mmol/L 5-14 Serum or plasma urea nitrogen measurement (mass/volume ) 6 mg/dL 7-18 Serum or plasma creatinine measurement (mass/volume) 0.62 mg/dL 0.60-1.30 Serum or plasma urea nitrogen/creatinine mass ratio 10 NRG Serum or plasma creatinine measurement w ith calculation of estimated glomerular filtration rate > NRG Serum or plasma glucose measurement (mass/volume) 119 mg/dL 70-105 Serum or plasma calcium measurement (mass/volume) 7.8 mg/dL 8.5-10.1 Serum or plasma total bilirubin measurement (mass/volu me) 0.2 mg/dL 0.1-1.0 Serum or plasma alkaline phosphatase dominic surement (enzymatic activity/volume) 197 U/L 40-136 Serum or plasma aspartate aminotransfera se measurement (enzymatic activity/volume) 21 U/L 5-34 Serum or plasma alanine aminotransferase measurement (enzymatic activity/volume) 9 U/L 0-55 Serum or plasma protein measurement (mass/volume) 5.6 g/dL 6.4-8.2 Serum or plasma albumin measurement (mass/volume) 2.4 g/dL 3.2-4.5 CALCIUM CORRECTED 9.1 mg/dL 8.5-10.1 Lipase - 08/11/19 17:34 Lipase 13 U/L 8-78 PT panel in platelet poor plasma by coag ulation assay - 08/11/19 17:34 Prothrombin time (PT) in platelet poor plasma by coagu lation assay 13.2 s 12.2-14.7 INR in platelet poor plasma or blood by coagulation as say 1.0 0.8-1.4 C DIFFICILE AG + TOXIN A/B. - 08/11/19 2 3:30 RESULTS NEGATIVE FOR ANTIGEN AND TOXIN A/B NRG OCCULT BLOOD STOOL - 08/12/19 00:00 Stool gastrointestinal hemoglobin detection POSITI VE NEGATIVE Complete blood count (CBC) with automate d white blood cell (WBC) differential - 08/12/19 04:40 Blood leukocytes automated count (number/volume) 5.5 10*3/uL 4.3-11.0 Blood erythrocytes automated count (number/volume) 2.40 10*6/uL 4.35-5.85 Venous blood hemoglobin measurement (mass/volume) 6.5 g/dL 11.5-16.0 Blood hematocrit (volume fraction) 21 % 35-52 Automated erythrocyte mean corpuscular volume 88 [ foz_us] 80-99 Automated erythrocyte mean corpuscular h emoglobin (mass per erythrocyte) 27 pg 25-34 Automated erythrocyte mean corpuscular h emoglobin concentration measurement (mass/volume) 31 g/dL 32-36 Automated erythrocyte distribution width ratio 20. 4 % 10.0- 14.5 Automated blood platelet count (count/volume) 603 10*3/uL 130-400 Automated blood platelet mean volume measurement 9.1 [foz_us] 7.4-10.4 Automated blood neutrophils/100 leukocytes 55 % 42-75 Automated blood lymphocytes/100 leukocytes 29 % 12-44 Blood monocytes/100 leukocytes 13 % 0-12 Automated blood eosinophils/100 leukocytes 2 % 0-10 Automated blood basophils/100 leukocytes 1 % 0-10 Blood neutrophils automated count (number/volume) 3.0 10*3 1.8-7.8 Blood lymphocytes automated count (number/volume) 1.6 10*3 1.0-4.0 Blood monocytes automated count (number/volume) 0. 7 10*3 0.0-1.0 Automated eosinophil count 0.1 10*3/uL 0 .0-0.3 Automated blood basophil count (count/volume) 0.0 10*3/uL 0.0-0.1 Comprehensive metabolic panel - 08/12/19 04:40 Serum or plasma sodium measurement (moles/volume) 140 mmol/L 135-145 Serum or plasma potassium measurement (moles/volume) 3.2 mmol/L 3.6-5.0 Serum or plasma chloride measurement (moles/volume) 105 mmol/L 98-107 Carbon dioxide 27 mmol/L 21-32 Serum or plasma anion gap determination (moles/volume) 8 mmol/L 5-14 Serum or plasma urea nitrogen measurement (mass/volume ) 4 mg/dL 7-18 Serum or plasma creatinine measurement (mass/volume) 0.46 mg/dL 0.60-1.30 Serum or plasma urea nitrogen/creatinine mass ratio 9 NRG Serum or plasma creatinine measurement w ith calculation of estimated glomerular filtration rate > NRG Serum or plasma glucose measurement (mass/volume) 81 mg/dL 70-105 Serum or plasma calcium measurement (mass/volume) 7.5 mg/dL 8.5-10.1 Serum or plasma total bilirubin measurement (mass/volu me) 0.3 mg/dL 0.1-1.0 Serum or plasma alkaline phosphatase dominic surement (enzymatic activity/volume) 149 U/L 40-136 Serum or plasma aspartate aminotransfera se measurement (enzymatic activity/volume) 20 U/L 5-34 Serum or plasma alanine aminotransferase measurement (enzymatic activity/volume) 7 U/L 0-55 Serum or plasma protein measurement (mass/volume) 4.7 g/dL 6.4-8.2 Serum or plasma albumin measurement (mass/volume) 2.1 g/dL 3.2-4.5 CALCIUM CORRECTED 9.0 mg/dL 8.5-10.1 [facility] - 08/12/19 05:55 Venous blood hemoglobin measurement (mass/volume) 6.4 g/dL 11.5-16.0 Blood hematocrit (volume fraction) 21 % 35-52 RED CELLS LEUKO REDUCED AS1 - 08/12/19 0 6:40 RED CELLS LEUKO REDUCED AS1 T RANSFUSED 08/12/19 1235 NRG Blood type T Indirect antibody screen [facility] 08/12/19 06:40 WRISTBAND NUMBER [id number] NRG ABO+Rh group OP NRG Blood group antibody screen NEGATIVE NR G Bacteria identification in isolate by an aerobe culture - 08/12/19 14:06 Bacteria identification in isolate by anaerobe culture NOANA NRG Gram stain microscopy - 08/12/19 14:06 Gram stain microscopy MODERATE YEAST NR G Bacteria identification in wound by cult ure - 08/12/19 14:06 Bacteria identification in wound by culture [id number] NRG QUANTITY OF GROWTH Moderate Growth NRG Bacteria identification in isolate by an aerobe culture - 08/12/19 14:08 Bacteria identification in isolate by anaerobe culture NOANA NRG Gram stain microscopy - 08/12/19 14:08 Gram stain microscopy RARE YEAST NRG Bacteria identification in wound by cult ure - 08/12/19 14:08 Bacteria identification in wound by culture [id number] NRG QUANTITY OF GROWTH FEW NRG Complete blood count (CBC) with automate d white blood cell (WBC) differential - 08/13/19 05:10 Blood leukocytes automated count (number/volume) 6.1 10*3/uL 4.3-11.0 Blood erythrocytes automated count (number/volume) 3.57 10*6/uL 4.35-5.85 Venous blood hemoglobin measurement (mass/volume) 9.8 g/dL 11.5-16.0 Blood hematocrit (volume fraction) 31 % 35-52 Automated erythrocyte mean corpuscular volume 86 [ foz_us] 80-99 Automated erythrocyte mean corpuscular h emoglobin (mass per erythrocyte) 27 pg 25-34 Automated erythrocyte mean corpuscular h emoglobin concentration measurement (mass/volume) 32 g/dL 32-36 Automated erythrocyte distribution width ratio 18. 7 % 10.0- 14.5 Automated blood platelet count (count/volume) 559 10*3/uL 130-400 Automated blood platelet mean volume measurement 9.2 [foz_us] 7.4-10.4 Automated blood neutrophils/100 leukocytes 65 % 42-75 Automated blood lymphocytes/100 leukocytes 24 % 12-44 Blood monocytes/100 leukocytes 10 % 0-12 Automated blood eosinophils/100 leukocytes 2 % 0-10 Automated blood basophils/100 leukocytes 1 % 0-10 Blood neutrophils automated count (number/volume) 4.0 10*3 1.8-7.8 Blood lymphocytes automated count (number/volume) 1.4 10*3 1.0-4.0 Blood monocytes automated count (number/volume) 0. 6 10*3 0.0-1.0 Automated eosinophil count 0.1 10*3/uL 0 .0-0.3 Automated blood basophil count (count/volume) 0.0 10*3/uL 0.0-0.1 Comprehensive metabolic panel - 08/13/19 05:10 Serum or plasma sodium measurement (moles/volume) 137 mmol/L 135-145 Serum or plasma potassium measurement (moles/volume) 3.8 mmol/L 3.6-5.0 Serum or plasma chloride measurement (moles/volume) 103 mmol/L 98-107 Carbon dioxide 22 mmol/L 21-32 Serum or plasma anion gap determination (moles/volume) 12 mmol/L 5-14 Serum or plasma urea nitrogen measurement (mass/volume ) 6 mg/dL 7-18 Serum or plasma creatinine measurement (mass/volume) 0.53 mg/dL 0.60-1.30 Serum or plasma urea nitrogen/creatinine mass ratio 11 NRG Serum or plasma creatinine measurement w ith calculation of estimated glomerular filtration rate > NRG Serum or plasma glucose measurement (mass/volume) 59 mg/dL 70-105 Serum or plasma calcium measurement (mass/volume) 7.6 mg/dL 8.5-10.1 Serum or plasma total bilirubin measurement (mass/volu me) 0.4 mg/dL 0.1-1.0 Serum or plasma alkaline phosphatase dominic surement (enzymatic activity/volume) 192 U/L 40-136 Serum or plasma aspartate aminotransfera se measurement (enzymatic activity/volume) 20 U/L 5-34 Serum or plasma alanine aminotransferase measurement (enzymatic activity/volume) 10 U/L 0-55 Serum or plasma protein measurement (mass/volume) 4.8 g/dL 6.4-8.2 Serum or plasma albumin measurement (mass/volume) 2.1 g/dL 3.2-4.5 CALCIUM CORRECTED 9.1 mg/dL 8.5-10.1 Capillary blood glucose measurement by g lucometer (mass/volume) - 08/13/19 06:33 Capillary blood glucose measurement by glucometer (mas s/volume) 67 mg/dL 70-110 Serum or plasma folate measurement (mass /volume) - 08/13/19 15:10 Serum or plasma folate measurement (mass/volume) 6 .9 % >=4.0 Serum iron and total iron binding capaci ty panel - 08/13/19 15:10 TIBC 119 % 280-380 UIBC 109 % 55-450 Serum or plasma iron measurement (mass/volume) 10 % 35-180 Total iron binding capacity and transferrin saturation measurement 8 % 15-50 Serum or plasma ferritin measurement (mass/volume) 180.3 % 20.0-177.0 VITAMIN B 12 - 08/13/19 15:10 VITAMIN B 12 416 pg/mL 190-1100 Automated blood complete blood count (he mogram) panel - 08/14/19 04:35 Blood leukocytes automated count (number/volume) 5.5 10*3/uL 4.3-11.0 Blood erythrocytes automated count (number/volume) 3.54 10*6/uL 4.35-5.85 Venous blood hemoglobin measurement (mass/volume) 9.7 g/dL 11.5-16.0 Blood hematocrit (volume fraction) 31 % 35-52 Automated erythrocyte mean corpuscular volume 86 [ foz_us] 80-99 Automated erythrocyte mean corpuscular h emoglobin (mass per erythrocyte) 27 pg 25-34 Automated erythrocyte mean corpuscular h emoglobin concentration measurement (mass/volume) 32 g/dL 32-36 Automated erythrocyte distribution width ratio 18. 7 % 10.0- 14.5 Automated blood platelet count (count/volume) 582 10*3/uL 130-400 Automated blood platelet mean volume measurement 9.1 [foz_us] 7.4-10.4 Whole blood basic metabolic panel - 07/25 11/11 04:35 Serum or plasma sodium measurement (moles/volume) 139 mmol/L 135-145 Serum or plasma potassium measurement (moles/volume) 3.5 mmol/L 3.6-5.0 Serum or plasma chloride measurement (moles/volume) 105 mmol/L 98-107 Carbon dioxide 27 mmol/L 21-32 Serum or plasma anion gap determination (moles/volume) 7 mmol/L 5-14 Serum or plasma urea nitrogen measurement (mass/volume ) 4 mg/dL 7-18 Serum or plasma creatinine measurement (mass/volume) 0.44 mg/dL 0.60-1.30 Serum or plasma urea nitrogen/creatinine mass ratio 9 NRG Serum or plasma creatinine measurement w ith calculation of estimated glomerular filtration rate > NRG Serum or plasma glucose measurement (mass/volume) 85 mg/dL 70-105 Serum or plasma calcium measurement (mass/volume) 7.6 mg/dL 8.5-10.1 Methicillin resistant Staphylococcus aur eus (MRSA) screening culture - 09/10/19 07:55 Methicillin resistant Staphylococcus aureus (MRSA) scr eening culture NEG NRG Encounters ACCT No. Visit Date/Time Discharge Status Pt. Type Provider Facility Loc./Unit Complaint [id number] 08/08/2019 11:00:00 08/08/2019 23:59: 59 C[facility] [id number] 08/08/2019 11:00:00 Document Registration [id number] 07/02/2019 11:00:00 Document Registration [id number] 09/10/2019 07:16:00 11:45:00 DIS Outpatient JULIANNE MENDOZA DO [facility] ADENOCARCINOMA OF COLON [id number] 09/03/2019 10:00:00 23:59:59 CLS Outpatient ARIELA KAM, IRVIN [facility] ONC [id number] 08/11/2019 20:44:00 17:04:00 DIS Inpatient JULIANNE MENDOZA DO [facility] 4TH POST OP FLUID COLLECTIO N, DIARRHEA [id number] 07/28/2019 23:10:00 17:20:00 DIS Inpatient JOE GARCIA MD [facility] 4TH COLONIC FISTULA ABSCE SS [id number] 07/20/2019 13:40:00 23:59:59 CLS Outpatient JULIANNE MENDOZA DO [facility] RAD PERITONEAL ABSCESS [id number] 07/06/2019 09:12:00 13:32:00 DIS Outpatient JULIANNE MENDOZA DO [facility] SDC ABDOMINAL ABSCESS [id number] 07/03/2019 08:23:00 23:59:59 CLS Outpatient TY NASCIMENTO [facility] RAD VOMITING,DIARRHEA
== END 2019-08-17 17:04 | disposition home or self-care (01) | DRG 372 ==
LOC: EDUNIT# 17:06 → ER 17:08 → OBSVTOIN 20:44 → INTOOBSV 20:44 → 4TH 20:44 → UNDOADMOB 20:44 → UNDODISIN 08-17 17:04
PROVIDERS: ADMIT Surgery; ATTEND Surgery
PROC: 0W9G30Z Drainage of Peritoneal Cavity with Drainage Device, Percutaneous Approach (ICD-10-PCS; principal; 2019-08-12)
PROC: 0W9J30Z Drainage of Pelvic Cavity with Drainage Device, Percutaneous Approach (ICD-10-PCS; 2019-08-12)
DX: K65.1 Peritoneal abscess (principal); C18.9 Malignant neoplasm of colon, unspecified; C77.2 Secondary and unspecified malignant neoplasm of intra-abdominal lymph nodes; R64 Cachexia; D64.9 Anemia, unspecified; I25.10 Atherosclerotic heart disease of native coronary artery without angina pectoris; I25.2 Old myocardial infarction; I10 Essential (primary) hypertension; R19.7 Diarrhea, unspecified; E87.6 Hypokalemia; F17.210 Nicotine dependence, cigarettes, uncomplicated; E78.5 Hyperlipidemia, unspecified; Z90.49 Acquired absence of other specified parts of digestive tract; Z95.5 Presence of coronary angioplasty implant and graft
CPT/HCPCS: 36415; 74177; 77012; 80048; 80053; 82274; 82607; 82728; 82746; 82962; 83540; 83690; 85014; 85018; 85025; 85027; 85610; 86850; 86900; 86901; 86920; 87070; 87075; 87205; 87324; 87449; 93005; 96361; 96365; 96375; 96376; 99156

== ENCOUNTER 2019-09-10 07:16 | Day surgery (SDC) | payer OTHER ==
[2019-09-10] VITALS (8 sets, daily range): BP systolic 101–140; BP diastolic 58–89
[~2019-09-10] VITALS: Ht 150 cm; Wt 38.6 kg
[~2019-09-10 07:16] MED LIST changes: +AMOX-355 PO; +ASPI-999 PO; +FLUC100T PO; +FURO20TA4 PO; +ONDA4TAB10 PO; +PANT40TA2 PO
--- NOTE | 2019-09-10 07:43 | Progress Note-Pre Operative ---
Pre-Operative Progress Note H&P Reviewed The H&P was reviewed, patient examined and no changes noted. Date Seen by Provider: Sep 10, 2019 Time Seen by Provider: 07:42 Date H&P Reviewed: Sep 10, 2019 Time H&P Reviewed: 07:43 Pre-Operative Diagnosis: colon cancer JULIANNE MENDOZA DO Sep 10, 2019 07:43
[2019-09-10] MEDS ORDERED: HEParin (CENTRAL IV FLUSH) 500 UNIT/5 ML SYR ONE (07:47)
[2019-09-10] MEDS ORDERED: BUP/EPI 0.5% 1:200,000 (SENSORCAINE) 30 ML VIAL ONE (07:47)
[2019-09-10] MEDS ORDERED: 0.9% SODIUM CHLORIDE PF INJ 20 ML VIAL ONE (07:47)
[2019-09-10] MEDS ORDERED: fentaNYL INJECTION 100 MCG/2 ML AMP ONE (07:49)
[2019-09-10] MEDS ORDERED: ONDANSETRON 4 MG/2 ML (SDV) Z0FRAN ONE (07:49)
[2019-09-10] MEDS ORDERED: PROPOFOL INJECTION 50 ML IV ONE (07:49)
[2019-09-10] MEDS ORDERED: DEXAMETHASONE 10 MG/ML (DECADRON) 1 ML VIAL ONE (07:49)
[2019-09-10] MEDS ORDERED: MIDAZOLAM 2 MG/2 ML (VERSED) VIAL ONE (07:49)
[2019-09-10] MEDS ORDERED: HYDR-3812 PO (07:56)
[2019-09-10] MEDS ORDERED: LACTATED RINGERS 1,000 ML IV PRN (07:56)
[2019-09-10] MEDS ORDERED: fluoxetine PO (07:56)
[2019-09-10] MEDS ORDERED: ceFAZolin INJECTION 1,000 MG in WATER (STERILE) FOR INJECTION 10 ML IV ONE (08:15)
[2019-09-10] MEDS ORDERED: PHENYLEPHRINE 100 MCG/ML 10 ML (ANESTHESIA) SYR ONE (09:59)
--- NOTE | 2019-09-10 10:21 | Anesthesia-General Post-Op ---
MAC Patient Condition Mental Status/LOC: Same as Preop Cardiovascular: Satisfactory Nausea/Vomiting: Absent Respiratory: Satisfactory Pain: Controlled Complications: Absent Post Op Complications Complications None Follow Up Care/Instructions Patient Instructions None needed. Anesthesiology Discharge Order Discharge Order Patient is doing well, no complaints, stable vital signs, no apparent adverse anesthesia problems. No complications reported per nursing. DAMON BARBOSA CRNA Sep 10, 2019 10:21
--- NOTE | 2019-09-10 10:30 | Discharge Inst-Simple/Standard ---
Discharge Inst-Standard Patient Instructions/Follow Up Plan of Care/Instructions/FU: 2 weeks Adrian Ice pack on 15 min off 30 min to decrease swelling for next 48 hrs and decrease discomfort. Activity as Tolerated: No Discharge Diet: Regular Diet Other Inst to Patient Follow up Appt: Make appointment for 2 week. Instructions: No lifting greater than 10 pounds. No strenuous activity. May shower in 24 hours, no tub bath or soaking. Use incentive spirometer at home as directed. No Smoking Skin/Wound Care: May remove bandages in 24 hours, you have special glue it will fall off on its own. Symptoms to Report: Appetite Changes, Extremity Discoloration, Numbness/Tingling, Swelling Increased, Bleeding Excessive, Eyesight Changes, Pain Increased, Urine Color Change, Constipation(Persistent), Fever over 101 degree F, Pain/Pressure in chest, Urinating Difficulty, Cough Up/Vomit Blood, Heart Beat Irreg/Pounding, Pain/Pressure in jaw, Vaginal Bleeding Increase, Cramps in feet or legs, Lightheadedness, Pain/Pressure in shoulder, Diarrhea(Persistent), Memory Changes Suddenly, Questions/Concerns, Weight gain consecutive days, Dizziness/Fainting, Nausea/Vomiting, Shortness of Breath, Weight gain over 2 pounds If questions or concerns contact your physician Or seek help at emergency department. JULIANNE MENDOZA DO Sep 10, 2019 10:30
--- NOTE | 2019-09-10 10:38 | Diagnostic Imaging Report ---
INDICATION: Groshong catheter placement. FINDINGS: Right IJ Groshong catheter tip projects over the SVC. Heart size and pulmonary vascularity are normal. Lungs are clear. There are no effusions or pneumothoraces. IMPRESSION: No acute abnormalities in the chest. Dictated by: Dictated on workstation # [id number]
[2019-09-10] MEDS ORDERED: HYDROcodone/APAP 5 MG/325 MG (LORTAB) TAB PO ONE (11:15)
--- NOTE | 2019-09-10 12:32 | Diagnostic Imaging Report ---
INDICATION: Fluoroscopy for port placement. Fluoroscopy was provided in OR during a right chest wall port placement. 23 seconds of fluoroscopic time was utilized. Images of the right chest show a port with tip overlying the SVC. IMPRESSION: Fluoroscopy for port placement. Dictated by: Dictated on workstation # [id number]
--- NOTE | 2019-09-10 23:49 | OPERATIVE REPORT ---
DATE OF SERVICE: 09/10/2019 PREOPERATIVE DIAGNOSIS: Colon cancer. POSTOPERATIVE DIAGNOSIS: Colon cancer. PROCEDURE: Right internal jugular vein ultrasound-guided port placement. SURGEON: Julianne Campbell DO ANESTHESIA: MAC with local. ESTIMATED BLOOD LOSS: Minimal. COMPLICATIONS: None. INDICATIONS: The patient is a 64-year-old female with recent diagnosis of colon cancer. She is going to undergo chemotherapy. She understands risks and benefits of procedure and wished to proceed with procedure. Consent was signed in the chart. DESCRIPTION OF PROCEDURE: The patient was taken to the operating suite, prepped and draped in sterile fashion. Timeout was performed. Under ultrasound, local anesthetic was infiltrated in the right neck just above the internal jugular vein. Micro access needle was inserted and accessed the right internal jugular vein. Dark nonpulsatile blood was withdrawn. The micro access wire was inserted and fluoroscopy assured proper placement. The dilator was then advanced over the guidewire and the wire was removed. The regular guidewire was inserted and fluoroscopy showed proper placement of the guidewire. The sheath was then removed. The wire was then secured. A pocket was created on the right chest after injecting local anesthetic. Once the pocket was created, a dilator sheath was then advanced over the guidewire under fluoroscopy and the dilator and the wire were removed and the Groshong catheter was inserted through the sheath and the sheath was then removed. The catheter was then tunneled from the insertion point down to the pocket that was created on the right chest. This was then cut to length using fluoroscopy and the port was attached to it. The port was then accessed, which then swati blood and flushed without difficulty, first with saline and then with heparin. The subcutaneous tissues were then reapproximated using 3-0 Vicryl in a subcutaneous fashion. The areas were then washed and dried and Skin Affix was placed over the incisions. The patient tolerated the procedure well without any complications. She was taken to recovery room in stable condition. Chest x-ray pending. Job ID: [id number] DocumentID: [id number] Dictated Date: 09/10/2019 15:29:07 Senior Portfolio Manager Date: 09/10/2019 23:47:45 Dictated By: JULIANNE CAMPBELL DO
== END 2019-09-10 11:45 | disposition home or self-care (01) ==
LOC: SDC 07:16
PROVIDERS: ATTEND Surgery
DX: C18.9 Malignant neoplasm of colon, unspecified (principal); I10 Essential (primary) hypertension; I25.10 Atherosclerotic heart disease of native coronary artery without angina pectoris; E78.5 Hyperlipidemia, unspecified; J44.9 Chronic obstructive pulmonary disease, unspecified; F17.210 Nicotine dependence, cigarettes, uncomplicated; Z88.5 Allergy status to narcotic agent; Z95.1 Presence of aortocoronary bypass graft; Z90.710 Acquired absence of both cervix and uterus; Z79.02 Long term (current) use of antithrombotics/antiplatelets; Z79.899 Other long term (current) drug therapy; Z79.82 Long term (current) use of aspirin; Z82.49 Family history of ischemic heart disease and other diseases of the circulatory system
CPT/HCPCS: 71045; 87081

== ENCOUNTER → 2019-10-06 | Outpatient (CLI) | payer MEDICAID, OTHER ==
[~2019-10-06] MED LIST changes: +BARIUM SUSPENSION 2.1% (VANILLA SILQ) 450 ML PO ONE; +CATHETER FLUSH 10 ML SYR IV PRN; +HOLD METFORMIN - RECEIVED CONTRAST 20 ML VIAL IV SCH; +HYDR-3812 PO; +IOHEXOL 350 MG/ML 100 ML (OMNIPAQUE 350) VIAL IV ONE; +NS 100 ML (IVPB) BAG IV ONE; +fluoxetine PO
--- NOTE | 2019-10-06 13:40 | Diagnostic Imaging Report ---
PROCEDURE: CT chest and abdomen with contrast. TECHNIQUE: Multiple contiguous axial images were obtained through the chest and abdomen after the administration of intravenous contrast. Auto Exposure Controls were utilized during the CT exam to meet ALARA standards for radiation dose reduction. INDICATION: Colon carcinoma. COMPARISON: Comparison is made with prior CT abdomen study from 08/11/2019. No prior CT chest study is available for comparison. FINDINGS: CT chest: A right chest wall port is noted. No axillary lymphadenopathy is detected. No definite mediastinal or hilar lymphadenopathy is detected. No pericardial or pleural fluid is detected. Severe emphysematous changes are identified in both lungs. No parenchymal mass or infiltrate is detected. IMPRESSION: Severe emphysematous changes. No thoracic lymphadenopathy or evidence of pulmonary metastatic disease is identified. CT abdomen: Several low-density masses have developed throughout the left and right lobes of the liver, consistent with hepatic metastatic disease. The largest is in the right lobe measuring approximately 18 mm. These were not seen on prior exam. Gallbladder is unremarkable. No biliary ductal dilatation is seen. The pancreas and spleen are unremarkable. No adrenal mass is detected. Kidneys are unremarkable. Aorta is heavily calcified but nonaneurysmal. Bowel loops are normal in caliber. No obstruction is seen. No free fluid or fluid collection is detected. There does appear to be some significant gastric wall thickening in the region of the antrum, indeterminate. Small nodule just lateral to the left kidney is noted measuring 7 mm. This could represent a small lymph node. There are some soft tissue densities in the left periaortic location which may represent lymphadenopathy. Aortocaval soft tissue prominence is also noted. Bony structures are nonacute. IMPRESSION: 1. Development of multiple hepatic low densities, consistent with hepatic metastatic disease. There appear to be some enlarged lymph nodes in the central retroperitoneum, suspicious for metastatic disease. 2. Gastric wall thickening in the region of the antrum. Endoscopy may be useful for further evaluation. Dictated by: Dictated on workstation # [id number]
== END ==
LOC: RAD 10:11
PROVIDERS: ATTEND Internal Medicine Hematology & Oncology
DX: C18.9 Malignant neoplasm of colon, unspecified (principal); C77.2 Secondary and unspecified malignant neoplasm of intra-abdominal lymph nodes; K76.89 Other specified diseases of liver; K31.89 Other diseases of stomach and duodenum
CPT/HCPCS: 71260; 74160

== ENCOUNTER 2019-10-21 09:30 | Outpatient (CLI) | payer MEDICAID ==
[~2019-10-21] VITALS: Ht 154 cm; Wt 38.6 kg
[2019-10-21] VITALS (11 sets, daily range): BP systolic 95–123; BP diastolic 52–83
[~2019-10-21 09:30] MED LIST changes: -BARIUM SUSPENSION 2.1% (VANILLA SILQ) 450 ML PO ONE; -CATHETER FLUSH 10 ML SYR IV PRN; -HOLD METFORMIN - RECEIVED CONTRAST 20 ML VIAL IV SCH; -IOHEXOL 350 MG/ML 100 ML (OMNIPAQUE 350) VIAL IV ONE; -NS 100 ML (IVPB) BAG IV ONE
[2019-10-21] MEDS ORDERED: NS IV 1000 ML 1,000 ML IV STA (09:32)
[2019-10-21] MEDS ORDERED: MIDAZOLAM 2 MG/2 ML (VERSED) VIAL IVP ONE (09:45)
[2019-10-21] MEDS ORDERED: fentaNYL INJECTION 100 MCG/2 ML AMP IVP ONE (09:45)
[2019-10-21] MEDS ORDERED: LIDOCAINE 1% INJ 20 ML 20 ML VIAL INJ ONE (09:45)
[2019-10-21 10:00] LABS: HEMOGLOBIN 12.2 G/DL (11.5-16.0); MEAN PLATELET VOLUME 9.6 FL (7.4-10.4); RED CELL DISTRIBUTION WIDTH 15.2 % (10.0-14.5); WHITE BLOOD COUNT 5.9 10^3/uL (4.3-11.0)
[2019-10-21 10:18] LABS: PROTHROMBIN TIME PATIENT 13.2 SEC (12.2-14.7)
[2019-10-21] MEDS ORDERED: HYDROcodone/APAP 5 MG/325 MG (LORTAB) TAB PO PRN (12:30)
--- NOTE | 2019-10-21 12:49 | Pre-Op Note & Conscious Sedat ---
Pre-Operative Progress Note H&P Reviewed The H&P was reviewed, patient examined and no changes noted. Date H&P Reviewed: Oct 21, 2019 Time H&P Reviewed: 09:00 Pre-Op Diagnosis: Liver lesions Conscious Sedation Pre-Proced Time 09:00 ASA Score 2 For ASA 3 and 4: Consider anesthesia and medical clearance. Also, for patients with a history of failed moderate sedation consider anesthesia. Airway Lungs Heart ASA score ASA 1: a normal healthy patient ASA 2: a patient with a mild systemic disease (mid diabetes, controlled hypertension, obesity ASA 3: a patient with a severe systemic disease that limits activity (angina, COPD, prior Myocardial infarction) ASA 4: a patient with an incapacitating disease that is a constant threat to life (CHF, renal failure) ASA 5: a moribund patient not expected to survive 24 hrs. (ruptured aneurysm) ASA 6: a declared brain- patient whose organs are being harvested. For emergent operations, add the letter E after the classification Mallampati Classification Grade 2 Sedation Plan Analgesia, Amnesia, Plan communicated to team members, Discussed options with patient/fam, Discussed risks with patient/fam The patient is an appropriate candidate to undergo the planned procedure, sedation, and anesthesia. The patient immediately re-assessed prior to indication. RAMYA NO MD Oct 21, 2019 12:49
--- NOTE | 2019-10-21 12:54 | Diagnostic Imaging Report ---
INDICATION: Liver lesions. Patient presents for biopsy. TECHNIQUE: All CT scans use one or more of the following dose optimizing techniques: automated exposure control, MA and/or KvP adjustment based on a patient size and exam type, or iterative reconstruction. FINDINGS: Patient was brought to the CT suite, placed on table in the supine position. Axial imaging through the abdomen was performed to evaluate appropriate entry site. The right abdomen was prepped and draped in the usual sterile fashion. The procedure was performed utilizing conscious sedation with radiology nursing and constant patient monitoring. Patient was administered a total of 0.5 mg of Versed intravenously and 50 mcg of fentanyl intravenously. Total procedure time was 10 minutes. A small amount of 1% lidocaine was utilized for local anesthesia. 18-gauge coaxial Temno needle was advanced into the right lobe of the liver and placed with the tip adjacent to a low-density lesion in the right lobe inferiorly. A total of five core biopsies were obtained. These will be sent to pathology. Needle was withdrawn during the injection of a blood patch. Follow-up imaging shows no complicating features. Patient tolerated the procedure well. IMPRESSION: CT-guided right liver lesion biopsy, utilizing conscious sedation. Pathology results and culture are currently pending. Dictated by: Dictated on workstation # [id number]
--- NOTE | 2019-10-21 14:15 | NUR ---
NO SIGNS OF BLEEDING. VSS. DISCHARGE INSTRUCTIONS WENT OVER WITH THE PATIENT.
== END 2019-10-21 14:30 | disposition home or self-care (01) ==
LOC: SDC 09:30
PROVIDERS: ATTEND Internal Medicine Hematology & Oncology
DX: K76.9 Liver disease, unspecified (principal); C18.9 Malignant neoplasm of colon, unspecified; C77.2 Secondary and unspecified malignant neoplasm of intra-abdominal lymph nodes
CPT/HCPCS: 36415; 77012; 85027; 85610; 85730; 87070; 87075; 87101; 87205; 99156

== ENCOUNTER 2019-11-24 08:33 | Outpatient (RCR) | payer MEDICAID, OTHER ==
[2019-09-03 10:32] LABS: BASOPHILS % (AUTO) 0 % (0-10); EOSINOPHILS # (AUTO) 0.1 10^3/uL (0.0-0.3); EOSINOPHILS % (AUTO) 1 % (0-10); HEMATOCRIT 42 % (35-52); HEMOGLOBIN 12.9 G/DL (11.5-16.0); LYMPHOCYTES # (AUTO) 1.7 X 10^3 (1.0-4.0); LYMPHOCYTES % (AUTO) 24 % (12-44); MEAN CORPUSCULAR HEMOGLOBIN 29 PG (25-34); MEAN CORPUSCULAR HGB CONC 31 G/DL (32-36); MEAN CORPUSCULAR VOLUME 92 FL (80-99); MEAN PLATELET VOLUME 9.5 FL (7.4-10.4); MONOCYTES # (AUTO) 0.5 X 10^3 (0.0-1.0); MONOCYTES % (AUTO) 8 % (0-12); NEUTROPHILS # (AUTO) 4.7 X 10^3 (1.8-7.8); NEUTROPHILS % (AUTO) 67 % (42-75); PLATELET COUNT 410 10^3/uL (130-400); RED CELL DISTRIBUTION WIDTH 18.6 % (10.0-14.5)
[2019-09-03 10:49] LABS: ALANINE AMINOTRANSFERASE 16 U/L (0-55); ALBUMIN 3.4 GM/DL (3.2-4.5); ALKALINE PHOSPHATASE 341 U/L (40-136); BILIRUBIN,TOTAL 0.3 MG/DL (0.1-1.0); BUN/CREATININE RATIO 10; CALCIUM 9.3 MG/DL (8.5-10.1); CARBON DIOXIDE 24 MMOL/L (21-32); CHLORIDE 102 MMOL/L (98-107); CREATININE SERUM 0.61 MG/DL (0.60-1.30); GFR ESTIMATED > 60; GLUCOSE 98 MG/DL (70-105); SODIUM 139 MMOL/L (135-145)
[2019-09-29 09:54] LABS: BASOPHILS % (AUTO) 1 % (0-10); EOSINOPHILS # (AUTO) 0.2 10^3/uL (0.0-0.3); EOSINOPHILS % (AUTO) 4 % (0-10); HEMATOCRIT 40 % (35-52); HEMOGLOBIN 12.7 G/DL (11.5-16.0); LYMPHOCYTES % (AUTO) 30 % (12-44); MEAN CORPUSCULAR HEMOGLOBIN 30 PG (25-34); MEAN CORPUSCULAR HGB CONC 32 G/DL (32-36); MEAN CORPUSCULAR VOLUME 92 FL (80-99); MEAN PLATELET VOLUME 10.5 FL (7.4-10.4); MONOCYTES # (AUTO) 0.6 X 10^3 (0.0-1.0); MONOCYTES % (AUTO) 9 % (0-12); NEUTROPHILS # (AUTO) 3.7 X 10^3 (1.8-7.8); NEUTROPHILS % (AUTO) 56 % (42-75); PLATELET COUNT 222 10^3/uL (130-400); RED CELL DISTRIBUTION WIDTH 15.7 % (10.0-14.5); WHITE BLOOD COUNT 6.5 10^3/uL (4.3-11.0)
[2019-09-29 10:14] LABS: ALANINE AMINOTRANSFERASE 57 U/L (0-55); ALBUMIN 3.7 GM/DL (3.2-4.5); ALKALINE PHOSPHATASE 502 U/L (40-136); BILIRUBIN,TOTAL 0.2 MG/DL (0.1-1.0); BUN/CREATININE RATIO 15; CALCIUM 9.2 MG/DL (8.5-10.1); CARBON DIOXIDE 23 MMOL/L (21-32); CHLORIDE 102 MMOL/L (98-107); CREATININE SERUM 0.55 MG/DL (0.60-1.30); GFR ESTIMATED > 60; GLUCOSE 85 MG/DL (70-105); MAGNESIUM 1.7 MG/DL (1.6-2.4); POTASSIUM 4.5 MMOL/L (3.6-5.0); SODIUM 136 MMOL/L (135-145); TOTAL PROTEIN 6.9 GM/DL (6.4-8.2)
[2019-10-06 14:22] LABS: BASOPHILS % (AUTO) 0 % (0-10); EOSINOPHILS # (AUTO) 0.3 10^3/uL (0.0-0.3); EOSINOPHILS % (AUTO) 4 % (0-10); HEMATOCRIT 38 % (35-52); HEMOGLOBIN 12.4 G/DL (11.5-16.0); LYMPHOCYTES # (AUTO) 1.7 X 10^3 (1.0-4.0); LYMPHOCYTES % (AUTO) 22 % (12-44); MEAN CORPUSCULAR HEMOGLOBIN 29 PG (25-34); MEAN CORPUSCULAR HGB CONC 33 G/DL (32-36); MEAN CORPUSCULAR VOLUME 89 FL (80-99); MEAN PLATELET VOLUME 10.2 FL (7.4-10.4); MONOCYTES # (AUTO) 0.4 X 10^3 (0.0-1.0); MONOCYTES % (AUTO) 5 % (0-12); NEUTROPHILS # (AUTO) 5.4 X 10^3 (1.8-7.8); NEUTROPHILS % (AUTO) 69 % (42-75); PLATELET COUNT 216 10^3/uL (130-400); RED CELL DISTRIBUTION WIDTH 15.2 % (10.0-14.5); WHITE BLOOD COUNT 7.8 10^3/uL (4.3-11.0)
[2019-10-06 14:41] LABS: BUN/CREATININE RATIO 16; CALCIUM 9.1 MG/DL (8.5-10.1); CARBON DIOXIDE 22 MMOL/L (21-32); CHLORIDE 98 MMOL/L (98-107); CREATININE SERUM 0.58 MG/DL (0.60-1.30); GFR ESTIMATED > 60; GLUCOSE 133 MG/DL (70-105); SODIUM 132 MMOL/L (135-145)
[2019-10-13 09:19] LABS: BASOPHILS % (AUTO) 1 % (0-10); EOSINOPHILS # (AUTO) 0.2 10^3/uL (0.0-0.3); EOSINOPHILS % (AUTO) 4 % (0-10); HEMATOCRIT 37 % (35-52); HEMOGLOBIN 12.2 G/DL (11.5-16.0); LYMPHOCYTES # (AUTO) 1.6 X 10^3 (1.0-4.0); LYMPHOCYTES % (AUTO) 34 % (12-44); MEAN CORPUSCULAR HEMOGLOBIN 30 PG (25-34); MEAN CORPUSCULAR HGB CONC 33 G/DL (32-36); MEAN CORPUSCULAR VOLUME 91 FL (80-99); MEAN PLATELET VOLUME 9.4 FL (7.4-10.4); MONOCYTES # (AUTO) 0.6 X 10^3 (0.0-1.0); MONOCYTES % (AUTO) 12 % (0-12); NEUTROPHILS # (AUTO) 2.2 X 10^3 (1.8-7.8); NEUTROPHILS % (AUTO) 49 % (42-75); PLATELET COUNT 236 10^3/uL (130-400); RED CELL DISTRIBUTION WIDTH 15.3 % (10.0-14.5); WHITE BLOOD COUNT 4.6 10^3/uL (4.3-11.0)
[2019-10-13 09:47] LABS: ALANINE AMINOTRANSFERASE 25 U/L (0-55); ALBUMIN 3.6 GM/DL (3.2-4.5); ALKALINE PHOSPHATASE 302 U/L (40-136); BILIRUBIN,TOTAL 0.2 MG/DL (0.1-1.0); BUN/CREATININE RATIO 21; CALCIUM 9.4 MG/DL (8.5-10.1); CARBON DIOXIDE 23 MMOL/L (21-32); CHLORIDE 103 MMOL/L (98-107); CREATININE SERUM 0.53 MG/DL (0.60-1.30); GFR ESTIMATED > 60; GLUCOSE 97 MG/DL (70-105); POTASSIUM 3.9 MMOL/L (3.6-5.0); SODIUM 136 MMOL/L (135-145); TOTAL PROTEIN 6.6 GM/DL (6.4-8.2)
[2019-10-20 13:39] LABS: BASOPHILS % (AUTO) 0 % (0-10); EOSINOPHILS # (AUTO) 0.2 10^3/uL (0.0-0.3); EOSINOPHILS % (AUTO) 3 % (0-10); HEMATOCRIT 41 % (35-52); HEMOGLOBIN 13.2 G/DL (11.5-16.0); LYMPHOCYTES # (AUTO) 1.7 X 10^3 (1.0-4.0); LYMPHOCYTES % (AUTO) 37 % (12-44); MEAN CORPUSCULAR HEMOGLOBIN 29 PG (25-34); MEAN CORPUSCULAR HGB CONC 32 G/DL (32-36); MEAN CORPUSCULAR VOLUME 91 FL (80-99); MEAN PLATELET VOLUME 10.4 FL (7.4-10.4); MONOCYTES # (AUTO) 0.4 X 10^3 (0.0-1.0); MONOCYTES % (AUTO) 8 % (0-12); NEUTROPHILS # (AUTO) 2.4 X 10^3 (1.8-7.8); NEUTROPHILS % (AUTO) 52 % (42-75); PLATELET COUNT 214 10^3/uL (130-400); RED CELL DISTRIBUTION WIDTH 14.9 % (10.0-14.5); WHITE BLOOD COUNT 4.6 10^3/uL (4.3-11.0)
[2019-10-20 13:53] LABS: BUN/CREATININE RATIO 17; CALCIUM 9.4 MG/DL (8.5-10.1); CARBON DIOXIDE 21 MMOL/L (21-32); CHLORIDE 102 MMOL/L (98-107); GFR ESTIMATED > 60; GLUCOSE 130 MG/DL (70-105); POTASSIUM 4.1 MMOL/L (3.6-5.0); SODIUM 135 MMOL/L (135-145)
[2019-10-27 09:04] LABS: BASOPHILS % (AUTO) 1 % (0-10); EOSINOPHILS # (AUTO) 0.1 10^3/uL (0.0-0.3); EOSINOPHILS % (AUTO) 3 % (0-10); HEMATOCRIT 38 % (35-52); HEMOGLOBIN 12.3 G/DL (11.5-16.0); LYMPHOCYTES # (AUTO) 1.7 X 10^3 (1.0-4.0); LYMPHOCYTES % (AUTO) 33 % (12-44); MEAN CORPUSCULAR HEMOGLOBIN 30 PG (25-34); MEAN CORPUSCULAR HGB CONC 33 G/DL (32-36); MEAN CORPUSCULAR VOLUME 91 FL (80-99); MONOCYTES # (AUTO) 0.7 X 10^3 (0.0-1.0); MONOCYTES % (AUTO) 13 % (0-12); NEUTROPHILS # (AUTO) 2.7 X 10^3 (1.8-7.8); NEUTROPHILS % (AUTO) 51 % (42-75); PLATELET COUNT 161 10^3/uL (130-400); RED CELL DISTRIBUTION WIDTH 15.4 % (10.0-14.5); WHITE BLOOD COUNT 5.2 10^3/uL (4.3-11.0)
[2019-10-27 09:25] LABS: ALANINE AMINOTRANSFERASE 32 U/L (0-55); ALBUMIN 3.7 GM/DL (3.2-4.5); ALKALINE PHOSPHATASE 319 U/L (40-136); BILIRUBIN,TOTAL 0.4 MG/DL (0.1-1.0); BUN/CREATININE RATIO 14; CALCIUM 9.5 MG/DL (8.5-10.1); CARBON DIOXIDE 25 MMOL/L (21-32); CHLORIDE 102 MMOL/L (98-107); CREATININE SERUM 0.65 MG/DL (0.60-1.30); GFR ESTIMATED > 60; GLUCOSE 95 MG/DL (70-105); POTASSIUM 4.2 MMOL/L (3.6-5.0); SODIUM 135 MMOL/L (135-145); TOTAL PROTEIN 6.9 GM/DL (6.4-8.2)
[2019-11-10 09:26] LABS: BASOPHILS % (AUTO) 0 % (0-10); EOSINOPHILS # (AUTO) 0.1 10^3/uL (0.0-0.3); EOSINOPHILS % (AUTO) 2 % (0-10); HEMATOCRIT 36 % (35-52); HEMOGLOBIN 11.8 G/DL (11.5-16.0); LYMPHOCYTES # (AUTO) 1.4 X 10^3 (1.0-4.0); LYMPHOCYTES % (AUTO) 30 % (12-44); MEAN CORPUSCULAR HEMOGLOBIN 30 PG (25-34); MEAN CORPUSCULAR HGB CONC 33 G/DL (32-36); MEAN CORPUSCULAR VOLUME 93 FL (80-99); MEAN PLATELET VOLUME 10.2 FL (7.4-10.4); MONOCYTES # (AUTO) 0.8 X 10^3 (0.0-1.0); MONOCYTES % (AUTO) 16 % (0-12); NEUTROPHILS # (AUTO) 2.4 X 10^3 (1.8-7.8); NEUTROPHILS % (AUTO) 51 % (42-75); PLATELET COUNT 127 10^3/uL (130-400); RED CELL DISTRIBUTION WIDTH 16.2 % (10.0-14.5); WHITE BLOOD COUNT 4.7 10^3/uL (4.3-11.0)
[2019-11-10 09:46] LABS: ALANINE AMINOTRANSFERASE 49 U/L (0-55); ALBUMIN 3.6 GM/DL (3.2-4.5); ALKALINE PHOSPHATASE 349 U/L (40-136); BILIRUBIN,TOTAL 0.2 MG/DL (0.1-1.0); BUN/CREATININE RATIO 16; CALCIUM 9.5 MG/DL (8.5-10.1); CARBON DIOXIDE 26 MMOL/L (21-32); CHLORIDE 105 MMOL/L (98-107); CREATININE SERUM 0.61 MG/DL (0.60-1.30); GFR ESTIMATED > 60; GLUCOSE 117 MG/DL (70-105); POTASSIUM 3.9 MMOL/L (3.6-5.0); SODIUM 138 MMOL/L (135-145); TOTAL PROTEIN 6.8 GM/DL (6.4-8.2)
[~2019-11-24] VITALS: Ht 149.9 cm; Wt 33.6 kg
[~2019-11-24 08:33] MED LIST changes: +D5W 500 ML IV (CANCER CTR) 500 ML IV SCH; +D5W IV SCH; +FAMOTIDINE 20MG/2ML IV (CANCER CTR) IV SCH; +FOSAPREPITANT DIMEGLUMINE 150 MG in NS (IVPB) CANCER CENTER ONLY 150 ML IV SCH; -HYDR-3812 PO; +LEUCOVORIN CALCIUM 400 MG in D5W 250 ML IVPB (CANCER CTR) 250 ML IV SCH; +LEUCOVORIN CALCIUM IV SCH; +NS (IVPB) CANCER CENTER 250 ML ONE; +NS IV 500 ML (CANCER CENTER) 0 ML ONE; +NS IV 500 ML (CANCER CENTER) 500 ML ONE; +ONDA-105 PO; -ONDA4TAB10 PO; +ONDANSETRON 8 MG, DEXAMETHASONE 4 MG/NS 50 ML IVPB (Cancer Ctr) IV SCH; +OXALIPLATIN IV SCH; +PALONOSETRON HCL 0.25 MG, DEXAMETHASONE INJECTION 10 MG in NS (IVPB) CANCER CENTER 50 ML IV SCH; +diphenhydrAMINE 25 MG TAB (BENADRYL) CANCER CENTER PO SCH
[2019-11-24 09:06] LABS: BASOPHILS % (AUTO) 1 % (0-10); EOSINOPHILS # (AUTO) 0.1 10^3/uL (0.0-0.3); EOSINOPHILS % (AUTO) 1 % (0-10); HEMATOCRIT 36 % (35-52); HEMOGLOBIN 11.6 G/DL (11.5-16.0); LYMPHOCYTES # (AUTO) 1.3 X 10^3 (1.0-4.0); LYMPHOCYTES % (AUTO) 36 % (12-44); MEAN CORPUSCULAR HEMOGLOBIN 30 PG (25-34); MEAN CORPUSCULAR HGB CONC 32 G/DL (32-36); MEAN CORPUSCULAR VOLUME 95 FL (80-99); MEAN PLATELET VOLUME 9.7 FL (7.4-10.4); MONOCYTES # (AUTO) 0.5 X 10^3 (0.0-1.0); MONOCYTES % (AUTO) 14 % (0-12); NEUTROPHILS # (AUTO) 1.7 X 10^3 (1.8-7.8); NEUTROPHILS % (AUTO) 49 % (42-75); PLATELET COUNT 122 10^3/uL (130-400); RED CELL DISTRIBUTION WIDTH 17.4 % (10.0-14.5); WHITE BLOOD COUNT 3.5 10^3/uL (4.3-11.0)
[2019-11-24 09:43] LABS: ALANINE AMINOTRANSFERASE 44 U/L (0-55); ALBUMIN 3.6 GM/DL (3.2-4.5); ALKALINE PHOSPHATASE 265 U/L (40-136); BILIRUBIN,TOTAL 0.3 MG/DL (0.1-1.0); BUN/CREATININE RATIO 16; CALCIUM 9.4 MG/DL (8.5-10.1); CARBON DIOXIDE 25 MMOL/L (21-32); CHLORIDE 102 MMOL/L (98-107); CREATININE SERUM 0.58 MG/DL (0.60-1.30); GFR ESTIMATED > 60; GLUCOSE 84 MG/DL (70-105); SODIUM 136 MMOL/L (135-145); TOTAL PROTEIN 6.8 GM/DL (6.4-8.2)
[2019-11-24] MEDS ORDERED: NS IV SCH (10:00)
[2019-11-24] MEDS ORDERED: BEVACIZUMAB IV SCH (10:00)
[2019-11-29] MEDS ORDERED: CLON0.5T4 (19:42)
[2019-11-29] MEDS ORDERED: ONDA8TAB15 (19:42)
[2019-11-29] MEDS ORDERED: PANT20TA3 (19:42)
[2019-11-29] MEDS ORDERED: HYDR-4226 PO (22:09)
== END 2019-12-02 | disposition home or self-care (01) ==
LOC: ONC 08:33
PROVIDERS: ATTEND Internal Medicine Hematology & Oncology
DX: Z51.11 Encounter for antineoplastic chemotherapy (principal); C18.9 Malignant neoplasm of colon, unspecified
CPT/HCPCS: 36591; 80048; 80053; 82378; 83735; 85025; 96361; 96367; 96368; 96374; 96375; 96411; 96413; 96415; 99213; 99214

== ENCOUNTER 2019-11-29 19:21 | Emergency (ER) | payer MEDICAID ==
[~2019-11-29] VITALS: Ht 149 cm; Wt 33.9 kg
[~2019-11-29 19:21] MED LIST changes: -D5W 500 ML IV (CANCER CTR) 500 ML IV SCH; -D5W IV SCH; -FAMOTIDINE 20MG/2ML IV (CANCER CTR) IV SCH; -FOSAPREPITANT DIMEGLUMINE 150 MG in NS (IVPB) CANCER CENTER ONLY 150 ML IV SCH; -LEUCOVORIN CALCIUM 400 MG in D5W 250 ML IVPB (CANCER CTR) 250 ML IV SCH; -LEUCOVORIN CALCIUM IV SCH; -NS (IVPB) CANCER CENTER 250 ML ONE; -NS IV 500 ML (CANCER CENTER) 0 ML ONE; -NS IV 500 ML (CANCER CENTER) 500 ML ONE; -ONDANSETRON 8 MG, DEXAMETHASONE 4 MG/NS 50 ML IVPB (Cancer Ctr) IV SCH; -OXALIPLATIN IV SCH; -PALONOSETRON HCL 0.25 MG, DEXAMETHASONE INJECTION 10 MG in NS (IVPB) CANCER CENTER 50 ML IV SCH; -diphenhydrAMINE 25 MG TAB (BENADRYL) CANCER CENTER PO SCH
[2019-11-29] MEDS ORDERED: ONDA8TAB15 (19:42)
[2019-11-29] MEDS ORDERED: CLON0.5T4 (19:42)
[2019-11-29] MEDS ORDERED: PANT20TA3 (19:42)
[2019-11-29] MEDS ORDERED: fentaNYL INJECTION 100 MCG/2 ML AMP IVP ONE ×2 (19:45→20:30)
[2019-11-29 19:46] LABS: BASOPHILS % (AUTO) 0 % (0-10); EOSINOPHILS % (AUTO) 1 % (0-10); HEMATOCRIT 35 % (35-52); HEMOGLOBIN 11.6 G/DL (11.5-16.0); LYMPHOCYTES # (AUTO) 1.4 X 10^3 (1.0-4.0); LYMPHOCYTES % (AUTO) 49 % (12-44); MEAN CORPUSCULAR HEMOGLOBIN 31 PG (25-34); MEAN CORPUSCULAR HGB CONC 33 G/DL (32-36); MEAN CORPUSCULAR VOLUME 94 FL (80-99); MEAN PLATELET VOLUME 9.8 FL (7.4-10.4); MONOCYTES # (AUTO) 0.2 X 10^3 (0.0-1.0); MONOCYTES % (AUTO) 6 % (0-12); NEUTROPHILS # (AUTO) 1.3 X 10^3 (1.8-7.8); NEUTROPHILS % (AUTO) 44 % (42-75); PLATELET COUNT 122 10^3/uL (130-400); RED CELL DISTRIBUTION WIDTH 16.5 % (10.0-14.5); WHITE BLOOD COUNT 2.9 10^3/uL (4.3-11.0)
[2019-11-29 20:04] LABS: ALANINE AMINOTRANSFERASE 55 U/L (0-55); ALBUMIN 3.6 GM/DL (3.2-4.5); ALKALINE PHOSPHATASE 260 U/L (40-136); BILIRUBIN,TOTAL 0.4 MG/DL (0.1-1.0); BUN/CREATININE RATIO 16; CALCIUM 9.2 MG/DL (8.5-10.1); CARBON DIOXIDE 24 MMOL/L (21-32); CHLORIDE 99 MMOL/L (98-107); CREATININE SERUM 0.57 MG/DL (0.60-1.30); GFR ESTIMATED > 60; GLUCOSE 89 MG/DL (70-105); LIPASE 52 U/L (8-78); SODIUM 133 MMOL/L (135-145); TOTAL PROTEIN 6.7 GM/DL (6.4-8.2)
[2019-11-29] MEDS ORDERED: HOLD METFORMIN - RECEIVED CONTRAST 20 ML VIAL IV SCH (20:30)
[2019-11-29] MEDS ORDERED: IOHEXOL 350 MG/ML 100 ML (OMNIPAQUE 350) VIAL IV ONE (20:30)
[2019-11-29] MEDS ORDERED: NS 100 ML (IVPB) BAG IV ONE (20:30)
[2019-11-29 20:37] LABS: BILIRUBIN,URINE NEGATIVE (NEGATIVE); CLARITY,URINE CLEAR; COLOR,URINE YELLOW; GLUCOSE, URINE (UA) NEGATIVE (NEGATIVE); KETONES,URINE NEGATIVE (NEGATIVE); LEUKOCYTE ESTERASE ,URINE NEGATIVE (NEGATIVE); NITRITE,URINE NEGATIVE (NEGATIVE); PROTEIN,URINE NEGATIVE (NEGATIVE)
[2019-11-29 20:52] LABS: BACTERIA,URINE MODERATE /HPF
--- NOTE | 2019-11-29 21:01 | ED Abdominal Pain ---
General Chief Complaint: Abdominal/GI Problems Stated Complaint: ABD PAIN Nursing Triage Note: ABD PAIN SINCE YESTERDAY. Sepsis Screen: No Definite Risk Source of Information: Patient, Old Records Exam Limitations: No Limitations History of Present Illness Date Seen by Provider: Nov 29, 2019 Time Seen by Provider: 19:23 Initial Comments This 64-year-old woman with colon cancer metastatic to the liver presents to the emergency room with diffuse abdominal pain that has been escalating today. She has been on chemotherapy since the first week of September and recently changed medications for her chemotherapy treatments this past week. She denies any nausea, vomiting, diarrhea, constipation, or fever. She is not presently taking any pain medications at home. Dr. Titus is her oncologist and Grady Estrella NP is her primary care provider. She lives in [place], [place]. Allergies and Home Medications Allergies Coded Allergies: codeine (Verified Adverse Reaction, Unknown, 07/06/19) "CAUSES HALLUCINATIONS" Home Medications Aspirin 81 Mg Tab.chew, 81 MG PO DAILY, (Reported) Atorvastatin Calcium 40 Mg Tablet, 40 MG PO HS, (Reported) LAST FILLED #30 06-11-19 Carvedilol 6.25 Mg Tablet, 6.25 MG PO BID, (Reported) LAST FILLED #60 06-11-19 Clopidogrel Bisulfate 75 Mg Tablet, 75 MG PO DAILY, (Reported) LAST FILLED #30 06-11-19 Hydrocodone Bit/Acetaminophen 1 Each Tablet, 1 TAB PO Q6H PRN for PAIN-MODERATE (5-7), (Reported) Hydrocodone/Acetaminophen 1 Each Tablet, 1 TAB PO Q4-6HR Prescribed by: JANAY BILL on 11/29/192208 Losartan Potassium 50 Mg Tablet, 50 MG PO HS, (Reported) LAST FILLED #30 06-11-19 Multivitamin 1 Each Tablet, 1 TAB PO DAILY, (Reported) Ondansetron HCl 4 Mg Tablet, 4 MG PO Q6H PRN for NAUSEA/VOMITING-1ST LINE, (Reported) [fluoxetine] , 1 TAB PO HS, (Reported) Patient Home Medication List Home Medication List Reviewed: Yes Review of Systems Review of Systems Constitutional: no symptoms reported EENTM: No Symptoms Reported Respiratory: No Symptoms Reported Cardiovascular: No Symptoms Reported Gastrointestinal: See HPI Genitourinary: No Symptoms Reported Musculoskeletal: no symptoms reported Skin: no symptoms reported Psychiatric/Neurological: No Symptoms Reported Endocrine: No Symptoms Reported Hematologic/Lymphatic: No Symptoms Reported Past Trkkbbs-Wfzcot-Amlqlo Hx Past Med/Social Hx: Reviewed and Corrections made Patient Social History Alcohol Use: Denies Use Recreational Drug Use: No Smoking Status: Current Everyday Smoker Type Used: Cigarettes 2nd Hand Smoke Exposure: Yes Recent Foreign Travel: No Contact w/Someone Who Travel: No Recent Infectious Disease Expo: No Recent Hopitalizations: Yes (BOWEL RESECTION) Physical Abuse: No Sexual Abuse: No Mistreated: No Fear: No Immunizations Up To Date Tetanus Booster (TDap): Unknown Date of Pneumonia Vaccine: Aug 08, 2019 Date of Influenza Vaccine: Aug 03, 2019 Seasonal Allergies Seasonal Allergies: No Past Medical History Surgeries: Yes (port in the right chest) Bowel Surgery (bowel and tumor resection), Coronary Stent, Hysterectomy Respiratory: No Cardiac: Yes Coronary Artery Disease, Heart Attack, High Cholesterol, Hypertension Neurological: No : No 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 Genitourinary: No Gastrointestinal: No Musculoskeletal: No Endocrine: No HEENT: No Cancer: Yes Colon Did You Recieve Any Treatments: Yes What Type of Treatment Did You: Chemotherapy, Surgical Intervention Psychosocial: No Integumentary: No Blood Disorders: No Family Medical History Reviewed Nursing Family Hx Diabetes mellitus 19 MOTHER FH: heart attack 19 FATHER G8 BROTHER ( AGE 37) FH: lung disease 19 MOTHER High cholesterol 19 FATHER Heart Disease, Diabetes Physical Exam Vital Signs Vital Signs - First Documented 11/29/19 11/29/19 19:29 22:22 Temp 36.9 Pulse 112 Resp 20 B/P (MAP) 136/80 (98) Pulse Ox 97 O2 Delivery Room Air Capillary Refill : Less Than 3 Seconds Height/Weight/BMI Height: '" Weight: lbs. oz. kg; 15.00 BMI Method: General Appearance: WD/WN, mild distress, cachetic HEENT: PERRL/EOMI, normal ENT inspection, pharynx normal Neck: normal inspection Respiratory: lungs clear, normal breath sounds, no respiratory distress, no a ccessory muscle use Cardiovascular: no edema, no murmur, tachycardia (mild) Gastrointestinal: normal bowel sounds, other (slightly firm but not notably distended. 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, no motor/sensory deficits, alert, normal mood/affect, oriented x 3 Skin: normal color, warm/dry Focused Exam Lactate Level 11/29/19 21:10: Lactic Acid Level 0.66 Lactic Acid Level Laboratory Tests Test 11/29/19 21:10 Lactic Acid Level 0.66 MMOL/L (0.50-2.00) Progress/Results/Core Measures Results/Orders Lab Results Laboratory Tests Test 11/29/19 19:39 11/29/19 20:30 11/29/19 21:10 Range/Units White Blood Count 2.9 L 4.3-11.0 10^3/uL Red Blood Count 3.73 L 4.35-5.85 10^6/uL Hemoglobin 11.6 11.5-16.0 G/DL Hematocrit 35 35-52 % Mean Corpuscular Volume 94 80-99 FL Mean Corpuscular Hemoglobin 31 25-34 PG Mean Corpuscular Hemoglobin Concent 33 32-36 G/DL Red Cell Distribution Width 16.5 H 10.0-14.5 % Platelet Count 122 L 130-400 10^3/uL Mean Platelet Volume 9.8 7.4-10.4 FL Neutrophils (%) (Auto) 44 42-75 % Lymphocytes (%) (Auto) 49 H 12-44 % Monocytes (%) (Auto) 6 0-12 % Eosinophils (%) (Auto) 1 0-10 % Basophils (%) (Auto) 0 0-10 % Neutrophils # (Auto) 1.3 L 1.8-7.8 X 10^3 Lymphocytes # (Auto) 1.4 1.0-4.0 X 10^3 Monocytes # (Auto) 0.2 0.0-1.0 X 10^3 Eosinophils # (Auto) 0.0 0.0-0.3 10^3/uL Basophils # (Auto) 0.0 0.0-0.1 10^3/uL Prothrombin Time 13.6 12.2-14.7 SEC INR Comment 1.0 0.8-1.4 Activated Partial Thromboplast Time 29 24-35 SEC Sodium Level 133 L 135-145 MMOL/L Potassium Level 4.0 3.6-5.0 MMOL/L Chloride Level 99 98-107 MMOL/L Carbon Dioxide Level 24 21-32 MMOL/L Anion Gap 10 5-14 MMOL/L Blood Urea Nitrogen 9 7-18 MG/DL Creatinine 0.57 L 0.60-1.30 MG/DL Estimat Glomerular Filtration Rate > 60 BUN/Creatinine Ratio 16 Glucose Level 89 70-105 MG/DL Calcium Level 9.2 8.5-10.1 MG/DL Corrected Calcium 9.5 8.5-10.1 MG/DL Total Bilirubin 0.4 0.1-1.0 MG/DL Aspartate Amino Transf (AST/SGOT) 37 H 5-34 U/L Alanine Aminotransferase (ALT/SGPT) 55 0-55 U/L Alkaline Phosphatase 260 H 40-136 U/L C-Reactive Protein High Sensitivity 2.00 H 0.00-0.50 MG/DL Total Protein 6.7 6.4-8.2 GM/DL Albumin 3.6 3.2-4.5 GM/DL Lipase 52 8-78 U/L Urine Color YELLOW Urine Clarity CLEAR Urine pH 8.0 5-9 Urine Specific Graham 1.020 1.016-1.022 Urine Protein NEGATIVE NEGATIVE Urine Glucose (UA) NEGATIVE NEGATIVE Urine Ketones NEGATIVE NEGATIVE Urine Nitrite NEGATIVE NEGATIVE Urine Bilirubin NEGATIVE NEGATIVE Urine Urobilinogen 0.2 < = 1.0 MG/DL Urine Leukocyte Esterase NEGATIVE NEGATIVE Urine RBC (Auto) NEGATIVE NEGATIVE Urine RBC NONE /HPF Urine WBC 2-5 /HPF Urine Crystals NONE /LPF Urine Bacteria MODERATE H /HPF Urine Casts NONE /LPF Urine Mucus NEGATIVE /LPF Urine Culture Indicated YES Lactic Acid Level 0.66 0.50-2.00 MMOL/L My Orders Orders - JANAY CHOW MD Cbc With Automated Diff (11/29/19 19:23) Comprehensive Metabolic Panel (11/29/19 19:23) Hs C Reactive Protein (11/29/19 19:23) Lipase (11/29/19 19:23) Ua Culture If Indicated (11/29/19 19:23) Ed Iv/Invasive Line Start (11/29/19 19:23) Fentanyl Injection (Sublimaze Injection (11/29/19 19:45) Ct Abdomen/Pelvis W (11/29/19 20:22) Fentanyl Injection (Sublimaze Injection (11/29/19 20:30) Iohexol Injection (Omnipaque 350 Mg/Ml 1 (11/29/19 20:30) Received Contrast (Hold Metformin- Contr (11/29/19 20:30) Ns (Ivpb) (Sodium Chloride 0.9% Ivpb Bag (11/29/19 20:30) Blood Culture (11/29/19 20:52) Protime With Inr (11/29/19 20:52) Partial Thromboplastin Time (11/29/19 20:52) Chest 1 View, Ap/Pa Only (11/29/19 20:52) Vital Signs Adult Sepsis Patie Q15M (11/29/19 20:52) Remove Rings In Anticipation O (11/29/19 20:52) Lactic Acid Analyzer (11/29/19 20:52) Urine Culture (11/29/19 20:30) Lactated Ringers (Lr 1000 Ml Iv Solution (11/29/19 21:02) Ceftriaxone For Iv Use (Rocephin For I (11/29/19 21:45) Rx-Hydrocodone/Apap 5-325 Mg (Rx-Vicodin (11/29/19 22:45) Medications Given in ED Current Medications Medications Dose Ordered Sig/Tatum Route Start Time Stop Time Status Last Admin Dose Admin Acetaminophen/ Hydrocodone Bitart 1 ea Q4H PRN PO 11/29/19 22:45 11/29/19 22:36 1 EA Ceftriaxone Sodium 1000 mg/ Sterile Water 10 ml @ 200 mls/hr ONCE ONCE IV 11/29/19 21:45 11/29/19 21:47 DC 11/29/19 21:50 200 MLS/HR Fentanyl Citrate 50 mcg ONCE ONCE IVP 11/29/19 19:45 11/29/19 19:46 DC 11/29/19 19:43 50 MCG Fentanyl Citrate 50 mcg ONCE ONCE IVP 11/29/19 20:30 11/29/19 20:31 DC 11/29/19 20:45 50 MCG Lactated Ringer's 1,000 ml @ 0 mls/hr Q0M ONCE IV 11/29/19 21:02 11/29/19 21:03 DC 11/29/19 21:11 0 MLS/HR Vital Signs/I&O 11/29/19 11/29/19 19:29 22:22 Temp 36.9 Pulse 112 87 Resp 20 16 B/P (MAP) 136/80 (98) 136/71 (98) Pulse Ox 97 98 O2 Delivery Room Air Room Air 11/30/19 00:00 Intake Total 1000 ml Balance 1000 ml Blood Pressure Mean: 98 Progress Progress Note #1: Time: 20:59 Progress Note Patient seen and examined. Labs evaluated. Leukopenia noted. In the context of tachycardia, the septic workup was ordered. CT abdomen and pelvis is pending. Fentanyl 50 g 2 was given for pain. Progress Note #2: Progress Note Ultimately no cause for her abdominal pain was revealed. There was moderate stool on the x-ray but constipation was not necessarily consistent with her history. Her new chemotherapy drug may be a contributing factor. Pain was treated and Rocephin was administered for questionable urinary tract infection. A take-home pack of hydrocodone was dispensed. See discharge instructions for further discussion. Diagnostic Imaging Diagonstic Imaging: CT Plain Films/CT/US/NM/MRI: abdomen, pelvis Comments CT abdomen and pelvis viewed by me and report reviewed. See report below: NAME: ALDO YEE [employer] REC#: [id number] PT STATUS: REG ER : 1955 PHYSICIAN: JANAY CHOW MD ADMIT DATE: 11/29/19/ER Signed Date of Exam:11/29/19 CT ABDOMEN/PELVIS W PROCEDURE: CT abdomen and pelvis with contrast. TECHNIQUE: Multiple contiguous axial images were obtained through the abdomen and pelvis after administration of intravenous contrast. Auto Exposure Controls were utilized during the CT exam to meet ALARA standards for radiation dose reduction. INDICATION: Severe abdominal pain. The patient is on chemotherapy for treatment of the colon and liver cancer. Patient is worried about possible bowel rupture. COMPARISON STUDY: CT of the chest and abdomen from October 06. FINDINGS: The lung bases are clear. Previous hypodensities within the liver have nearly totally resolved. There is a subtle area of decreased attenuation at the biopsy site measuring 8 mm. Previously this measured 11 mm. Gallbladder, spleen, pancreas, adrenal glands and kidneys appear normal. Urinary bladder is mildly distended. The uterus is absent. Moderately increased stool seen throughout the colon. No obstruction or inflammatory changes are present. There is no ascites, free air or loculated fluid collections. No abnormal adenopathy is identified. Moderate arteriosclerosis is present. Degenerative changes are present in the spine. No osseous metastasis are present. IMPRESSION: 1. Previous liver lesions are barely visible on today's scan. 2. Moderately increased stool seen throughout the colon. No other acute findings are present. Dictated by: Dictated on workstation # [id number] Dict: 11/29/192058 Trans: 11/29/192130 RITO [id number] Interpreted by: PENELOPE POSADAS MD Electronically signed by: PENELOPE POSADAS MD 11/29/192130 Reviewed: Reviewed by Me Diagonstic Imaging: Xray Plain Films/CT/US/NM/MRI: chest Comments NAME: ALDO YEE [employer] REC#: [id number] PT STATUS: REG ER : 1955 PHYSICIAN: JANAY CHOW MD ADMIT DATE: 11/29/19/ER Signed Date of Exam:11/29/19 CHEST 1 VIEW, AP/PA ONLY INDICATION: Abdominal pain since yesterday. COMPARISON STUDY: Chest from 09/10/[address] scan of the abdomen from just little bit ago. FINDINGS: Upright view of the chest demonstrates COPD changes with a [id number]-S-qytqdtew in place. Lungs are clear. The heart size and vascularity are normal. There is calcification of the aorta. IMPRESSION: COPD is present with no acute findings. Dictated by: Dictated on workstation # [id number] Dict: 11/29/192106 Trans: 11/29/192112 RITO [id number] Interpreted by: PENELOPE POSADAS MD Electronically signed by: PENELOPE POSADAS MD 11/29/192112 Reviewed: Reviewed by Me Departure Impression Primary Impression: Colon cancer metastasized to liver Additional Impression: Generalized abdominal pain Disposition: HOME, SELF-CARE Condition: Improved Departure-Patient Inst. Decision time for Depature: 22:00 Referrals: NO,LOCAL PHYSICIAN (PCP) Primary Care Physician HUY ESTRELLA APRN (Family) Primary Care Physician Patient Instructions: Acute Abdomen (Belly Pain), Adult (DC) Add. Discharge Instructions: The exact cause of your abdominal pain is uncertain at this time. It may be related to your chemotherapy treatment. Please follow-up with the Cancer Center promptly tomorrow morning. Please read these highlighted discharge instructions to them. You received a dose of antibiotics in the emergency room for possible urinary tract infection. Please have your primary care provider or the Cancer Center follow-up on your urine culture results on Saturday. You may need further treatment. Drink plenty of clear liquids to stay well-hydrated. Use hydrocodone as prescribed for treatment of pain. You may need stool softener such as Colace or a gentle laxative such as MiraLAX to help promote good bowel movements while you're on hydrocodone. Hydrocodone may cause constipation. Return to the emergency room if you have uncontrolled symptoms or develop new symptoms such as fever. Otherwise follow up with your primary care provider and/or the Cancer Center as soon as possible. All discharge instructions reviewed with patient and/or family. Voiced understanding. Scripts Hydrocodone/Acetaminophen (Hydrocodone/Acetaminophen 5 MG/325 MG TAB) 1 Each Tablet 1 TAB PO Q4-6HR for Pain MDD 10 TABS, #20 TAB Prov: JANAY CHOW MD 11/29/19 Copy Copies To 1: IRVIN TITUS MD Copies To 2: YANNA ROSAS JOSHUA T MD Nov 29, 2019 21:01
[2019-11-29] MEDS ORDERED: LACTATED RINGERS 1,000 ML IV ONE (21:02)
[2019-11-29 21:05] LABS: PROTHROMBIN TIME PATIENT 13.6 SEC (12.2-14.7)
--- NOTE | 2019-11-29 21:10 | NUR ---
Lactic acid drawn from R chest.
--- NOTE | 2019-11-29 21:12 | Diagnostic Imaging Report ---
INDICATION: Abdominal pain since yesterday. COMPARISON STUDY: Chest from 09/10/[address] scan of the abdomen from just little bit ago. FINDINGS: Upright view of the chest demonstrates COPD changes with a Ozcs-W-rxukirmz in place. Lungs are clear. The heart size and vascularity are normal. There is calcification of the aorta. IMPRESSION: COPD is present with no acute findings. Dictated by: Dictated on workstation # [id number]
--- NOTE | 2019-11-29 21:20 | NUR ---
300ml urine output.
--- NOTE | 2019-11-29 21:28 | Diagnostic Imaging Report ---
PROCEDURE: CT abdomen and pelvis with contrast. TECHNIQUE: Multiple contiguous axial images were obtained through the abdomen and pelvis after administration of intravenous contrast. Auto Exposure Controls were utilized during the CT exam to meet ALARA standards for radiation dose reduction. INDICATION: Severe abdominal pain. The patient is on chemotherapy for treatment of the colon and liver cancer. Patient is worried about possible bowel rupture. COMPARISON STUDY: CT of the chest and abdomen from October 06. FINDINGS: The lung bases are clear. Previous hypodensities within the liver have nearly totally resolved. There is a subtle area of decreased attenuation at the biopsy site measuring 8 mm. Previously this measured 11 mm. Gallbladder, spleen, pancreas, adrenal glands and kidneys appear normal. Urinary bladder is mildly distended. The uterus is absent. Moderately increased stool seen throughout the colon. No obstruction or inflammatory changes are present. There is no ascites, free air or loculated fluid collections. No abnormal adenopathy is identified. Moderate arteriosclerosis is present. Degenerative changes are present in the spine. No osseous metastasis are present. IMPRESSION: 1. Previous liver lesions are barely visible on today's scan. 2. Moderately increased stool seen throughout the colon. No other acute findings are present. Dictated by: Dictated on workstation # [id number]
[2019-11-29] MEDS ORDERED: cefTRIAXone FOR IV USE 1,000 MG in WATER (STERILE) FOR INJECTION 10 ML IV ONE (21:45)
[2019-11-29] MEDS ORDERED: HYDR-4226 PO (22:09)
[2019-11-29 22:22] VITALS: BP 136/71
[2019-11-29] MEDS ORDERED: RX-HYDROCODONE/APAP 5/325 MG #4 TAB PK PO PRN (22:45)
--- OUTSIDE RECORDS SUMMARY | 2019-12-02 10:11 | XMS REPORT | Continuity of Care Document ---
Author Organization Unknown Address Unknown Phone Unavailable Allergies Active Description Code Type Severity Reaction Onset Reported/Identified Relationship to Patient Clinical Status Yes No Allergy Information Available [id number] Drug Allergy Unknown N/A 019 Yes codeine [id number] Drug Allergy Unknown N/A 07/06/2019 Medications There [...] Ot R18.8 OTHER ASCITES 07/28/2019 TY NASCIMENTO CARDIOPULMONARY TECHNOLOGIST Ot R19.04 LEFT LOWER QUADRANT ABDOMINAL SWELLING, 07/28/2019 AZAM TY DUNHAMP Ot R19.7 DIARRHEA, UNSPECIFIED 07/28/2019 TY NASCIMENTO CARDIOPULMONARY TECHNOLOGIST Ot R91.1 SOLITARY PULMONARY NODULE 07/28/2019 MENDOZA [...] MD Ot I25.10 ATHSCL HEART DISEASE OF [place] CORONARY 08/03/2019 JOE GARCIA MD Ot I25 .2 OLD MYOCARDIAL INFARCTION 08/03/2019 JOE GARCIA MD, Ot K63 .2 FISTULA OF INTESTINE 08/03/2019 JOE GARCIA MD, Ot K76 .9 LIVER DISEASE, UNSPECIFIED 08/03/2019 JOE GARCIA MD, Ot L02.211 CUTANEOUS ABSCESS OF ABDOMINAL WALL 08/03/2019 JOE GARCIA MD, Ot Z23 ENCOUNTER FOR IMMUNIZATION 08/03/2019 JOE GARCIA MD, Ot Z79.02 MRI SPECIALIST (CURRENT) USE OF ANTITHROMBOTI 08/03/2019 JOE GARCIA [...] Ot I25. 10 ATHSCL HEART DISEASE OF [place] CORONARY 08/17/2019 JULIANNE MENDOZA DO Ot I25. [...] Ot Z98.890 OTHER SPECIFIED POSTPROCEDURAL STATES 08/19/2019 JULIANNE MENDOZA DO Ot C18. 9 MALIGNANT [...] Ot I25. 10 ATHSCL HEART DISEASE OF [place] CORONARY 08/19/2019 JULIANNE MEDNOZA DO Ot I25. 2 OLD MYOCARDIAL INFARCTION [...] OTHER SPECIFIED POSTPROCEDURAL STATES 08/21/2019 TY NASCIMENTO CARDIOPULMONARY TECHNOLOGIST Ot 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 08/21/2019 TY NASCIMENTO CARDIOPULMONARY TECHNOLOGIST Ot K63.89 OTHER SPECIFIED DISEASES OF INTESTINE 08/21/2019 TY NASCIMENTO CARDIOPULMONARY TECHNOLOGIST Ot R11.10 VOMITING, UNSPECIFIED 08/21/2019 TY NASCIMENTO CARDIOPULMONARY TECHNOLOGIST Ot R18.8 OTHER ASCITES 08/21/2019 TY NASCIMENTO CARDIOPULMONARY TECHNOLOGIST Ot R19.04 LEFT LOWER QUADRANT ABDOMINAL SWELLING, 08/21/2019 TY NASCIMENTO CARDIOPULMONARY TECHNOLOGIST Ot R19.7 DIARRHEA, UNSPECIFIED 08/21/2019 TY NASCIMENTO CARDIOPULMONARY TECHNOLOGIST Ot R91.1 SOLITARY PULMONARY NODULE 08/22/2019 TY NASCIMENTO CARDIOPULMONARY TECHNOLOGIST Ot 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 08/22/2019 TY NASCIMENTO CARDIOPULMONARY TECHNOLOGIST Ot K63.89 OTHER SPECIFIED DISEASES OF INTESTINE 08/22/2019 TY NASCIMENTO CARDIOPULMONARY TECHNOLOGIST Ot R11.10 VOMITING, UNSPECIFIED 08/22/2019 TY NASCIMENTO CARDIOPULMONARY TECHNOLOGIST Ot R18.8 OTHER ASCITES 08/22/2019 TY NASCIMENTO CARDIOPULMONARY TECHNOLOGIST Ot R19.04 LEFT LOWER QUADRANT ABDOMINAL SWELLING, 08/22/2019 TY NASCIMENTO CARDIOPULMONARY TECHNOLOGIST Ot R19.7 DIARRHEA, UNSPECIFIED 08/22/2019 TY NASCIMENTO CARDIOPULMONARY TECHNOLOGIST Ot R91.1 SOLITARY PULMONARY NODULE 09/03/2019 TY NASCIMENTO CARDIOPULMONARY TECHNOLOGIST Ot 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 09/03/2019 TY NASCIMENTO CARDIOPULMONARY TECHNOLOGIST Ot K63.89 OTHER SPECIFIED DISEASES OF INTESTINE 09/03/2019 TY NASCIMENTO CARDIOPULMONARY TECHNOLOGIST Ot R11.10 VOMITING, UNSPECIFIED 09/03/2019 TY NASCIMENTO CARDIOPULMONARY TECHNOLOGIST Ot R18.8 OTHER ASCITES 09/03/2019 AZAM TY CARDIOPULMONARY TECHNOLOGIST Ot R19.04 LEFT LOWER QUADRANT ABDOMINAL SWELLING, 09/03/2019 TY NASCIMENTO CARDIOPULMONARY TECHNOLOGIST Ot R19.7 DIARRHEA, UNSPECIFIED 09/03/2019 AZAM TY CARDIOPULMONARY TECHNOLOGIST Ot R91.1 SOLITARY PULMONARY NODULE 09/03/2019 JULIANNE MENDOZA DO Ot J90 PLEURAL EFFUSION, NOT ELSEWHERE CLASSIFI 09/03/2019 JULIANNE MENDOZA DO Ot K65. 1 PERITONEAL ABSCESS 09/03/2019 JULIANNE MENDOZA DO Ot Z98.890 OTHER SPECIFIED POSTPROCEDURAL STATES 09/10/2019 TY NASCIMENTO Ot 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 09/10/2019 TY NASCIMENTO Ot K63.89 OTHER SPECIFIED DISEASES OF INTESTINE 09/10/2019 TY NASCIMENTO Ot R11.10 VOMITING, UNSPECIFIED 09/10/2019 TY NASCIMENTO Ot R18.8 OTHER ASCITES 09/10/2019 TY NASCIMENTO Ot R19.04 LEFT LOWER QUADRANT ABDOMINAL SWELLING, 09/10/2019 TY NASCIMENTO Ot R19.7 DIARRHEA, UNSPECIFIED 09/10/2019 TY NASCIMENTO Ot R91.1 SOLITARY PULMONARY NODULE 09/10/2019 JULIANNE MENDOZA DO Ot J90 PLEURAL EFFUSION, NOT ELSEWHERE CLASSIFI 09/10/2019 JULIANNE MENDOZA DO Ot K65. 1 PERITONEAL ABSCESS 09/10/2019 JULIANNE MENDOZA DO Ot Z98.890 OTHER SPECIFIED POSTPROCEDURAL STATES 09/10/2019 JULIANNE MENDOZA DO Ot C18. 9 MALIGNANT NEOPLASM OF COLON, UNSPECIFIED 09/10/2019 JULIANNE MENDOZA DO Ot E78. 5 HYPERLIPIDEMIA, UNSPECIFIED 09/10/2019 JULIANNE MENDOZA DO Ot F17.210 NICOTINE DEPENDENCE, CIGARETTES, UNCOMPL 09/10/2019 JULIANNE MENDOZA DO Ot I10 ESSENTIAL (PRIMARY) HYPERTENSION 09/10/2019 JULIANNE MENDOZA DO Ot I25. 10 ATHSCL HEART DISEASE OF [place] CORONARY 09/10/2019 JULIANNE MENDOZA DO Ot J44. 9 CHRONIC OBSTRUCTIVE PULMONARY DISEASE, U 09/10/2019 JULIANNE MENDOZA DO Ot Z79. 02 ASSISTED (CURRENT) USE OF ANTITHROMBOTI 09/10/2019 JULIANNE MENDOZA DO Ot Z79. 82 MRI SPECIALIST (CURRENT) USE OF ASPIRIN 09/10/2019 JULIANNE MENDOZA DO Ot Z79.899 OTHER MRI SPECIALIST (CURRENT) DRUG THERAPY 09/10/2019 JULIANNE MENDOZA DO Ot Z82. 49 FAMILY HX OF ISCHEM HEART DIS AND OTH DI 09/10/2019 JULIANNE MENDOZA DO Ot Z88. 5 ALLERGY STATUS TO NARCOTIC AGENT STATUS 09/10/2019 JULIANNE MENDOZA DO Ot Z90.710 ACQUIRED ABSENCE OF BOTH CERVIX AND UTER 09/10/2019 JULIANNE MENDOZA DO Ot Z95. 1 PRESENCE OF AORTOCORONARY BYPASS GRAFT 09/22/2019 JULIANNE MENDOZA DO Ot C18. 9 MALIGNANT NEOPLASM OF COLON, UNSPECIFIED 09/22/2019 JULIANNE MENDOZA DO Ot E78. 5 HYPERLIPIDEMIA, UNSPECIFIED 09/22/2019 JULIANNE MENDOZA DO Ot F17.210 NICOTINE DEPENDENCE, CIGARETTES, UNCOMPL 09/22/2019 JULIANNE MENDOZA DO Ot I10 ESSENTIAL (PRIMARY) HYPERTENSION 09/22/2019 JULIANNE MENDOZA DO Ot I25. 10 ATHSCL HEART DISEASE OF [place] CORONARY 09/22/2019 JULIANNE MENDOZA DO Ot J44. 9 CHRONIC OBSTRUCTIVE PULMONARY DISEASE, U 09/22/2019 JULIANNE MENDOZA DO Ot Z79. 02 ASSISTED (CURRENT) USE OF ANTITHROMBOTI 09/22/2019 JULIANNE MENDOZA DO Ot Z79. 82 ASSISTED (CURRENT) USE OF ASPIRIN 09/22/2019 JULIANNE MENDOZA DO Ot Z79.899 OTHER MRI SPECIALIST (CURRENT) DRUG THERAPY 09/22/2019 JULIANNE MENDOZA DO Ot Z82. 49 FAMILY HX OF [place] HEART DIS AND OTH DI 09/22/2019 JULIANNE MENDOZA DO Ot Z88. 5 ALLERGY STATUS TO NARCOTIC AGENT STATUS 09/22/2019 JULIANNE MENDOZA DO Ot Z90.710 ACQUIRED ABSENCE OF BOTH CERVIX AND UTER 09/22/2019 JULIANNE MENDOZA DO Ot Z95. 1 PRESENCE OF AORTOCORONARY BYPASS GRAFT 10/08/2019 AZAM, TY PAZ Ot 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 10/08/2019 AZAM, TY PAZ Ot K63.89 OTHER SPECIFIED DISEASES OF INTESTINE 10/08/2019 TY NASCIMENTO Ot R11.10 VOMITING, UNSPECIFIED 10/08/2019 YOUNG, TY DUNHAMP Ot R18.8 OTHER ASCITES 10/08/2019 YOUNG, TY PAZ Ot R19.04 LEFT LOWER QUADRANT ABDOMINAL SWELLING, 10/08/2019 YOUNG, TY CARDIOPULMONARY TECHNOLOGIST Ot R19.7 DIARRHEA, UNSPECIFIED 10/08/2019 YOUNG, TY CARDIOPULMONARY TECHNOLOGIST Ot R91.1 SOLITARY PULMONARY NODULE 10/08/2019 MENDOZA DO, JULIANNE D Ot J90 PLEURAL EFFUSION, NOT ELSEWHERE CLASSIFI 10/08/2019 MENDOZA DO, JULIANNE D Ot K65. 1 PERITONEAL ABSCESS 10/08/2019 MENDOZA DO, JULIANNE D Ot Z98.890 OTHER SPECIFIED POSTPROCEDURAL STATES 10/08/2019 IRVIN TITUS MD Ot C18. 9 MALIGNANT NEOPLASM OF COLON, UNSPECIFIED 10/08/2019 IRVIN TITUS MD Ot C18. 9 MALIGNANT NEOPLASM OF COLON, UNSPECIFIED 10/08/2019 IRVIN TITUS MD Ot C77. 2 SECONDARY AND UNSP MALIGNANT NEOPLASM OF 10/08/2019 IRVIN TITUS MD Ot K31. 89 OTHER DISEASES OF STOMACH AND DUODENUM 10/08/2019 IRVIN TITUS MD Ot K76. 89 OTHER SPECIFIED DISEASES OF LIVER 10/08/2019 IRVIN TITUS MD, Ot C18. 9 MALIGNANT NEOPLASM OF COLON, UNSPECIFIED 10/08/2019 MENDOZA DO, JULIANNE D Ot J90 PLEURAL EFFUSION, NOT ELSEWHERE CLASSIFI 10/08/2019 MENDOZA DO, JULIANNE D Ot K65. 1 PERITONEAL ABSCESS 10/08/2019 MENDOZA DO, JULIANNE D Ot Z98.890 OTHER SPECIFIED POSTPROCEDURAL STATES 10/08/2019 YOUNG, TY CARDIOPULMONARY TECHNOLOGIST Ot 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 10/08/2019 YOUNG, TY CARDIOPULMONARY TECHNOLOGIST Ot K63.89 OTHER SPECIFIED DISEASES OF INTESTINE 10/08/2019 YOUNG, TY CARDIOPULMONARY TECHNOLOGIST Ot R11.10 VOMITING, UNSPECIFIED 10/08/2019 YOUNG, TY CARDIOPULMONARY TECHNOLOGIST Ot R18.8 OTHER ASCITES 10/08/2019 YOUNG, TY CARDIOPULMONARY TECHNOLOGIST Ot R19.04 LEFT LOWER QUADRANT ABDOMINAL SWELLING, 10/08/2019 YOUNG, TY CARDIOPULMONARY TECHNOLOGIST Ot R19.7 DIARRHEA, UNSPECIFIED 10/08/2019 YOUNG, TY CARDIOPULMONARY TECHNOLOGIST Ot R91.1 SOLITARY PULMONARY NODULE 10/09/2019 IRVIN TITUS MD Ot C18. 9 MALIGNANT NEOPLASM OF COLON, UNSPECIFIED 10/09/2019 IRVIN TITUS MD Ot C77. 2 SECONDARY AND UNSP MALIGNANT NEOPLASM OF 10/09/2019 IRVIN TITUS MD Ot K31. 89 OTHER DISEASES OF STOMACH AND DUODENUM 10/09/2019 IRVIN TITUS MD Ot K76. 89 OTHER SPECIFIED DISEASES OF LIVER 10/13/2019 IRVIN TITUS MD Ot C18. 9 MALIGNANT NEOPLASM OF COLON, UNSPECIFIED 10/15/2019 IRVIN TITUS MD, Ot C18. 9 MALIGNANT NEOPLASM OF COLON, UNSPECIFIED 10/16/2019 [facility]211 CUTANEOUS ABSCESS OF ABDOMINAL WALL 10/21/2019 [facility] C18. 9 MALIGNANT NEOPLASM OF COLON, UNSPECIFIED 10/21/2019 [facility], JULIANNE Mejia Ot E78. 5 HYPERLIPIDEMIA, UNSPECIFIED 10/21/2019 [facility], JULIANNE Mejia Ot F17.210 NICOTINE DEPENDENCE, CIGARETTES, UNCOMPL 10/21/2019 [facility] Ot I10 ESSENTIAL (PRIMARY) HYPERTENSION 10/21/2019 [facility] Ot I25. 10 ATHSCL HEART DISEASE OF [place] CORONARY 10/21/2019 [facility] Ot J44. 9 CHRONIC OBSTRUCTIVE PULMONARY DISEASE, U 10/21/2019 [facility] Ot Z79. 02 MRI SPECIALIST (CURRENT) USE OF ANTITHROMBOTI 10/21/2019 [facility] Ot Z79. 82 ASSISTED (CURRENT) USE OF ASPIRIN 10/21/2019 [facility] Ot Z79.899 OTHER ASSISTED (CURRENT) DRUG THERAPY 10/21/2019 [facility] Ot Z82. 49 FAMILY HX OF [place] HEART DIS AND OTH DI 10/21/2019 [facility] Ot Z88. 5 ALLERGY STATUS TO NARCOTIC AGENT STATUS 10/21/2019 [facility] Ot Z90.710 ACQUIRED ABSENCE OF BOTH CERVIX AND UTER 10/21/2019 [facility] Ot Z95. 1 PRESENCE OF AORTOCORONARY BYPASS GRAFT 10/21/2019 IRVIN TITUS MD Ot C18. 9 MALIGNANT NEOPLASM OF COLON, UNSPECIFIED 10/21/2019 IRVIN TITUS MD Ot C77. 2 SECONDARY AND UNSP MALIGNANT NEOPLASM OF 10/21/2019 IRVIN TITUS MD Ot K76. 9 LIVER DISEASE, UNSPECIFIED 10/23/2019 IRVIN TITUS MD Ot C18. 9 MALIGNANT NEOPLASM OF COLON, UNSPECIFIED 10/23/2019 ARIELA KAM, IRVIN Ot C77. 2 SECONDARY AND UNSP MALIGNANT NEOPLASM OF 10/23/2019 ARIELA KAM, IRVIN Ot K76. 9 LIVER DISEASE, UNSPECIFIED 11/17/2019 IRVIN TITUS MD Ot C18. 9 MALIGNANT NEOPLASM OF COLON, UNSPECIFIED Procedures Code Description Performed By Per formed On [id number] EX CISION OF TRANSVERSE COLON, OPEN APPRO 07/30/2019 [id number] EX CISION OF DESCENDING COLON, OPEN APPRO 07/30/2019 [id number] EX CISION OF OMENTUM, OPEN APPROACH, DIAG 07/30/[id number] CAO OF ABDOMINAL WALL, OPEN APPROAC 07/30/2019 [id number] EX CISION OF ABDOMINAL WALL, OPEN APPROAC 07/30/[id number] CAO OF PERITONEAL CAVITY WITH DRAIN 08/12/[id number] CAO OF PELVIC CAVITY WITH DRAIN [...] pa juliocesar - 07/06/19 09:40 WRISTBAND NUMBER [id number] NRG ABO+Rh group OP NRG Blood group antibody screen NEGATIVE NR G Bacteria identification in isolate by an aerobe culture - 07/06/19 11:15 FREE TEXT EXTERNAL SEE COMMENT NRG QUANTITY OF GROWTH Many NRG Bacteria identification in isolate by anaerobe culture [id number] NRG Gram stain microscopy - 07/06/19 11:15 Gram stain microscopy Mixed Bacterial Bonnie NRG Bacteria identification in wound by cult ure - 07/06/19 11:15 Bacteria identification in wound by culture [id number] NRG FREE TEXT EXTERNAL SUSCEPTIBILITY REPORTED [...] - 07/28/19 22:30 Bacterial urine culture NG NRG Complete blood count (CBC) with automate [...] pa juliocesar - 07/30/19 14:35 WRISTBAND NUMBER [id number] NRG ABO+Rh group OP NRG Blood group antibody screen NEGATIVE NR G Bacteria identification in isolate by an aerobe culture - 07/30/19 16:18 FREE TEXT EXTERNAL BETA LACTAAMSE POSITIVE NRG QUANTITY OF GROWTH Rare NRG Bacteria identification in isolate by anaerobe culture [id number] NR FREE TEXT EXTERNAL 2 SEE COMMENTS NRG Gram stain microscopy - 07/30/19 16:18 Gram stain microscopy MANY GRAM POSITIVE FRED CI IN PAIRS AND CHAINS NRG Bacteria identification in wound by cult ure - 07/30/19 16:18 Bacteria identification in wound by culture [id number] NR FREE TEXT EXTERNAL SUSCEPTIBILITY REPORTED 08/02 1 [...] 0.0-0.1 Whole blood basic metabolic panel - 05/11 02:50 Serum or plasma sodium measurement [...] 7-25 CREATININE 0.32 mg/dL 0.50-0.99 eGFR NON-AFR. CUBAN 120 mL/min/1.73m2 > OR = 60 eGFR [...] mg/dL 8.5-10.1 Whole blood hemoglobin and hematocrit pa juliocesar - 08/12/19 05:55 Venous blood hemoglobin measurement (mass/volume) 6.4 g/dL 11.5-16.0 Blood hematocrit (volume fraction) 21 % 35-52 RED CELLS LEUKO REDUCED AS1 - 08/12/19 0 6:40 RED CELLS LEUKO REDUCED AS1 T RANSFUSED 08/12/19 1235 NRG Blood type T Indirect antibody screen pa juliocesar - 08/12/19 06:40 WRISTBAND NUMBER [id number] NRG ABO+Rh group OP NRG Blood group antibody screen NEGATIVE NR G Bacteria identification in isolate by an aerobe culture - 08/12/19 14:06 Bacteria identification in isolate by anaerobe culture NOANA NRG Gram stain microscopy - 08/12/19 14:06 Gram stain microscopy MODERATE YEAST NR G Bacteria identification in wound by cult ure - 08/12/19 14:06 Bacteria identification in wound by culture [id number] 006 NRG QUANTITY OF GROWTH Moderate Growth NRG Bacteria identification in isolate by an aerobe culture - 08/12/19 14:08 Bacteria identification in isolate by anaerobe culture NOANA NRG Gram stain microscopy - 08/12/19 14:08 Gram stain microscopy RARE YEAST NRG Bacteria identification in wound by cult ure - 08/12/19 14:08 Bacteria identification in wound by culture [id number] 006 NRG QUANTITY OF GROWTH FEW NRG [...] aureus (MRSA) scr eening culture NEG NRG Automated blood complete blood count (he mogram) panel - 10/21/19 09:50 Blood leukocytes automated count (number/volume) 5.9 10*3/uL 4.3-11.0 Blood erythrocytes automated count (number/volume) 4.21 10*6/uL 4.35-5.85 Venous blood hemoglobin measurement (mass/volume) 12.2 g/dL 11.5-16.0 Blood hematocrit (volume fraction) 38 % 35-52 Automated erythrocyte mean corpuscular volume 91 [ foz_us] 80-99 Automated erythrocyte mean corpuscular h emoglobin (mass per erythrocyte) 29 pg 25-34 Automated erythrocyte mean corpuscular h emoglobin concentration measurement (mass/volume) 32 g/dL 32-36 Automated erythrocyte distribution width ratio 15. 2 % 10.0- 14.5 Automated blood platelet count (count/volume) 197 10*3/uL 130-400 Automated blood platelet mean volume measurement 9.6 [foz_us] 7.4-10.4 PT panel in platelet poor plasma by coag ulation assay - 10/21/19 09:50 Prothrombin time (PT) in platelet poor plasma by coagu lation assay 13.2 s 12.2-14.7 INR in platelet poor plasma or blood by coagulation as say 1.0 0.8-1.4 Activated partial thromboplastin time (a PTT) in platelet poor plasma bycoagulation assay - 10/21/19 09:50 Activated partial thromboplastin time (a PTT) in platelet poor plasma bycoagulation assay 28 s 24-35 Bacteria identification in isolate by an aerobe culture - 10/21/19 13:00 Bacteria identification in isolate by anaerobe culture NOANA NRG Gram stain microscopy - 10/21/19 13:00 Gram stain microscopy No bacteria seen NRG Bacteria identification in wound by cult ure - 10/21/19 13:00 Bacteria identification in wound by culture NG NRG Fungus culture - 10/21/19 13:00 DIFFERENTIAL, MANUAL - 11/02/19 09:51 ABSOLUTE NEUTROPHILS 1158 cells/uL 1500- 7800 ABSOLUTE MONOCYTES 249 cells/uL 200-950 ABSOLUTE EOSINOPHILS 30 cells/uL 15-500 ABSOLUTE BASOPHILS 0 cells/uL 0-200 NEUTROPHILS 38.6 % NRG LYMPHOCYTES 52.1 % NRG MONOCYTES 8.3 % NRG EOSINOPHILS 1.0 % NRG BASOPHILS 0 % NRG ABSOLUTE LYMPHOCYTES 1563 cells/uL 850-3 900 CBC MORPHOLOGY NORMAL Complete blood count (CBC) with automate d white blood cell (WBC) differential - 11/29/19 19:39 Blood leukocytes automated count (number/volume) 2.9 10*3/uL 4.3-11.0 Blood erythrocytes automated count (number/volume) 3.73 10*6/uL 4.35-5.85 Venous blood hemoglobin measurement (mass/volume) 11.6 g/dL 11.5-16.0 Blood hematocrit (volume fraction) 35 % 35-52 Automated erythrocyte mean corpuscular volume 94 [ foz_us] 80-99 Automated erythrocyte mean corpuscular h emoglobin (mass per erythrocyte) 31 pg 25-34 Automated erythrocyte mean corpuscular h emoglobin concentration measurement (mass/volume) 33 g/dL 32-36 Automated erythrocyte distribution width ratio 16. 5 % 10.0- 14.5 Automated blood platelet count (count/volume) 122 10*3/uL 130-400 Automated blood platelet mean volume measurement 9.8 [foz_us] 7.4-10.4 Automated blood neutrophils/100 leukocytes 44 % 42-75 Automated blood lymphocytes/100 leukocytes 49 % 12-44 Blood monocytes/100 leukocytes 6 % 0-12 Automated blood eosinophils/100 leukocytes 1 % 0-10 Automated blood basophils/100 leukocytes 0 % 0-10 Blood neutrophils automated count (number/volume) 1.3 10*3 1.8-7.8 Blood lymphocytes automated count (number/volume) 1.4 10*3 1.0-4.0 Blood monocytes automated count (number/volume) 0. 2 10*3 0.0-1.0 Automated eosinophil count 0.0 10*3/uL 0 .0-0.3 Automated blood basophil count (count/volume) 0.0 10*3/uL 0.0-0.1 Comprehensive metabolic panel - 11/29/19 19:39 Serum or plasma sodium measurement (moles/volume) 133 mmol/L 135-145 Serum or plasma potassium measurement (moles/volume) 4.0 mmol/L 3.6-5.0 Serum or plasma chloride measurement (moles/volume) 99 mmol/L 98-107 Carbon dioxide 24 mmol/L 21-32 Serum or plasma anion gap determination (moles/volume) 10 mmol/L 5-14 Serum or plasma urea nitrogen measurement (mass/volume ) 9 mg/dL 7-18 Serum or plasma creatinine measurement (mass/volume) 0.57 mg/dL 0.60-1.30 Serum or plasma urea nitrogen/creatinine mass ratio 16 NRG Serum or plasma creatinine measurement w ith calculation of estimated glomerular filtration rate > NRG Serum or plasma glucose measurement (mass/volume) 89 mg/dL 70-105 Serum or plasma calcium measurement (mass/volume) 9.2 mg/dL 8.5-10.1 Serum or plasma total bilirubin measurement (mass/volu me) 0.4 mg/dL 0.1-1.0 Serum or plasma alkaline phosphatase dominic surement (enzymatic activity/volume) 260 U/L 40-136 Serum or plasma aspartate aminotransfera se measurement (enzymatic activity/volume) 37 U/L 5-34 Serum or plasma alanine aminotransferase measurement (enzymatic activity/volume) 55 U/L 0-55 Serum or plasma protein measurement (mass/volume) 6.7 g/dL 6.4-8.2 Serum or plasma albumin measurement (mass/volume) 3.6 g/dL 3.2-4.5 CALCIUM CORRECTED 9.5 mg/dL 8.5-10.1 Lipase - 11/29/19 19:39 Lipase 52 U/L 8-78 Serum or plasma C reactive protein measu rement (mass/volume) - 11/29/19 19:39 Serum or plasma C reactive protein measurement (mass/v olume) 2.00 mg/dL 0.00-0.50 PT panel in platelet poor plasma by coag ulation assay - 11/29/19 19:39 Prothrombin time (PT) in platelet poor plasma by coagu lation assay 13.6 s 12.2-14.7 INR in platelet poor plasma or blood by coagulation as say 1.0 0.8-1.4 Activated partial thromboplastin time (a PTT) in platelet poor plasma bycoagulation assay - 11/29/19 19:39 Activated partial thromboplastin time (a PTT) in platelet poor plasma bycoagulation assay 29 s 24-35 Complete urinalysis with reflex to cultu re - 11/29/19 20:30 Urine color determination YELLOW NRG Urine clarity determination CLEAR NR G Urine pH measurement by test strip 8.0 5-9 Specific gravity of urine by test strip 1.020 1.016-1.022 Urine protein assay by test strip, semi-quantitative NEGATIVE NEGATIVE Urine glucose detection by automated test strip NE GATIVE NEGATIVE Erythrocytes detection in urine sediment by light micr oscopy NEGATIVE NEGATIVE Urine ketones detection by automated test strip NE GATIVE NEGATIVE Urine nitrite detection by test strip NEGATIVE NEGATIVE Urine total bilirubin detection by test strip NEGA TIVE NEGATIVE Urine urobilinogen measurement by automated test strip (mass/volume) 0.2 mg/dL < = 1.0 Urine leukocyte esterase detection by dipstick NEG ATIVE NEGATIVE Automated urine sediment erythrocyte cou nt by microscopy (number/high power field) NONE NRG Automated urine sediment leukocyte count by microscopy (number/high power field) [HPF] NRG Bacteria detection in urine sediment by light microsco py MODERATE NRG Crystals detection in urine sediment by light microsco py NONE NRG Casts detection in urine sediment by light microscopy NONE NRG Mucus detection in urine sediment by light microscopy NEGATIVE NRG Complete urinalysis with reflex to culture YES NRG Bacterial urine culture - 11/29/19 20:30 Bacterial urine culture NG NRG Blood lactic acid measurement (moles/vol ume) - 11/29/19 21:10 Blood lactic acid measurement (moles/volume) 0.66 mmol/L 0.50-2.00 Bacterial blood culture - 11/29/19 21:10 Bacterial blood culture NG NRG Bacterial blood culture - 11/29/19 21:30 Bacterial blood culture NG NRG Encounters ACCT No. Visit Date/Time Discharge Status Pt. Type Provider Facility Loc./Unit Complaint [id number] 09/30/2019 13:00:00 09/30/2019 23:59: 59 CLS Outpatient VLADIMIR IRIZARRY [id number] 11/02/2019 09:00:00 Document Registration [id number] 08/08/2019 11:00:00 Document Registration [id number] 07/02/2019 11:00:00 Document Registration [id number] 11/29/2019 19:22:00 22:22:00 DIS Emergency JANAY CHOW MD [facility] ER ABD PAIN [id number] 11/24/2019 08:33:00 23:59:59 CLS Outpatient IRVIN TITUS MD [facility] ONC [id number] 10/21/2019 09:30:00 14:30:00 DIS Outpatient IRVIN TITUS MD [facility] SDC LIVER LESION,COLON CANC ER [id number] 10/06/2019 10:11:00 23:59:59 CLS Outpatient IRVIN TITUS MD [facility] RAD COLON CA,SECONDARY LUIS OCARCINOMA OF LYMPH NODE [id number] 09/10/2019 07:16:00 11:45:00 DIS Outpatient JULIANNE MENDOZA DO [facility] SDC ADENOCARCINOMA OF COLON [id number] 08/11/2019 20:44:00 17:04:00 DIS Inpatient JULIANNE MENDOZA DO [facility] 4TH POST OP FLUID COLLECTIO N, DIARRHEA [id number] 07/28/2019 23:10:00 17:20:00 DIS Inpatient JOE GARCIA MD [facility] 4TH COLONIC FISTULA ABSCE SS [id number] 07/20/2019 13:40:00 23:59:59 CLS Outpatient JULIANNE MENDOZA DO [facility] RAD PERITONEAL ABSCESS [id number] 07/06/2019 09:12:00 13:32:00 DIS Outpatient JULIANNE MENDOZA DO [facility] ABDOMINAL ABSCESS [id number] 07/03/2019 08:23:00 23:59:59 CLS Outpatient TY NASCIMENTO [facility] RAD VOMITING,DIARRHEA
== END 2019-11-29 22:22 | disposition home or self-care (01) ==
LOC: EDUNIT# 19:21 → ER 19:22
DX: C18.9 Malignant neoplasm of colon, unspecified (principal); C78.7 Secondary malignant neoplasm of liver and intrahepatic bile duct; I10 Essential (primary) hypertension; I25.2 Old myocardial infarction; I25.10 Atherosclerotic heart disease of native coronary artery without angina pectoris; E78.00 Pure hypercholesterolemia, unspecified; F17.210 Nicotine dependence, cigarettes, uncomplicated; Z88.5 Allergy status to narcotic agent; Z95.5 Presence of coronary angioplasty implant and graft; Z79.82 Long term (current) use of aspirin; Z79.02 Long term (current) use of antithrombotics/antiplatelets; Z82.49 Family history of ischemic heart disease and other diseases of the circulatory system
CPT/HCPCS: 36415; 71045; 74177; 80053; 81000; 83605; 83690; 85025; 85610; 85730; 86141; 87040; 87088

== ENCOUNTER → 2020-02-26 | Outpatient (CLI) | payer MEDICAID ==
[~2020-02-26] MED LIST changes: +BARIUM SUSPENSION 2.1% (VANILLA SILQ) 450 ML PO ONE; +CLON0.5T4; +HOLD METFORMIN - RECEIVED CONTRAST 20 ML VIAL IV SCH; +HYDR-4226 PO; +IOHEXOL 350 MG/ML 100 ML (OMNIPAQUE 350) VIAL IV ONE; +NS 100 ML (IVPB) BAG IV ONE; +ONDA8TAB15; +PANT20TA3
--- NOTE | 2020-02-26 11:06 | Diagnostic Imaging Report ---
PROCEDURE: CT chest, abdomen, and pelvis with contrast. TECHNIQUE: Multiple contiguous axial images were obtained through the chest, abdomen, and pelvis after the administration of intravenous contrast. Auto Exposure Controls were utilized during the CT exam to meet ALARA standards for radiation dose reduction. INDICATION: Colon cancer with metastatic disease study compared with abdominal pelvic CT performed 11/29/[address] 10/06/2019 CHEST: Features of centrilobular emphysema bilaterally most notably involve the apical the upper lobes unchanged from the comparison study. Having become apparent since the earlier chest CT there is a 4 mm juxtapleural nodule in the left lower lobe imperceptible when reviewed on soft tissue windows however indeterminate given its development. Could have been obscured on a slice localization basis previously. No other lung nodule and no spiculated lung lesion. No thoracic lymphadenopathy. No chest effusion. There is no suspicious lytic or sclerotic bony lesion. Abdomen pelvis: On the comparison abdominal CT there were multiple new hypodense but solid liver masses throughout the left and right lobes. These masses cannot be identified at today's study. The adrenal stable and negative. The spleen unremarkable. Tissue thickening associated with the patient's gastric antrum has resolved in the interim. A retroperitoneal nodule anterior to the mid pole of the left kidney present previously has resolved. Some upper abdominal periaortic retroperitoneal lymph nodes are less than 1 cm and decreased in size and number. The severe aortoiliac and mesenteric atherosclerotic vascular calcifications without aneurysm. The appendix normal. There is noninflamed sigmoid diverticulosis. There is some lack of distention of the partially opacified sigmoid colon in the left lower quadrant limiting that segments evaluation. Kidneys are unobstructed. No pelvic adenopathy. The urinary bladder unremarkable. IMPRESSION: CHEST: New juxtapleural low-density subcentimeter left lower lobe nodule. Given the otherwise substantial favorable changes this would be unlikely to reflect a new metastasis but consider follow-up CT in 3-6 months. Chest otherwise unremarkable aside from chronic features of COPD. Abdomen pelvis: Resolution of multifocal hepatic metastases. Resolution of a perinephric retroperitoneal nodule and improvements in periaortic retroperitoneal adenopathy with resolution of gastric antral thickening. No adverse development within the abdomen or pelvis. Dictated by: Dictated on workstation # [id number]
== END ==
LOC: RAD 08:28
PROVIDERS: ATTEND Internal Medicine Hematology & Oncology
DX: C18.9 Malignant neoplasm of colon, unspecified (principal); C77.2 Secondary and unspecified malignant neoplasm of intra-abdominal lymph nodes; C78.7 Secondary malignant neoplasm of liver and intrahepatic bile duct
CPT/HCPCS: 71260; 74177

== ENCOUNTER 2020-03-01 09:29 | Outpatient (RCR) | payer MEDICAID ==
[2019-12-08 09:18] LABS: BASOPHILS % (AUTO) 1 % (0-10); EOSINOPHILS % (AUTO) 1 % (0-10); HEMATOCRIT 36 % (35-52); HEMOGLOBIN 11.6 G/DL (11.5-16.0); LYMPHOCYTES # (AUTO) 1.2 X 10^3 (1.0-4.0); LYMPHOCYTES % (AUTO) 35 % (12-44); MEAN CORPUSCULAR HEMOGLOBIN 32 PG (25-34); MEAN CORPUSCULAR HGB CONC 33 G/DL (32-36); MEAN CORPUSCULAR VOLUME 97 FL (80-99); MEAN PLATELET VOLUME 9.7 FL (7.4-10.4); MONOCYTES # (AUTO) 0.6 X 10^3 (0.0-1.0); MONOCYTES % (AUTO) 18 % (0-12); NEUTROPHILS # (AUTO) 1.5 X 10^3 (1.8-7.8); NEUTROPHILS % (AUTO) 45 % (42-75); PLATELET COUNT 152 10^3/uL (130-400); RED CELL DISTRIBUTION WIDTH 17.8 % (10.0-14.5); WHITE BLOOD COUNT 3.3 10^3/uL (4.3-11.0)
[2019-12-08 09:41] LABS: ALANINE AMINOTRANSFERASE 22 U/L (0-55); ALBUMIN 3.6 GM/DL (3.2-4.5); ALKALINE PHOSPHATASE 258 U/L (40-136); BILIRUBIN,TOTAL 0.2 MG/DL (0.1-1.0); BUN/CREATININE RATIO 16; CALCIUM 9.2 MG/DL (8.5-10.1); CARBON DIOXIDE 24 MMOL/L (21-32); CHLORIDE 103 MMOL/L (98-107); CREATININE SERUM 0.61 MG/DL (0.60-1.30); GFR ESTIMATED > 60; GLUCOSE 126 MG/DL (70-105); POTASSIUM 3.8 MMOL/L (3.6-5.0); SODIUM 137 MMOL/L (135-145); TOTAL PROTEIN 6.6 GM/DL (6.4-8.2)
[2019-12-22 09:16] LABS: BASOPHILS % (AUTO) 1 % (0-10); EOSINOPHILS # (AUTO) 0.1 10^3/uL (0.0-0.3); EOSINOPHILS % (AUTO) 2 % (0-10); HEMATOCRIT 35 % (35-52); HEMOGLOBIN 11.7 G/DL (11.5-16.0); LYMPHOCYTES # (AUTO) 1.5 X 10^3 (1.0-4.0); LYMPHOCYTES % (AUTO) 33 % (12-44); MEAN CORPUSCULAR HEMOGLOBIN 32 PG (25-34); MEAN CORPUSCULAR HGB CONC 33 G/DL (32-36); MEAN CORPUSCULAR VOLUME 98 FL (80-99); MEAN PLATELET VOLUME 9.9 FL (7.4-10.4); MONOCYTES # (AUTO) 0.7 X 10^3 (0.0-1.0); MONOCYTES % (AUTO) 15 % (0-12); NEUTROPHILS # (AUTO) 2.3 X 10^3 (1.8-7.8); NEUTROPHILS % (AUTO) 50 % (42-75); PLATELET COUNT 99 10^3/uL (130-400); RED CELL DISTRIBUTION WIDTH 17.9 % (10.0-14.5); WHITE BLOOD COUNT 4.6 10^3/uL (4.3-11.0)
[2019-12-22 09:37] LABS: ALANINE AMINOTRANSFERASE 18 U/L (0-55); ALBUMIN 3.7 GM/DL (3.2-4.5); ALKALINE PHOSPHATASE 228 U/L (40-136); BILIRUBIN,TOTAL 0.3 MG/DL (0.1-1.0); BUN/CREATININE RATIO 10; CARBON DIOXIDE 20 MMOL/L (21-32); CHLORIDE 104 MMOL/L (98-107); CREATININE SERUM 0.59 MG/DL (0.60-1.30); GFR ESTIMATED > 60; GLUCOSE 80 MG/DL (70-105); POTASSIUM 3.8 MMOL/L (3.6-5.0); SODIUM 137 MMOL/L (135-145); TOTAL PROTEIN 6.7 GM/DL (6.4-8.2)
[2020-01-05 09:11] LABS: BASOPHILS % (AUTO) 1 % (0-10); EOSINOPHILS # (AUTO) 0.1 10^3/uL (0.0-0.3); EOSINOPHILS % (AUTO) 2 % (0-10); HEMATOCRIT 37 % (35-52); HEMOGLOBIN 12.1 G/DL (11.5-16.0); LYMPHOCYTES # (AUTO) 1.5 X 10^3 (1.0-4.0); LYMPHOCYTES % (AUTO) 30 % (12-44); MEAN CORPUSCULAR HEMOGLOBIN 32 PG (25-34); MEAN CORPUSCULAR HGB CONC 33 G/DL (32-36); MEAN CORPUSCULAR VOLUME 99 FL (80-99); MEAN PLATELET VOLUME 9.7 FL (7.4-10.4); MONOCYTES # (AUTO) 0.6 X 10^3 (0.0-1.0); MONOCYTES % (AUTO) 12 % (0-12); NEUTROPHILS # (AUTO) 2.7 X 10^3 (1.8-7.8); NEUTROPHILS % (AUTO) 56 % (42-75); PLATELET COUNT 148 10^3/uL (130-400); RED CELL DISTRIBUTION WIDTH 16.5 % (10.0-14.5); WHITE BLOOD COUNT 4.9 10^3/uL (4.3-11.0)
[2020-01-05 09:30] LABS: ALANINE AMINOTRANSFERASE 37 U/L (0-55); ALBUMIN 3.7 GM/DL (3.2-4.5); ALKALINE PHOSPHATASE 350 U/L (40-136); BILIRUBIN,TOTAL 0.3 MG/DL (0.1-1.0); BUN/CREATININE RATIO 12; CALCIUM 9.2 MG/DL (8.5-10.1); CARBON DIOXIDE 24 MMOL/L (21-32); CHLORIDE 103 MMOL/L (98-107); CREATININE SERUM 0.57 MG/DL (0.60-1.30); GFR ESTIMATED > 60; GLUCOSE 80 MG/DL (70-105); MAGNESIUM 1.6 MG/DL (1.6-2.4); POTASSIUM 4.2 MMOL/L (3.6-5.0); SODIUM 136 MMOL/L (135-145)
[2020-01-19 08:56] LABS: BASOPHILS % (AUTO) 0 % (0-10); EOSINOPHILS # (AUTO) 0.1 10^3/uL (0.0-0.3); EOSINOPHILS % (AUTO) 2 % (0-10); HEMATOCRIT 36 % (35-52); HEMOGLOBIN 11.7 G/DL (11.5-16.0); LYMPHOCYTES # (AUTO) 1.4 X 10^3 (1.0-4.0); LYMPHOCYTES % (AUTO) 29 % (12-44); MEAN CORPUSCULAR HEMOGLOBIN 33 PG (25-34); MEAN CORPUSCULAR HGB CONC 33 G/DL (32-36); MEAN CORPUSCULAR VOLUME 100 FL (80-99); MEAN PLATELET VOLUME 9.3 FL (7.4-10.4); MONOCYTES # (AUTO) 0.5 X 10^3 (0.0-1.0); MONOCYTES % (AUTO) 11 % (0-12); NEUTROPHILS # (AUTO) 2.8 X 10^3 (1.8-7.8); NEUTROPHILS % (AUTO) 58 % (42-75); PLATELET COUNT 113 10^3/uL (130-400); RED CELL DISTRIBUTION WIDTH 15.6 % (10.0-14.5); WHITE BLOOD COUNT 4.8 10^3/uL (4.3-11.0)
[2020-01-19 09:18] LABS: ALANINE AMINOTRANSFERASE 11 U/L (0-55); ALBUMIN 3.6 GM/DL (3.2-4.5); ALKALINE PHOSPHATASE 216 U/L (40-136); BILIRUBIN,TOTAL 0.2 MG/DL (0.1-1.0); BUN/CREATININE RATIO 14; CALCIUM 9.1 MG/DL (8.5-10.1); CARBON DIOXIDE 23 MMOL/L (21-32); CHLORIDE 103 MMOL/L (98-107); CREATININE SERUM 0.57 MG/DL (0.60-1.30); GFR ESTIMATED > 60; GLUCOSE 83 MG/DL (70-105); POTASSIUM 3.7 MMOL/L (3.6-5.0); SODIUM 136 MMOL/L (135-145); TOTAL PROTEIN 6.8 GM/DL (6.4-8.2)
[2020-02-02 09:08] LABS: BASOPHILS % (AUTO) 1 % (0-10); EOSINOPHILS % (AUTO) 1 % (0-10); HEMATOCRIT 36 % (35-52); HEMOGLOBIN 11.8 G/DL (11.5-16.0); LYMPHOCYTES # (AUTO) 1.3 X 10^3 (1.0-4.0); LYMPHOCYTES % (AUTO) 36 % (12-44); MEAN CORPUSCULAR HEMOGLOBIN 32 PG (25-34); MEAN CORPUSCULAR HGB CONC 32 G/DL (32-36); MEAN CORPUSCULAR VOLUME 100 FL (80-99); MEAN PLATELET VOLUME 9.8 FL (7.4-10.4); MONOCYTES # (AUTO) 0.5 X 10^3 (0.0-1.0); MONOCYTES % (AUTO) 15 % (0-12); NEUTROPHILS # (AUTO) 1.7 X 10^3 (1.8-7.8); NEUTROPHILS % (AUTO) 48 % (42-75); PLATELET COUNT 123 10^3/uL (130-400); RED CELL DISTRIBUTION WIDTH 14.9 % (10.0-14.5); WHITE BLOOD COUNT 3.5 10^3/uL (4.3-11.0)
[2020-02-02 09:26] LABS: ALANINE AMINOTRANSFERASE 11 U/L (0-55); ALBUMIN 3.5 GM/DL (3.2-4.5); ALKALINE PHOSPHATASE 265 U/L (40-136); BILIRUBIN,TOTAL 0.2 MG/DL (0.1-1.0); BUN/CREATININE RATIO 12; CALCIUM 8.9 MG/DL (8.5-10.1); CARBON DIOXIDE 23 MMOL/L (21-32); CHLORIDE 101 MMOL/L (98-107); CREATININE SERUM 0.57 MG/DL (0.60-1.30); GFR ESTIMATED > 60; GLUCOSE 81 MG/DL (70-105); POTASSIUM 3.7 MMOL/L (3.6-5.0); SODIUM 134 MMOL/L (135-145); TOTAL PROTEIN 6.9 GM/DL (6.4-8.2)
[2020-02-16 09:38] LABS: BASOPHILS % (AUTO) 1 % (0-10); EOSINOPHILS # (AUTO) 0.1 10^3/uL (0.0-0.3); EOSINOPHILS % (AUTO) 2 % (0-10); HEMATOCRIT 36 % (35-52); HEMOGLOBIN 11.8 G/DL (11.5-16.0); LYMPHOCYTES # (AUTO) 1.3 X 10^3 (1.0-4.0); LYMPHOCYTES % (AUTO) 37 % (12-44); MEAN CORPUSCULAR HEMOGLOBIN 33 PG (25-34); MEAN CORPUSCULAR HGB CONC 33 G/DL (32-36); MEAN CORPUSCULAR VOLUME 100 FL (80-99); MEAN PLATELET VOLUME 9.7 FL (7.4-10.4); MONOCYTES # (AUTO) 0.6 X 10^3 (0.0-1.0); MONOCYTES % (AUTO) 16 % (0-12); NEUTROPHILS # (AUTO) 1.6 X 10^3 (1.8-7.8); NEUTROPHILS % (AUTO) 45 % (42-75); PLATELET COUNT 126 10^3/uL (130-400); RED CELL DISTRIBUTION WIDTH 14.9 % (10.0-14.5); WHITE BLOOD COUNT 3.6 10^3/uL (4.3-11.0)
[2020-02-16 09:55] LABS: ALANINE AMINOTRANSFERASE 16 U/L (0-55); ALBUMIN 3.6 GM/DL (3.2-4.5); ALKALINE PHOSPHATASE 259 U/L (40-136); BILIRUBIN,TOTAL 0.3 MG/DL (0.1-1.0); BUN/CREATININE RATIO 11; CARBON DIOXIDE 25 MMOL/L (21-32); CHLORIDE 102 MMOL/L (98-107); CREATININE SERUM 0.62 MG/DL (0.60-1.30); GFR ESTIMATED > 60; GLUCOSE 80 MG/DL (70-105); POTASSIUM 4.1 MMOL/L (3.6-5.0); SODIUM 136 MMOL/L (135-145); TOTAL PROTEIN 7.2 GM/DL (6.4-8.2)
[~2020-03-01 09:29] MED LIST changes: -BARIUM SUSPENSION 2.1% (VANILLA SILQ) 450 ML PO ONE; +BEVACIZUMAB IV SCH; +D5W 500 ML IV (CANCER CTR) 500 ML IV SCH; +D5W IV SCH; +FAMOTIDINE 20MG/2ML IV (CANCER CTR) IV SCH; +FOSAPREPITANT (CANCER CENTER) 150 MG in NS (IVPB) CANCER CENTER ONLY 150 ML IV SCH; -HOLD METFORMIN - RECEIVED CONTRAST 20 ML VIAL IV SCH; -IOHEXOL 350 MG/ML 100 ML (OMNIPAQUE 350) VIAL IV ONE; +LEUCOVORIN CALCIUM 400 MG in D5W 250 ML IVPB (CANCER CTR) 250 ML IV SCH; -NS 100 ML (IVPB) BAG IV ONE; +NS IV SCH; +ONDANSETRON 8 MG, DEXAMETHASONE 4 MG/NS 50 ML IVPB (Cancer Ctr) IV SCH; +OXALIPLATIN IV SCH; +PALONOSETRON HCL 0.25 MG, DEXAMETHASONE INJECTION 10 MG in NS (IVPB) CANCER CENTER 50 ML IV SCH
[2020-03-01 09:46] LABS: BASOPHILS % (AUTO) 1 % (0-10); EOSINOPHILS # (AUTO) 0.1 10^3/uL (0.0-0.3); EOSINOPHILS % (AUTO) 1 % (0-10); HEMATOCRIT 36 % (35-52); HEMOGLOBIN 11.9 G/DL (11.5-16.0); LYMPHOCYTES # (AUTO) 1.2 X 10^3 (1.0-4.0); LYMPHOCYTES % (AUTO) 35 % (12-44); MEAN CORPUSCULAR HEMOGLOBIN 33 PG (25-34); MEAN CORPUSCULAR HGB CONC 33 G/DL (32-36); MEAN CORPUSCULAR VOLUME 99 FL (80-99); MEAN PLATELET VOLUME 9.9 FL (7.4-10.4); MONOCYTES # (AUTO) 0.6 X 10^3 (0.0-1.0); MONOCYTES % (AUTO) 16 % (0-12); NEUTROPHILS # (AUTO) 1.6 X 10^3 (1.8-7.8); NEUTROPHILS % (AUTO) 47 % (42-75); PLATELET COUNT 87 10^3/uL (130-400); RED CELL DISTRIBUTION WIDTH 15.1 % (10.0-14.5); WHITE BLOOD COUNT 3.5 10^3/uL (4.3-11.0)
[2020-03-01 10:11] LABS: ALANINE AMINOTRANSFERASE 18 U/L (0-55); ALBUMIN 3.8 GM/DL (3.2-4.5); ALKALINE PHOSPHATASE 207 U/L (40-136); BILIRUBIN,TOTAL 0.3 MG/DL (0.1-1.0); BUN/CREATININE RATIO 10; CALCIUM 9.3 MG/DL (8.5-10.1); CARBON DIOXIDE 24 MMOL/L (21-32); CHLORIDE 99 MMOL/L (98-107); CREATININE SERUM 0.58 MG/DL (0.60-1.30); GFR ESTIMATED > 60; GLUCOSE 81 MG/DL (70-105); POTASSIUM 4.2 MMOL/L (3.6-5.0); SODIUM 132 MMOL/L (135-145); TOTAL PROTEIN 7.3 GM/DL (6.4-8.2)
== END 2020-03-07 | disposition home or self-care (01) ==
LOC: ONC 09:29
PROVIDERS: ATTEND Internal Medicine Hematology & Oncology
DX: Z51.11 Encounter for antineoplastic chemotherapy (principal); C18.9 Malignant neoplasm of colon, unspecified; C77.2 Secondary and unspecified malignant neoplasm of intra-abdominal lymph nodes
CPT/HCPCS: 80053; 82378; 85025; 96367; 96368; 96375; 96411; 96413; 96521; G0463; 36591; 83735

== ENCOUNTER 2020-05-01 17:42 | Emergency (ER) | payer MEDICAID ==
[~2020-05-01] VITALS: Ht 149 cm; Wt 35.4 kg
[~2020-05-01 17:42] MED LIST changes: -BEVACIZUMAB IV SCH; -D5W 500 ML IV (CANCER CTR) 500 ML IV SCH; -D5W IV SCH; -FAMOTIDINE 20MG/2ML IV (CANCER CTR) IV SCH; -FOSAPREPITANT (CANCER CENTER) 150 MG in NS (IVPB) CANCER CENTER ONLY 150 ML IV SCH; -LEUCOVORIN CALCIUM 400 MG in D5W 250 ML IVPB (CANCER CTR) 250 ML IV SCH; +MULT-567 PO; -MULT1TAB69 PO; -NS IV SCH; -ONDANSETRON 8 MG, DEXAMETHASONE 4 MG/NS 50 ML IVPB (Cancer Ctr) IV SCH; -OXALIPLATIN IV SCH; -PALONOSETRON HCL 0.25 MG, DEXAMETHASONE INJECTION 10 MG in NS (IVPB) CANCER CENTER 50 ML IV SCH
--- OUTSIDE RECORDS SUMMARY | 2020-05-01 17:48 | XMS REPORT | Continuity of Care Document ---
Author Organization Unknown Address Unknown Phone Unavailable Allergies Active Description Code Type Severity Reaction Onset Reported/Identified Relationship to Patient Clinical Status Yes No Allergy Information Available [id number] Drug Allergy Unknown N/A 019 Yes codeine [id number] Drug Allergy Unknown N/A 07/06/2019 Medications There [...] Ot R18.8 OTHER ASCITES 07/28/2019 TY NASCIMENTO ASSOCIATE PROFESSOR OF ART Ot R19.04 LEFT LOWER QUADRANT ABDOMINAL SWELLING, 07/28/2019 AZAM TY DUNHAMP Ot R19.7 DIARRHEA, UNSPECIFIED 07/28/2019 TY NASCIMENTO ASSOCIATE PROFESSOR OF ART Ot R91.1 SOLITARY PULMONARY NODULE 07/28/2019 MENDOZA [...] SECONDARY AND UNSP MALIGNANT NEOPLASM OF 08/03/2019 OJE GARCIA MD Ot D64 .9 ANEMIA, UNSPECIFIED 08/03/2019 JOE GARCIA MD Ot E16 .2 HYPOGLYCEMIA, UNSPECIFIED 08/03/2019 JOE GARCIA MD Ot E78 .5 HYPERLIPIDEMIA, UNSPECIFIED 08/03/2019 JOE GARCIA MD Ot E83.42 HYPOMAGNESEMIA 08/03/2019 JOE GARCIA MD Ot F17.210 NICOTINE DEPENDENCE, CIGARETTES, UNCOMPL 08/03/2019 JEO GARCIA MD Ot I10 ESSENTIAL (PRIMARY) HYPERTENSION 08/03/2019 JOE GARCIA MD Ot I25.10 ATHSCL HEART DISEASE OF [place] CORONARY 08/03/2019 JOE GARCIA MD Ot I25 .2 OLD MYOCARDIAL INFARCTION 08/03/2019 JOE GARCIA MD, Ot K63 .2 FISTULA OF INTESTINE 08/03/2019 JOE GARCIA MD, Ot K76 .9 LIVER DISEASE, UNSPECIFIED 08/03/2019 JOE GARCIA MD, Ot L02.211 CUTANEOUS ABSCESS OF ABDOMINAL WALL 08/03/2019 JOE GARCIA MD, Ot Z23 ENCOUNTER FOR IMMUNIZATION 08/03/2019 JOE GARCIA MD, Ot Z79.02 INTERNAL INVESTIGATOR (CURRENT) USE OF ANTITHROMBOTI 08/03/2019 JOE GARCIA [...] Ot I25. 10 ATHSCL HEART DISEASE OF [place] CORONARY 08/17/2019 JULIANNE MENDOZA DO Ot I25. [...] Ot I25. 10 ATHSCL HEART DISEASE OF [place] CORONARY 08/19/2019 JULIANNE MENDOZA DO Ot I25. [...] OTHER SPECIFIED POSTPROCEDURAL STATES 08/21/2019 TY NASCIMENTO ASSOCIATE PROFESSOR OF ART Ot 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 08/21/2019 TY NASCIMENTO ASSOCIATE PROFESSOR OF ART Ot K63.89 OTHER SPECIFIED DISEASES OF INTESTINE 08/21/2019 TY NASCIMENTO ASSOCIATE PROFESSOR OF ART Ot R11.10 VOMITING, UNSPECIFIED 08/21/2019 TY NASCIMENTO ASSOCIATE PROFESSOR OF ART Ot R18.8 OTHER ASCITES 08/21/2019 TY NASCIMENTO ASSOCIATE PROFESSOR OF ART Ot R19.04 LEFT LOWER QUADRANT ABDOMINAL SWELLING, 08/21/2019 TY NASCIMENTO ASSOCIATE PROFESSOR OF ART Ot R19.7 DIARRHEA, UNSPECIFIED 08/21/2019 TY NASCIMENTO ASSOCIATE PROFESSOR OF ART Ot R91.1 SOLITARY PULMONARY NODULE 08/22/2019 TY NASCIMENTO ASSOCIATE PROFESSOR OF ART Ot 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 08/22/2019 TY NASCIMENTO ASSOCIATE PROFESSOR OF ART Ot K63.89 OTHER SPECIFIED DISEASES OF INTESTINE 08/22/2019 TY NASCIMENTO ASSOCIATE PROFESSOR OF ART Ot R11.10 VOMITING, UNSPECIFIED 08/22/2019 TY NASCIMENTO ASSOCIATE PROFESSOR OF ART Ot R18.8 OTHER ASCITES 08/22/2019 TY NASCIMENTO ASSOCIATE PROFESSOR OF ART Ot R19.04 LEFT LOWER QUADRANT ABDOMINAL SWELLING, 08/22/2019 TY NASCIMENTO ASSOCIATE PROFESSOR OF ART Ot R19.7 DIARRHEA, UNSPECIFIED 08/22/2019 TY NASCIMENTO ASSOCIATE PROFESSOR OF ART Ot R91.1 SOLITARY PULMONARY NODULE 09/03/2019 TY NASCIMENTO ASSOCIATE PROFESSOR OF ART Ot 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 09/03/2019 TY NASCIMENTO ASSOCIATE PROFESSOR OF ART Ot K63.89 OTHER SPECIFIED DISEASES OF INTESTINE 09/03/2019 TY NASCIMENTO ASSOCIATE PROFESSOR OF ART Ot R11.10 VOMITING, UNSPECIFIED 09/03/2019 TY NASCIMENTO ASSOCIATE PROFESSOR OF ART Ot R18.8 OTHER ASCITES 09/03/2019 AZAM TY ASSOCIATE PROFESSOR OF ART Ot R19.04 LEFT LOWER QUADRANT ABDOMINAL SWELLING, 09/03/2019 TY NASCIMENTO ASSOCIATE PROFESSOR OF ART Ot R19.7 DIARRHEA, UNSPECIFIED 09/03/2019 AZAM TY ASSOCIATE PROFESSOR OF ART Ot R91.1 SOLITARY PULMONARY NODULE 09/03/2019 JULIANNE [...] Ot I25. 10 ATHSCL HEART DISEASE OF [place] CORONARY 09/10/2019 JULIANNE MENDOZA DO Ot J44. 9 CHRONIC OBSTRUCTIVE PULMONARY DISEASE, U 09/10/2019 JULIANNE MENDOZA DO Ot Z79. 02 CUSTODIAL (CURRENT) USE OF ANTITHROMBOTI 09/10/2019 JULIANNE MENDOZA DO Ot Z79. 82 INTERNAL INVESTIGATOR (CURRENT) USE OF ASPIRIN 09/10/2019 JULIANNE MENDOZA DO Ot Z79.899 OTHER INTERNAL INVESTIGATOR (CURRENT) DRUG THERAPY 09/10/2019 JULIANNE MENDOZA DO [...] Ot I10 ESSENTIAL (PRIMARY) HYPERTENSION 09/22/2019 JULIANNE MEDNOZA DO Ot I25. 10 ATHSCL HEART DISEASE OF [place] CORONARY 09/22/2019 JULIANNE MENDOZA DO Ot J44. 9 CHRONIC OBSTRUCTIVE PULMONARY DISEASE, U 09/22/2019 JULIANNE MENDOZA DO Ot Z79. 02 CUSTODIAL (CURRENT) USE OF ANTITHROMBOTI 09/22/2019 JULIANNE MENDOZA DO Ot Z79. 82 CUSTODIAL (CURRENT) USE OF ASPIRIN 09/22/2019 JULIANNE MENDOZA DO Ot Z79.899 OTHER INTERNAL INVESTIGATOR (CURRENT) DRUG THERAPY 09/22/2019 JULIANNE MENDOZA DO [...] LOWER QUADRANT ABDOMINAL SWELLING, 10/08/2019 YOUNG, TY ASSOCIATE PROFESSOR OF ART Ot R19.7 DIARRHEA, UNSPECIFIED 10/08/2019 YOUNG, TY ASSOCIATE PROFESSOR OF ART Ot R91.1 SOLITARY PULMONARY NODULE 10/08/2019 MENDOZA [...] 9 MALIGNANT NEOPLASM OF COLON, UNSPECIFIED 10/08/2019 MEDNOZA DO, JULIANNE D Ot J90 PLEURAL EFFUSION, NOT ELSEWHERE CLASSIFI 10/08/2019 MENDOZA DO, JULIANNE D Ot K65. 1 PERITONEAL ABSCESS 10/08/2019 MENDOZA DO, JULIANNE D Ot Z98.890 OTHER SPECIFIED POSTPROCEDURAL STATES 10/08/2019 YOUNG, TY ASSOCIATE PROFESSOR OF ART Ot 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 10/08/2019 YOUNG, TY ASSOCIATE PROFESSOR OF ART Ot K63.89 OTHER SPECIFIED DISEASES OF INTESTINE 10/08/2019 YOUNG, TY ASSOCIATE PROFESSOR OF ART Ot R11.10 VOMITING, UNSPECIFIED 10/08/2019 YOUNG, TY ASSOCIATE PROFESSOR OF ART Ot R18.8 OTHER ASCITES 10/08/2019 YOUNG, TY ASSOCIATE PROFESSOR OF ART Ot R19.04 LEFT LOWER QUADRANT ABDOMINAL SWELLING, 10/08/2019 YOUNG, TY ASSOCIATE PROFESSOR OF ART Ot R19.7 DIARRHEA, UNSPECIFIED 10/08/2019 YOUNG, TY ASSOCIATE PROFESSOR OF ART Ot R91.1 SOLITARY PULMONARY NODULE 10/09/2019 IRVIN [...] 9 MALIGNANT NEOPLASM OF COLON, UNSPECIFIED 10/16/2019 [facility]211 CUTANEOUS ABSCESS OF ABDOMINAL WALL 10/21/2019 [facility] Ot C18. 9 MALIGNANT NEOPLASM OF COLON, UNSPECIFIED 10/21/2019 [facility], JULIANNE Mejia Ot E78. 5 HYPERLIPIDEMIA, UNSPECIFIED 10/21/2019 [facility], JULIANNE Mejia Ot F17.210 NICOTINE DEPENDENCE, CIGARETTES, UNCOMPL 10/21/2019 [facility] Ot I10 ESSENTIAL (PRIMARY) HYPERTENSION 10/21/2019 [facility] Ot I25. 10 ATHSCL HEART DISEASE OF [place] CORONARY 10/21/2019 [facility] Ot J44. 9 CHRONIC OBSTRUCTIVE PULMONARY DISEASE, U 10/21/2019 [facility] Ot Z79. 02 INTERNAL INVESTIGATOR (CURRENT) USE OF ANTITHROMBOTI 10/21/2019 [facility] Ot Z79. 82 CUSTODIAL (CURRENT) USE OF ASPIRIN 10/21/2019 [facility] Ot Z79.899 OTHER CUSTODIAL (CURRENT) DRUG THERAPY 10/21/2019 [facility] Ot Z82. 49 FAMILY HX OF [place] HEART DIS AND OTH DI 10/21/2019 [facility] Z88. 5 ALLERGY STATUS TO NARCOTIC AGENT STATUS 10/21/2019 [facility] Ot Z90.710 ACQUIRED ABSENCE OF BOTH CERVIX AND UTER 10/21/2019 [facility] Ot Z95. 1 PRESENCE OF AORTOCORONARY BYPASS GRAFT 10/21/2019 IRVIN TITSU MD Ot C18. 9 MALIGNANT NEOPLASM OF COL[place], UNSPECIFIED 10/21/2019 IRVIN TITUS MD Ot C77. 2 SECONDARY AND UNSP MALIGNANT NEOPLASM OF 10/21/2019 IRVIN TITUS MD Ot K76. 9 LIVER DISEASE, UNSPECIFIED 10/23/2019 IRVIN TITUS MD Ot C18. 9 MALIGNANT NEOPLASM OF COL[place], UNSPECIFIED 10/23/2019 IRVIN TITUS MD Ot C77. 2 SECONDARY AND UNSP MALIGNANT NEOPLASM OF 10/23/2019 IRVIN TITUS MD Ot K76. 9 LIVER DISEASE, UNSPECIFIED 11/17/2019 IRVIN TITUS MD Ot C18. 9 MALIGNANT NEOPLASM OF COLON, UNSPECIFIED 11/29/2019 JANAY CHOW MD Ot C18.9 MALIGNANT NEOPLASM OF COLON, UNSPECIFIED 11/29/2019 JANAY CHOW MD Ot C78.7 SECONDARY MALIG NEOPLASM OF LIVER AND IN 11/29/2019 JANAY CHOW MD Ot E78.00 PURE HYPERCHOLESTEROLEMIA, UNSPECIFIED 11/29/2019 JANAY CHOW MD Ot F17.210 NICOTINE DEPENDENCE, CIGARETTES, UNCOMPL 11/29/2019 JANAY CHOW MD Ot I10 ESSENTIAL (PRIMARY) HYPERTENSION 11/29/2019 JANAY CHOW MD Ot I25.10 ATHSCL HEART DISEASE OF [place] CORONARY 11/29/2019 JANAY CHOW MD Ot I25.2 OLD MYOCARDIAL INFARCTION 11/29/2019 JANAY CHOW MD Ot R10.84 GENERALIZED ABDOMINAL PAIN 11/29/2019 JANAY CHOW MD, Ot Z79.02 CUSTODIAL (CURRENT) USE OF ANTITHROMBOTI 11/29/2019 JANAY CHOW MD Ot Z79.82 INTERNAL INVESTIGATOR (CURRENT) USE OF ASPIRIN 11/29/2019 JANAY CHOW MD, Ot Z82.49 FAMILY HX OF [place] HEART DIS AND OTH DI 11/29/2019 JANAY CHOW MD, Ot Z88.5 ALLERGY STATUS TO NARCOTIC AGENT STATUS 11/29/2019 JANAY CHOW MD, Ot Z95.5 PRESENCE OF CORONARY ANGIOPLASTY IMPLANT 12/02/2019 IRVIN TITUS MD Ot C18. 9 MALIGNANT NEOPLASM OF COLON, UNSPECIFIED 12/04/2019 JANAY CHOW MD, Ot C18.9 MALIGNANT NEOPLASM OF COLON, UNSPECIFIED 12/04/2019 JANAY CHOW MD Ot C78.7 SECONDARY MALIG NEOPLASM OF LIVER AND IN 12/04/2019 JANAY CHOW MD Ot E78.00 PURE HYPERCHOLESTEROLEMIA, UNSPECIFIED 12/04/2019 JANAY COHW MD Ot F17.210 NICOTINE DEPENDENCE, CIGARETTES, UNCOMPL 12/04/2019 JANAY CHOW MD Ot I10 ESSENTIAL (PRIMARY) HYPERTENSION 12/04/2019 JANAY CHOW MD Ot I25.10 ATHSCL HEART DISEASE OF [place] CORONARY 12/04/2019 JANAY CHOW MD, Ot I25.2 OLD MYOCARDIAL INFARCTION 12/04/2019 JANAY CHOW MD Ot R10.84 GENERALIZED ABDOMINAL PAIN 12/04/2019 JANAY CHOW MD, Ot Z79.02 CUSTODIAL (CURRENT) USE OF ANTITHROMBOTI 12/04/2019 JANAY CHOW MD, Ot Z79.82 CUSTODIAL (CURRENT) USE OF ASPIRIN 12/04/2019 JANAY CHOW MD, Ot Z82.49 FAMILY HX OF [place] HEART DIS AND OTH DI 12/04/2019 JANAY CHOW MD, Ot Z88.5 ALLERGY STATUS TO NARCOTIC AGENT STATUS 12/04/2019 JANAY CHOW MD, Ot Z95.5 PRESENCE OF CORONARY ANGIOPLASTY IMPLANT 12/07/2019 IRVIN TITUS MD, Ot C18. 9 MALIGNANT NEOPLASM OF COLON, UNSPECIFIED 12/07/2019 IRVIN TITUS MD Ot Z51. 11 ENCOUNTER FOR ANTINEOPLASTIC CHEMOTHERAP 12/30/2019 IRVIN TITUS MD Ot C18. 9 MALIGNANT NEOPLASM OF COLON, UNSPECIFIED 01/11/2020 IRVIN TITUS MD, Ot C18. 9 MALIGNANT NEOPLASM OF COLON, UNSPECIFIED 01/11/2020 IRVIN TITUS MD, Ot C77. 2 SECONDARY AND UNSP MALIGNANT NEOPLASM OF 01/11/2020 IRVIN TITUS MD Ot Z51. 11 ENCOUNTER FOR ANTINEOPLASTIC CHEMOTHERAP 02/16/2020 IRVIN TITUS MD Ot C18. 9 MALIGNANT NEOPLASM OF COLON, UNSPECIFIED 02/16/2020 IRVIN TITUS MD, Ot C77. 2 SECONDARY AND UNSP MALIGNANT NEOPLASM OF 02/16/2020 IRVIN TITUS MD Ot Z51. 11 ENCOUNTER FOR ANTINEOPLASTIC CHEMOTHERAP 03/02/2020 IRVIN TITUS MD, Ot C18. 9 MALIGNANT NEOPLASM OF COLON, UNSPECIFIED 03/02/2020 IRVIN TITUS MD, Ot C77. 2 SECONDARY AND UNSP MALIGNANT NEOPLASM OF 03/02/2020 IRVIN TITUS MD, Ot C78. 7 SECONDARY MALIG NEOPLASM OF LIVER AND IN 03/07/2020 IRVIN TITUS MD, Ot C18. 9 MALIGNANT NEOPLASM OF COLON, UNSPECIFIED 03/07/2020 IRVIN TITUS MD, Ot C77. 2 SECONDARY AND UNSP MALIGNANT NEOPLASM OF 03/07/2020 IRVIN TITUS MD, Ot Z51. 11 ENCOUNTER FOR ANTINEOPLASTIC CHEMOTHERAP 03/17/2020 IRVIN TITUS MD, Ot C18. 9 MALIGNANT NEOPLASM OF COLON, UNSPECIFIED 03/17/2020 IRVIN TITUS MD, Ot C77. 2 SECONDARY AND UNSP MALIGNANT NEOPLASM OF 03/17/2020 IRVIN TITUS MD, Ot Z51. 11 ENCOUNTER FOR ANTINEOPLASTIC CHEMOTHERAP Procedures Code Description Performed By Per formed On [id number] EX CISION OF TRANSVERSE COLON, OPEN APPRO 07/30/2019 [id number] EX CISION OF DESCENDING COLON, OPEN APPRO 07/30/2019 [id number] EX CISION OF OMENTUM, OPEN APPROACH, DIAG 07/30/[id number] CAO OF ABDOMINAL WALL, OPEN APPROAC 07/30/2019 [id number] EX CISION OF ABDOMINAL WALL, OPEN APPROAC 07/30/[id number] CAO OF PERITONEAL CAVITY WITH DRAIN 08/12/[id number] CAO OF PELVIC CAVITY WITH DRAIN [...] pa juliocesar - 07/06/19 09:40 WRISTBAND NUMBER [id number] NRG ABO+Rh group OP NRG Blood group antibody screen NEGATIVE NR G Bacteria identification in isolate by an aerobe culture - 07/06/19 11:15 FREE TEXT EXTERNAL SEE COMMENT NRG QUANTITY OF GROWTH Many NRG Bacteria identification in isolate by anaerobe culture [id number] NRG Gram stain microscopy - 07/06/19 11:15 Gram stain microscopy Mixed Bacterial Bonnie NRG Bacteria identification in wound by cult ure - 07/06/19 11:15 Bacteria identification in wound by culture [id number] NRG FREE TEXT EXTERNAL SUSCEPTIBILITY REPORTED [...] pa juliocesar - 07/30/19 14:35 WRISTBAND NUMBER [id number] NRG ABO+Rh group OP NRG Blood group antibody screen NEGATIVE NR G Bacteria identification in isolate by an aerobe culture - 07/30/19 16:18 FREE TEXT EXTERNAL BETA LACTAAMSE POSITIVE NRG QUANTITY OF GROWTH Rare NRG Bacteria identification in isolate by anaerobe culture [id number] NRG FREE TEXT EXTERNAL 2 SEE COMMENTS NRG Gram stain microscopy - 07/30/19 16:18 Gram stain microscopy MANY GRAM POSITIVE FRED CI IN PAIRS AND CHAINS NRG Bacteria identification in wound by cult ure - 07/30/19 16:18 Bacteria identification in wound by culture [id number] NRG FREE TEXT EXTERNAL SUSCEPTIBILITY REPORTED [...] 7-25 CREATININE 0.32 mg/dL 0.50-0.99 eGFR NON-AFR. [place] 120 mL/min/1.73m2 > OR = 60 eGFR [...] mg/dL 8.5-10.1 Whole blood hemoglobin and hematocrit [facility] - 08/12/19 05:55 Venous blood hemoglobin measurement (mass/volume) 6.4 g/dL 11.5-16.0 Blood hematocrit (volume fraction) 21 % 35-52 RED CELLS LEUKO REDUCED AS1 - 08/12/19 0 6:40 RED CELLS LEUKO REDUCED AS1 T RANSFUSED 08/12/19 1235 NRG Blood type T Indirect antibody screen [facility] 08/12/19 06:40 WRISTBAND NUMBER [id number] NRG ABO+Rh group OP NRG Blood group antibody screen NEGATIVE NR G Bacteria identification in isolate by an aerobe culture - 08/12/19 14:06 Bacteria identification in isolate by anaerobe culture NOANA NRG Gram stain microscopy - 08/12/19 14:06 Gram stain microscopy MODERATE YEAST NR G Bacteria identification in wound by cult ure - 08/12/19 14:06 Bacteria identification in wound by culture [id number] NRG QUANTITY OF GROWTH Moderate Growth NRG Bacteria identification in isolate by an aerobe culture - 08/12/19 14:08 Bacteria identification in isolate by anaerobe culture NOANA NRG Gram stain microscopy - 08/12/19 14:08 Gram stain microscopy RARE YEAST NRG Bacteria identification in wound by cult ure - 08/12/19 14:08 Bacteria identification in wound by culture [id number] NRG QUANTITY OF GROWTH FEW NRG [...] 11/29/19 21:30 Bacterial blood culture NG NRG DIFFERENTIAL, MANUAL - 01/25/20 11:34 ABSOLUTE NEUTROPHILS 980 cells/uL 1500-7 800 ABSOLUTE MONOCYTES 140 cells/uL 200-950 ABSOLUTE EOSINOPHILS 168 cells/uL 15-500 ABSOLUTE BASOPHILS 28 cells/uL 0-200 NEUTROPHILS 35.0 % NRG LYMPHOCYTES 52.0 % NRG MONOCYTES 5.0 % NRG EOSINOPHILS 6.0 % NRG BASOPHILS 1.0 % NRG ABSOLUTE BAND NEUTROPHILS 28 cells/uL 0- 750 ABSOLUTE LYMPHOCYTES 1456 cells/uL 850-3 900 BAND NEUTROPHILS 1.0 % NRG PLATELET ESTIMATION DECREASED ADEQUATE CBC MORPHOLOGY NORMAL Encounters ACCT No. Visit Date/Time Discharge Status Pt. Type Provider Facility Loc./Unit Complaint [id number] 04/29/2020 17:00:00 ACT Outpatient VLADIMIR JOHNSON [id number] 01/25/2020 11:20:00 Document Registration [id number] 11/02/2019 09:00:00 Document Registration [id number] 08/08/2019 11:00:00 Document Registration [id number] 07/02/2019 11:00:00 Document Registration [id number] 04/05/2020 08:54:00 23:59:59 CLS Outpatient IRVIN TITUS MD [facility] ONC [id number] 03/01/2020 09:29:00 00:01:00 DIS Outpatient IRVIN TITUS MD [facility] ONC [id number] 02/26/2020 08:28:00 23:59:59 CLS Outpatient IRVIN TITUS MD [facility] RAD COLON CANCER,SECONDARY ADENOCARCINOMA LYMPH NODE [id number] 11/24/2019 08:33:00 00:01:00 DIS Outpatient IRVIN TITUS MD [facility] ONC [id number] 11/29/2019 19:22:00 22:22:00 DIS Emergency JANAY CHOW MD [facility] ER ABD PAIN [id number] 10/21/2019 09:30:00 14:30:00 DIS Outpatient IRVIN TITUS MD [facility] LIVER LESION,COLON CANC ER [id number] 10/06/2019 10:11:00 23:59:59 CLS Outpatient IRVIN TITUS MD [facility] RAD COLON CA,SECONDARY LUIS OCARCINOMA OF LYMPH NODE [id number] 09/10/2019 07:16:00 11:45:00 DIS Outpatient JULIANNE MENDOZA DO [facility] ADENOCARCINOMA OF COLON [id number] 08/11/2019 20:44:00 17:04:00 DIS Inpatient JULIANNE MENDOZA DO [facility] 4TH POST OP FLUID COLLECTIO N, DIARRHEA [id number] 07/28/2019 23:10:00 17:20:00 DIS Inpatient JOE GARCIA MD [facility] 4TH COLONIC FISTULA ABSCE SS [id number] 07/20/2019 13:40:00 23:59:59 CLS Outpatient JULIANNE MENDOZA DO [facility] RAD PERITONEAL ABSCESS [id number] 07/06/2019 09:12:00 13:32:00 DIS Outpatient JULIANNE MENDOZA DO [facility] ABDOMINAL ABSCESS [id number] 07/03/2019 08:23:00 23:59:59 CLS Outpatient TY NASCIMENTO [facility] RAD VOMITING,DIARRHEA [id number] 05/01/2020 17:43:[address] Emergency JANAY CHOW MD [facility] ER ABD PAIN / VOMITING
[2020-05-01] MEDS ORDERED: LACTATED RINGERS 1,000 ML IV ONE (18:01)
[2020-05-01] MEDS ORDERED: ASPIRIN 81 MG CHEW (CHILDREN'S ASA) PO ONE (18:15)
[2020-05-01] MEDS ORDERED: PANTOPRAZOLE 40 MG (PROTONIX) VIAL IV ONE (18:15)
[2020-05-01] MEDS ORDERED: ONDANSETRON 4 MG/2 ML (SDV) Z0FRAN IVP ONE (18:15)
--- NOTE | 2020-05-01 18:16 | ED Abdominal Pain ---
General Chief Complaint: Abdominal/GI Problems Stated Complaint: ABD PAIN / VOMITING Nursing Triage Note: n/v. intermittant chest pain, abdominal cramping. increased seasonal allergies. Sepsis Screen: No Definite Risk Source of Information: Patient Exam Limitations: No Limitations History of Present Illness Date Seen by Provider: May 01, 2020 Time Seen by Provider: 17:48 Initial Comments Patient presents ER by private conveyance with her family and chief complaint of since this morning waking up having some nausea and epigastric abdominal pain. She has vomited several times until the last couple times for dry heaving. She used some ondansetron from her oncologist and promptly threw it up 15-20 minutes later. She had about half an hour of chest pain substernal midline nonradiating around 2:30 to 3:00 this afternoon. She has a history of a stent and coronary disease followed by traffic signal mechanic in [place], [place]. Her primary care provider is in [place] and her oncologist for her colon cancer is Dr. Tucker. She's had hysterectomy and partial colon resection and has had radiation therapy as well as chemotherapy. Her last dose of chemotherapy was a month ago and in a couple days she goes back to her oncologist to readdress starting chemotherapy again. It was held because certain counts were too low. She's had no fevers or chills. She's had runny nose, dry cough, sore throat. She is post to be set up with Dr. Campbell soon to have an upper and lower endoscopy done. When she sits down and leans forward she notices her pain is around 5 out of 10. When she stands up sometimes will get his greatest 9 out of 10. Right now she does not have significant pain or pressure. No recent sick contacts or travel. She had a normal bowel movement yesterday. Allergies and Home Medications Allergies Coded Allergies: codeine (Verified Adverse Reaction, Unknown, 07/06/19) "CAUSES HALLUCINATIONS" Home Medications Aspirin 81 Mg Tab.chew, 81 MG PO DAILY, (Reported) Atorvastatin Calcium 40 Mg Tablet, 40 MG PO HS, (Reported) LAST FILLED #30 06-11-19 Clopidogrel Bisulfate 75 Mg Tablet, 75 MG PO DAILY, (Reported) LAST FILLED #30 06-11-19 Ondansetron HCl 4 Mg Tablet, 4 MG PO Q6H PRN for NAUSEA/VOMITING-1ST LINE, (Reported) Patient Home Medication List Home Medication List Reviewed: Yes Review of Systems Review of Systems Constitutional: No chills, No diaphoresis, No fever; malaise; No weakness EENTM: No Blurred Vision, No Double Vision Respiratory: Cough; Denies Shortness of Air, Denies SOA at Rest, Denies Wheezing Cardiovascular: See HPI, Chest Pain; Denies Edema Gastrointestinal: Abdominal Pain; Denies Diarrhea; Nausea, Poor Fluid Intake, Vomiting Genitourinary: Denies Burning, Denies Discharge Musculoskeletal: No back pain, No joint pain Psychiatric/Neurological: Denies Anxiety, Denies Depressed All Other Systems Reviewed Negative Unless Noted: Yes Past Seinnyv-Rtjgze-Oxngsa Hx Patient Social History Alcohol Use: Denies Use Recreational Drug Use: No Smoking Status: Current Everyday Smoker Type Used: Cigarettes 2nd Hand Smoke Exposure: Yes Recent Foreign Travel: No Contact w/Someone Who Travel: No Recent Infectious Disease Expo: No Recent Hopitalizations: No Physical Abuse: No Sexual Abuse: No Mistreated: No Fear: No Immunizations Up To Date Tetanus Booster (TDap): Unknown Date of Pneumonia Vaccine: Aug 08, 2019 Date of Influenza Vaccine: Aug 03, 2019 Seasonal Allergies Seasonal Allergies: No Past Medical History Surgeries: Yes (port in the right chest) Bowel Surgery, Coronary Stent, Hysterectomy Respiratory: No Cardiac: Yes Coronary Artery Disease, Heart Attack, High Cholesterol, Hypertension Neurological: No Reproductive Disorders: No BRACE [employer] FORMER History: Hysterectomy Genitourinary: No Gastrointestinal: No Musculoskeletal: No Endocrine: No HEENT: No Cancer: Yes Liver, Colon Did You Recieve Any Treatments: Yes What Type of Treatment Did You: Chemotherapy, Surgical Intervention Psychosocial: Yes Anxiety Integumentary: No Blood Disorders: No Family Medical History Diabetes mellitus 19 MOTHER FH: heart attack 19 FATHER G8 BROTHER ( AGE 37) FH: lung disease 19 MOTHER High cholesterol 19 FATHER Heart Disease, Diabetes Physical Exam Vital Signs Vital Signs - First Documented 05/01/20 17:48 Temp 36.4 Pulse 104 Resp 14 B/P (MAP) 128/86 (100) Pulse Ox 95 O2 Delivery Room Air Capillary Refill : Less Than 3 Seconds Height/Weight/BMI Height: '" Weight: lbs. oz. kg; 15.00 BMI Method: General Appearance: WD/WN, mild distress HEENT: PERRL/EOMI, pharynx normal Neck: full range of motion, normal inspection Respiratory: lungs clear, normal breath sounds, no respiratory distress, no accessory muscle use Cardiovascular: normal peripheral pulses, regular rate, rhythm Peripheral Pulses: 2+ Radial Pulses (R), 2+ Radial Pulses (L) Gastrointestinal: normal bowel sounds, non tender, soft, no organomegaly, other (well-healed midline scar) Extremities: normal range of motion, non-tender, normal inspection Neurologic/Psychiatric: alert, normal mood/affect, oriented x 3 Skin: normal color, warm/dry Focused Exam Lactate Level 05/01/20 18:55: Lactic Acid Level 1.37 Lactic Acid Level Laboratory Tests Test 05/01/20 18:55 Lactic Acid Level 1.37 MMOL/L (0.50-2.00) Progress/Results/Core Measures Results/Orders Lab Results Laboratory Tests Test 05/01/20 18:15 05/01/20 18:30 05/01/20 18:55 05/01/20 20:50 Range/Units White Blood Count 3.9 L 4.3-11.0 10^3/uL Red Blood Count 3.65 L 4.35-5.85 10^6/uL Hemoglobin 11.8 11.5-16.0 G/DL Hematocrit 36 35-52 % Mean Corpuscular Volume 98 80-99 FL Mean Corpuscular Hemoglobin 32 25-34 PG Mean Corpuscular Hemoglobin Concent 33 32-36 G/DL Red Cell Distribution Width 15.2 H 10.0-14.5 % Platelet Count 160 130-400 10^3/uL Mean Platelet Volume 9.0 7.4-10.4 FL Neutrophils (%) (Auto) 59 42-75 % Lymphocytes (%) (Auto) 25 12-44 % Monocytes (%) (Auto) 14 H 0-12 % Eosinophils (%) (Auto) 1 0-10 % Basophils (%) (Auto) 1 0-10 % Neutrophils # (Auto) 2.3 1.8-7.8 X 10^3 Lymphocytes # (Auto) 1.0 1.0-4.0 X 10^3 Monocytes # (Auto) 0.6 0.0-1.0 X 10^3 Eosinophils # (Auto) 0.1 0.0-0.3 10^3/uL Basophils # (Auto) 0.0 0.0-0.1 10^3/uL Prothrombin Time 13.5 12.2-14.7 SEC INR Comment 1.0 0.8-1.4 Activated Partial Thromboplast Time 34 24-35 SEC D-Dimer 1.46 H 0.00-0.49 UG/ML Sodium Level 133 L 135-145 MMOL/L Potassium Level 4.0 3.6-5.0 MMOL/L Chloride Level 102 98-107 MMOL/L Carbon Dioxide Level 24 21-32 MMOL/L Anion Gap 7 5-14 MMOL/L Blood Urea Nitrogen 5 L 7-18 MG/DL Creatinine 0.59 L 0.60-1.30 MG/DL Estimat Glomerular Filtration Rate > 60 BUN/Creatinine Ratio 8 Glucose Level 113 H 70-105 MG/DL Calcium Level 8.9 8.5-10.1 MG/DL Corrected Calcium 9.1 8.5-10.1 MG/DL Magnesium Level 1.6 1.6-2.4 MG/DL Total Bilirubin 0.4 0.1-1.0 MG/DL Aspartate Amino Transf (AST/SGOT) 49 H 5-34 U/L Alanine Aminotransferase (ALT/SGPT) 48 0-55 U/L Alkaline Phosphatase 459 H 40-136 U/L Myoglobin 16.2 10.0-92.0 NG/ML Troponin I < 0.028 < 0.028 <0.028 NG/ML B-Type Natriuretic Peptide 55.0 <100.0 PG/ML Total Protein 7.5 6.4-8.2 GM/DL Albumin 3.8 3.2-4.5 GM/DL Lipase 11 8-78 U/L Urine Color YELLOW Urine Clarity CLEAR Urine pH 6.5 5-9 Urine Specific [place] 1.010 L 1.016-1.022 Urine Protein TRACE H NEGATIVE Urine Glucose (UA) NEGATIVE NEGATIVE Urine Ketones NEGATIVE NEGATIVE Urine Nitrite NEGATIVE NEGATIVE Urine Bilirubin NEGATIVE NEGATIVE Urine Urobilinogen 0.2 < = 1.0 MG/DL Urine Leukocyte Esterase NEGATIVE NEGATIVE Urine RBC (Auto) NEGATIVE NEGATIVE Urine RBC NONE /HPF Urine WBC 0-2 /HPF Urine Squamous Epithelial Cells 2-5 /HPF Urine Crystals NONE /LPF Urine Bacteria NEGATIVE /HPF Urine Casts NONE /LPF Urine Mucus NEGATIVE /LPF Urine Culture Indicated NO Lactic Acid Level 1.37 0.50-2.00 MMOL/L My Orders Orders - MO BOWMAN Lactic Acid Analyzer (05/01/20 18:45) Lidocaine 2% Viscous 15 Ml (Xylocaine Vi (05/01/20 19:00) Antacid Suspension (Mylanta Suspension (05/01/20 19:00) Ct Angio Chest W (05/01/20 19:49) Iohexol Injection (Omnipaque 350 Mg/Ml 1 (05/01/20 20:00) Received Contrast (Hold Metformin- Contr (05/01/20 20:00) Ns (Ivpb) (Sodium Chloride 0.9% Ivpb Bag (05/01/20 20:00) Troponin I (05/01/20 20:44) Medications Given in ED Current Medications Medications Dose Ordered Sig/Tatum Route Start Time Stop Time Status Last Admin Dose Admin Al Hydrox/Mg Hydrox/Simethicone 30 ml ONCE ONCE PO 05/01/20 19:00 05/01/20 19:01 DC 05/01/20 18:54 30 ML Aspirin 324 mg ONCE ONCE PO 05/01/20 18:15 05/01/20 18:16 DC 05/01/20 18:16 324 MG Iohexol 100 ml ONCE ONCE IV 05/01/20 20:00 05/01/20 20:01 DC 05/01/20 20:09 46 ML Lactated Ringer's 1,000 ml @ 0 mls/hr Q0M ONCE IV 05/01/20 18:01 05/01/20 18:05 DC 05/01/20 18:16 0 MLS/HR Lidocaine HCl 15 ml ONCE ONCE PO 05/01/20 19:00 05/01/20 19:01 DC 05/01/20 18:54 15 ML Ondansetron HCl 8 mg ONCE ONCE IVP 05/01/20 18:15 05/01/20 18:16 DC 05/01/20 18:16 8 MG Pantoprazole 40 mg ONCE ONCE IV 05/01/20 18:15 05/01/20 18:16 DC 05/01/20 18:16 40 MG Sodium Chloride 100 ml ONCE ONCE IV 05/01/20 20:00 05/01/20 20:01 DC 05/01/20 20:09 80 ML Vital Signs/I&O 05/01/20 17:48 Temp 36.4 Pulse 104 Resp 14 B/P (MAP) 128/86 (100) Pulse Ox 95 O2 Delivery Room Air Blood Pressure Mean: 100 Progress Progress Note #1: Time: 18:16 Progress Note Plan to get an EKG give her some aspirin and collect troponins to workup her chest pain however suspicious that her chest pain started up after a day of vomiting and retching. We'll give her ondansetron 4 mg and a liter of lactated Ringer's to help rehydrate her and check her tachycardia. She does not have any other markers of sepsis yet. Suspect a viral syndrome could be causing her cough and sore throat as well as nausea vomiting. We will check a full battery of labs including urine and get some blood cultures and a chest x-ray looking for pneumonia. Her pain ended at 1503 hours ago so it would be reasonable to talk to cardiology about doing a delta troponin if this looks more gastric. If her nausea is under control he can also try some GI cocktails but she is fairly asymptomatic at present other than mild nausea. Progress Note #2: Time: 19:47 Progress Note The patient's symptoms resolved with a GI cocktail. She is feeling much better no longer having nausea. We would offer her observation stay for her serial troponins however there is some scarring seen on the chest x-ray and she says that that is known and they feel that it could possibly be tumors. Postobstructive pneumonia is in the differential and so a CT scan will be ordered with IV contrast. If there seems to be pneumonia then we would have a source of infection and we would treat her appropriately for sepsis. If not then we would continue to workup her serial troponins overnight on observation stay. She is okay with this plan. Progress Note #3: Time: 21:24 Progress Note The patient is still asymptomatic and has had no material deterioration during her ER stay. She is okay with going home and following up outpatient with her traffic signal mechanic. We've recommended she follow-up imaging in 3 months with her primary care office. Initial ECG Impression Date: May 01, 2020 Initial ECG Impression Time: 18:22 Initial ECG Rate: 91 Initial ECG Rhythm: Normal Sinus Initial ECG Intervals: QT (472) Initial ECG Impression: Normal, Nonspecific Changes Comment Normal sinus rhythm without clinically relevant ST elevation or depression. Diagnostic Imaging Diagonstic Imaging: Xray Plain Films/CT/US/NM/MRI: chest (1v) Comments COPD. Plus or minus infiltrate right lower lung versus chronic scarring/atelectasis. [facility] [place] [place] NAME: [facility]EE [facility] REC#: [id number] PT STATUS: REG ER : 1955 PHYSICIAN: SUE WNIN APRN ADMIT DATE: 05/01/20/ER Signed Date of Exam:05/01/20 CHEST 1 VIEW, AP/PA ONLY INDICATION: Chest pain. COMPARISON: 11/29/2019. EXAMINATION: Single view of the chest was obtained. FINDINGS: Stable cardiac enlargement without overt pulmonary edema. Stable scarring is seen in both bases. Underlying infiltrate is not excluded. There is no pneumothorax. The port-a-cath is stable. IMPRESSION: 1. Stable cardiac enlargement without pulmonary edema. 2. Hyperexpansion compatible with COPD with stable scarring in both bases. Underlying infiltrate is not excluded. Follow-up recommended. Dictated by: Dictated on workstation # [id number] Dict: 05/01/201855 Trans: 05/01/[address] [facility] [id number] Interpreted by: MICHAEL RAMOS Electronically signed by: MICHAEL RAMOS 05/01/202049 Reviewed: Reviewed by Ct Diagonstic Imaging: CT Plain Films/CT/US/NM/MRI: chest, abdomen Comments [facility] [place] [place] NAME: ALDO YEE [facility] REC#: [id number] PT STATUS: REG ER : 1955 PHYSICIAN: MO BOWMAN MD ADMIT DATE: 05/01/20/ER Draft Date of Exam:05/01/20 CT ANGIO CHEST W PROCEDURE: CT angiography of the chest with contrast. TECHNIQUE: Multiple contiguous axial images were obtained through the chest after uneventful bolus administration of intravenous contrast. 3D reconstructed CTA MIP acquisitions were also performed. Auto Exposure Controls were utilized during the CT exam to meet ALARA standards for radiation dose reduction. INDICATION: Chest pain, pressure. Pulmonary embolism. COMPARISON: 02/26/2020 FINDINGS: The heart is enlarged with coronary artery disease. There is no pericardial effusion. The pulmonary arteries and aorta are stable. There is no pulmonary embolism. New prominent hilar lymph nodes are now seen which are likely reactive. Recommend follow-up to assure stability. Centrilobular emphysema is seen throughout both lungs. There is no mass, nodule or suspicious infiltrate. There is no pleural effusion. Osseous structures and visualized upper abdominal solid organs are stable. IMPRESSION: 1. Coronary artery disease. 2. No pulmonary embolism identified. 3. New prominent hilar lymph nodes. 3 month follow-up recommended. 4. Centrilobular emphysema without focal pulmonary infiltrate. Dictated on workstation # [id number] Dict: 05/01/202023 Trans: 05/01/202113 [facility] [id number] Interpreted by: MICHAEL RAMOS Electronically signed by: Reviewed: Reviewed by Me Departure Impression Primary Impression: Viral gastroenteritis Additional Impressions: Chest pain Qualified Codes: R07.9 - Chest pain, unspecified Pulmonary nodule Disposition: HOME, SELF-CARE Condition: Stable Departure-Patient Inst. Decision time for Depature: 21:20 Referrals: NO,LOCAL PHYSICIAN (PCP) Primary Care Physician HUY NASCIMENTO APRN (Family) Primary Care Physician Patient Instructions: Gastritis (DC), Viral Gastroenteritis, Adult (DC) Add. Discharge Instructions: Continue taking an antacid daily such as pantoprazole 40 mg. Try Tums/Maalox Rolaids etc. for burning epigastric pain. If this does not resolve your pain then you should return to the ER. If you have nausea take one to 2 tablets of ondansetron and place under your tongue and allowed to dissolve every 6 hours as needed. Symptoms should resolve over the next 3-5 days. Follow-up next week with your traffic signal mechanic for your chest pain episode in the clinic by calling for an appointment. All discharge instructions reviewed with patient and/or family. Voiced understanding. Scripts Ondansetron (Ondansetron Odt) 4 Mg Tab.rapdis 4 MG PO Q6H PRN for NAUSEA/VOMITING, #20 TAB 0 Refills Prov: MO BOWMAN 05/01/20 MO BOWMAN May 01, 2020 18:15
[2020-05-01 18:28] LABS: BASOPHILS % (AUTO) 1 % (0-10); EOSINOPHILS # (AUTO) 0.1 10^3/uL (0.0-0.3); EOSINOPHILS % (AUTO) 1 % (0-10); HEMATOCRIT 36 % (35-52); HEMOGLOBIN 11.8 G/DL (11.5-16.0); LYMPHOCYTES % (AUTO) 25 % (12-44); MEAN CORPUSCULAR HEMOGLOBIN 32 PG (25-34); MEAN CORPUSCULAR HGB CONC 33 G/DL (32-36); MEAN CORPUSCULAR VOLUME 98 FL (80-99); MONOCYTES # (AUTO) 0.6 X 10^3 (0.0-1.0); MONOCYTES % (AUTO) 14 % (0-12); NEUTROPHILS # (AUTO) 2.3 X 10^3 (1.8-7.8); NEUTROPHILS % (AUTO) 59 % (42-75); PLATELET COUNT 160 10^3/uL (130-400); RED CELL DISTRIBUTION WIDTH 15.2 % (10.0-14.5); WHITE BLOOD COUNT 3.9 10^3/uL (4.3-11.0)
[2020-05-01 18:43] LABS: PROTHROMBIN TIME PATIENT 13.5 SEC (12.2-14.7)
[2020-05-01 18:46] LABS: BILIRUBIN,URINE NEGATIVE (NEGATIVE); CLARITY,URINE CLEAR; COLOR,URINE YELLOW; GLUCOSE, URINE (UA) NEGATIVE (NEGATIVE); KETONES,URINE NEGATIVE (NEGATIVE); LEUKOCYTE ESTERASE ,URINE NEGATIVE (NEGATIVE); NITRITE,URINE NEGATIVE (NEGATIVE); PH,URINE 6.5 (5-9); PROTEIN,URINE TRACE (NEGATIVE)
[2020-05-01 18:50] LABS: LIPASE 11 U/L (8-78)
[2020-05-01 18:52] LABS: ALANINE AMINOTRANSFERASE 48 U/L (0-55); ALBUMIN 3.8 GM/DL (3.2-4.5); ALKALINE PHOSPHATASE 459 U/L (40-136); BILIRUBIN,TOTAL 0.4 MG/DL (0.1-1.0); BUN/CREATININE RATIO 8; CALCIUM 8.9 MG/DL (8.5-10.1); CARBON DIOXIDE 24 MMOL/L (21-32); CHLORIDE 102 MMOL/L (98-107); CREATININE SERUM 0.59 MG/DL (0.60-1.30); GFR ESTIMATED > 60; GLUCOSE 113 MG/DL (70-105); MAGNESIUM 1.6 MG/DL (1.6-2.4); SODIUM 133 MMOL/L (135-145); TOTAL PROTEIN 7.5 GM/DL (6.4-8.2)
[2020-05-01 18:56] LABS: BACTERIA,URINE NEGATIVE /HPF
[2020-05-01 18:57] LABS: WBC,URINE 0-2 /HPF
[2020-05-01] MEDS ORDERED: LIDOCAINE 2% VISCOUS 15 ML UDC PO ONE (19:00)
[2020-05-01] MEDS ORDERED: ANTACID SUSP 30 ML UDC (MYLANTA) PO ONE (19:00)
[2020-05-01] MEDS ORDERED: HOLD METFORMIN - RECEIVED CONTRAST 20 ML VIAL IV SCH (20:00)
[2020-05-01] MEDS ORDERED: NS 100 ML (IVPB) BAG IV ONE (20:00)
[2020-05-01] MEDS ORDERED: IOHEXOL 350 MG/ML 100 ML (OMNIPAQUE 350) VIAL IV ONE (20:00)
--- NOTE | 2020-05-01 20:37 | Diagnostic Imaging Report ---
INDICATION: Chest pain. COMPARISON: 11/29/2019. EXAMINATION: Single view of the chest was obtained. FINDINGS: Stable cardiac enlargement without overt pulmonary edema. Stable scarring is seen in both bases. Underlying infiltrate is not excluded. There is no pneumothorax. The port-a-cath is stable. IMPRESSION: 1. Stable cardiac enlargement without pulmonary edema. 2. Hyperexpansion compatible with COPD with stable scarring in both bases. Underlying infiltrate is not excluded. Follow-up recommended. Dictated by: Dictated on workstation # [id number]
--- NOTE | 2020-05-01 21:15 | Diagnostic Imaging Report ---
PROCEDURE: CT angiography of the chest with contrast. TECHNIQUE: Multiple contiguous axial images were obtained through the chest after uneventful bolus administration of intravenous contrast. 3D reconstructed CTA MIP acquisitions were also performed. Auto Exposure Controls were utilized during the CT exam to meet ALARA standards for radiation dose reduction. INDICATION: Chest pain, pressure. Pulmonary embolism. COMPARISON: 02/26/2020 FINDINGS: The heart is enlarged with coronary artery disease. There is no pericardial effusion. The pulmonary arteries and aorta are stable. There is no pulmonary embolism. New prominent hilar lymph nodes are now seen which are likely reactive. Recommend follow-up to assure stability. Centrilobular emphysema is seen throughout both lungs. There is no mass, nodule or suspicious infiltrate. There is no pleural effusion. Osseous structures and visualized upper abdominal solid organs are stable. IMPRESSION: 1. Coronary artery disease. 2. No pulmonary embolism identified. 3. New prominent hilar lymph nodes. 3 month follow-up recommended. 4. Centrilobular emphysema without focal pulmonary infiltrate. Dictated by: Dictated on workstation # [id number]
[2020-05-01] MEDS ORDERED: ONDA4TAB11 PO (21:26)
[2020-05-01 21:40] VITALS: BP 146/67
== END 2020-05-01 21:41 | disposition home or self-care (01) ==
LOC: EDUNIT# 17:42 → ER 17:43
DX: A08.4 Viral intestinal infection, unspecified (principal); R07.9 Chest pain, unspecified; R91.1 Solitary pulmonary nodule; I10 Essential (primary) hypertension; I25.10 Atherosclerotic heart disease of native coronary artery without angina pectoris; I25.2 Old myocardial infarction; E78.00 Pure hypercholesterolemia, unspecified; F17.210 Nicotine dependence, cigarettes, uncomplicated; Z85.038 Personal history of other malignant neoplasm of large intestine; Z95.5 Presence of coronary angioplasty implant and graft; Z85.05 Personal history of malignant neoplasm of liver; Z88.5 Allergy status to narcotic agent; Z79.82 Long term (current) use of aspirin; Z79.02 Long term (current) use of antithrombotics/antiplatelets; Z82.49 Family history of ischemic heart disease and other diseases of the circulatory system
CPT/HCPCS: 36415; 71045; 71275; 80053; 81000; 83605; 83690; 83735; 83874; 83880; 84484; 85025; 85379; 85610; 85730; 87040; 93005; 93041

== ENCOUNTER 2020-05-17 06:44 | Outpatient (RCR) | payer MEDICAID ==
[~2020-05-17 06:44] MED LIST changes: +ASPI-1238 PO; -ASPI-983 PO; +ONDA4TAB11 PO; +PANT20TA18; -PANT20TA3
== END 2020-08-15 | disposition home or self-care (01) ==
LOC: PREOP 06:44
PROVIDERS: ATTEND Surgery
DX: Z01.818 Encounter for other preprocedural examination (principal)

== ENCOUNTER → 2020-05-31 | Outpatient (CLI) | payer MEDICAID ==
[~2020-05-31] MED LIST changes: +BARIUM SUSPENSION 2.1% (VANILLA SILQ) 450 ML PO ONE; +CATHETER FLUSH 10 ML SYR IV PRN; +HOLD METFORMIN - RECEIVED CONTRAST 20 ML VIAL IV SCH; +IOHEXOL 350 MG/ML 100 ML (OMNIPAQUE 350) VIAL IV ONE; +NS 100 ML (IVPB) BAG IV ONE; -PANT20TA18; +PANT20TA3
--- NOTE | 2020-05-31 11:36 | Diagnostic Imaging Report ---
PROCEDURE: CT chest, abdomen, and pelvis with contrast. TECHNIQUE: Multiple contiguous axial images were obtained through the chest, abdomen, and pelvis after the administration of intravenous contrast. Auto Exposure Controls were utilized during the CT exam to meet ALARA standards for radiation dose reduction. INDICATION: Follow-up colon and liver carcinoma. COMPARISON: Correlation is made with CT angiogram of the chest from 05/01/[address] chest, abdomen, and pelvis study from 02/26/2020. FINDINGS: CT CHEST: Right chest wall port has tip within the superior vena cava. No axillary lymphadenopathy is identified. No definite mediastinal or hilar lymphadenopathy is detected. No pericardial or pleural fluid is identified. Significant centrilobular emphysematous changes in both lungs are again noted. Previously noted juxtapleural nodule in the left lower lobe posteriorly is stable at 4 mm. No new pulmonary nodule is detected. IMPRESSION: Stable CT chest since prior examination with stable left lower lobe pulmonary nodule. No thoracic lymphadenopathy is detected. CT ABDOMEN AND PELVIS: No discrete liver mass is detected. Gallbladder is unremarkable. No biliary ductal dilatation is seen. Pancreas and spleen are unremarkable. No adrenal mass is detected. Kidneys are unremarkable. The aorta and iliac vessels are heavily calcified but nonaneurysmal. Small and large bowel loops are normal in caliber. No obstruction is seen. There is no ascites. The bladder is unremarkable. No pelvic lymphadenopathy is detected. Bony structures are nonacute. IMPRESSION: Stable CT abdomen and pelvis since 02/26/2020. No abdominal or pelvic lymphadenopathy or evidence of metastatic disease is identified. Dictated by: Dictated on workstation # [id number]
== END ==
LOC: RAD 09:15
PROVIDERS: ATTEND Internal Medicine Hematology & Oncology
DX: C18.9 Malignant neoplasm of colon, unspecified (principal); C77.2 Secondary and unspecified malignant neoplasm of intra-abdominal lymph nodes; C78.7 Secondary malignant neoplasm of liver and intrahepatic bile duct; R91.1 Solitary pulmonary nodule
CPT/HCPCS: 71260; 74177

== ENCOUNTER 2020-06-07 10:05 | Outpatient (RCR) | payer MEDICAID ==
[2020-03-15 09:08] LABS: BASOPHILS % (AUTO) 1 % (0-10); EOSINOPHILS # (AUTO) 0.1 10^3/uL (0.0-0.3); EOSINOPHILS % (AUTO) 3 % (0-10); HEMATOCRIT 37 % (35-52); HEMOGLOBIN 11.9 G/DL (11.5-16.0); LYMPHOCYTES # (AUTO) 1.3 X 10^3 (1.0-4.0); LYMPHOCYTES % (AUTO) 30 % (12-44); MEAN CORPUSCULAR HEMOGLOBIN 32 PG (25-34); MEAN CORPUSCULAR HGB CONC 32 G/DL (32-36); MEAN CORPUSCULAR VOLUME 100 FL (80-99); MEAN PLATELET VOLUME 9.2 FL (7.4-10.4); MONOCYTES # (AUTO) 0.5 X 10^3 (0.0-1.0); MONOCYTES % (AUTO) 12 % (0-12); NEUTROPHILS # (AUTO) 2.4 X 10^3 (1.8-7.8); NEUTROPHILS % (AUTO) 55 % (42-75); PLATELET COUNT 139 10^3/uL (130-400); WHITE BLOOD COUNT 4.3 10^3/uL (4.3-11.0)
[2020-03-15 09:32] LABS: ALANINE AMINOTRANSFERASE 34 U/L (0-55); ALBUMIN 3.8 GM/DL (3.2-4.5); ALKALINE PHOSPHATASE 252 U/L (40-136); BILIRUBIN,TOTAL 0.2 MG/DL (0.1-1.0); BUN/CREATININE RATIO 15; CALCIUM 9.3 MG/DL (8.5-10.1); CARBON DIOXIDE 25 MMOL/L (21-32); CHLORIDE 102 MMOL/L (98-107); CREATININE SERUM 0.53 MG/DL (0.60-1.30); GFR ESTIMATED > 60; GLUCOSE 78 MG/DL (70-105); POTASSIUM 4.3 MMOL/L (3.6-5.0); SODIUM 135 MMOL/L (135-145); TOTAL PROTEIN 7.3 GM/DL (6.4-8.2)
[2020-04-05 09:13] LABS: BASOPHILS % (AUTO) 0 % (0-10); EOSINOPHILS # (AUTO) 0.1 10^3/uL (0.0-0.3); EOSINOPHILS % (AUTO) 2 % (0-10); HEMATOCRIT 35 % (35-52); HEMOGLOBIN 11.7 G/DL (11.5-16.0); LYMPHOCYTES # (AUTO) 1.7 X 10^3 (1.0-4.0); LYMPHOCYTES % (AUTO) 43 % (12-44); MEAN CORPUSCULAR HEMOGLOBIN 32 PG (25-34); MEAN CORPUSCULAR HGB CONC 33 G/DL (32-36); MEAN CORPUSCULAR VOLUME 98 FL (80-99); MEAN PLATELET VOLUME 9.4 FL (7.4-10.4); MONOCYTES # (AUTO) 0.7 X 10^3 (0.0-1.0); MONOCYTES % (AUTO) 18 % (0-12); NEUTROPHILS # (AUTO) 1.5 X 10^3 (1.8-7.8); NEUTROPHILS % (AUTO) 37 % (42-75); PLATELET COUNT 169 10^3/uL (130-400)
[2020-04-05 09:32] LABS: ALANINE AMINOTRANSFERASE 30 U/L (0-55); ALBUMIN 3.8 GM/DL (3.2-4.5); ALKALINE PHOSPHATASE 240 U/L (40-136); BILIRUBIN,TOTAL 0.4 MG/DL (0.1-1.0); BUN/CREATININE RATIO 11; CALCIUM 9.3 MG/DL (8.5-10.1); CARBON DIOXIDE 21 MMOL/L (21-32); CHLORIDE 98 MMOL/L (98-107); CREATININE SERUM 0.56 MG/DL (0.60-1.30); GFR ESTIMATED > 60; GLUCOSE 88 MG/DL (70-105); SODIUM 130 MMOL/L (135-145); TOTAL PROTEIN 7.3 GM/DL (6.4-8.2)
[2020-05-03 10:42] LABS: BASOPHILS % (AUTO) 0 % (0-10); EOSINOPHILS # (AUTO) 0.1 10^3/uL (0.0-0.3); EOSINOPHILS % (AUTO) 2 % (0-10); HEMATOCRIT 35 % (35-52); HEMOGLOBIN 11.3 G/DL (11.5-16.0); LYMPHOCYTES # (AUTO) 1.5 X 10^3 (1.0-4.0); LYMPHOCYTES % (AUTO) 33 % (12-44); MEAN CORPUSCULAR HEMOGLOBIN 32 PG (25-34); MEAN CORPUSCULAR HGB CONC 32 G/DL (32-36); MEAN CORPUSCULAR VOLUME 98 FL (80-99); MEAN PLATELET VOLUME 9.4 FL (7.4-10.4); MONOCYTES # (AUTO) 0.5 X 10^3 (0.0-1.0); MONOCYTES % (AUTO) 10 % (0-12); NEUTROPHILS # (AUTO) 2.4 X 10^3 (1.8-7.8); NEUTROPHILS % (AUTO) 55 % (42-75); PLATELET COUNT 140 10^3/uL (130-400); WHITE BLOOD COUNT 4.5 10^3/uL (4.3-11.0)
[2020-05-03 11:08] LABS: ALANINE AMINOTRANSFERASE 43 U/L (0-55); ALBUMIN 3.5 GM/DL (3.2-4.5); ALKALINE PHOSPHATASE 469 U/L (40-136); BILIRUBIN,TOTAL 0.3 MG/DL (0.1-1.0); BUN/CREATININE RATIO 13; CALCIUM 8.8 MG/DL (8.5-10.1); CARBON DIOXIDE 24 MMOL/L (21-32); CHLORIDE 100 MMOL/L (98-107); CREATININE SERUM 0.63 MG/DL (0.60-1.30); GFR ESTIMATED > 60; GLUCOSE 119 MG/DL (70-105); POTASSIUM 3.7 MMOL/L (3.6-5.0); SODIUM 134 MMOL/L (135-145); TOTAL PROTEIN 7.2 GM/DL (6.4-8.2)
[~2020-06-07 10:05] MED LIST changes: -BARIUM SUSPENSION 2.1% (VANILLA SILQ) 450 ML PO ONE; +BEVACIZUMAB IV SCH; -CATHETER FLUSH 10 ML SYR IV PRN; +D5W 500 ML IV (CANCER CTR) 500 ML IV SCH; +D5W IV SCH; +FAMOTIDINE 20MG/2ML IV (CANCER CTR) IV SCH; +FOSAPREPITANT (CANCER CENTER) 150 MG in NS (IVPB) CANCER CENTER ONLY 150 ML IV SCH; -HOLD METFORMIN - RECEIVED CONTRAST 20 ML VIAL IV SCH; -IOHEXOL 350 MG/ML 100 ML (OMNIPAQUE 350) VIAL IV ONE; +LEUCOVORIN CALCIUM 400 MG in D5W 250 ML IVPB (CANCER CTR) 250 ML IV SCH; -NS 100 ML (IVPB) BAG IV ONE; +NS IV SCH; +ONDANSETRON 8 MG, DEXAMETHASONE 4 MG/NS 50 ML IVPB (Cancer Ctr) IV SCH; +OXALIPLATIN IV SCH; +PANT20TA18; -PANT20TA3
[2020-06-07 10:30] LABS: BASOPHILS % (AUTO) 0 % (0-10); EOSINOPHILS # (AUTO) 0.2 10^3/uL (0.0-0.3); EOSINOPHILS % (AUTO) 3 % (0-10); HEMATOCRIT 37 % (35-52); HEMOGLOBIN 12.2 G/DL (11.5-16.0); LYMPHOCYTES # (AUTO) 1.7 X 10^3 (1.0-4.0); LYMPHOCYTES % (AUTO) 30 % (12-44); MEAN CORPUSCULAR HEMOGLOBIN 31 PG (25-34); MEAN CORPUSCULAR HGB CONC 33 G/DL (32-36); MEAN CORPUSCULAR VOLUME 96 FL (80-99); MEAN PLATELET VOLUME 8.8 FL (7.4-10.4); MONOCYTES # (AUTO) 0.5 X 10^3 (0.0-1.0); MONOCYTES % (AUTO) 10 % (0-12); NEUTROPHILS # (AUTO) 3.3 X 10^3 (1.8-7.8); NEUTROPHILS % (AUTO) 58 % (42-75); PLATELET COUNT 230 10^3/uL (130-400); WHITE BLOOD COUNT 5.7 10^3/uL (4.3-11.0)
[2020-06-07 10:48] LABS: ALANINE AMINOTRANSFERASE 64 U/L (0-55); ALBUMIN 3.7 GM/DL (3.2-4.5); ALKALINE PHOSPHATASE 453 U/L (40-136); BILIRUBIN,TOTAL 0.3 MG/DL (0.1-1.0); BUN/CREATININE RATIO 9; CALCIUM 8.8 MG/DL (8.5-10.1); CARBON DIOXIDE 26 MMOL/L (21-32); CHLORIDE 99 MMOL/L (98-107); CREATININE SERUM 0.54 MG/DL (0.60-1.30); GFR ESTIMATED > 60; GLUCOSE 81 MG/DL (70-105); POTASSIUM 3.7 MMOL/L (3.6-5.0); SODIUM 134 MMOL/L (135-145); TOTAL PROTEIN 7.2 GM/DL (6.4-8.2)
== END 2020-06-13 | disposition home or self-care (01) ==
LOC: ONC 10:05
PROVIDERS: ATTEND Internal Medicine Hematology & Oncology
DX: Z51.11 Encounter for antineoplastic chemotherapy (principal); C18.9 Malignant neoplasm of colon, unspecified; C77.2 Secondary and unspecified malignant neoplasm of intra-abdominal lymph nodes
CPT/HCPCS: 80053; 82378; 85025; 96367; 96368; 96375; 96411; 96413; 96521; G0463; 36591

== ENCOUNTER 2020-08-30 09:24 | Outpatient (RCR) | payer MEDICAID ==
[2020-07-05 09:19] LABS: BASOPHILS % (AUTO) 1 % (0-10); EOSINOPHILS # (AUTO) 0.2 10^3/uL (0.0-0.3); EOSINOPHILS % (AUTO) 3 % (0-10); HEMATOCRIT 36 % (35-52); HEMOGLOBIN 11.4 g/dL (11.5-16.0); LYMPHOCYTES # (AUTO) 1.6 10^3/uL (1.0-4.0); LYMPHOCYTES % (AUTO) 27 % (12-44); MEAN CORPUSCULAR HEMOGLOBIN 31 pg (25-34); MEAN CORPUSCULAR HGB CONC 32 g/dL (32-36); MEAN CORPUSCULAR VOLUME 96 fL (80-99); MEAN PLATELET VOLUME 9.1 fL (9.0-12.2); MONOCYTES # (AUTO) 0.5 10^3/uL (0.0-1.0); MONOCYTES % (AUTO) 8 % (0-12); NEUTROPHILS # (AUTO) 3.6 10^3/uL (1.8-7.8); NEUTROPHILS % (AUTO) 61 % (42-75); PLATELET COUNT 233 10^3/uL (130-400); WHITE BLOOD COUNT 5.9 10^3/uL (4.3-11.0)
[2020-07-05 09:43] LABS: ALANINE AMINOTRANSFERASE 59 U/L (0-55); ALBUMIN 3.6 GM/DL (3.2-4.5); ALKALINE PHOSPHATASE 655 U/L (40-136); BILIRUBIN,TOTAL 0.4 MG/DL (0.1-1.0); BUN/CREATININE RATIO 9; CARBON DIOXIDE 26 MMOL/L (21-32); CHLORIDE 99 MMOL/L (98-107); CREATININE SERUM 0.54 MG/DL (0.60-1.30); GFR ESTIMATED > 60; GLUCOSE 86 MG/DL (70-105); POTASSIUM 4.1 MMOL/L (3.6-5.0); SODIUM 134 MMOL/L (135-145)
[2020-08-02 09:22] LABS: BASOPHILS % (AUTO) 1 % (0-10); EOSINOPHILS # (AUTO) 0.1 10^3/uL (0.0-0.3); EOSINOPHILS % (AUTO) 2 % (0-10); HEMATOCRIT 36 % (35-52); HEMOGLOBIN 11.6 g/dL (11.5-16.0); LYMPHOCYTES # (AUTO) 1.1 10^3/uL (1.0-4.0); LYMPHOCYTES % (AUTO) 27 % (12-44); MEAN CORPUSCULAR HEMOGLOBIN 30 pg (25-34); MEAN CORPUSCULAR HGB CONC 32 g/dL (32-36); MEAN CORPUSCULAR VOLUME 92 fL (80-99); MEAN PLATELET VOLUME 9.2 fL (9.0-12.2); MONOCYTES # (AUTO) 0.3 10^3/uL (0.0-1.0); MONOCYTES % (AUTO) 8 % (0-12); NEUTROPHILS # (AUTO) 2.6 10^3/uL (1.8-7.8); NEUTROPHILS % (AUTO) 63 % (42-75); PLATELET COUNT 219 10^3/uL (130-400); WHITE BLOOD COUNT 4.1 10^3/uL (4.3-11.0)
[2020-08-02 09:45] LABS: ALANINE AMINOTRANSFERASE 19 U/L (0-55); ALBUMIN 3.7 GM/DL (3.2-4.5); ALKALINE PHOSPHATASE 244 U/L (40-136); BILIRUBIN,TOTAL 0.4 MG/DL (0.1-1.0); BUN/CREATININE RATIO 9; CALCIUM 8.8 MG/DL (8.5-10.1); CARBON DIOXIDE 25 MMOL/L (21-32); CHLORIDE 98 MMOL/L (98-107); CREATININE SERUM 0.66 MG/DL (0.60-1.30); GFR ESTIMATED > 60; GLUCOSE 128 MG/DL (70-105); POTASSIUM 3.7 MMOL/L (3.6-5.0); SODIUM 131 MMOL/L (135-145); TOTAL PROTEIN 6.9 GM/DL (6.4-8.2)
[~2020-08-30 09:24] MED LIST changes: -BEVACIZUMAB IV SCH; -D5W 500 ML IV (CANCER CTR) 500 ML IV SCH; -D5W IV SCH; -FAMOTIDINE 20MG/2ML IV (CANCER CTR) IV SCH; -FOSAPREPITANT (CANCER CENTER) 150 MG in NS (IVPB) CANCER CENTER ONLY 150 ML IV SCH; -LEUCOVORIN CALCIUM 400 MG in D5W 250 ML IVPB (CANCER CTR) 250 ML IV SCH; -NS IV SCH; -ONDANSETRON 8 MG, DEXAMETHASONE 4 MG/NS 50 ML IVPB (Cancer Ctr) IV SCH; -OXALIPLATIN IV SCH
== END 2020-09-26 10:23 | disposition home or self-care (01) ==
LOC: ONC 09:24
PROVIDERS: ATTEND Internal Medicine Hematology & Oncology
DX: Z51.11 Encounter for antineoplastic chemotherapy (principal); C18.9 Malignant neoplasm of colon, unspecified; C77.2 Secondary and unspecified malignant neoplasm of intra-abdominal lymph nodes; Z90.49 Acquired absence of other specified parts of digestive tract; Z82.49 Family history of ischemic heart disease and other diseases of the circulatory system; Z83.3 Family history of diabetes mellitus; Z87.891 Personal history of nicotine dependence
CPT/HCPCS: 80053; 82378; 85025; G0463; 36591; 96523

== ENCOUNTER 2020-12-20 09:03 | Outpatient (RCR) | payer MEDICAID ==
[2020-10-25 09:12] LABS: BASOPHILS % (AUTO) 1 % (0-10); EOSINOPHILS # (AUTO) 0.2 10^3/uL (0.0-0.3); EOSINOPHILS % (AUTO) 3 % (0-10); HEMATOCRIT 36 % (35-52); LYMPHOCYTES # (AUTO) 1.6 10^3/uL (1.0-4.0); LYMPHOCYTES % (AUTO) 29 % (12-44); MEAN CORPUSCULAR HEMOGLOBIN 30 pg (25-34); MEAN CORPUSCULAR HGB CONC 33 g/dL (32-36); MEAN CORPUSCULAR VOLUME 91 fL (80-99); MEAN PLATELET VOLUME 8.9 fL (9.0-12.2); MONOCYTES # (AUTO) 0.4 10^3/uL (0.0-1.0); MONOCYTES % (AUTO) 8 % (0-12); NEUTROPHILS # (AUTO) 3.3 10^3/uL (1.8-7.8); NEUTROPHILS % (AUTO) 60 % (42-75); PLATELET COUNT 202 10^3/uL (130-400); WHITE BLOOD COUNT 5.6 10^3/uL (4.3-11.0)
[2020-10-25 09:35] LABS: ALANINE AMINOTRANSFERASE 17 U/L (0-55); ALBUMIN 3.7 GM/DL (3.2-4.5); ALKALINE PHOSPHATASE 229 U/L (40-136); BILIRUBIN,TOTAL 0.2 MG/DL (0.1-1.0); BUN/CREATININE RATIO 11; CARBON DIOXIDE 25 MMOL/L (21-32); CHLORIDE 101 MMOL/L (98-107); CREATININE SERUM 0.62 MG/DL (0.60-1.30); GFR ESTIMATED > 60; GLUCOSE 159 MG/DL (70-105); POTASSIUM 3.7 MMOL/L (3.6-5.0); SODIUM 135 MMOL/L (135-145); TOTAL PROTEIN 6.9 GM/DL (6.4-8.2)
[~2020-12-20 09:03] MED LIST changes: -BARIUM SUSPENSION 2.1% (VANILLA SILQ) 450 ML PO ONE; -CATHETER FLUSH 10 ML SYR IV PRN; -HOLD METFORMIN - RECEIVED CONTRAST 20 ML VIAL IV SCH; -IOHEXOL 350 MG/ML 100 ML (OMNIPAQUE 350) VIAL IV ONE; -NS 100 ML (IVPB) BAG IV ONE
[2020-12-20 09:21] LABS: BASOPHILS % (AUTO) 1 % (0-10); EOSINOPHILS # (AUTO) 0.2 10^3/uL (0.0-0.3); EOSINOPHILS % (AUTO) 4 % (0-10); HEMATOCRIT 35 % (35-52); HEMOGLOBIN 11.7 g/dL (11.5-16.0); LYMPHOCYTES # (AUTO) 1.6 10^3/uL (1.0-4.0); LYMPHOCYTES % (AUTO) 28 % (12-44); MEAN CORPUSCULAR HEMOGLOBIN 30 pg (25-34); MEAN CORPUSCULAR HGB CONC 34 g/dL (32-36); MEAN CORPUSCULAR VOLUME 91 fL (80-99); MEAN PLATELET VOLUME 9.3 fL (9.0-12.2); MONOCYTES # (AUTO) 0.5 10^3/uL (0.0-1.0); MONOCYTES % (AUTO) 9 % (0-12); NEUTROPHILS # (AUTO) 3.3 10^3/uL (1.8-7.8); NEUTROPHILS % (AUTO) 58 % (42-75); PLATELET COUNT 198 10^3/uL (130-400); WHITE BLOOD COUNT 5.7 10^3/uL (4.3-11.0)
[2020-12-20 09:53] LABS: ALANINE AMINOTRANSFERASE 38 U/L (0-55); ALBUMIN 3.8 GM/DL (3.2-4.5); ALKALINE PHOSPHATASE 268 U/L (40-136); BILIRUBIN,TOTAL 0.4 MG/DL (0.1-1.0); BUN/CREATININE RATIO 9; CALCIUM 8.9 MG/DL (8.5-10.1); CARBON DIOXIDE 24 MMOL/L (21-32); CHLORIDE 100 MMOL/L (98-107); CREATININE SERUM 0.58 MG/DL (0.60-1.30); GFR ESTIMATED > 60; GLUCOSE 92 MG/DL (70-105); POTASSIUM 4.1 MMOL/L (3.6-5.0); SODIUM 134 MMOL/L (135-145); TOTAL PROTEIN 7.1 GM/DL (6.4-8.2)
== END 2020-12-26 | disposition home or self-care (01) ==
LOC: ONC 09:03
PROVIDERS: ATTEND Internal Medicine Hematology & Oncology
DX: Z51.11 Encounter for antineoplastic chemotherapy (principal); C18.9 Malignant neoplasm of colon, unspecified; C77.2 Secondary and unspecified malignant neoplasm of intra-abdominal lymph nodes; Z90.49 Acquired absence of other specified parts of digestive tract; Z82.49 Family history of ischemic heart disease and other diseases of the circulatory system; Z83.3 Family history of diabetes mellitus; Z87.891 Personal history of nicotine dependence
CPT/HCPCS: 36591; 80053; 82378; 85025; 96523

== ENCOUNTER → 2020-12-20 | Outpatient (CLI) | payer MEDICAID ==
[~2020-12-20] MED LIST changes: +BARIUM SUSPENSION 2.1% (VANILLA SILQ) 450 ML PO ONE; +CATHETER FLUSH 10 ML SYR IV PRN; +HOLD METFORMIN - RECEIVED CONTRAST 20 ML VIAL IV SCH; +IOHEXOL 350 MG/ML 100 ML (OMNIPAQUE 350) VIAL IV ONE; +NS 100 ML (IVPB) BAG IV ONE
--- NOTE | 2020-12-20 13:14 | Diagnostic Imaging Report ---
PROCEDURE: CT chest, abdomen, and pelvis with contrast. TECHNIQUE: Multiple contiguous axial images were obtained through the chest, abdomen, and pelvis after the administration of intravenous contrast. Auto Exposure Controls were utilized during the CT exam to meet ALARA standards for radiation dose reduction. INDICATION: Colon cancer for follow-up. Compared with studies 05/31/2020. CHEST: Heterogeneous air trapping and features of centrilobular emphysema remain most pronounced at the pulmonary apices and are noted as a chronic finding. There are no findings of pulmonary edema nor acute pneumonia. A sub-solid juxtapleural nodule in the left lower lobe measuring just over 3 mm is unchanged and is seen on studies dating back to 2019 and is presumed chronic and benign. No findings to suggest pulmonary involvement by metastatic disease. There is no axillary, hilar or mediastinal lymphadenopathy. No acute or suspect chest wall abnormality. Central venous catheter via right chest wall port has its tip in the lower SVC near the cavoatrial junction in good position. Abdomen pelvis: Liver, gallbladder, bile ducts, spleen, adrenals and pancreas all unremarkable. The kidneys are unobstructed and nonacute. There are renal hilar vascular calcifications. There is noninflamed diverticulosis of the patient's sigmoid colon. There is no bowel obstruction. No viscus perforation. No ascites. No omental infiltration, a few low-density left periaortic retroperitoneal lymph nodes are unchanged from multiple previous exams measuring maximal 1 cm. No mesenteric mass. No omental infiltration. No ascites. The urinary bladder unremarkable. There is no suspicious lytic or sclerotic bony lesion. IMPRESSION: CHEST: Centrilobular emphysema and nonaneurysmal atherosclerosis chronic. Juxtapleural sub-solid nodule 3 to 4 mm left lower lobe chronic and presumed benign. No findings suggestive of metastatic disease or acute abnormalities. ABDOMEN PELVIS: Mildly prominent left periaortic retroperitoneal lymph nodes. No suspicious mass. Negative liver. No obstructive phenomena, ascites, fluid collection, inflammatory process or acute abnormalities. Dictated by: Dictated on workstation # [id number]
== END ==
LOC: RAD 09:22
PROVIDERS: ATTEND Internal Medicine Hematology & Oncology
DX: C18.8 Malignant neoplasm of overlapping sites of colon (principal); C22.9 Malignant neoplasm of liver, not specified as primary or secondary; C77.2 Secondary and unspecified malignant neoplasm of intra-abdominal lymph nodes; J43.2 Centrilobular emphysema; R91.1 Solitary pulmonary nodule
CPT/HCPCS: 71260; 74177

== ENCOUNTER → 2020-12-27 | Outpatient (CLI) | payer MEDICAID ==
--- NOTE | 2020-12-27 11:45 | Diagnostic Imaging Report ---
INDICATION: Postmenopausal state. COMPARISON: None available. FINDINGS: AP Spine L1-L4: [BMD (g/cm2): 1.080] [T-Score: -1.0] [Z-Score: 1.3] [BMD Previous: na] [BMD % Change: na] LT Hip Neck: [BMD (g/cm2): 0.735] [T-Score: -2.2] [Z-Score: -0.3] LT Hip Total: [BMD (g/cm2):0.692] [T-Score:-2.5] [Z-Score: -0.8] [BMD Previous: na] [BMD % Change: na] RT Hip Neck: [BMD (g/cm2):0.755] [T-Score:-2.0] [Z-Score:-0.1] RT Hip Total: [BMD (g/cm2):0.693] [T-score:-2.5] [Z-Score:-0.8] [BMD Previous:na] [BMD % Change:na] *Indicates significant change from prior examination based on 95% confidence level. World Health Organization criteria for BMD interpretation classify patients as Normal (T-score at or above -1.0), Osteopenic (T-score between -1.0 and -2.5) or Osteoporotic (T-score at or below -2.5). LIMITATIONS AND MODIFICATION: None. IMPRESSION: 1. Osteoporosis. 2. Baseline examination. 3. See below National Osteoporosis Foundation guidelines on when to potentially initiate pharmacologic therapy. Based on the National Osteoporosis Foundation Guidelines, pharmacologic treatment should be initiated in any of the following, unless clinical conditions suggest otherwise: * Any patient with prior fragility fracture of the hip or vertebrae. A spine fracture indicates 5X risk for subsequent spine fracture and 2X risk for subsequent hip fracture. * Osteoporosis (T-score <-2.5). * Postmenopausal women and men age 50 and older with low bone mass/osteopenia (T-score between -1.0 and -2.5) by DXA and 10-year major osteoporotic fracture greater than 20% or a 10-year probability of hip fracture greater than 3%. These fracture risks are supplied above in the FRAX score, if applicable. * Clinician judgement and/or patient preferences may indicate treatment for people with 10-year fracture probabilities above or below these levels. Dictated by: Dictated on workstation # [id number]
== END ==
LOC: RAD 10:30
PROVIDERS: ATTEND Nurse Practitioner Family
DX: Z13.820 Encounter for screening for osteoporosis (principal); M81.0 Age-related osteoporosis without current pathological fracture; Z78.0 Asymptomatic menopausal state
CPT/HCPCS: 77080

== ENCOUNTER 2021-03-14 09:36 | Outpatient (RCR) | payer MEDICAID | END 2021-03-27 | disposition home or self-care (01) | LOC: ONC 09:36 | PROVIDERS: ATTEND Internal Medicine Hematology & Oncology | DX: C18.8 Malignant neoplasm of overlapping sites of colon (principal); C77.2 Secondary and unspecified malignant neoplasm of intra-abdominal lymph nodes; Z90.49 Acquired absence of other specified parts of digestive tract; Z82.49 Family history of ischemic heart disease and other diseases of the circulatory system; Z83.3 Family history of diabetes mellitus; Z87.891 Personal history of nicotine dependence; Z90.710 Acquired absence of both cervix and uterus; Z79.02 Long term (current) use of antithrombotics/antiplatelets; Z79.899 Other long term (current) drug therapy | CPT/HCPCS: 96523; 99213 ==

== ENCOUNTER 2021-07-18 09:32 | Outpatient (RCR) | payer MEDICAID ==
[2021-07-18 10:02] LABS: BASOPHILS % (AUTO) 1 % (0-10); EOSINOPHILS # (AUTO) 0.1 10^3/uL (0.0-0.3); EOSINOPHILS % (AUTO) 1 % (0-10); HEMATOCRIT 35 % (35-52); HEMOGLOBIN 11.8 g/dL (11.5-16.0); LYMPHOCYTES # (AUTO) 1.8 10^3/uL (1.0-4.0); LYMPHOCYTES % (AUTO) 31 % (12-44); MEAN CORPUSCULAR HEMOGLOBIN 31 pg (25-34); MEAN CORPUSCULAR HGB CONC 34 g/dL (32-36); MEAN CORPUSCULAR VOLUME 91 fL (80-99); MEAN PLATELET VOLUME 9.2 fL (9.0-12.2); MONOCYTES # (AUTO) 0.4 10^3/uL (0.0-1.0); MONOCYTES % (AUTO) 6 % (0-12); NEUTROPHILS # (AUTO) 3.5 10^3/uL (1.8-7.8); NEUTROPHILS % (AUTO) 61 % (42-75); PLATELET COUNT 241 10^3/uL (130-400); WHITE BLOOD COUNT 5.8 10^3/uL (4.3-11.0)
[2021-07-18 10:22] LABS: ALBUMIN 3.8 GM/DL (3.2-4.5); BILIRUBIN,TOTAL 0.3 MG/DL (0.1-1.0); CREATININE SERUM 0.63 MG/DL (0.60-1.30); POTASSIUM 4.3 MMOL/L (3.6-5.0)
[2021-07-18 10:34] LABS: CALCIUM 9.9 MG/DL (8.5-10.1)
== END 2021-07-24 | disposition home or self-care (01) ==
LOC: ONC 09:32
PROVIDERS: ATTEND Internal Medicine Hematology & Oncology
DX: Z45.2 Encounter for adjustment and management of vascular access device (principal); C18.8 Malignant neoplasm of overlapping sites of colon; C77.2 Secondary and unspecified malignant neoplasm of intra-abdominal lymph nodes; Z90.49 Acquired absence of other specified parts of digestive tract; Z82.49 Family history of ischemic heart disease and other diseases of the circulatory system; Z83.3 Family history of diabetes mellitus; Z87.891 Personal history of nicotine dependence; Z90.710 Acquired absence of both cervix and uterus; Z79.02 Long term (current) use of antithrombotics/antiplatelets; Z79.899 Other long term (current) drug therapy
CPT/HCPCS: 36591; 80053; 82378; 85025; 96523

== ENCOUNTER 2021-08-22 09:54 | Outpatient (RCR) | payer MEDICAID ==
[~2021-08-22 09:54] MED LIST changes: +ONDA-106; -ONDA8TAB15
== END 2021-09-22 | disposition home or self-care (01) ==
LOC: ONC 09:54
PROVIDERS: ATTEND Internal Medicine Hematology & Oncology
DX: Z45.2 Encounter for adjustment and management of vascular access device (principal); C18.8 Malignant neoplasm of overlapping sites of colon; C77.2 Secondary and unspecified malignant neoplasm of intra-abdominal lymph nodes; Z90.49 Acquired absence of other specified parts of digestive tract; Z87.891 Personal history of nicotine dependence; Z90.710 Acquired absence of both cervix and uterus; Z79.02 Long term (current) use of antithrombotics/antiplatelets; Z79.899 Other long term (current) drug therapy; Z82.49 Family history of ischemic heart disease and other diseases of the circulatory system; Z83.3 Family history of diabetes mellitus
CPT/HCPCS: 96523; G0463

== ENCOUNTER 2021-10-03 09:09 | Outpatient (RCR) | payer MEDICAID ==
[2021-10-09] MEDS ORDERED: FISH12002 PO (09:36)
[2021-10-09] MEDS ORDERED: CLON0.5T25 PO (09:36)
[2021-10-09] MEDS ORDERED: MULT-593 PO (09:36)
[2021-10-09] MEDS ORDERED: CARV6.252 PO (09:36)
[2021-10-09] MEDS ORDERED: ISOS30TA82 PO (09:36)
[2021-10-09] MEDS ORDERED: CALC-1049 PO (09:36)
[2021-10-09] MEDS ORDERED: RT-ALBUINH IH (09:36)
[2021-10-09] MEDS ORDERED: CYAN1TAB26 PO (09:36)
[2021-10-09] MEDS ORDERED: CHOL10007 PO (09:36)
[2021-10-09] MEDS ORDERED: FERR325T18 PO (09:36)
[2021-10-09] MEDS ORDERED: PANT20TA18 PO (09:36)
== END 2021-10-23 | disposition home or self-care (01) ==
LOC: ONC 09:09
PROVIDERS: ATTEND Internal Medicine Hematology & Oncology
DX: Z45.2 Encounter for adjustment and management of vascular access device (principal); Z85.038 Personal history of other malignant neoplasm of large intestine
CPT/HCPCS: 96523

== ENCOUNTER 2021-10-09 06:06 | Outpatient (CLI) | payer MEDICAID ==
[~2021-10-09] VITALS: Ht 149.9 cm; Wt 43.2 kg
[2021-10-09] MEDS ORDERED: CALC-1049 PO (09:36)
[2021-10-09] MEDS ORDERED: FERR325T18 PO (09:36)
[2021-10-09] MEDS ORDERED: MULT-593 PO (09:36)
[2021-10-09] MEDS ORDERED: CHOL10007 PO (09:36)
[2021-10-09] MEDS ORDERED: RT-ALBUINH IH (09:36)
[2021-10-09] MEDS ORDERED: CLON0.5T25 PO (09:36)
[2021-10-09] MEDS ORDERED: PANT20TA18 PO (09:36)
[2021-10-09] MEDS ORDERED: CARV6.252 PO (09:36)
[2021-10-09] MEDS ORDERED: CYAN1TAB26 PO (09:36)
[2021-10-09] MEDS ORDERED: FISH12002 PO (09:36)
[2021-10-09] MEDS ORDERED: ISOS30TA82 PO (09:36)
== END 2021-10-09 09:53 | disposition home or self-care (01) ==
LOC: PREOP 06:06
PROVIDERS: ATTEND Surgery
DX: Z01.818 Encounter for other preprocedural examination (principal)

== ENCOUNTER 2021-10-31 06:59 | Day surgery (SDC) | payer MEDICAID ==
[~2021-10-31] VITALS: Ht 150 cm; Wt 43.2 kg
[~2021-10-31 06:59] MED LIST changes: +CALC-1049 PO; +CHOL10007 PO; +CLON0.5T25 PO; +CYAN1TAB26 PO; +FERR325T18 PO; +FISH12002 PO; +ISOS30TA82 PO; +MULT-593 PO; +PANT20TA18 PO; +RT-ALBUINH IH
[2021-10-31] MEDS ORDERED: LACTATED RINGERS 1,000 ML IV ONE (07:07)
[2021-10-31] MEDS ORDERED: LACTATED RINGERS 1,000 ML IV STA (07:08)
[2021-10-31 07:16] VITALS: BP 130/65
[2021-10-31] MEDS ORDERED: PROPOFOL INJECTION 50 ML IV ONE (07:35)
[2021-10-31 08:20] VITALS: BP 73/39
--- NOTE | 2021-10-31 08:21 | Discharge Inst-Simple/Standard ---
Discharge Inst-Standard Patient Instructions/Follow Up Plan of Care/Instructions/FU: 2 weeks Adrian Activity as Tolerated: Yes Discharge Diet: Regular Diet JULIANNE MENDOZA DO Oct 31, 2021 08:21
--- NOTE | 2021-10-31 08:21 | Anesthesia-General Post-Op ---
MAC Patient Condition Mental Status/LOC: Same as Preop Cardiovascular: Satisfactory Nausea/Vomiting: Absent Respiratory: Satisfactory Pain: Controlled Complications: Absent Post Op Complications Complications None Follow Up Care/Instructions Patient Instructions None needed. Anesthesiology Discharge Order Discharge Order Patient is doing well, no complaints, stable vital signs, no apparent adverse anesthesia problems. No complications reported per nursing. TONA COOPER CRNA Oct 31, 2021 08:21
--- NOTE | 2021-10-31 08:22 | Progress Note-Post Operative ---
Post-Operative Progess Note Surgeon (s)/College Sports Assistant (s) Surgeon JULIANNE MENDOZA DO College Sports Assistant: na Pre-Operative Diagnosis hx colon cancer Post-Operative Diagnosis colon polyp Procedure & Operative Findings Date of Procedure 10/31/21 Procedure Performed/Findings colonoscopy c hot bx polypectomy Anesthesia Type per minister of religion Estimated Blood Loss Estimated blood loss (mL): none Specimens/Packing Specimens Removed sigmoid JULIANNE MENDOZA DO Oct 31, 2021 08:22
[2021-10-31 08:25] VITALS: BP 71/34
[2021-10-31 08:30] VITALS: BP 74/44
[2021-10-31 08:34] VITALS: BP 74/44
[2021-10-31 08:59] VITALS: BP 74/44
--- NOTE | 2021-10-31 12:53 | OPERATIVE REPORT ---
DATE OF SERVICE: 10/31/2021 PREOPERATIVE DIAGNOSIS: History of colon cancer. POSTOPERATIVE DIAGNOSIS: Colon polyp. PROCEDURE: Colonoscopy with hot biopsy polypectomy x1. SURGEON: Julianne Campbell DO ANESTHESIA: Per LEAFLET DISTRIBUTOR. ESTIMATED BLOOD LOSS: None. COMPLICATIONS: None. INDICATIONS: The patient is a 66-year-old female with history of colon cancer. She understands risks and benefits of procedure and wishes to proceed. Consent was signed in the chart. DESCRIPTION OF PROCEDURE: The patient was taken to the endoscopy suite, placed in left lateral recumbent position. Timeout was performed. Digital rectal exam was performed. No palpable polyps, masses or ulcerations. Scope was inserted in the rectum and advanced all the way to cecum with minimal difficulty. Prep was adequate. Scope was slowly retracted back. No polyps, masses or ulcerations in the cecum, ascending and transverse colon. The anastomosis was visualized and no evidence of any recurrence. Scope was continuously retracted back. In the sigmoid colon, small polyp was present, which hot biopsy polypectomy was performed. No polyps, masses or ulcerations within the remainder of the sigmoid and rectum. Scope was retroflexed in the rectum, noting no other pathology. Scope was returned to its normal position, slowly withdrawn until completely removed. The patient tolerated procedure well without any complications. She was taken to recovery room in stable condition. RECOMMENDATIONS: The patient will need repeat colonoscopy years 1, 3, and 5 postoperative. Any issues before that be seen at that time. Job ID: [id number] DocumentID: [id number] Dictated Date: 10/31/2021 08:24:36 Lamp Mechanic Date: 10/31/2021 12:52:52 Dictated By: JULIANNE CAMPBELL DO
== END 2021-10-31 09:05 | disposition home or self-care (01) ==
LOC: ENDO 06:59
PROVIDERS: ATTEND Surgery
DX: Z12.11 Encounter for screening for malignant neoplasm of colon (principal); D12.5 Benign neoplasm of sigmoid colon; I25.10 Atherosclerotic heart disease of native coronary artery without angina pectoris; I10 Essential (primary) hypertension; E78.5 Hyperlipidemia, unspecified; J44.9 Chronic obstructive pulmonary disease, unspecified; F17.210 Nicotine dependence, cigarettes, uncomplicated; Z79.82 Long term (current) use of aspirin; Z79.899 Other long term (current) drug therapy; Z79.02 Long term (current) use of antithrombotics/antiplatelets; Z85.038 Personal history of other malignant neoplasm of large intestine; Z83.3 Family history of diabetes mellitus
CPT/HCPCS: 88305

== ENCOUNTER 2022-02-13 09:28 | Outpatient (RCR) | payer MEDICARE, MEDICAID ==
[2022-02-13 09:42] LABS: BASOPHILS % (AUTO) 1 % (0-10); EOSINOPHILS # (AUTO) 0.2 10^3/uL (0.0-0.3); EOSINOPHILS % (AUTO) 3 % (0-10); HEMATOCRIT 31 % (35-52); HEMOGLOBIN 9.8 g/dL (11.5-16.0); LYMPHOCYTES # (AUTO) 2.1 10^3/uL (1.0-4.0); LYMPHOCYTES % (AUTO) 29 % (12-44); MEAN CORPUSCULAR HEMOGLOBIN 29 pg (25-34); MEAN CORPUSCULAR HGB CONC 32 g/dL (32-36); MEAN CORPUSCULAR VOLUME 90 fL (80-99); MEAN PLATELET VOLUME 9.1 fL (9.0-12.2); MONOCYTES # (AUTO) 0.6 10^3/uL (0.0-1.0); MONOCYTES % (AUTO) 8 % (0-12); NEUTROPHILS # (AUTO) 4.2 10^3/uL (1.8-7.8); NEUTROPHILS % (AUTO) 59 % (42-75); PLATELET COUNT 258 10^3/uL (130-400); WHITE BLOOD COUNT 7.1 10^3/uL (4.3-11.0)
[2022-02-13 10:07] LABS: ALBUMIN 3.5 GM/DL (3.2-4.5); BILIRUBIN,TOTAL 0.3 MG/DL (0.1-1.0); CALCIUM 9.1 MG/DL (8.5-10.1); CREATININE SERUM 0.58 MG/DL (0.60-1.30); POTASSIUM 4.4 MMOL/L (3.6-5.0); TOTAL PROTEIN 6.5 GM/DL (6.4-8.2)
== END 2022-02-20 | disposition home or self-care (01) ==
LOC: ONC 09:28
PROVIDERS: ATTEND Internal Medicine Hematology & Oncology
DX: Z45.2 Encounter for adjustment and management of vascular access device (principal); Z85.038 Personal history of other malignant neoplasm of large intestine
CPT/HCPCS: 36591; 80053; 82378; 85025; 96523

== ENCOUNTER 2022-02-22 09:54 | Outpatient (RCR) | payer MEDICARE, MEDICAID | END 2022-03-22 | disposition home or self-care (01) | LOC: ONC 09:54 | PROVIDERS: ATTEND Internal Medicine Hematology & Oncology | DX: C18.9 Malignant neoplasm of colon, unspecified (principal); C77.2 Secondary and unspecified malignant neoplasm of intra-abdominal lymph nodes; D50.9 Iron deficiency anemia, unspecified; D63.0 Anemia in neoplastic disease | CPT/HCPCS: 82728; 83540; 83550; G0463; 36415; 99213 ==

== ENCOUNTER 2022-04-26 10:06 | Outpatient (RCR) | payer MEDICARE, MEDICAID ==
[2022-04-26 10:34] LABS: BASOPHILS % (AUTO) 1 % (0-10); EOSINOPHILS # (AUTO) 0.2 10^3/uL (0.0-0.3); EOSINOPHILS % (AUTO) 3 % (0-10); HEMATOCRIT 28 % (35-52); LYMPHOCYTES # (AUTO) 1.6 10^3/uL (1.0-4.0); LYMPHOCYTES % (AUTO) 28 % (12-44); MEAN CORPUSCULAR HEMOGLOBIN 29 pg (25-34); MEAN CORPUSCULAR HGB CONC 32 g/dL (32-36); MEAN CORPUSCULAR VOLUME 92 fL (80-99); MEAN PLATELET VOLUME 9.1 fL (9.0-12.2); MONOCYTES # (AUTO) 0.5 10^3/uL (0.0-1.0); MONOCYTES % (AUTO) 8 % (0-12); NEUTROPHILS # (AUTO) 3.4 10^3/uL (1.8-7.8); NEUTROPHILS % (AUTO) 60 % (42-75); PLATELET COUNT 278 10^3/uL (130-400); WHITE BLOOD COUNT 5.7 10^3/uL (4.3-11.0)
[2022-04-26 10:56] LABS: ALBUMIN 3.5 GM/DL (3.2-4.5); BILIRUBIN,TOTAL 0.2 MG/DL (0.1-1.0); CALCIUM 9.1 MG/DL (8.5-10.1); CREATININE SERUM 0.61 MG/DL (0.60-1.30); TOTAL PROTEIN 6.3 GM/DL (6.4-8.2)
== END 2022-05-23 13:57 | disposition home or self-care (01) ==
LOC: ONC 10:06
PROVIDERS: ATTEND Internal Medicine Hematology & Oncology
DX: Z45.2 Encounter for adjustment and management of vascular access device (principal); C18.9 Malignant neoplasm of colon, unspecified; C77.2 Secondary and unspecified malignant neoplasm of intra-abdominal lymph nodes; D50.9 Iron deficiency anemia, unspecified; Z90.710 Acquired absence of both cervix and uterus
CPT/HCPCS: 80053; 82378; 82728; 83540; 83550; 85025; G0463; 36591

== ENCOUNTER → 2022-04-30 | Outpatient (CLI) | payer MEDICARE, MEDICAID ==
[~2022-04-30] MED LIST changes: +CATHETER FLUSH 10 ML SYR IV PRN; +HOLD METFORMIN - RECEIVED CONTRAST 20 ML VIAL IV SCH; +IOHEXOL 350 MG/ML 100 ML (OMNIPAQUE 350) VIAL IV ONE; +NS 100 ML (IVPB) BAG IV ONE
--- NOTE | 2022-04-30 15:11 | Diagnostic Imaging Report ---
PROCEDURE: CT of the chest and pelvis with contrast and CT of the abdomen with and without contrast. TECHNIQUE: Precontrast acquisitions were acquired through the abdomen. Multiple contiguous axial images were obtained through the chest, abdomen and pelvis after administration of intravenous contrast. Auto Exposure Controls were utilized during the CT exam to meet ALARA standards for radiation dose reduction. INDICATION: Colon cancer of overlapping sites. COMPARED with CT chest, abdomen and pelvis 12/20/2020. CHEST: Air trapping and centrilobular emphysematous changes most severe in the pulmonary apices, chronic. Subcentimeter juxtapleural nodule left lower lobe, stable, chronic and benign. No new or suspicious lung mass. There is no axillary, hilar or mediastinal lymphadenopathy. Some subpleural linear scarring in the lingular segment of the left upper lobe, chronic. There are coronary artery and aortic atherosclerotic vascular calcifications without aneurysm. No axillary, hilar or mediastinal adenopathy. No pneumonia. No chest effusion. ABDOMEN PELVIS: There is no liver mass. There is no bile duct dilatation. The spleen, adrenals and pancreas are unremarkable. The kidneys unobstructed. The atherosclerotic aortoiliac vessels nonaneurysmal. There is a normal appendix. There is a large bowel anastomosis without findings of its complication. No bowel, biliary or urinary tract obstruction. There is no lymphadenopathy. There is no ascites, no abscess, hematoma or acute fluid collection. And there is no suspicious lytic or sclerotic bony lesion. IMPRESSION: Stable chronic findings with no evidence for metastatic disease or neoplastic recurrence. Dictated by: Dictated on workstation # [id number]
== END ==
LOC: RAD 11:15
PROVIDERS: ATTEND Internal Medicine Hematology & Oncology
DX: C18.8 Malignant neoplasm of overlapping sites of colon (principal); C77.2 Secondary and unspecified malignant neoplasm of intra-abdominal lymph nodes; C22.9 Malignant neoplasm of liver, not specified as primary or secondary
CPT/HCPCS: 71260; 74178

== ENCOUNTER 2022-06-13 10:30 | Outpatient (RCR) | payer MEDICARE, MEDICAID ==
[~2022-06-13 10:30] MED LIST changes: -CATHETER FLUSH 10 ML SYR IV PRN; +CYANOCOBALAMIN INJ 1000 MCG/ML INJ ONE; -HOLD METFORMIN - RECEIVED CONTRAST 20 ML VIAL IV SCH; -IOHEXOL 350 MG/ML 100 ML (OMNIPAQUE 350) VIAL IV ONE; -NS 100 ML (IVPB) BAG IV ONE
[2022-06-13 11:16] LABS: BASOPHILS % (AUTO) 1 % (0-10); EOSINOPHILS # (AUTO) 0.2 10^3/uL (0.0-0.3); EOSINOPHILS % (AUTO) 3 % (0-10); HEMATOCRIT 30 % (35-52); HEMOGLOBIN 9.4 g/dL (11.5-16.0); LYMPHOCYTES # (AUTO) 1.5 10^3/uL (1.0-4.0); LYMPHOCYTES % (AUTO) 19 % (12-44); MEAN CORPUSCULAR HEMOGLOBIN 29 pg (25-34); MEAN CORPUSCULAR HGB CONC 31 g/dL (32-36); MEAN CORPUSCULAR VOLUME 93 fL (80-99); MEAN PLATELET VOLUME 9.2 fL (9.0-12.2); MONOCYTES # (AUTO) 0.6 10^3/uL (0.0-1.0); MONOCYTES % (AUTO) 7 % (0-12); NEUTROPHILS # (AUTO) 5.5 10^3/uL (1.8-7.8); NEUTROPHILS % (AUTO) 70 % (42-75); PLATELET COUNT 261 10^3/uL (130-400); WHITE BLOOD COUNT 7.9 10^3/uL (4.3-11.0)
[2022-06-14] MEDS ORDERED: CYANOCOBALAMIN INJ 1000 MCG/ML INJ ONE (10:54)
== END 2022-06-22 | disposition home or self-care (01) ==
LOC: ONC 10:30
PROVIDERS: ATTEND Internal Medicine Hematology & Oncology
DX: C18.9 Malignant neoplasm of colon, unspecified (principal); C77.2 Secondary and unspecified malignant neoplasm of intra-abdominal lymph nodes; D50.9 Iron deficiency anemia, unspecified; Z90.710 Acquired absence of both cervix and uterus
CPT/HCPCS: 96372; G0463; 36415; 85025

== ENCOUNTER 2022-07-16 09:50 | Outpatient (RCR) | payer MEDICARE, MEDICAID ==
[2022-07-09 09:44] LABS: BASOPHILS % (AUTO) 1 % (0-10); EOSINOPHILS # (AUTO) 0.3 10^3/uL (0.0-0.3); EOSINOPHILS % (AUTO) 5 % (0-10); HEMATOCRIT 28 % (35-52); LYMPHOCYTES # (AUTO) 1.5 10^3/uL (1.0-4.0); LYMPHOCYTES % (AUTO) 27 % (12-44); MEAN CORPUSCULAR HEMOGLOBIN 29 pg (25-34); MEAN CORPUSCULAR HGB CONC 32 g/dL (32-36); MEAN CORPUSCULAR VOLUME 90 fL (80-99); MEAN PLATELET VOLUME 9.2 fL (9.0-12.2); MONOCYTES # (AUTO) 0.5 10^3/uL (0.0-1.0); MONOCYTES % (AUTO) 10 % (0-12); NEUTROPHILS # (AUTO) 3.3 10^3/uL (1.8-7.8); NEUTROPHILS % (AUTO) 58 % (42-75); PLATELET COUNT 293 10^3/uL (130-400); WHITE BLOOD COUNT 5.7 10^3/uL (4.3-11.0)
[2022-07-09 10:16] LABS: ALBUMIN 3.4 GM/DL (3.2-4.5); BILIRUBIN,TOTAL 0.3 MG/DL (0.1-1.0); CALCIUM 9.1 MG/DL (8.5-10.1); CREATININE SERUM 0.64 MG/DL (0.60-1.30); POTASSIUM 4.3 MMOL/L (3.6-5.0); TOTAL PROTEIN 6.5 GM/DL (6.4-8.2)
[~2022-07-16 09:50] MED LIST changes: +ALBU8.5H6 IH; -RT-ALBUINH IH
== END 2022-07-23 | disposition home or self-care (01) ==
LOC: ONC 09:50
PROVIDERS: ATTEND Internal Medicine Hematology & Oncology
DX: C18.8 Malignant neoplasm of overlapping sites of colon (principal); C77.2 Secondary and unspecified malignant neoplasm of intra-abdominal lymph nodes; Z90.710 Acquired absence of both cervix and uterus
CPT/HCPCS: 36591; 80053; 82378; 82728; 83540; 83550; 85025; 96372; 99213

== ENCOUNTER → 2022-09-04 | Outpatient (CLI) | payer MEDICARE, MEDICAID ==
[~2022-09-04] VITALS: Ht 149 cm; Wt 43.0 kg
[~2022-09-04] MED LIST changes: +CATHETER FLUSH 10 ML SYR IVP PRN; +CLOP-31 PO; -CLOP75TA69 PO; -CYANOCOBALAMIN INJ 1000 MCG/ML INJ ONE; +REGADENOSON 0.4 MG/5 ML SYR (LEXISCAN) IV ONE
[2022-09-04 12:48] VITALS: BP 135/60
--- NOTE | 2022-09-05 08:40 | STRESS TEST ---
DATE OF SERVICE: 09/04/2022 RESTING AND POST REGADENOSON TECHNETIUM-99M TETROFOSMIN SPECT CT IMAGING ORDERING PHYSICIAN: Dr. Boss. PRIMARY PHYSICIAN: Jose Estrella APRN. CLINICAL DIAGNOSIS: Shortness of breath. Baseline images were carried out after injection of 10.97 mCi technetium-99m Tetrofosmin. This was followed by 0.4 mg regadenoson and 31.8 mCi of technetium-99 Tetrofosmin for stress imaging. The electrocardiogram showed sinus rhythm at baseline. It did not change significantly with the regadenoson infusion. The patient tolerated the procedure well. She reported a headache after regadenoson infusion, which resolved in a few minutes. Review of images at rest and following stress does not indicate any significant perfusion defects consistent with myocardial ischemia or infarction. Gated images show normal global left ventricular systolic function with normal regional wall motion. Left ventricular ejection fraction is calculated to be 62%. CONCLUSIONS: 1. No evidence of any significant myocardial ischemia or infarction on this study. 2. Normal regional wall motion. 3. Normal global left ventricular systolic function with a calculated ejection fraction of 62%. Job ID: [id number] DocumentID: [id number] Dictated Date: 09/05/2022 08:13:37 Director Of Institutional Research Date: 09/05/2022 08:38:00 Dictated By: AJSON BOSS MD; CARMEN; FACP; FACC;
== END ==
LOC: CARD 09:25
PROVIDERS: ATTEND Internal Medicine Cardiovascular Disease
DX: R06.09 Other forms of dyspnea (principal)
CPT/HCPCS: 78452; 93017; A9502; C8929; 93306

== ENCOUNTER → 2022-10-12 | Outpatient (CLI) | payer MEDICARE, MEDICAID ==
[~2022-10-12] MED LIST changes: -CATHETER FLUSH 10 ML SYR IVP PRN; +CIPR500T5 PO; +METR-145 PO; +ONDA4TAB11 SL; -REGADENOSON 0.4 MG/5 ML SYR (LEXISCAN) IV ONE
[2022-10-12] MEDS: NS 100 ML (IVPB) BAG IV ONE (13:57)
[2022-10-12] MEDS: CATHETER FLUSH 10 ML SYR IV PRN (13:57)
[2022-10-12] MEDS: IOHEXOL 350 MG/ML 100 ML (OMNIPAQUE 350) VIAL IV ONE (13:57)
--- NOTE | 2022-10-12 16:10 | Diagnostic Imaging Report ---
PROCEDURE: CT chest, abdomen, and pelvis with contrast. TECHNIQUE: Multiple contiguous axial images were obtained through the chest, abdomen, and pelvis after the administration of intravenous contrast. Auto Exposure Controls were utilized during the CT exam to meet ALARA standards for radiation dose reduction. INDICATION: Colon cancer, follow-up. COMPARISON: Comparison is made with prior CT from 12/20/2020. FINDINGS: CT CHEST: A right chest wall port has the tip at the SVC-right atrial junction. No axillary lymphadenopathy is detected. No mediastinal or hilar lymphadenopathy is detected. No pericardial or pleural fluid is detected. Centrilobular emphysematous changes throughout both lungs, greatest in the apices, are again noted. Small nodular densities in the left lower lobe all appear to be stable. No new pulmonary mass is detected. There is some scarring in bilateral upper lobes. CT ABDOMEN AND PELVIS: No discrete liver mass is detected. Gallbladder is unremarkable. There is no biliary ductal dilatation. Pancreas and spleen are unremarkable. No adrenal mass is detected. Aorta is heavily calcified but nonaneurysmal. The previously noted mildly prominent left para-aortic lymph nodes appear similar to prior exam. Bowel loops do not appear to be appreciably dilated. There is no obstruction. There does appear to be some bowel wall thickening involving the right colon and portions of the transverse colon near the anastomosis. A nonspecific colitis cannot be entirely excluded. Appendix is mildly dilated but no significant periappendiceal inflammation is seen. There is no free fluid or fluid collection identified. There is no free air. The bladder is unremarkable. Uterus is surgically absent. No definite pelvic lymphadenopathy is seen. IMPRESSION: 1. No evidence of thoracic lymphadenopathy or pulmonary metastatic disease. There are several small nodules in the left lower lobe which appear stable. 2. Stable central retroperitoneal lymphadenopathy since prior CT. There does appear to be long segment of wall thickening of the right colon and portions of the transverse colon, consistent with nonspecific colitis. The study is otherwise unremarkable. Dictated by: Dictated on workstation # [id number]
== END ==
LOC: RAD 12:28
PROVIDERS: ATTEND Internal Medicine Hematology & Oncology
DX: C77.2 Secondary and unspecified malignant neoplasm of intra-abdominal lymph nodes (principal); R91.8 Other nonspecific abnormal finding of lung field
CPT/HCPCS: 71260; 74177

== ENCOUNTER 2022-10-14 | Emergency (ER) | payer MEDICARE, MEDICAID ==
[~2022-10-14] VITALS: Ht 150 cm; Wt 41.9 kg
[~2022-10-14] MED LIST changes: -CIPR500T5 PO; -METR-145 PO; -ONDA4TAB11 SL
[2022-10-14] MEDS ORDERED: LACTATED RINGERS 1,000 ML IV ONE (02:45)
[2022-10-14] MEDS ORDERED: ONDANSETRON 4 MG/2 ML (SDV) Z0FRAN IVP ONE ×2 (02:45→04:00)
--- NOTE | 2022-10-14 02:46 | ED Abdominal Pain ---
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 Pt reports abdominal pain beginning Saturday, she went to clinic and got a shot, which relieved pain, but not diarrhea. Pain is back, so she came to ER. Pt has been nauseous, but not vomited. Pt reports taking Pepto with no relief. Source of Information: Patient, Old Records Exam Limitations: No Limitations History of Present Illness Date Seen by Provider: Oct 14, 2022 Time Seen by Provider: 02:21 Initial Comments This 67-year-old woman presents to the emergency room with complaints of at least 3 days of diarrhea and abdominal pain that began yesterday morning. Her abdominal pain concerned her because of history of colon cancer. She has nausea without vomiting. She denies fever. She denies any hematochezia or melena. Stools have been dark after using Pepto-Bismol. She had a CT scan performed on Saturday as an outpatient study. Colitis was seen on that study but no evidence of malignancy. No other acute abnormalities were described. [facility] is her primary care provider and Dr. Titus is her oncologist. She was recently on Augmentin for a respiratory infection. Allergies and Home Medications Allergies Coded Allergies: codeine (Verified Adverse Reaction, Unknown, 07/06/19) "CAUSES HALLUCINATIONS" Patient Home Medication List Home Medication List Reviewed: Yes Albuterol Sulfate (Ventolin Hfa) 1 Puff Puff, 2 PUFF IH Q4H, (Reported) Entered as Reported by: JESSE THOMPSON on 10/09/21 0936 Aspirin (Aspirin) 81 Mg Tab.chew, 81 MG PO DAILY, (Reported) Entered as Reported by: EFRAÍN MASTERS on 08/12/19 0847 Atorvastatin Calcium (Atorvastatin Calcium) 40 Mg Tablet, 40 MG PO HS, (Reported) Entered as Reported by: KEYSHA VENTURA on 07/06/19 1033 Calcium Carb/Vitamin D3/Vit K1 (Viactiv 650 mg-12.5 Mcg Chew) 1 Each Tab.chew, 1 EACH PO DAILY, (Reported) Entered as Reported by: JESSE THOMPSON on 10/09/21 0936 Carvedilol (Carvedilol) 6.25 Mg Tablet, 6.25 MG PO BID, (Reported) Entered as Reported by: JESSE THOMPSON on 10/09/21935 Cholecalciferol (Vitamin D3) (Vitamin D3) 25 Mcg Capsule, 25 MCG PO DAILY, (Reported) Entered as Reported by: JESSE THOMPSON on 10/09/21935 Ciprofloxacin HCl (Ciprofloxacin HCl) 500 Mg Tablet, 500 MG PO BID Prescribed by: JANAY BILL on 10/14/22 042 Clonazepam (Clonazepam) 0.5 Mg Tab.rapdis, 0.5 MG PO HS, (Reported) Entered as Reported by: JESSE THOMPSON on 10/09/21935 Clopidogrel Bisulfate (Plavix) 75 Mg Tablet, 75 MG PO DAILY, (Reported) Entered as Reported by: KEYSHA VENTURA on 07/06/19 103 Cyanocobalamin/Folic Acid (Vitamin U40-Bhozs Acid Tablet) 1 Each Tablet, 1 EACH PO DAILY, (Reported) Entered as Reported by: JESSE THOMPSON on 10/09/21935 Ferrous Sulfate (Ferrous Sulfate) 325 Mg Tablet, 325 MG PO, (Reported) Entered as Reported by: JESSE THOMPSON on 10/09/21935 Fish Oil/Borage/Flax/Om3,6,9#1 ([place] 3-6-9 1,200 mg Softgel) 1,200 Mg Capsule, 1,200 MG PO, (Reported) Entered as Reported by: JESSE THOMPSON on 10/09/21935 Hydrocodone/Acetaminophen (Hydrocodone-Acetamin 5-325 mg) 5 Mg-325 Mg Tablet, 1 TAB PO Q4H PRN for PAIN-MODERATE (5-7) Prescribed by: JANAY BILL on 10/14/22 042 Isosorbide Mononitrate (Isosorbide Mononitrate ER) 30 Mg Tab.er.24h, 30 MG PO DAILY, (Reported) Entered as Reported by: JESSE THOMPSON on 10/09/21935 Metronidazole (Metronidazole) 500 Mg Tablet, 500 MG PO QID Prescribed by: JANAY BILL on 10/14/22419 Multivitamin with Minerals (Multiple Vitamin) 1 Each Tablet, 1 EACH PO DAILY, (Reported) Entered as Reported by: JESSE THOMPSON on 10/09/21935 Ondansetron (Ondansetron Odt) 4 Mg Tab.rapdis, 4 MG SL Q4H PRN for NAUSEA/VOMITING Prescribed by: JANAY BILL on 10/14/22 0420 Ondansetron HCl (Ondansetron HCl) 4 Mg Tablet, 4 MG PO Q6H PRN for NAUSEA/VOMITING-1ST LINE, (Reported) Entered as Reported by: EFRAÍN MASTERS on 08/12/19 0847 Pantoprazole Sodium (Pantoprazole Sodium) 20 Mg Tablet., (Reported) Entered as Reported by: YOLETTE RESTREPO on 11/29/19 194 Pantoprazole Sodium (Pantoprazole Sodium) 20 Mg Tablet.dr, 20 MG PO DAILY, (Reported) Entered as Reported by: JESSE THOMPSON on 10/09/21 0936 Review of Systems Review of Systems Constitutional: no symptoms reported EENTM: No Symptoms Reported Respiratory: See HPI Cardiovascular: No Symptoms Reported Gastrointestinal: See HPI Genitourinary: No Symptoms Reported Musculoskeletal: no symptoms reported Skin: no symptoms reported Psychiatric/Neurological: No Symptoms Reported Endocrine: No Symptoms Reported Hematologic/Lymphatic: No Symptoms Reported Past Ztlmcrr-Epnqol-[place] Hx Patient Social History Tobacco Use?: Yes Tobacco type used: Cigarettes Smoking Status: Current Everyday Smoker Use of E-Cig and/or Vaping dev: No Substance use?: No Alcohol Use?: No Pt feels they are or have been: No Immunizations Up To Date Tetanus Booster (TDap): Unknown Influenza Vaccine Up-to-Date: Yes; Up-to-Date First/Initial COVID19 Vaccinat: NOVEMBER 2020 Second COVID19 Vaccination Junaid: NOVEMBER 2020 Third COVID19 Vaccination Date: DECEMBER 2020 Seasonal Allergies Seasonal Allergies: No Past Medical History Surgeries: Yes (port in the right chest) Abdominal (Abdominal tumor resection), Bowel Surgery, Coronary Stent, Hysterectomy Respiratory: Yes (Pulmonary nodules) COPD Cardiac: Yes Coronary Artery Disease, Heart Attack, High Cholesterol, Hypertension Neurological: No : No Reproductive Disorders: No 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 Genitourinary: No Gastrointestinal: No Musculoskeletal: No Endocrine: No HEENT: No Cancer: Yes Liver (Colon primary), Colon Did You Recieve Any Treatments: Yes What Type of Treatment Did You: Chemotherapy, Surgical Intervention Psychosocial: Yes Anxiety Integumentary: No Blood Disorders: No Family Medical History Diabetes mellitus 19 MOTHER FH: heart attack 19 FATHER G8 BROTHER ( AGE 37) FH: lung disease 19 MOTHER High cholesterol 19 FATHER Heart Disease, Diabetes Physical Exam Vital Signs Vital Signs - First Documented 10/14/22 00:18 Temp 36.9 Pulse 110 Resp 18 B/P (MAP) 128/77 (94) Pulse Ox 95 O2 Delivery Room Air Capillary Refill : Height/Weight/BMI Height: '" Weight: lbs. oz. kg; 18.00 BMI Method: General Appearance: WD/WN, thin, other (Mildly anxious) HEENT: normal ENT inspection, other (Oropharynx dry) Neck: normal inspection Respiratory: lungs clear, normal breath sounds, no respiratory distress Cardiovascular: regular rate, rhythm, no edema, no murmur Gastrointestinal: normal bowel sounds, soft; No distended; tenderness; No mass Extremities: normal inspection, no pedal edema Neurologic/Psychiatric: no motor/sensory deficits, alert, oriented x 3, other (Mildly anxious) Skin: normal color, warm/dry Progress/Results/Core Measures Results/Orders Lab Results Laboratory Tests Test 10/14/22 03:00 10/14/22 04:10 Range/Units White Blood Count 9.7 4.3-11.0 10^3/uL Red Blood Count 3.85 3.80-5.11 10^6/uL Hemoglobin 10.9 L 11.5-16.0 g/dL Hematocrit 33 L 35-52 % Mean Corpuscular Volume 87 80-99 fL Mean Corpuscular Hemoglobin 28 25-34 pg Mean Corpuscular Hemoglobin Concent 33 32-36 g/dL Red Cell Distribution Width 15.8 H 10.0-14.5 % Platelet Count 192 130-400 10^3/uL Mean Platelet Volume 9.9 9.0-12.2 fL Immature Granulocyte % (Auto) 0 % Neutrophils (%) (Auto) 75 42-75 % Lymphocytes (%) (Auto) 15 12-44 % Monocytes (%) (Auto) 9 0-12 % Eosinophils (%) (Auto) 1 0-10 % Basophils (%) (Auto) 0 0-10 % Neutrophils # (Auto) 7.3 1.8-7.8 10^3/uL Lymphocytes # (Auto) 1.4 1.0-4.0 10^3/uL Monocytes # (Auto) 0.8 0.0-1.0 10^3/uL Eosinophils # (Auto) 0.1 0.0-0.3 10^3/uL Basophils # (Auto) 0.0 0.0-0.1 10^3/uL Immature Granulocyte # (Auto) 0.0 0.0-0.1 10^3/uL Sodium Level 129 L 135-145 MMOL/L Potassium Level 3.2 L 3.6-5.0 MMOL/L Chloride Level 96 L 98-107 MMOL/L Carbon Dioxide Level 21 21-32 MMOL/L Anion Gap 12 5-14 MMOL/L Blood Urea Nitrogen 12 7-18 MG/DL Creatinine 0.67 0.60-1.30 MG/DL Estimat Glomerular Filtration Rate 97 BUN/Creatinine Ratio 18 Glucose Level 79 70-105 MG/DL Calcium Level 8.7 8.5-10.1 MG/DL Corrected Calcium 9.2 8.5-10.1 MG/DL Magnesium Level 1.5 L 1.6-2.4 MG/DL Total Bilirubin 0.3 0.1-1.0 MG/DL Aspartate Amino Transf (AST/SGOT) 23 5-34 U/L Alanine Aminotransferase (ALT/SGPT) 16 0-55 U/L Alkaline Phosphatase 122 40-136 U/L C-Reactive Protein High Sensitivity 14.24 H 0.00-0.50 MG/DL Total Protein 6.6 6.4-8.2 GM/DL Albumin 3.4 3.2-4.5 GM/DL Lipase 11 8-78 U/L Urine Color YELLOW Urine Clarity CLOUDY Urine pH 6.0 5-9 Urine Specific [place] 1.025 H 1.016-1.022 Urine Protein TRACE H NEGATIVE Urine Glucose (UA) NEGATIVE NEGATIVE Urine Ketones 1+ H NEGATIVE Urine Nitrite NEGATIVE NEGATIVE Urine Bilirubin 1+ H NEGATIVE Urine Urobilinogen 0.2 < = 1.0 MG/DL Urine Leukocyte Esterase 2+ H NEGATIVE Urine RBC (Auto) TRACE-I H NEGATIVE Urine RBC NONE /HPF Urine WBC 5-10 H /HPF Urine Squamous Epithelial Cells 10-25 H /HPF Urine Crystals NONE /LPF Urine Bacteria MODERATE H /HPF Urine Casts PRESENT /LPF Urine Hyaline Casts RARE /LPF Urine Mucus NEGATIVE /LPF Urine Culture Indicated YES Micro Results Microbiology 10/14/22 Fecal Leukocyte Stain - Final, Complete 10/14/22 C. difficile GDH Antigen & Toxins - Final, Complete 10/14/22 Stool Culture - Final, Complete My Orders Orders - JANAY CHOW MD Cbc With Automated Diff (10/14/22 02:40) Comprehensive Metabolic Panel (10/14/22 02:40) Hs C Reactive Protein (10/14/22 02:40) Lipase (10/14/22 02:40) Magnesium (10/14/22 02:40) Ua Culture If Indicated (10/14/22 02:40) Ed Iv/Invasive Line Start (10/14/22 02:40) Lactated Ringers (Lr 1000 Ml Iv Solution (10/14/22 02:45) Ondansetron Injection (Zofran Injectio (10/14/22 02:45) Fentanyl Inj (Sublimaze Injection) (10/14/22 03:00) Piperacillin Sodium/Tazobactam (Zosyn Vi (10/14/22 04:00) Potassium Chloride (Tablet) (Klor Con Ta (10/14/22 04:00) Magnesium Oxide Tablet (Mag Ox Tablet) (10/14/22 03:53) Ondansetron Injection (Zofran Injectio (10/14/22 04:00) Stool Culture (10/14/22 04:12) Fecal Wbc (10/14/22 04:12) C Difficile Ag + Toxin A/B. (10/14/22 04:12) Urine Culture (10/14/22 04:10) Medications Given in ED Vital Signs/I&O 10/14/22 10/14/22 00:18 05:17 Temp 36.9 36.9 Pulse 110 96 Resp 18 16 B/P (MAP) 128/77 (94) 98/62 Pulse Ox 95 96 O2 Delivery Room Air Room Air Blood Pressure Mean: 94 Progress Progress Note : Progress Note Patient was interviewed and examined. She was found to have abdominal tenderness. CT scan reviewed from Saturday revealed colitis. Presentation is consistent with colitis. With recent Augmentin use there is concern for C. difficile. A stool specimen was sent to test for C. difficile toxin. Results were pending at the time of discharge. Patient was hydrated with IV fluids and given a dose of Zosyn for initial treatment of colitis. She was then prescribed Cipro and Flagyl for further treatment. Nausea was treated with Zofran. Potassium and magnesium were replaced orally. There is also suspicion of UTI. Pain was treated with fentanyl. See discharge instructions for further discussion. Departure Impression Primary Impression: Colitis Additional Impressions: Diarrhea Qualified Codes: R19.7 - Diarrhea, unspecified Hypokalemia Hypomagnesemia Disposition: HOME, SELF-CARE Condition: Improved Departure-Patient Inst. Decision time for Depature: 04:21 Referrals: [facility] [place] (PCP/Family) Primary Care Physician Patient Instructions: Colitis Add. Discharge Instructions: Start with a clear liquid diet. Drink plenty of clear liquids to stay well- hydrated. Gradually advance your diet with small quantities of bland food as tolerated. Avoid dairy products, fatty foods, and greasy foods until your diarrhea has been resolved for at least 48 hours. Complete your antibiotics as prescribed. Follow-up with your primary care provider soon as possible. Please call Saturday for an appointment. Review stool cultures from the hospital if available at your follow-up appointment. You may take hydrocodone as prescribed for moderate or more intense pain. Take Tylenol (acetaminophen) up to 1000 mg every 6 hours as needed for more mild pain. Return to care if you have worsening symptoms despite following these instructions. All discharge instructions reviewed with patient and/or family. Voiced understanding. Scripts Hydrocodone/Acetaminophen (Hydrocodone-Acetamin 5-325 mg) 5 Mg-325 Mg Tablet 1 TAB PO Q4H PRN for PAIN-MODERATE (5-7), #10 TAB Prov: JANAY CHOW MD 10/14/22 Metronidazole (Metronidazole) 500 Mg Tablet 500 MG PO QID, #28 TAB Prov: JANAY CHOW MD 10/14/22 Ciprofloxacin HCl (Ciprofloxacin HCl) 500 Mg Tablet 500 MG PO BID, #14 TAB Prov: JANAY CHOW MD 10/14/22 Ondansetron (Ondansetron Odt) 4 Mg Tab.rapdis 4 MG SL Q4H PRN for NAUSEA/VOMITING, #10 TAB Prov: JANAY CHOW MD 10/14/22 Copy Copies To 1: [facility] [place] Copies To 2: IRVIN TITUS MD, JOSHUA T MD Oct 14, 2022 02:46
[2022-10-14] MEDS ORDERED: fentaNYL INJ 100 MCG/2 ML AMP IVP ONE (03:00)
[2022-10-14 03:07] LABS: BASOPHILS % (AUTO) 0 % (0-10); EOSINOPHILS # (AUTO) 0.1 10^3/uL (0.0-0.3); EOSINOPHILS % (AUTO) 1 % (0-10); HEMATOCRIT 33 % (35-52); HEMOGLOBIN 10.9 g/dL (11.5-16.0); LYMPHOCYTES # (AUTO) 1.4 10^3/uL (1.0-4.0); LYMPHOCYTES % (AUTO) 15 % (12-44); MEAN CORPUSCULAR HEMOGLOBIN 28 pg (25-34); MEAN CORPUSCULAR HGB CONC 33 g/dL (32-36); MEAN CORPUSCULAR VOLUME 87 fL (80-99); MEAN PLATELET VOLUME 9.9 fL (9.0-12.2); MONOCYTES # (AUTO) 0.8 10^3/uL (0.0-1.0); MONOCYTES % (AUTO) 9 % (0-12); NEUTROPHILS # (AUTO) 7.3 10^3/uL (1.8-7.8); NEUTROPHILS % (AUTO) 75 % (42-75); PLATELET COUNT 192 10^3/uL (130-400); WHITE BLOOD COUNT 9.7 10^3/uL (4.3-11.0)
[2022-10-14 03:19] LABS: ALBUMIN 3.4 GM/DL (3.2-4.5); POTASSIUM 3.2 MMOL/L (3.6-5.0)
[2022-10-14 03:20] LABS: CALCIUM 8.7 MG/DL (8.5-10.1)
[2022-10-14 03:21] LABS: TOTAL PROTEIN 6.6 GM/DL (6.4-8.2)
[2022-10-14 03:23] LABS: BILIRUBIN,TOTAL 0.3 MG/DL (0.1-1.0)
[2022-10-14 03:25] LABS: CREATININE SERUM 0.67 MG/DL (0.60-1.30)
[2022-10-14 03:28] LABS: MAGNESIUM 1.5 MG/DL (1.6-2.4)
[2022-10-14] MEDS ORDERED: MAGNESIUM OXIDE (MAG-OX)400 MG TAB PO STA (03:53)
[2022-10-14] MEDS ORDERED: KCL 10 MEQ TAB (MICRO K) PO ONE (04:00)
[2022-10-14] MEDS ORDERED: PIPERACILLIN SODIUM/TAZOBACTAM 4.5 GM in NS (IVPB) 100 ML IV ONE (04:00)
[2022-10-14] MEDS ORDERED: ONDA4TAB11 SL (04:20)
[2022-10-14] MEDS ORDERED: ACHD5005 PO (04:20)
[2022-10-14] MEDS ORDERED: CIPR500T5 PO (04:20)
[2022-10-14] MEDS ORDERED: METR-145 PO (04:20)
[2022-10-14 04:35] LABS: BILIRUBIN,URINE 1+ (NEGATIVE); CLARITY,URINE CLOUDY; COLOR,URINE YELLOW; GLUCOSE, URINE (UA) NEGATIVE (NEGATIVE); KETONES,URINE 1+ (NEGATIVE); LEUKOCYTE ESTERASE ,URINE 2+ (NEGATIVE); NITRITE,URINE NEGATIVE (NEGATIVE); PROTEIN,URINE TRACE (NEGATIVE)
[2022-10-14 04:52] LABS: BACTERIA,URINE MODERATE /HPF
[2022-10-14 04:53] LABS: HYALINE CASTS, URINE RARE /LPF
[2022-10-14 05:17] VITALS: BP 98/62
== END 2022-10-14 05:20 | disposition home or self-care (01) ==
LOC: EDUNIT# → ER 00:02
DX: K52.9 Noninfective gastroenteritis and colitis, unspecified (principal); E87.6 Hypokalemia; E83.42 Hypomagnesemia; J98.8 Other specified respiratory disorders; F17.210 Nicotine dependence, cigarettes, uncomplicated; Z85.038 Personal history of other malignant neoplasm of large intestine; Z92.21 Personal history of antineoplastic chemotherapy; Z98.890 Other specified postprocedural states; Z88.5 Allergy status to narcotic agent
CPT/HCPCS: 36415; 80053; 81000; 83690; 83735; 85025; 86141; 87015; 87046; 87077; 87088; 87324; 87449; 87899; 89055

== ENCOUNTER 2022-10-19 08:52 | Outpatient (RCR) | payer MEDICARE, MEDICAID ==
[2022-10-12 12:25] LABS: BASOPHILS % (AUTO) 0 % (0-10); EOSINOPHILS % (AUTO) 0 % (0-10); HEMATOCRIT 34 % (35-52); LYMPHOCYTES # (AUTO) 1.1 10^3/uL (1.0-4.0); LYMPHOCYTES % (AUTO) 9 % (12-44); MEAN CORPUSCULAR HEMOGLOBIN 28 pg (25-34); MEAN CORPUSCULAR HGB CONC 33 g/dL (32-36); MEAN CORPUSCULAR VOLUME 87 fL (80-99); MEAN PLATELET VOLUME 9.6 fL (9.0-12.2); MONOCYTES # (AUTO) 0.6 10^3/uL (0.0-1.0); MONOCYTES % (AUTO) 5 % (0-12); NEUTROPHILS # (AUTO) 10.2 10^3/uL (1.8-7.8); NEUTROPHILS % (AUTO) 85 % (42-75); PLATELET COUNT 217 10^3/uL (130-400)
[2022-10-12 12:39] LABS: ALBUMIN 3.3 GM/DL (3.2-4.5); BILIRUBIN,TOTAL 0.4 MG/DL (0.1-1.0); CALCIUM 8.5 MG/DL (8.5-10.1); CREATININE SERUM 0.6 MG/DL (0.60-1.30); POTASSIUM 3.5 MMOL/L (3.6-5.0); TOTAL PROTEIN 6.6 GM/DL (6.4-8.2)
[~2022-10-19 08:52] MED LIST changes: +CIPR500T5 PO; +METR-145 PO; +ONDA4TAB11 SL
== END 2022-10-23 | disposition home or self-care (01) ==
LOC: ONC 08:52
PROVIDERS: ATTEND Internal Medicine Hematology & Oncology
DX: I25.10 Atherosclerotic heart disease of native coronary artery without angina pectoris (principal); I65.23 Occlusion and stenosis of bilateral carotid arteries; E78.2 Mixed hyperlipidemia; F17.210 Nicotine dependence, cigarettes, uncomplicated; J44.9 Chronic obstructive pulmonary disease, unspecified; R06.09 Other forms of dyspnea; Z85.038 Personal history of other malignant neoplasm of large intestine; Z90.710 Acquired absence of both cervix and uterus
CPT/HCPCS: 80053; 82378; 85025; 99213

== ENCOUNTER 2023-01-17 09:08 | Outpatient (RCR) | payer MEDICARE, MEDICAID | END 2023-01-20 | disposition home or self-care (01) | LOC: ONC 09:08 | PROVIDERS: ATTEND Internal Medicine Hematology & Oncology | DX: C18.8 Malignant neoplasm of overlapping sites of colon (principal) ==

== ENCOUNTER → 2023-03-25 | Outpatient (CLI) | payer MEDICARE, MEDICAID ==
[~2023-03-25] MED LIST changes: +HOLD METFORMIN - RECEIVED CONTRAST 20 ML VIAL IV SCH; +IOHEXOL 350 MG/ML 100 ML (OMNIPAQUE 350) VIAL IV ONE; +NS 100 ML (IVPB) BAG IV ONE
--- NOTE | 2023-03-25 13:14 | Diagnostic Imaging Report ---
EXAMINATION: CT chest, abdomen and pelvis with intravenous contrast. TECHNIQUE: Multiple contiguous axial images were obtained through the chest, abdomen and pelvis after the uneventful administration of intravenous contrast. All CT scans use one or more of the following dose optimizing techniques: automated exposure control, MA and/or KvP adjustment based on patient size and exam type or iterative reconstruction. HISTORY: Colon and liver cancer COMPARISON: 10/12/2022 FINDINGS: Thyroid: The visualized thyroid gland is normal. Mediastinum: Heart size is normal without significant pericardial effusion. Calcifications of the aorta and coronary vessels. Thoracic aorta is normal in caliber. No suspicious lymphadenopathy. Lungs and airways: There are background emphysematous changes in the lungs. Increasing groundglass opacities seen throughout the lungs. Increasing diffuse reticulonodular opacities throughout the lungs. No pleural effusion or pneumothorax. The airways are normal. Solid organs: The liver is normal without focal lesion. The gallbladder is normal. There is no biliary ductal dilation. Pancreas is normal. Spleen is normal. Adrenal glands are normal. The kidneys are normal without hydronephrosis. Bowel: The stomach and small bowel are normal without obstruction. Surgical changes of the colon. The appendix is normal. Peritoneum: There is no intraperitoneal free fluid or free air. No suspicious lymphadenopathy. Vasculature: Calcification of the aorta without aneurysm. Musculoskeletal: Degenerative changes of the spine without suspicious osseous lesion or compression fracture. Pelvis: The uterus is surgically absent. No adnexal mass. The urinary bladder is normal. IMPRESSION: 1. Patchy groundglass reticulonodular opacities throughout the lungs. Findings favor an atypical multifocal pneumonia, but given history of cancer, short-term CT followup is recommended after treatment resolution of symptoms to exclude true underlying pulmonary lesions. 2. Surgical changes of the colon without evidence of metastatic disease within the abdomen or pelvis. Dictated by: Dictated on workstation # [id number]
== END ==
LOC: RAD 10:15
PROVIDERS: ATTEND Internal Medicine Hematology & Oncology
DX: C77.2 Secondary and unspecified malignant neoplasm of intra-abdominal lymph nodes (principal); R91.8 Other nonspecific abnormal finding of lung field; Z98.890 Other specified postprocedural states
CPT/HCPCS: 71260; 74177

== ENCOUNTER 2023-04-18 10:09 | Outpatient (RCR) | payer MEDICARE, MEDICAID ==
[2023-03-25 10:43] LABS: BASOPHILS # (AUTO) 0.1 10^3/uL (0.0-0.1); BASOPHILS % (AUTO) 1 % (0-10); EOSINOPHILS # (AUTO) 0.5 10^3/uL (0.0-0.3); EOSINOPHILS % (AUTO) 7 % (0-10); HEMATOCRIT 31 % (35-52); HEMOGLOBIN 10.5 g/dL (11.5-16.0); LYMPHOCYTES # (AUTO) 1.4 10^3/uL (1.0-4.0); LYMPHOCYTES % (AUTO) 22 % (12-44); MEAN CORPUSCULAR HEMOGLOBIN 32 pg (25-34); MEAN CORPUSCULAR HGB CONC 34 g/dL (32-36); MEAN CORPUSCULAR VOLUME 95 fL (80-99); MONOCYTES # (AUTO) 0.5 10^3/uL (0.0-1.0); MONOCYTES % (AUTO) 8 % (0-12); NEUTROPHILS % (AUTO) 61 % (42-75); PLATELET COUNT 245 10^3/uL (130-400); WHITE BLOOD COUNT 6.5 10^3/uL (4.3-11.0)
[2023-03-25 11:00] LABS: ALBUMIN 3.6 GM/DL (3.2-4.5); BILIRUBIN,TOTAL 0.4 MG/DL (0.1-1.0); CALCIUM 9.1 MG/DL (8.5-10.1); CREATININE SERUM 0.59 MG/DL (0.60-1.30); POTASSIUM 3.9 MMOL/L (3.6-5.0); TOTAL PROTEIN 6.7 GM/DL (6.4-8.2)
[~2023-04-18 10:09] MED LIST changes: -HOLD METFORMIN - RECEIVED CONTRAST 20 ML VIAL IV SCH; -IOHEXOL 350 MG/ML 100 ML (OMNIPAQUE 350) VIAL IV ONE; -NS 100 ML (IVPB) BAG IV ONE
== END 2023-04-22 | disposition home or self-care (01) ==
LOC: ONC 10:09
PROVIDERS: ATTEND Internal Medicine Hematology & Oncology
DX: C18.9 Malignant neoplasm of colon, unspecified (principal); C77.2 Secondary and unspecified malignant neoplasm of intra-abdominal lymph nodes; C78.7 Secondary malignant neoplasm of liver and intrahepatic bile duct; D50.9 Iron deficiency anemia, unspecified; Z90.710 Acquired absence of both cervix and uterus; Z72.0 Tobacco use
CPT/HCPCS: 80053; 82378; 83540; 83550; 85025

== ENCOUNTER → 2023-06-25 | Outpatient (CLI) | payer MEDICARE, MEDICAID ==
[~2023-06-25] MED LIST changes: +HOLD METFORMIN - RECEIVED CONTRAST 20 ML VIAL IV SCH; +IOHEXOL 350 MG/ML 100 ML (OMNIPAQUE 350) VIAL IV ONE; +NS 100 ML (IVPB) BAG IV ONE
--- NOTE | 2023-06-25 11:20 | Diagnostic Imaging Report ---
EXAMINATION: CT chest, abdomen and pelvis with intravenous contrast. TECHNIQUE: Multiple contiguous axial images were obtained through the chest, abdomen and pelvis after the uneventful administration of intravenous contrast. All CT scans use one or more of the following dose optimizing techniques: automated exposure control, MA and/or KvP adjustment based on patient size and exam type or iterative reconstruction. HISTORY: History of liver and colon cancer. COMPARISON: 03/25/2023 FINDINGS: Thyroid: The visualized thyroid gland is normal. Mediastinum: Heart size is mildly enlarged without significant pericardial effusion. Calcifications of the aorta and coronary vessels. Thoracic aorta is normal in caliber. A right-sided [id number] is present. No new suspicious or pathologically enlarged lymph nodes within the chest. Lungs and airways: There are background emphysematous changes of the lungs. Prominent scarring or fibrosis within the medial right upper lobe. Linear atelectasis or scarring within the lung bases. No significant pleural effusion or pneumothorax. Decreased reticulonodular groundglass opacities within the lungs compared to 03/25/2023. There are few residual opacities within the right upper and right middle lobes. Stable left lower lobe subpleural pulmonary nodule measuring up to 0.4 cm. No new suspicious pulmonary lesion. The airways are normal. Solid organs: The liver is normal without focal lesion. The gallbladder is normal. There is no biliary ductal dilation. Pancreas is normal. Spleen is normal. Adrenal glands are normal. The kidneys are normal without hydronephrosis. Bowel: The stomach and small bowel are normal without obstruction. Surgical changes of the colon. The appendix is normal. Peritoneum: There is no intraperitoneal free fluid or free air. No suspicious lymphadenopathy. Vasculature: Calcification of the aorta without aneurysm. Musculoskeletal: Degenerative changes of the spine without suspicious osseous lesion or compression fracture. Pelvis: The uterus is surgically absent. No adnexal mass. The urinary bladder is normal. IMPRESSION: 1. Decreasing but persistent reticulonodular groundglass opacities within the lungs compared to prior exam. Recommend continued CT surveillance. 2. No new findings of metastatic disease within the chest, abdomen, or pelvis. Dictated by: Dictated on workstation # [id number]
== END ==
LOC: RAD 09:45
PROVIDERS: ATTEND Internal Medicine Hematology & Oncology
DX: C77.2 Secondary and unspecified malignant neoplasm of intra-abdominal lymph nodes (principal); R91.8 Other nonspecific abnormal finding of lung field; Z85.05 Personal history of malignant neoplasm of liver
CPT/HCPCS: 71260; 74177

== ENCOUNTER 2023-07-01 09:54 | Outpatient (RCR) | payer MEDICARE, MEDICAID ==
[2023-06-25 09:21] LABS: BASOPHILS # (AUTO) 0.1 10^3/uL (0.0-0.1); BASOPHILS % (AUTO) 1 % (0-10); EOSINOPHILS # (AUTO) 0.5 10^3/uL (0.0-0.3); EOSINOPHILS % (AUTO) 7 % (0-10); HEMATOCRIT 30 % (35-52); HEMOGLOBIN 9.6 g/dL (11.5-16.0); LYMPHOCYTES % (AUTO) 28 % (12-44); MEAN CORPUSCULAR HEMOGLOBIN 31 pg (25-34); MEAN CORPUSCULAR HGB CONC 33 g/dL (32-36); MEAN CORPUSCULAR VOLUME 95 fL (80-99); MEAN PLATELET VOLUME 9.2 fL (9.0-12.2); MONOCYTES # (AUTO) 0.5 10^3/uL (0.0-1.0); MONOCYTES % (AUTO) 7 % (0-12); NEUTROPHILS % (AUTO) 58 % (42-75); PLATELET COUNT 231 10^3/uL (130-400)
[2023-06-25 09:40] LABS: ALBUMIN 3.2 GM/DL (3.2-4.5); BILIRUBIN,TOTAL 0.4 MG/DL (0.1-1.0); CALCIUM 8.2 MG/DL (8.5-10.1); CREATININE SERUM 0.58 MG/DL (0.60-1.30); POTASSIUM 3.8 MMOL/L (3.6-5.0); TOTAL PROTEIN 6.3 GM/DL (6.4-8.2)
[~2023-07-01 09:54] MED LIST changes: -HOLD METFORMIN - RECEIVED CONTRAST 20 ML VIAL IV SCH; -IOHEXOL 350 MG/ML 100 ML (OMNIPAQUE 350) VIAL IV ONE; -NS 100 ML (IVPB) BAG IV ONE
== END 2023-07-23 | disposition home or self-care (01) ==
LOC: ONC 09:54
PROVIDERS: ATTEND Internal Medicine Hematology & Oncology
DX: C18.9 Malignant neoplasm of colon, unspecified (principal); C77.2 Secondary and unspecified malignant neoplasm of intra-abdominal lymph nodes; C78.7 Secondary malignant neoplasm of liver and intrahepatic bile duct; D50.9 Iron deficiency anemia, unspecified; Z90.710 Acquired absence of both cervix and uterus; Z72.0 Tobacco use
CPT/HCPCS: 36415; 80053; 82378; 82728; 83540; 83550; 85025